=== PATIENT | male | born 1950 | race Caucasian/White ===

== ENCOUNTER 2020-04-14 14:26 | Emergency (ER) | payer MEDICARE, SELFPAY ==
[2020-04-14 14:54] VITALS: PULSE 81; RESP 16; TEMP 36.8; O2SAT 95; BMI 31.0
--- NOTE | 2020-04-14 15:15 | CT_ITS ---
EXAMINATION: CT ABDOMEN AND PELVIS WITHOUT CONTRAST CLINICAL INFORMATION: Gross hematuria. COMPARISON: None TECHNIQUE: Multidetector volumetric imaging was performed from the superior aspect of the liver through the pubic symphysis. Sagittal and coronal reformatted images were obtained on the technologist's workstation. This CT examination was performed using dose optimization techniques as appropriate, variously including the following: *Automated exposure control *Adjustment of mA and/or kV according to patient size (this includes techniques or standardized protocols for targeted exams where dose is matched to indication/reason for exam; i.e. extremities or head) *Use of iterative reconstruction technique DLP: 596 mGy-cm FINDINGS: LUNG BASES: Linear scarring versus atelectasis in the left lung base. LIVER, GALLBLADDER, AND BILIARY TREE: The liver is normal in size, shape, and attenuation. No focal hepatic lesion or biliary ductal dilatation is present. Cholelithiasis measuring up to 2.4 cm. No gallbladder wall thickening or associated inflammatory change. PANCREAS: Unremarkable. SPLEEN: Unremarkable. ADRENAL GLANDS: Unremarkable. KIDNEYS AND URETERS: The right kidney is normal in size, shape, and contour. There is no right-sided hydronephrosis or nephrolithiasis. No right-sided hydroureter. Evaluation of the left renal parenchyma is limited without contrast; however, there appears to be a hyperdense lobulated mass within the anterior aspect of the upper pole measuring 4.4 x 3.4 x 4.7 cm. There is asymmetric left perinephric renal stranding. No left-sided nephrolithiasis, hydronephrosis, or hydroureter. BLADDER: Unremarkable. GASTROINTESTINAL TRACT: Scattered diverticulosis without evidence of acute diverticulitis. No bowel wall thickening or associated inflammatory change. No small- or large-bowel obstruction. Unremarkable appendix. PERITONEAL CAVITY: No intra-abdominal free air or free fluid. ABDOMINAL WALL: No significant hernia is appreciated. LYMPH NODES: No significant lymphadenopathy. Evaluation somewhat limited without IV contrast. VASCULAR: No abdominal aortic dilatation. Scattered atherosclerotic calcifications throughout the abdominal aorta and its branch vessels. Unremarkable IVC. PELVIC VISCERA: Coarse calcifications within the prostate. OSSEOUS STRUCTURES: Unremarkable. CT/CT abdomen pelvis wo con IMPRESSION: 1. Left upper pole renal mass measuring approximately 4.7 cm in greatest dimension. Evaluation is limited without IV contrast. Asymmetric left perinephric stranding. Findings are concerning for a neoplastic lesion and MRI of the abdomen without and with contrast could help further evaluate. 2. No hydronephrosis, hydroureter, or nephrolithiasis. Unremarkable urinary bladder. 3. No significant lymphadenopathy, however, evaluation is limited without IV contrast. 4. Cholelithiasis without evidence of acute cholecystitis. 5. Diverticulosis. No small- or large-bowel obstruction. Unremarkable appendix. This critical result was discussed with Dr. Jackson at 4:09 PM on 04/14/2020 and it was ascertained that the content and urgency of the report was understood at the time of direct communication.
[2020-04-14] MEDS: 0.9 % Sodium Chloride 500 ML 1000 ML IV (15:36)
[2020-04-14 15:44] LABS: Basophils Absolute Auto 0.1 X10*3/uL (0.0-0.2); Basophils Percent Auto 0.6 % (0-2); Eosinophils Absolute Auto 0.2 X10*3/uL (0.0-0.4); Eosinophils Percent Auto 1.6 % (0-4); Hematocrit 50.3 % (42-52); Hemoglobin 17.2 g/dl (14.0-18.0); Imm Gran Abs Auto 0.05 X10*3/uL (0.00-0.03); Imm Gran Pct Auto 0.4 % (0.0-0.4); Lymphocytes Absolute Auto 1.5 X10*3/uL (1.2-4.9); Lymphocytes Percent Auto 13.1 % (20-40); MANUAL DIFF FLAG NO; Mean Corpuscular HGB Conc 34.2 g/dl (31.0-36.0); Mean Corpuscular Hemoglobin 31.8 pg (27.0-33.0); Mean Platelet Volume 11.4 fL (9.4-12.4); Monocytes Absolute Auto 1.1 X10*3/uL (0.1-1.2); Monocytes Percent Auto 9.2 % (2-11); Neutrophils Absolute Auto 8.6 X10*3/uL (2.0-8.3); Neutrophils Percent Auto 75.1 % (45-73); Platelet Count 152 X10*3/uL (160-400); Red Blood Count 5.41 X10*6/uL (4.60-5.80); Red Cell Distribution Width 14.4 % (11.0-16.0); White Blood Count 11.5 X10*3/uL (4.8-10.8)
[2020-04-14 15:50] LABS: INTERNATIONAL NORM RATIO 1.2 (0.9-1.1)
[2020-04-14 15:52] LABS: Partial Thromboplastin Time 37.2 SEC (24.1-38.0)
[2020-04-14 16:08] LABS: Alanine Aminotransferase 20 U/L (0-40); Albumin Level 4.7 g/dL (3.5-5.0); Alkaline Phosphatase 135 U/L (39-117); Anion Gap 14 (12-20); Aspartate Amino Transferase 18 U/L (5-37); Bilirubin Direct 0.9 mg/dL (0.0-0.5); Bilirubin Total 1.9 mg/dL (0.0-1.0); Blood Urea Nitrogen 10 mg/dL (9-16); Calcium 9.3 mg/dL (8.4-10.2); Carbon Dioxide 27 mmol/L (22-29); Chloride 100 mmol/L (96-108); Estimated Glomerular Filt Rate > 60; Glucose Random 117 mg/dL (60-115); Lipase 50 U/L (8-78); Sodium 137 mmol/L (135-145); Total Protein 8.1 g/dL (6.5-8.0)
[2020-04-14 16:51] LABS: Appearance Urine TURBID; Color Urine RED; Glucose Urine UA NEG (NEG); Leukocyte Esterase Urine NEG (NEG); Nitrite Urine NEG (NEG); Specific Gravity - Urine 1.015 (1.005-1.025); Urine Blood 3+ (NEG); Urine Ketones NEG (NEG); Urine Protein 2+ MG/DL (NEG-TRACE)
[2020-04-14 16:54] LABS: RBC Urine TNTC /HPF (0); UACC CULT YES
--- NOTE | 2020-04-14 16:58 | ED.MALEGU ---
HPI - Male Genitourinary General Chief complaint: Urogenital-Male Stated complaint: BLOOD IN URINE Time Seen by Provider: 04/14/20 15:15 Source: patient Mode of arrival: ambulatory Limitations: no limitations History of Present Illness HPI Narrative: hematuria, painless, since yesterday, patient had another episode last week but resolved on its own, no history of trauma injury. Onset (ago): day(s) (1) Duration: constant Severity: moderate Quality: other ( nonpainful) Exacerbating factors: urination Related Data Allergies Allergy/AdvReac Type Severity Reaction Status Date / Time No Known Allergies Allergy Unverified 03/01/20 16:02 Review of Systems Review of Systems: all other systems are reviewed and are negative Constitutional: Reports as per HPI and Reports no additional constitutional complaints Eyes: Reports as per HPI and Reports no additional eye complaints Reports system reviewed and no additional complaints, except as documented Cardiovascular: Reports as per HPI and Reports no additional cardiovascular complaints Respiratory: Reports as per HPI and Reports no additional respiratory complaints Gastrointestinal: Reports as per HPI and Reports no additional gastrointestinal complaints Genitourinary: Reports no additional female genitourinary complaints Musculoskeletal: Reports no additional musculoskeletal complaints Skin/Breast: Reports system reviewed and no additional complaints, except as docu Psychiatric: Reports no additional psychiatric complaints Endocrine: Reports no additional endocrine complaints Hematologic/Lymphatic: Reports no additional hematologic/lymphatic complaints Allergic/Immunologic: Reports no additional allergic/immunologic complaints Reports system reviewed and no additional complaints, except as documented and Reports Abnormal speech present [facility] Past Medical History Medical History BPH (benign prostatic hyperplasia) Hypertension Surgical History History of quadruple bypass Social History Social History Alcohol intake: never Smoking Status: Never smoker Use of substances other than those prescribed or required for medical reasons: No Advance Directives: No Advance Directives Information Provided: No Physical Exam Vital Signs: Vital Signs: Vital Signs Temp Pulse Resp Pulse Ox 04/14/20 14:54 98.2 F 81 16 95 Body Mass Index 31.0 vital signs have been reviewed as normal and appeared to be correct. Heart rate normal. Respiration rate normal. Temperature normal. Oxygen saturation normal. Appearance: Alert. Oriented X3. No acute distress. Head: Normal external exam. Normocephalic. Atraumatic. No Ledezma signs noted. No raccoon eyes noted Eyes: PERRLA. EOMI. Conjunctiva and sclera normal. Eyelids normal. ENT: EAC normal. TM's Normal. Pharynx normal. Uvula midline. Moist mucous membranes. No trismus noted. No drooling noted. No muffled voice noted. Neck: Normal inspection. Neck supple. FROM. No adenopathy. Thyroid Normal. No meningeal signs. No neck mass noted. CVS: Normal heart rate and rhythm. Heart sound normal. No murmurs noted. Pulses normal throughout. Respiratory: No respiratory distress. Painless inspiration. Breath sounds normal. No wheezes/rales/rhonchi noted. Chest nontender. No accessory muscle usage noted or decreased air movement noted. Abdomen: Soft and nontender. Bowel sounds normal in all 4 quadrants. No distention noted. No organomegaly noted. No visible injury noted. Back: No CVA tenderness. Full range of motion noted. Skin: Skin warm and dry. Normal skin color. Normal skin turgor. No rashes/lesions/lacerations noted. Extremities: No lower extremity edema. Extremities exhibit normal range of motion. Extremities nontender. Neuro: Oriented X 3. No motor deficit. No sensory deficit. Reflexes normal. MDM - Male Genitourinary MDM Narrative Medical decision making narrative: assessment and plan. 69-year-old male came in with painless hematuria, CT of the abdomen pelvis showed left renal mass highly suspicious for malignancy, patient needs further workup. Patient otherwise hemodynamically stable, not anemic. Case discussed with Dr. Shaw who recommended to discharge the patient and see him next week in his office. Lab Data Attestation: I reviewed the patient's lab results. Result diagrams: 04/14/20 15:32 04/14/20 15:32 Labs: Lab Results 04/14/20 04/14/20 04/14/20 Range/Units 15:32 15:32 15:32 WBC 11.5 H (4.8-10.8) X10*3/uL RBC 5.41 (4.60-5.80) X10*6/uL Hgb 17.2 (14.0-18.0) g/dl Hct 50.3 (42-52) % MCV 93.0 (80-98) fL MCH 31.8 (27.0-33.0) pg MCHC 34.2 (31.0-36.0) g/dl RDW 14.4 (11.0-16.0) % Plt Count 152 L (160-400) X10*3/uL MPV 11.4 (9.4-12.4) fL Immature Gran % (Auto) 0.4 (0.0-0.4) % Neut % (Auto) 75.1 H (45-73) % Lymph % (Auto) 13.1 L (20-40) % [place] % (Auto) 9.2 (2-11) % Eos % (Auto) 1.6 (0-4) % Baso % (Auto) 0.6 (0-2) % Lymph # (Auto) 1.5 (1.2-4.9) X10*3/uL [place] # (Auto) 1.1 (0.1-1.2) X10*3/uL Eos # (Auto) 0.2 (0.0-0.4) X10*3/uL Baso # (Auto) 0.1 (0.0-0.2) X10*3/uL Abs Immat Gran (auto) 0.05 H (0.00-0.03) X10*3/uL Absolute Neuts (auto) 8.6 H (2.0-8.3) X10*3/uL Absolute Nucleated RBC 0.000 (0.0-0.012) X10*3/uL Nucleated RBC % (auto) 0.0 (0.0-0.2) /100WBC PT 14.0 H (10.8-13.0) SEC INR 1.2 H (0.9-1.1) APTT 37.2 (24.1-38.0) SEC Sodium 137 (135-145) mmol/L Potassium 4.0 (3.3-5.1) mmol/l Chloride 100 (96-108) mmol/L Carbon Dioxide 27 (22-29) mmol/L Anion Gap 14 (12-20) BUN 10 (9-16) mg/dL Creatinine 0.94 (0.5-1.4) mg/dL Estim Creat Clear Calc 77.0 Estimated GFR > 60 Random Glucose 117 H (60-115) mg/dL Calcium 9.3 (8.4-10.2) mg/dL Total Bilirubin 1.9 H (0.0-1.0) mg/dL Direct Bilirubin 0.9 H (0.0-0.5) mg/dL AST 18 (5-37) U/L ALT 20 (0-40) U/L Alkaline Phosphatase 135 H (39-117) U/L Total Protein 8.1 H (6.5-8.0) g/dL Albumin 4.7 (3.5-5.0) g/dL Lipase 50 (8-78) U/L Urine Color Urine Appearance Urine pH (5.0-8.0) Ur Specific [place] (1.005-1.025) Urine Protein (NEG-TRACE) MG/DL Urine Glucose (UA) (NEG) MG/DL Urine Ketones (NEG) MG/DL Urine Blood (NEG) Urine Nitrite (NEG) Ur Leukocyte Esterase (NEG) Urine RBC (0) /HPF Urine WBC (0-4) /HPF Ur Squamous Epith Cells /LPF Urine Bacteria /LPF 04/14/20 Range/Units 15:38 WBC (4.8-10.8) X10*3/uL RBC (4.60-5.80) X10*6/uL Hgb (14.0-18.0) g/dl Hct (42-52) % MCV (80-98) fL MCH (27.0-33.0) pg MCHC (31.0-36.0) g/dl RDW (11.0-16.0) % Plt Count (160-400) X10*3/uL MPV (9.4-12.4) fL Immature Gran % (Auto) (0.0-0.4) % Neut % (Auto) (45-73) % Lymph % (Auto) (20-40) % [place] % (Auto) (2-11) % Eos % (Auto) (0-4) % Baso % (Auto) (0-2) % Lymph # (Auto) (1.2-4.9) X10*3/uL [place] # (Auto) (0.1-1.2) X10*3/uL Eos # (Auto) (0.0-0.4) X10*3/uL Baso # (Auto) (0.0-0.2) X10*3/uL Abs Immat Gran (auto) (0.00-0.03) X10*3/uL Absolute Neuts (auto) (2.0-8.3) X10*3/uL Absolute Nucleated RBC (0.0-0.012) X10*3/uL Nucleated RBC % (auto) (0.0-0.2) /100WBC PT (10.8-13.0) SEC INR (0.9-1.1) APTT (24.1-38.0) SEC Sodium (135-145) mmol/L Potassium (3.3-5.1) mmol/l Chloride (96-108) mmol/L Carbon Dioxide (22-29) mmol/L Anion Gap (12-20) BUN (9-16) mg/dL Creatinine (0.5-1.4) mg/dL Estim Creat Clear Calc Estimated GFR Random Glucose (60-115) mg/dL Calcium (8.4-10.2) mg/dL Total Bilirubin (0.0-1.0) mg/dL Direct Bilirubin (0.0-0.5) mg/dL AST (5-37) U/L ALT (0-40) U/L Alkaline Phosphatase (39-117) U/L Total Protein (6.5-8.0) g/dL Albumin (3.5-5.0) g/dL Lipase (8-78) U/L Urine Color RED Urine Appearance TURBID Urine pH 7.0 (5.0-8.0) Ur Specific [place] 1.015 (1.005-1.025) Urine Protein 2+ H (NEG-TRACE) MG/DL Urine Glucose (UA) NEG (NEG) MG/DL Urine Ketones NEG (NEG) MG/DL Urine Blood 3+ H (NEG) Urine Nitrite NEG (NEG) Ur Leukocyte Esterase NEG (NEG) Urine RBC TNTC H (0) /HPF Urine WBC 10-14 H (0-4) /HPF Ur Squamous Epith Cells NONE /LPF Urine Bacteria NONE /LPF Imaging Data CT scan - abdomen: Radiologist's impression: 1. Left upper pole renal mass measuring approximately 4.7 cm in greatest dimension. Evaluation is limited without IV contrast. Asymmetric left perinephric stranding. Findings are concerning for a neoplastic lesion and MRI of the abdomen without and with contrast could help further evaluate. 2. No hydronephrosis, hydroureter, or nephrolithiasis. Unremarkable urinary bladder. 3. No significant lymphadenopathy, however, evaluation is limited without IV contrast. 4. Cholelithiasis without evidence of acute cholecystitis. 5. Diverticulosis. No small- or large-bowel obstruction. Unremarkable appendix. Discharge Plan Discharge Clinical Impression: Left kidney mass Hematuria Qualifiers: Hematuria type: gross Qualified Code(s): R31.0 - Gross hematuria Patient Disposition: Home, Self-Care Instructions: Hematuria (ED) Referrals: Yoandy Shaw MD [Physician] - 2 days
== END 2020-04-14 17:45 | disposition home or self-care (01) ==
PROVIDERS: Emergency Provider Emergency Medicine; PCP Internal Medicine
DX: R31.0 Gross hematuria (principal); N28.89 Other specified disorders of kidney and ureter; Z79.899 Other long term (current) drug therapy
CPT/HCPCS: 36415; 74176; 80048; 80076; 81001; 83690; 85025; 85610; 85730; 87086; 99284

== ENCOUNTER 2020-04-17 19:49 | Emergency (ER) | payer MEDICARE, SELFPAY ==
[2020-04-17 19:55] VITALS: BP 164/73; PULSE 87; RESP 18; TEMP 37.1; O2SAT 93; BMI 29.4
[2020-04-17 20:07] LABS: Basophils Absolute Auto 0.1 X10*3/uL (0.0-0.2); Basophils Percent Auto 0.4 % (0-2); Eosinophils Absolute Auto 0.4 X10*3/uL (0.0-0.4); Eosinophils Percent Auto 2.7 % (0-4); Hematocrit 48.4 % (42-52); Hemoglobin 16.7 g/dl (14.0-18.0); Imm Gran Abs Auto 0.05 X10*3/uL (0.00-0.03); Imm Gran Pct Auto 0.4 % (0.0-0.4); Lymphocytes Absolute Auto 1.5 X10*3/uL (1.2-4.9); Lymphocytes Percent Auto 11.4 % (20-40); MANUAL DIFF FLAG SCAN; Mean Corpuscular HGB Conc 34.5 g/dl (31.0-36.0); Mean Corpuscular Hemoglobin 31.9 pg (27.0-33.0); Mean Corpuscular Volume 92.5 fL (80-98); Mean Platelet Volume 11.1 fL (9.4-12.4); Monocytes Absolute Auto 1.6 X10*3/uL (0.1-1.2); Monocytes Percent Auto 11.9 % (2-11); Neutrophils Absolute Auto 9.6 X10*3/uL (2.0-8.3); Neutrophils Percent Auto 73.2 % (45-73); Platelet Count 154 X10*3/uL (160-400); Red Blood Count 5.23 X10*6/uL (4.60-5.80); Red Cell Distribution Width 14.1 % (11.0-16.0); SCAN SMEAR FLAG 1; White Blood Count 13.2 X10*3/uL (4.8-10.8)
[2020-04-17 20:24] LABS: SLIDE REVIEW VERIFIED
[2020-04-17 20:29] LABS: Alanine Aminotransferase 20 U/L (0-40); Albumin Level 4.5 g/dL (3.5-5.0); Alkaline Phosphatase 130 U/L (39-117); Anion Gap 14 (12-20); Aspartate Amino Transferase 18 U/L (5-37); Bilirubin Total 1.5 mg/dL (0.0-1.0); Blood Urea Nitrogen 11 mg/dL (9-16); Calcium 8.7 mg/dL (8.4-10.2); Carbon Dioxide 23 mmol/L (22-29); Chloride 102 mmol/L (96-108); Creatinine Clr Calc Pharmacy 69.5; Estimated Glomerular Filt Rate > 60; Glucose Random 97 mg/dL (60-115); Potassium 4.1 mmol/l (3.3-5.1); Sodium 135 mmol/L (135-145); Total Protein 7.5 g/dL (6.5-8.0)
[2020-04-17 20:46] LABS: Glucose Urine UA NEG (NEG); Leukocyte Esterase Urine 2+ (NEG); Nitrite Urine POS (NEG); Specific Gravity - Urine <= 1.005 (1.005-1.025); Urine Blood 3+ (NEG); Urine Ketones 5 MG/DL (NEG); Urine Protein 3+ MG/DL (NEG-TRACE)
[2020-04-17 20:53] LABS: Appearance Urine TURBID; Color Urine RED
[2020-04-17 20:54] LABS: Bacteria Urine 1+ /LPF; RBC Urine 50-75 /HPF (0)
--- NOTE | 2020-04-17 21:38 | ED_ITS ---
HPI - Male Genitourinary General Chief complaint: Urogenital-Male Stated complaint: blood in urine Time Seen by Provider: 04/17/20 20:18 Source: patient Mode of arrival: ambulatory Limitations: no limitations History of Present Illness HPI Narrative: patient complaining of gross hematuria for last 3- 4 days was seen here on 04/14 which showed left renal mass as a cause of hematuria patient is supposed to see urologist next week. Patient comes here now because he has some blood clots earlier today otherwise patient feels fine bladder scan shows 255 cc of urine post vital Related Data Allergies Allergy/AdvReac Type Severity Reaction Status Date / Time No Known Allergies Allergy Verified 04/17/20 19:54 Review of Systems Review of Systems: REVIEW OF SYSTEMS: Pertinent positives and negatives are stated above in the history. GEN: no fevers, chills, fatigue HEENT: no nasal congestion, sore throat, ear pain NEURO: no headache, dizziness, focal weakness PULM: no cough, shortness of breath CV: no chest pain, palpitations, LE edema ABD: no abdominal pain, nausea, vomiting, diarrhea : no dysuria, urgency, frequency SKIN: no rash ROS otherwise negative x 10 [facility] Past Medical History Medical History BPH (benign prostatic hyperplasia) Hypertension Surgical History History of quadruple bypass Social History Social History Alcohol intake: never Smoking Status: Current every day smoker Use of substances other than those prescribed or required for medical reasons: Yes Substance Use Type: Marijuana Advance Directives: No Advance Directives Information Provided: Yes Physical Exam Vital Signs: Vital Signs: Vital Signs Temp Pulse Resp BP Pulse Ox 04/17/20 19:55 98.8 F 87 18 164/73 H 93 Body Mass Index 29.4 Appearance: Alert. Oriented X3. No acute distress. Eyes: Pupils equal, round and reactive to light. ENT: Pharynx normal. Neck: Normal inspection. Neck supple. CVS: Normal heart rate and rhythm. Pulses normal. Respiratory: No respiratory distress. Breath sounds normal. Abdomen: Soft and nontender. no CVA tenderness Skin: Skin warm and dry. Normal skin color. Normal skin turgor. Extremities: No lower extremity edema. Good range of movement Neuro: Oriented X 3. No motor deficit. No sensory deficit. Course Course Course Narrative: patient's H&H stable Gomez catheter was placed few blood clots came patient feeling much better now will leave the Gomez catheter for now advised to follow-up with urologist and drink plenty of fluids MDM - Male Genitourinary Lab Data Result diagrams: 04/17/20 19:58 04/17/20 19:58 Labs: Lab Results 04/17/20 04/17/20 04/17/20 Range/Units 19:58 19:58 19:58 WBC 13.2 H (4.8-10.8) X10*3/uL RBC 5.23 (4.60-5.80) X10*6/uL Hgb 16.7 (14.0-18.0) g/dl Hct 48.4 (42-52) % MCV 92.5 (80-98) fL MCH 31.9 (27.0-33.0) pg MCHC 34.5 (31.0-36.0) g/dl RDW 14.1 (11.0-16.0) % Plt Count 154 L (160-400) X10*3/uL MPV 11.1 (9.4-12.4) fL Immature Gran % (Auto) 0.4 (0.0-0.4) % Neut % (Auto) 73.2 H (45-73) % Lymph % (Auto) 11.4 L (20-40) % [place] % (Auto) 11.9 H (2-11) % Eos % (Auto) 2.7 (0-4) % Baso % (Auto) 0.4 (0-2) % Lymph # (Auto) 1.5 (1.2-4.9) X10*3/uL [place] # (Auto) 1.6 H (0.1-1.2) X10*3/uL Eos # (Auto) 0.4 (0.0-0.4) X10*3/uL Baso # (Auto) 0.1 (0.0-0.2) X10*3/uL Abs Immat Gran (auto) 0.05 H (0.00-0.03) X10*3/uL Absolute Neuts (auto) 9.6 H (2.0-8.3) X10*3/uL Absolute Nucleated RBC 0.000 (0.0-0.012) X10*3/uL Nucleated RBC % (auto) 0.0 (0.0-0.2) /100WBC Smear Tech's Comments VERIFIED Hold Blue Top SEE NOTE Sodium 135 (135-145) mmol/L Potassium 4.1 (3.3-5.1) mmol/l Chloride 102 (96-108) mmol/L Carbon Dioxide 23 (22-29) mmol/L Anion Gap 14 (12-20) BUN 11 (9-16) mg/dL Creatinine 0.95 (0.5-1.4) mg/dL Estim Creat Clear Calc 69.5 Estimated GFR > 60 Random Glucose 97 (60-115) mg/dL Calcium 8.7 (8.4-10.2) mg/dL Total Bilirubin 1.5 H (0.0-1.0) mg/dL AST 18 (5-37) U/L ALT 20 (0-40) U/L Alkaline Phosphatase 130 H (39-117) U/L Total Protein 7.5 (6.5-8.0) g/dL Albumin 4.5 (3.5-5.0) g/dL Urine Color Urine Appearance Urine pH (5.0-8.0) Ur Specific [place] (1.005-1.025) Urine Protein (NEG-TRACE) MG/DL Urine Glucose (UA) (NEG) MG/DL Urine Ketones (NEG) MG/DL Urine Blood (NEG) Urine Nitrite (NEG) Ur Leukocyte Esterase (NEG) Urine RBC (0) /HPF Urine WBC (0-4) /HPF Ur Squamous Epith Cells /LPF Urine Bacteria /LPF 04/17/20 Range/Units 20:05 WBC (4.8-10.8) X10*3/uL RBC (4.60-5.80) X10*6/uL Hgb (14.0-18.0) g/dl Hct (42-52) % MCV (80-98) fL MCH (27.0-33.0) pg MCHC (31.0-36.0) g/dl RDW (11.0-16.0) % Plt Count (160-400) X10*3/uL MPV (9.4-12.4) fL Immature Gran % (Auto) (0.0-0.4) % Neut % (Auto) (45-73) % Lymph % (Auto) (20-40) % [place] % (Auto) (2-11) % Eos % (Auto) (0-4) % Baso % (Auto) (0-2) % Lymph # (Auto) (1.2-4.9) X10*3/uL [place] # (Auto) (0.1-1.2) X10*3/uL Eos # (Auto) (0.0-0.4) X10*3/uL Baso # (Auto) (0.0-0.2) X10*3/uL Abs Immat Gran (auto) (0.00-0.03) X10*3/uL Absolute Neuts (auto) (2.0-8.3) X10*3/uL Absolute Nucleated RBC (0.0-0.012) X10*3/uL Nucleated RBC % (auto) (0.0-0.2) /100WBC Smear Tech's Comments Hold [place] Sodium (135-145) mmol/L Potassium (3.3-5.1) mmol/l Chloride (96-108) mmol/L Carbon Dioxide (22-29) mmol/L Anion Gap (12-20) BUN (9-16) mg/dL Creatinine (0.5-1.4) mg/dL Estim Creat Clear Calc Estimated GFR Random Glucose (60-115) mg/dL Calcium (8.4-10.2) mg/dL Total Bilirubin (0.0-1.0) mg/dL AST (5-37) U/L ALT (0-40) U/L Alkaline Phosphatase (39-117) U/L Total Protein (6.5-8.0) g/dL Albumin (3.5-5.0) g/dL Urine Color RED Urine Appearance TURBID Urine pH 7.0 (5.0-8.0) Ur Specific [place] <= 1.005 (1.005-1.025) Urine Protein 3+ H (NEG-TRACE) MG/DL Urine Glucose (UA) NEG (NEG) MG/DL Urine Ketones 5 (NEG) MG/DL Urine Blood 3+ H (NEG) Urine Nitrite POS H (NEG) Ur Leukocyte Esterase 2+ H (NEG) Urine RBC 50-75 H (0) /HPF Urine WBC 1-4 (0-4) /HPF Ur Squamous Epith Cells NONE /LPF Urine Bacteria 1+ /LPF
[2020-04-17 21:48] VITALS: BP 131/62; PULSE 75; RESP 15; TEMP 36.7; O2SAT 95
--- NOTE | 2020-04-17 21:50 | PC.NURSE ---
PATIENT WAS GIVEN LEG BAG TO TAKE HOME .
== END 2020-04-17 23:08 | disposition home or self-care (01) ==
PROVIDERS: Emergency Provider Internal Medicine; PCP Internal Medicine
DX: R31.0 Gross hematuria (principal); F17.200 Nicotine dependence, unspecified, uncomplicated; Z71.6 Tobacco abuse counseling
CPT/HCPCS: 36415; 51798; 80053; 81001; 85025; 87086; 99284

== ENCOUNTER 2020-04-24 | Outpatient (REF) | payer MEDICARE, SELFPAY | END 2020-04-24 00:01 | disposition home or self-care (01) | LOC: HO.LNP | PROVIDERS: Visit Provider Urology | DX: R31.9 Hematuria, unspecified (principal); N28.89 Other specified disorders of kidney and ureter | CPT/HCPCS: 88112 ==

== ENCOUNTER → 2020-04-24 10:29 | Outpatient (BNVA) | payer MEDICARE, SELFPAY | PROVIDERS: PCP Internal Medicine; Referring Provider Internal Medicine; Visit Provider Urology | DX: C64.9 Malignant neoplasm of unspecified kidney, except renal pelvis (principal) | CPT/HCPCS: Q3014 ==

== ENCOUNTER 2020-04-30 12:41 | Outpatient (REF) | payer MEDICARE, SELFPAY | END 2020-04-30 12:42 | disposition home or self-care (01) | LOC: HO.LNP 12:41 | PROVIDERS: Visit Provider Urology | DX: Z13.89 Encounter for screening for other disorder (principal) ==

== ENCOUNTER 2020-05-15 08:45 | Outpatient (REF) | payer MEDICARE, SELFPAY ==
--- NOTE | 2020-05-15 08:47 | CT_ITS ---
EXAMINATION: CT UROGRAM CLINICAL INFORMATION: Malignant neoplasm of kidney. Gross hematuria. COMPARISON: CT abdomen and pelvis without contrast 04/14/2020 TECHNIQUE: 5 mm thin axial and 3 mm thin sagittal and coronal images of abdomen and pelvis were obtained with and without IV 100 mL Omnipaque 350. DLP 946. FINDINGS: There is plate-like atelectasis or scarring in the lingula and left lower lobe. The heart size is normal. There is a solitary 1.6 cm radiopaque gallstone. No radiopaque calculi seen in the kidneys or bladder. There is scattered calcification seen in the prostate gland. Postcontrast, there are bilateral symmetrical nephrograms. Both kidneys are normal size, shape and position. There is architectural distortion in the upper pole left kidney with a subtle mass suspected along the anterior margin which appears isodense to the cortex on postcontrast and precontrast exam. It is partially exophytic. It measures approximately 3.7 cm wide, 3.8 cm in AP and 5.4 cm in craniocaudad length. There is good opacification of both kidneys, pelvis and the entire ureters without an intraluminal filling defect or hydronephrosis. There is bilateral perinephric stranding slightly greater on the left than right. Excreted contrast opacified urinary bladder appears unremarkable. Contrast-enhanced liver, spleen, pancreas, and bilateral adrenal glands are unremarkable. A normal caliber abdominal aorta with widely patent branches is noted. There are solitary renal arteries bilaterally. The renal veins are patent, as well. There is scattered stool and gas seen throughout the colon without any significant distention. The small bowel loops are normal caliber. The appendix is normal caliber. No free air, free fluid or inflammatory process seen. The abdominal wall appears unremarkable. The prostate gland is enlarged with central gland calcification. No lytic or sclerotic process seen. There is mild ventral spondylosis lower thoracic and mid lumbar spine. No lytic process. CT/CT urogram IMPRESSION: Subtle isodense enhancing mass similar to renal cortex in upper pole left kidney without caliectasis. This is highly suspicious for RENAL CELL CARCINOMA. The rest of the kidneys are unremarkable. There is no hydronephrosis or ureteral dilatation. Recommend correlation with MRI for better definition of the tumor. The bladder is unremarkable. Solitary gallstone without wall thickening. Mild constipation.
[2020-05-15] MEDS: iohexoL 350 MG/ML 100 ML INFUS..BTL IV (09:48)
== END 2020-05-15 08:46 | disposition home or self-care (01) ==
LOC: HO.CT 08:45
PROVIDERS: PCP Internal Medicine; Visit Provider Urology
DX: C64.9 Malignant neoplasm of unspecified kidney, except renal pelvis (principal)
CPT/HCPCS: 74178; Q9967

== ENCOUNTER → 2020-05-31 13:43 | Outpatient (BNVA) | payer MEDICARE, SELFPAY | PROVIDERS: PCP Internal Medicine; Visit Provider Urology | DX: R39.14 Feeling of incomplete bladder emptying (principal); R35.1 Nocturia | CPT/HCPCS: Q3014 ==

== ENCOUNTER 2020-08-13 11:00 | Emergency (ER) | payer MEDICARE, SELFPAY ==
[2020-08-13 12:02] VITALS: BP 123/58; PULSE 67; RESP 18; TEMP 36.5; O2SAT 91; BMI 31.9
--- NOTE | 2020-08-13 12:21 | ED.MALEGU ---
HPI - Male Genitourinary General Chief complaint: Urogenital-Male Stated complaint: urinating blood with clots Time Seen by Provider: 08/13/20 12:21 Source: patient Mode of arrival: ambulatory Limitations: no limitations History of Present Illness HPI Narrative: 69-year-old male with past medical history significant for hypertension, BPH, cardiac bypass surgery, hypertension as well as other history as noted below who has been followed by Urology for left renal mass plan for diagnostic intervention at some point this month he reports he has appointment on August 30 however on Thursday he started experience mild hematuria this morning he was unable to void causing pressure in his lower abdomen. Aside from this he denies any fever or chills. No dysuria, nausea vomiting. Denies any testicular or penile pain. Onset (ago): day(s) Duration: constant Relieving factors: none Exacerbating factors: none Associated symptoms: Reports denies other symptoms Related Data Home Medications Medication Instructions Recorded Confirmed atorvastatin 80 mg tablet 80 mg PO DAILY 04/24/20 08/13/20 hydroxyzine pamoate 25 mg capsule 25 mg PO TID PRN 04/24/20 08/13/20 ibuprofen 800 mg tablet 800 mg PO Q8H PRN 04/24/20 08/13/20 isosorbide mononitrate 30 mg 30 mg PO DAILY 04/24/20 08/13/20 tablet,extended release 24 hr metoprolol succinate 100 mg 100 mg PO DAILY 04/24/20 08/13/20 tablet,extended release 24 hr tamsulosin 0.4 mg capsule 0.4 mg PO DAILY 04/24/20 08/13/20 hydralazine 25 mg tablet 25 mg PO TID 05/31/20 08/13/20 Previous Rx's Medication Instructions Recorded finasteride 5 mg tablet 5 mg PO DAILY 90 Days #90 tab 06/05/20 Allergies Allergy/AdvReac Type Severity Reaction Status Date / Time No Known Allergies Allergy Verified 08/13/20 12:02 Review of Systems Review of Systems: Constitutional: No Weight loss, No Fever, No Chills, No Night Sweats, No Fatigue, No Malaise ENT/Mouth: No Hearing loss, No Ear Pain, No Nasal Congestion, No Sinus Pain, No Hoarseness, No sore throat, No Rhinorrhea, No Swallowing Difficulty Eyes: No Eye Pain, No Swelling, No Redness, No Foreign Body, No Discharge, No Vision Changes Cardiovascular: No Chest Pain, No SOB, No Dyspnea on Exertion, No Orthopnea, No Edema, No Palpitations Respiratory: No Cough, No Sputum, No Wheezing, No Dyspnea Gastrointestinal: No Nausea, No Vomiting, No Diarrhea, No Constipation, No abdominal Pain, No Hematochezia, No Melena Genitourinary: No Dysuria, No Urinary Frequency, No Urinary Incontinence, No Urgency, No Flank Pain Musculoskeletal: No joint pain, No Myalgias, No Joint Swelling Skin: No Skin Lesions, No rash Neuro: No Weakness, No Numbness, No Paresthesias, No Loss of Consciousness, No Dizziness, No Headache Psych: No Social Issues Heme/Lymph: No Bruising, No Bleeding,No Lymphadenopathy Endocrine: No Polyuria, No Polydipsia, No Temperature Intolerance Yes all other systems are reviewed and are negative [facility] Past Medical History Medical History BPH (benign prostatic hyperplasia) Hypertension Surgical History History of quadruple bypass Social History Social History Alcohol intake: never Smoking Status: Current every day smoker Substance Use Type: Marijuana Advance Directives: No Advance Directives Information Provided: No Physical Exam Vital Signs: Vital Signs: Last Vital Signs Temp 97.7 F 08/13/20 12:02 Pulse 67 08/13/20 12:02 Resp 18 08/13/20 12:02 BP 123/58 L 08/13/20 12:02 Pulse Ox 91 L 08/13/20 12:02 Body Mass Index 31.9 Reviewed Const: General: cooperative and healthy appearing; No acute distress or intoxicated appearing Nutritional Appearance: average body habitus Orientation/consciousness: patient oriented x3 HENMT: Head: Yes normal to inspection Ears: hearing grossly normal bilaterally Eyes: General: appearance normal, both eyes and all related structures Visual Gamez: normal visual gamez by confrontation Neck: Neck: Yes normal visual inspection, No positive Brudzinski's sign, No positive Kernig's sign and No tender Thyroid: Thyroid normal Chest: Chest palpation & inspection: normal inspection of the chest Resp: Effort & Inspection: normal respiratory effort Cardio: Jugular venous distension: no JVD Rhythm: regular rhythm Heart sounds: S1 normal heart sound present and S2 normal heart sound present GI: Inspection: Yes normal to inspection Palpation (GI): Firmness to palpation present (GI) other (Suprapubic otherwise negative abdominal exam.) Percussion: Yes normal to percussion Auscultation: normal bowel sounds : General: Yes no CVA tenderness Back/Spine/Pelvis: Back: no CVA tenderness Skin: General skin exam: no rashes or lesions noted Neuro: General: patient oriented x3 Extrem: General: Yes normal to inspection Course Reevaluation(s) Reevaluation #1: Bedside bladder scan with over 900 in bladder, CBI started with 3000 CC saline after draining about 1000 cc of maverick blood with small clots the output now is completely clear. States he feels much better in terms of his pressure in the abdomen from arrival. Labs pending will consult Urology. Reevaluation #2: Remains clear after 2 bags of CBI irrigation. Three-way converted to leg bag will follow-up with Dr. Shaw Consultations Consultation #1: 1322 Seen at bedside by Dr. Shaw plan for uro/cystoscopy this week will need mcclellan with leg bag and f/u in office to formulate treatment plan for left kidney mass. MDM - Male Genitourinary Differential Diagnosis Differential diagnosis: Likely urinary tract infection and acute retention of urine Medical Records Attestation: I reviewed the patient's medical records. Medical records narrative: Abdominal pelvis CT from 04/14/[address] from 05/15/2020 and reviewed Urology notes reviewed of Dr. Shaw from 05/31/2020 Lab Data Attestation: I reviewed the patient's lab results. Result diagrams: 08/13/20 13:16 08/13/20 13:16 Labs: Lab Results 08/13/20 08/13/20 08/13/20 Range/Units 13:16 13:16 13:16 WBC 11.9 H (4.8-10.8) X10*3/uL RBC 5.34 (4.60-5.80) X10*6/uL Hgb 16.8 (14.0-18.0) g/dl Hct 49.5 (42-52) % MCV 92.7 (80-98) fL MCH 31.5 (27.0-33.0) pg MCHC 33.9 (31.0-36.0) g/dl RDW 14.0 (11.0-16.0) % Plt Count 150 L (160-400) X10*3/uL MPV 11.4 (9.4-12.4) fL Immature Gran % (Auto) 0.4 (0.0-0.4) % Neut % (Auto) 77.0 H (45-73) % Lymph % (Auto) 7.0 L (20-40) % [place] % (Auto) 13.8 H (2-11) % Eos % (Auto) 1.5 (0-4) % Baso % (Auto) 0.3 (0-2) % Lymph # (Auto) 0.8 L (1.2-4.9) X10*3/uL [place] # (Auto) 1.6 H (0.1-1.2) X10*3/uL Eos # (Auto) 0.2 (0.0-0.4) X10*3/uL Baso # (Auto) 0.0 (0.0-0.2) X10*3/uL Abs Immat Gran (auto) 0.05 H (0.00-0.03) X10*3/uL Absolute Neuts (auto) 9.2 H (2.0-8.3) X10*3/uL Absolute Nucleated RBC 0.000 (0.0-0.012) X10*3/uL Nucleated RBC % (auto) 0.0 (0.0-0.2) /100WBC Smear Tech's Comments VERIFIED PT 15.1 H (10.8-13.0) SEC INR 1.3 H (0.9-1.1) APTT 34.1 (24.1-38.0) SEC Sodium 139 (135-145) mmol/L Potassium 4.2 (3.3-5.1) mmol/L Chloride 102 (96-108) mmol/L Carbon Dioxide 27 (22-29) mmol/L Anion Gap 14 (12-20) BUN 13 (9-16) mg/dL Creatinine 1.15 (0.5-1.4) mg/dL Estim Creat Clear Calc 63.8 Estimated GFR > 60 Random Glucose 106 (60-115) mg/dL Calcium 9.4 D (8.4-10.2) mg/dL Total Bilirubin 2.3 H (0.0-1.0) mg/dL AST 17 (5-37) U/L ALT 26 (0-40) U/L Alkaline Phosphatase 133 H (39-117) U/L Total Protein 7.4 (6.5-8.0) g/dL Albumin 4.4 (3.5-5.0) g/dL Urine Color Urine Appearance Urine pH (5.0-8.0) Ur Specific [place] (1.005-1.025) Urine Protein (NEG-TRACE) MG/DL Urine Glucose (UA) (NEG) MG/DL Urine Ketones (NEG) MG/DL Urine Blood (NEG) Urine Nitrite (NEG) Ur Leukocyte Esterase (NEG) Urine RBC (0) /HPF Urine WBC (0-4) /HPF Ur Squamous Epith Cells /LPF Urine Bacteria /LPF 08/13/20 Range/Units 13:16 WBC (4.8-10.8) X10*3/uL RBC (4.60-5.80) X10*6/uL Hgb (14.0-18.0) g/dl Hct (42-52) % MCV (80-98) fL MCH (27.0-33.0) pg MCHC (31.0-36.0) g/dl RDW (11.0-16.0) % Plt Count (160-400) X10*3/uL MPV (9.4-12.4) fL Immature Gran % (Auto) (0.0-0.4) % Neut % (Auto) (45-73) % Lymph % (Auto) (20-40) % [place] % (Auto) (2-11) % Eos % (Auto) (0-4) % Baso % (Auto) (0-2) % Lymph # (Auto) (1.2-4.9) X10*3/uL [place] # (Auto) (0.1-1.2) X10*3/uL Eos # (Auto) (0.0-0.4) X10*3/uL Baso # (Auto) (0.0-0.2) X10*3/uL Abs Immat Gran (auto) (0.00-0.03) X10*3/uL Absolute Neuts (auto) (2.0-8.3) X10*3/uL Absolute Nucleated RBC (0.0-0.012) X10*3/uL Nucleated RBC % (auto) (0.0-0.2) /100WBC Smear Tech's Comments PT (10.8-13.0) SEC INR (0.9-1.1) APTT (24.1-38.0) SEC Sodium (135-145) mmol/L Potassium (3.3-5.1) mmol/L Chloride (96-108) mmol/L Carbon Dioxide (22-29) mmol/L Anion Gap (12-20) BUN (9-16) mg/dL Creatinine (0.5-1.4) mg/dL Estim Creat Clear Calc Estimated GFR Random Glucose (60-115) mg/dL Calcium (8.4-10.2) mg/dL Total Bilirubin (0.0-1.0) mg/dL AST (5-37) U/L ALT (0-40) U/L Alkaline Phosphatase (39-117) U/L Total Protein (6.5-8.0) g/dL Albumin (3.5-5.0) g/dL Urine Color RED Urine Appearance TURBID Urine pH 6.5 (5.0-8.0) Ur Specific [place] 1.015 (1.005-1.025) Urine Protein 3+ H (NEG-TRACE) MG/DL Urine Glucose (UA) NEG (NEG) MG/DL Urine Ketones SEE NOTE (NEG) MG/DL Urine Blood 3+ H (NEG) Urine Nitrite SEE NOTE (NEG) Ur Leukocyte Esterase SEE NOTE (NEG) Urine RBC TNTC H (0) /HPF Urine WBC 0-2 (0-4) /HPF Ur Squamous Epith Cells NONE /LPF Urine Bacteria NONE /LPF Discharge Plan Discharge Clinical Impression: Gross hematuria, Acute urinary retention, Mcclellan catheter in place, Left kidney mass Patient Disposition: Home, Self-Care Instructions: Urinary Retention in Men (ED), Mcclellan Catheter Placement and Care (ED), Hematuria (ED) Additional Instructions: Please leave the Mcclellan catheter in place until you follow-up with Dr. Artis Drain bag frequently at minimum when it is at 2/3 full Keeping below your waistline Drink plenty fluids As discussed with you by Dr. Shaw would like see you in the office for further evaluation and treatment including scheduling for procedure Return if any concerns or worsening symptoms Thank you Prescriptions: No Action hydroxyzine pamoate 25 mg capsule 25 mg PO TID PRN (Reason: anxiety) RF: 0 atorvastatin 80 mg tablet 80 mg PO DAILY RF: 0 metoprolol succinate 100 mg tablet extended release 24 hr 100 mg PO DAILY RF: 0 isosorbide mononitrate 30 mg tablet extended release 24 hr 30 mg PO DAILY RF: 0 tamsulosin 0.4 mg capsule 0.4 mg PO DAILY RF: 0 ibuprofen 800 mg tablet 800 mg PO Q8H PRN (Reason: pain) RF: 0 hydralazine 25 mg tablet 25 mg PO TID RF: 0 finasteride 5 mg tablet 5 mg PO DAILY 90 Days Qty: 90 RF: 1 Referrals: Yoandy Shaw MD [Physician] - 5 days
[2020-08-13] MEDS: Lidocaine HCl 2 % Urojet 10 ML JEL.PF.APP TOPICAL (13:05)
[2020-08-13 13:27] LABS: Glucose Urine UA NEG (NEG); PH 6.5 (5.0-8.0); Specific Gravity - Urine 1.015 (1.005-1.025); Urine Blood 3+ (NEG); Urine Protein 3+ MG/DL (NEG-TRACE)
--- NOTE | 2020-08-13 13:27 | PM.UROCN ---
History of Present Illness Consult details Consult date: 08/13/20 Narrative: Seen in emergency room for hematuria 100 cc found in bladder Gomez catheter placed Prior CT imaging shows question of TCC versus RCC in his right kidney Discussed with patient Would plan on diagnostic ureteroscopy PMFSH Past Medical History Medical History BPH (benign prostatic hyperplasia) Hypertension Surgical History Surgical History History of quadruple bypass Social History Social History Alcohol intake: never Smoking Status: Current every day smoker Substance Use Type: Marijuana Advance Directives: No Advance Directives Information Provided: No Meds Allergies Allergy/AdvReac Type Severity Reaction Status Date / Time No Known Allergies Allergy Verified 08/13/20 12:02 Home Medications Medication Instructions Recorded Confirmed Last Taken Type atorvastatin 80 mg tablet 80 mg PO DAILY 04/24/20 Unknown History hydroxyzine pamoate 25 mg capsule 25 mg PO TID PRN 04/24/20 Unknown History ibuprofen 800 mg tablet 800 mg PO Q8H PRN 04/24/20 Unknown History isosorbide mononitrate 30 mg 30 mg PO DAILY 04/24/20 Unknown History tablet,extended release 24 hr loteprednol etabonate 0.38 % eye drp OPHTHALMIC (EYE) 04/24/20 Unknown History gel drops metoprolol succinate 100 mg 100 mg PO DAILY 04/24/20 Unknown History tablet,extended release 24 hr tamsulosin 0.4 mg capsule 0.4 mg PO DAILY 04/24/20 Unknown History hydralazine 25 mg tablet 25 mg PO TID 05/31/20 Unknown History Physical Exam Vital Signs: Vital Signs: Last Vital Signs Temp 97.7 F 08/13/20 12:02 Pulse 67 08/13/20 12:02 Resp 18 08/13/20 12:02 BP 123/58 L 08/13/20 12:02 Pulse Ox 91 L 08/13/20 12:02 Body Mass Index 31.9 Const: General: cooperative, healthy appearing, comfortable and no acute distress Nutritional Appearance: average body habitus Orientation/consciousness: oriented to person, oriented to place and oriented to time Eyes: General: appearance normal, both eyes and all related structures Chest: Chest palpation & inspection: normal inspection of the chest Resp: Effort & Inspection: normal respiratory effort Cardio: Rate: regular rate GI: Inspection: Yes normal to inspection Skin: Hair: normal Neuro: General: oriented to person, oriented to place and oriented to time Extrem: General: Yes normal to inspection Results Labs Result diagrams: 08/13/20 13:16 08/13/20 13:16 Labs: All other labs normal. Assessment and Plan (1) Gross hematuria: Status: Acute Plan for diagnostic ureteroscopy right side Procedures Date of Service Date of Service: 08/13/20
[2020-08-13 13:28] LABS: Basophils Percent Auto 0.3 % (0-2); Eosinophils Absolute Auto 0.2 X10*3/uL (0.0-0.4); Eosinophils Percent Auto 1.5 % (0-4); Hematocrit 49.5 % (42-52); Hemoglobin 16.8 g/dl (14.0-18.0); Imm Gran Abs Auto 0.05 X10*3/uL (0.00-0.03); Imm Gran Pct Auto 0.4 % (0.0-0.4); Lymphocytes Absolute Auto 0.8 X10*3/uL (1.2-4.9); MANUAL DIFF FLAG SCAN; Mean Corpuscular HGB Conc 33.9 g/dl (31.0-36.0); Mean Corpuscular Hemoglobin 31.5 pg (27.0-33.0); Mean Corpuscular Volume 92.7 fL (80-98); Mean Platelet Volume 11.4 fL (9.4-12.4); Monocytes Absolute Auto 1.6 X10*3/uL (0.1-1.2); Monocytes Percent Auto 13.8 % (2-11); Neutrophils Absolute Auto 9.2 X10*3/uL (2.0-8.3); Platelet Count 150 X10*3/uL (160-400); Red Blood Count 5.34 X10*6/uL (4.60-5.80); SCAN SMEAR FLAG 1; White Blood Count 11.9 X10*3/uL (4.8-10.8)
[2020-08-13 13:38] LABS: Appearance Urine TURBID; Color Urine RED; RBC Urine TNTC /HPF (0); WBC Urine 0-2 /HPF (0-4)
[2020-08-13 13:40] LABS: INTERNATIONAL NORM RATIO 1.3 (0.9-1.1); Prothrombin Time 15.1 SEC (10.8-13.0)
[2020-08-13 13:43] LABS: Partial Thromboplastin Time 34.1 SEC (24.1-38.0)
[2020-08-13 13:59] LABS: Alanine Aminotransferase 26 U/L (0-40); Albumin Level 4.4 g/dL (3.5-5.0); Alkaline Phosphatase 133 U/L (39-117); Anion Gap 14 (12-20); Aspartate Amino Transferase 17 U/L (5-37); Bilirubin Total 2.3 mg/dL (0.0-1.0); Blood Urea Nitrogen 13 mg/dL (9-16); Calcium 9.4 mg/dL (8.4-10.2); Carbon Dioxide 27 mmol/L (22-29); Chloride 102 mmol/L (96-108); Creatinine Clr Calc Pharmacy 63.8; Estimated Glomerular Filt Rate > 60; Glucose Random 106 mg/dL (60-115); Potassium 4.2 mmol/L (3.3-5.1); Sodium 139 mmol/L (135-145); Total Protein 7.4 g/dL (6.5-8.0)
[2020-08-13 14:13] LABS: SLIDE REVIEW VERIFIED
[2020-08-13 16:39] VITALS: BP 136/84; PULSE 88; RESP 20
== END 2020-08-13 16:56 | disposition home or self-care (01) ==
PROVIDERS: Nurse Practitioner Primary Care; Emergency Provider Emergency Medicine; PCP Internal Medicine
DX: R31.0 Gross hematuria (principal); N39.0 Urinary tract infection, site not specified; N28.89 Other specified disorders of kidney and ureter; I10 Essential (primary) hypertension; N40.0 Benign prostatic hyperplasia without lower urinary tract symptoms; F17.200 Nicotine dependence, unspecified, uncomplicated; F12.90 Cannabis use, unspecified, uncomplicated; Z96.0 Presence of urogenital implants
CPT/HCPCS: 36415; 51702; 51798; 80053; 81001; 85025; 85610; 85730; 99282; 99284

== ENCOUNTER 2020-08-22 06:04 | Day surgery (SDC) | payer MEDICARE, SELFPAY ==
--- NOTE | 2020-08-20 | ECG_ITS ---
Test Reason : ANESTHESIA Blood Pressure : / mmHG Vent. Rate : 075 BPM Atrial Rate : 075 BPM P-R Int : 162 ms QRS Dur : 088 ms QT Int : 392 ms P-R-T Axes : 069 043 -85 degrees QTc Int : 437 ms Normal sinus rhythm Inferior infarct (cited on or before 21-NOV-2010) Abnormal ECG When compared with ECG of 06-JUN-2014 04:21, Inverted T waves have replaced nonspecific T wave abnormality in Inferior leads T wave amplitude has increased in Anterior leads Referred By: Keyana Anna Electronically Signed By:Ancelmo Sawant
[2020-08-20 12:41] VITALS: BMI 31.9
[2020-08-20 12:49] VITALS: BP 151/70; PULSE 77; RESP 20; O2SAT 96
--- NOTE | 2020-08-20 13:24 | HO.ANESPROP2 ---
Documented by User: Keyana Anna 08/21/20 09:28 HPI - Anesthesia Eval Consult details Narrative: 69yo M for Right Cystoscopy, Ureteroscopy PMFSH Active Problems Active Problems: All Active Problems (Updated 08/20/20 @ 09:17 by Nayla Faustin) Renal cancer (Acute) BPH w urinary obs/LUTS (Acute) Feeling of incomplete bladder emptying (Acute) Nocturia more than twice per night (Acute) Gross hematuria (Acute) Past Medical History Medical History Arthritis BPH (benign prostatic hyperplasia) CAD (coronary artery disease) COPD (chronic obstructive pulmonary disease) Hyperlipidemia Hypertension Myocardial infarction On beta steven at home Smoker Family History Family history of problems with anesthesia: No Surgical History Surgical History History of heart artery stent History of quadruple bypass History of Problems with Anesthesia: No Social History Social History Are you a primary medication care manager to a significant other at home: No Do you presently have visiting nurse or other home services: No Alcohol intake: never Smoking Status: Current every day smoker Packs Per Day: 0.5 Cigarettes Per Day: 10.0 Years Smoked: 40 Smoked in Last 30 Days: Yes Patient Interested in Nicotine Replacement: No Use of substances other than those prescribed or required for medical reasons: Yes Substance Use Type: Marijuana Substance Use Frequency: Occasionally Have you been hit, kicked, punched, or otherwise hurt by someone within the past year? If so, by whom?: No Advance Directives: No Advance Directives Information Provided: No Advance Directives on File: No Recently lost weight without trying: No Narrative Narrative: No recent illness. No CP. SOB at baseline d/t long time smoker. Clear productive cough in AM. Meds Allergies Allergy/AdvReac Type Severity Reaction Status Date / Time No Known Allergies Allergy Verified 08/22/20 06:26 Home Medications Medication Instructions Recorded Confirmed Last Taken Type atorvastatin 80 mg tablet 80 mg PO DAILY 04/24/20 08/17/20 Unknown History hydroxyzine pamoate 25 mg capsule 25 mg PO TID PRN 04/24/20 08/17/20 Unknown History ibuprofen 800 mg tablet 800 mg PO Q8H PRN 04/24/20 08/17/20 Unknown History isosorbide mononitrate 30 mg 30 mg PO DAILY 04/24/20 08/17/20 08/22/20 05:30 History tablet,extended release 24 hr metoprolol succinate 100 mg 100 mg PO DAILY 04/24/20 08/17/20 08/22/20 05:30 History tablet,extended release 24 hr tamsulosin 0.4 mg capsule 0.4 mg PO DAILY 04/24/20 08/17/20 Unknown History hydralazine 25 mg tablet 25 mg PO TID 05/31/20 08/17/20 08/22/20 05:30 History albuterol sulfate [ProAir HFA] 2 puff INHALATION Q4-6H PRN 08/17/20 08/17/20 Unknown History budesonide-formoterol [Symbicort] 2 puff PO BID 08/17/20 08/17/20 08/22/20 05:30 History aspirin [Aspir-81] 81 mg PO DAILY 08/20/20 08/20/20 Unknown History tiotropium bromide [Spiriva with 1 cap INHALATION DAILY 08/20/20 08/20/20 08/22/20 05:30 History HandiHaler] Exam Exam Date and Time: August 20, 2020 1324 Height,Weight and Vital Signs: Height 5 ft 7 in Weight 92.533 kg Last Vital Signs Pulse 77 08/20/20 12:49 Resp 20 08/20/20 12:49 BP 151/70 H 08/20/20 12:49 Pulse Ox 96 08/20/20 12:49 Airway Mallampati Class: II TM Dist: >3cm Neck ROM: Full Denture: Upper and Lower Heart: RRR Lungs: Dim bases, otherwise clear throughout Assessment and Plan Assessment Anesthesia Assessment: Anesthesia Plan Discussed (GA vs MAC), Smoking Cess. Discussed and PAT Visit Documented by User: Velma Matias 08/22/20 07:46 PMFSH Past Medical History Medical History Arthritis BPH (benign prostatic hyperplasia) CAD (coronary artery disease) COPD (chronic obstructive pulmonary disease) Hyperlipidemia Hypertension Myocardial infarction On beta steven at home Smoker Surgical History Surgical History History of heart artery stent History of quadruple bypass Social History Social History Are you a primary medication care manager to a significant other at home: No Do you presently have visiting nurse or other home services: No Alcohol intake: never Smoking Status: Current every day smoker Packs Per Day: 0.5 Cigarettes Per Day: 10.0 Years Smoked: 40 Smoked in Last 30 Days: Yes Patient Interested in Nicotine Replacement: No Use of substances other than those prescribed or required for medical reasons: Yes Substance Use Type: Marijuana Substance Use Frequency: Occasionally Have you been hit, kicked, punched, or otherwise hurt by someone within the past year? If so, by whom?: No Advance Directives: No Advance Directives Information Provided: No Advance Directives on File: No Recently lost weight without trying: No Meds Allergies Allergy/AdvReac Type Severity Reaction Status Date / Time No Known Allergies Allergy Verified 08/22/20 06:26 Home Medications Medication Instructions Recorded Confirmed Last Taken Type atorvastatin 80 mg tablet 80 mg PO DAILY 04/24/20 08/17/20 Unknown History hydroxyzine pamoate 25 mg capsule 25 mg PO TID PRN 04/24/20 08/17/20 Unknown History ibuprofen 800 mg tablet 800 mg PO Q8H PRN 04/24/20 08/17/20 Unknown History isosorbide mononitrate 30 mg 30 mg PO DAILY 04/24/20 08/17/20 08/22/20 05:30 History tablet,extended release 24 hr metoprolol succinate 100 mg 100 mg PO DAILY 04/24/20 08/17/20 08/22/20 05:30 History tablet,extended release 24 hr tamsulosin 0.4 mg capsule 0.4 mg PO DAILY 04/24/20 08/17/20 Unknown History hydralazine 25 mg tablet 25 mg PO TID 05/31/20 08/17/20 08/22/20 05:30 History albuterol sulfate [ProAir HFA] 2 puff INHALATION Q4-6H PRN 08/17/20 08/17/20 Unknown History budesonide-formoterol [Symbicort] 2 puff PO BID 08/17/20 08/17/20 08/22/20 05:30 History aspirin [Aspir-81] 81 mg PO DAILY 08/20/20 08/20/20 Unknown History tiotropium bromide [Spiriva with 1 cap INHALATION DAILY 08/20/20 08/20/20 08/22/20 05:30 History HandiHaler] Exam Airway Mallampati Class: III TM Dist: >3cm Neck ROM: Full Denture: Upper Heart: RRR Lungs: CTA
[2020-08-22] VITALS (15 sets, daily range): BP systolic 92–138; BP diastolic 38–65; PULSE 67–75; RESP 16–20; TEMP 36.4–36.6; O2SAT 89–97
--- NOTE | ~2020-08-22 | FL_ITS ---
EXAMINATION: XR FLUOROSCOPY WITH IMAGES CLINICAL INFORMATION: Left COMPARISON: CT urogram 05/15/2020 TECHNIQUE: Fluoroscopy performed by Dr. Yoandy Shaw. Fluoroscopy time: 1.1 minutes Total Dose: 25.95 mGy Images: 1 FINDINGS: There is a catheter in region left trigone/distal ureter. There are some densities on the left likely related to the atherosclerotic calcifications noted on CT. FL/FL guidance in OR IMPRESSION: Fluoroscopy for urologic procedure.
[2020-08-22] MEDS: Lactated Ringers 1,000 ML 100 ML IVCONT (06:42)
--- NOTE | 2020-08-22 07:36 | MHC.SHP ---
Pre-Procedural Eval Section A The patient is an INPATIENT: No Changes since office visit: No Cold of Flu in the past 2 weeks, No New Medical Problems, No Changes in Medication and No Patient answered all questions The History & Physical has been completed within 30 days and I have reviewed it.: Yes Section B Chief Complaint: gross hematuria Allergies: Allergies Allergy/AdvReac Type Severity Reaction Status Date / Time No Known Allergies Allergy Verified 08/22/20 06:26 Plan Diagnosis/Plan: Change I have reviewed the history and physical and performed a pertinent physical examination on my patient. No changes have occurred unless specified. Initial update note says right ureteroscopy This was written in error Actual procedure is left ureteroscopy. CT films have been reviewed to confirm this.
[2020-08-22] MEDS: levoFLOXacin 500 MG TABLET PO (07:40)
--- NOTE | 2020-08-22 08:17 | PM.OP ---
Brief Operative Note Date of Service: 08/22/20 Procedure: Cystoscopy, left retrograde left ureteroscopy Surgeon: Yoandy Shaw MD Anesthesia: GLMA Estimated blood loss (mL): 0 Pathology: none sent Condition: stable Disposition: same day
--- NOTE | 2020-08-22 08:21 | P.OP_ITS ---
Operative Note Operative Note Date of Service: 08/22/20 Narrative: PreOperative Diagnosis: Hematuria with left-sided renal mass Post Operative Diagnosis: Hematuria, left renal source, no TCC Procedure: - cystoscopy, retrograde - dilatation of ureteric orifice under fluoroscopy - ureteroscopy Surgeon: Dr Yoandy Shaw Anesthesia: General Indications for procedure: This is 69-year-old male. Recent diagnosis of left renal mass upper pole. Has had persistent hematuria. Question of TCC versus RCC in the left kidney. Plan for diagnostic ureteroscopy Procedure: After informed consent was verified patient was brought to the operating placed in supine position. Anesthesia was administered per protocol. Patient was placed in modified dorsal lithotomy position and prepped and draped in a sterile fashion. Safety pause time-out and side of surgery confirmed. Antibiotics confirmed. Twenty-two Gibralt[place] cystoscope inserted per urethra. He has had an indwelling Gomez catheter and there is edema from Gomez catheter irritation. Both ureteric orifices normal position. Minimal efflux. Retrograde examination performed on the left side. No filling defects seen within the collecting system or ureter. Ureteric orifice dilated with ureteric access sheath. Because we do not want to leave a stent after the procedure a decision made not to place the access sheath full distance. Flexible ureteroscopy was performed. The renal pelvis examined in its entirety. There were clearly submucosal changes with hyperemic vascularity. Non consistent with TCC however suggestive of changes induced by our cc. Flexible scope was removed Bladder was emptied with rigid cystoscope. He tolerated procedure well was extubated in the operating room transferred in stable condition to the recovery area Pathology: None Drains: None
--- NOTE | 2020-08-22 08:37 | HO.POSTANES ---
Post Anesthesia Evaluation Post Anesthesia Evaluation Vital Signs: Vital Signs Temp Pulse Resp BP Pulse Ox 08/22/20 08:31 74 16 106/46 L 94 08/22/20 08:27 97.6 F 75 20 100/47 L 97 08/22/20 06:17 97.9 F 70 18 131/65 93 Anesthesia: General Mental Status: Awake Pain Control: Satisfactory Nausea/Vomiting: None Hydration: Adequate Anesthesia-Related Issues: No Anes. Related Issues
[2020-08-22] MEDS: Phenazopyridine HCL 100 MG TABLET PO (08:45)
[2020-08-22] MEDS: Acetaminophen 325 MG TABLET 650 MG PO (08:46)
[2020-08-22] MEDS: NaPROXEN 500 MG TABLET PO (08:46)
== END 2020-08-22 11:30 | disposition home or self-care (01) ==
PROVIDERS: PCP Internal Medicine; Visit Provider Urology
PROC: 0TJ98ZZ Inspection of Ureter, Via Natural or Artificial Opening Endoscopic (ICD-10-PCS; CPT 52351; principal; 2020-08-22 07:30)
DX: R31.0 Gross hematuria (principal); N28.89 Other specified disorders of kidney and ureter; N40.0 Benign prostatic hyperplasia without lower urinary tract symptoms; I10 Essential (primary) hypertension; J44.9 Chronic obstructive pulmonary disease, unspecified; I25.10 Atherosclerotic heart disease of native coronary artery without angina pectoris; Z98.61 Coronary angioplasty status; Z95.1 Presence of aortocoronary bypass graft; F17.210 Nicotine dependence, cigarettes, uncomplicated; Z79.899 Other long term (current) drug therapy
CPT/HCPCS: 52351; 93005; C1758; C1894; J1100; J2370; J2405; J3010; Q9967

== ENCOUNTER → 2020-08-24 13:55 | Outpatient (BNVA) | payer MEDICARE, SELFPAY | PROVIDERS: PCP Internal Medicine; Visit Provider Urology | DX: Z13.89 Encounter for screening for other disorder (principal) | CPT/HCPCS: 99212 ==

== ENCOUNTER 2020-08-26 01:02 | Emergency (ER) | payer MEDICARE, SELFPAY ==
[2020-08-26 01:36] VITALS: BP 134/66; PULSE 62; RESP 20; TEMP 36.6; O2SAT 93; BMI 31.3
--- NOTE | 2020-08-26 03:33 | ED_ITS ---
HPI - Male Genitourinary General Chief complaint: Urogenital-Male Stated complaint: BLOCKED CATHETER Time Seen by Provider: 08/26/20 03:33 Source: patient Mode of arrival: ambulatory History of Present Illness HPI Narrative: This is a 69-year-old male with chronic hematuria secondary to underlying kidney pathology and underwent a cystoscopy on Thursday without replacement of chronic catheter. Patient states that he was unable to void and had to return to the office on Thursday and at that time they placed a 16 [place] Gomez catheter the patient states has since that time become clogged and has not drained since approximately 8:30 p.m. last night. Denies any fevers or chills but states he is feeling increased pressure. Related Data Home Medications Medication Instructions Recorded Confirmed atorvastatin 80 mg tablet 80 mg PO DAILY 04/24/20 08/17/20 hydroxyzine pamoate 25 mg capsule 25 mg PO TID PRN 04/24/20 08/17/20 isosorbide mononitrate 30 mg 30 mg PO DAILY 04/24/20 08/17/20 tablet,extended release 24 hr metoprolol succinate 100 mg 100 mg PO DAILY 04/24/20 08/17/20 tablet,extended release 24 hr tamsulosin 0.4 mg capsule 0.4 mg PO DAILY 04/24/20 08/17/20 hydralazine 25 mg tablet 25 mg PO TID 05/31/20 08/17/20 albuterol sulfate [ProAir HFA] 2 puff INHALATION Q4-6H PRN 08/17/20 08/17/20 budesonide-formoterol [Symbicort] 2 puff PO BID 08/17/20 08/17/20 Spiriva with HandiHaler 1 cap INHALATION DAILY 08/20/20 08/20/20 aspirin 81 mg PO DAILY 08/20/20 08/20/20 Previous Rx's Medication Instructions Recorded finasteride 5 mg tablet 5 mg PO DAILY 90 Days #90 tab 08/24/20 Allergies Allergy/AdvReac Type Severity Reaction Status Date / Time No Known Allergies Allergy Verified 08/26/20 01:36 Review of Systems Review of Systems: Pertinent positives and negatives as stated in HPI 10 point review of systems is otherwise negative. [facility] Past Medical History Source: nursing notes reviewed Medical History Arthritis BPH (benign prostatic hyperplasia) CAD (coronary artery disease) COPD (chronic obstructive pulmonary disease) Hyperlipidemia Hypertension Myocardial infarction On beta steven at home Smoker Surgical History History of heart artery stent History of quadruple bypass Social History Social History Alcohol intake: never Smoking Status: Current every day smoker Packs Per Day: 0.5 Cigarettes Per Day: 10.0 Years Smoked: 40 Substance Use Type: Marijuana Advance Directives: No Advance Directives Information Provided: No Physical Exam Vital Signs: Vital Signs: Last Vital Signs Temp 97.9 F 08/26/20 01:36 Pulse 62 08/26/20 01:36 Resp 20 08/26/20 01:36 BP 134/66 08/26/20 01:36 Pulse Ox 93 08/26/20 01:36 Body Mass Index 31.3 VITAL SIGNS: Reviewed. GENERAL: Well developed, well nourished, in no acute distress. HEAD: Normocephalic/atraumatic, EYES: PERRLA, EOMI EARS: Ext canals without abnormality, TMs non-bulging and non-erythematous NOSE: Nares patent bilateral OROPHARYNX: no oral lesions noted, posterior pharynx clear NECK: Supple, no adenopathy LUNGS: Normal breath sounds. No adventitious sounds or accessory muscle use. SpO2<93> CARDIOVASCULAR: Regular rate and rhythm without noted murmurs ABDOMEN: Soft, non-tender, non-distended with bowel sounds. : Gomez catheter in place with noted thrombus within the catheter and bedside ultrasound demonstrating over 500 cc of urine NEUROLOGIC: Alert and oriented x 4. Course Course Course Narrative: This is a 69-year-old male history and clinical presentation consistent with clogged catheter. Will replace with larger. 20Fr Gomez catheter successfully placed with complete emptying of the bladder and clot removal. Patient discharged home in stable condition. Discharge Plan Discharge Clinical Impression: Complication, blocked Gomez catheter Qualifiers: Encounter type: subsequent encounter Qualified Code(s): T83.091D - Other mechanical complication of indwelling urethral catheter, subsequent encounter Patient Disposition: Home, Self-Care Instructions: Gomez Catheter Placement and Care (ED) Additional Instructions: Resume all home medications as prescribed. Do not hesitate to return to the emergency department should you experience any acute worsening of your symptoms. Prescriptions: No Action finasteride 5 mg tablet 5 mg PO DAILY 90 Days Qty: 90 RF: 1 budesonide-formoterol [Symbicort] 160-4.5 mcg/actuation HFA aerosol inhaler 2 puff PO BID RF: 0 albuterol sulfate [ProAir HFA] 90 mcg/actuation Hfa Aerosol Inhaler 2 puff INHALATION Q4-6H PRN (Reason: Wheezing) RF: 0 aspirin 81 mg Tablet,Delayed Release (Dr/Ec) 81 mg PO DAILY RF: 0 Spiriva with HandiHaler 18 mcg Capsule, W/Inhalation Device 1 cap INHALATION DAILY RF: 0 hydroxyzine pamoate 25 mg capsule 25 mg PO TID PRN (Reason: anxiety) RF: 0 atorvastatin 80 mg tablet 80 mg PO DAILY RF: 0 metoprolol succinate 100 mg tablet extended release 24 hr 100 mg PO DAILY RF: 0 isosorbide mononitrate 30 mg tablet extended release 24 hr 30 mg PO DAILY RF: 0 tamsulosin 0.4 mg capsule 0.4 mg PO DAILY RF: 0 hydralazine 25 mg tablet 25 mg PO TID RF: 0 Referrals: Yvonne Díaz MD [Primary Care Provider] - 2 days (Re-evaluation)
== END 2020-08-26 04:20 | disposition home or self-care (01) ==
PROVIDERS: Emergency Provider Student in an Organized Health Care Education/Training Program; PCP Internal Medicine
DX: T83.091A Other mechanical complication of indwelling urethral catheter, initial encounter (principal); X58.XXXA Exposure to other specified factors, initial encounter
CPT/HCPCS: 51702; 99283; 99284

== ENCOUNTER → 2020-08-30 14:33 | Outpatient (BNVA) | payer MEDICARE, SELFPAY | PROVIDERS: PCP Internal Medicine; Visit Provider Urology | DX: Z13.89 Encounter for screening for other disorder (principal) | CPT/HCPCS: 99212 ==

== ENCOUNTER 2020-09-09 02:07 | Emergency (ER) | payer MEDICARE, SELFPAY ==
[2020-09-09 02:10] VITALS: BP 151/66; PULSE 68; RESP 20; TEMP 36.3; O2SAT 92; BMI 31.8
--- NOTE | 2020-09-09 02:52 | ED.MALEGU ---
HPI - Male Genitourinary General Chief complaint: Urogenital-Male Stated complaint: Catheter issue Time Seen by Provider: 09/09/20 02:52 Source: patient Mode of arrival: ambulatory History of Present Illness HPI Narrative: This is a 70-year-old male with known hematuria currently under the care of Urology for further evaluation who presents once again with a clogged catheter but denies any associated fevers, chills. Related Data Home Medications Medication Instructions Recorded Confirmed atorvastatin 80 mg tablet 80 mg PO DAILY 04/24/20 08/17/20 hydroxyzine pamoate 25 mg capsule 25 mg PO TID PRN 04/24/20 08/17/20 isosorbide mononitrate 30 mg 30 mg PO DAILY 04/24/20 08/17/20 tablet,extended release 24 hr metoprolol succinate 100 mg 100 mg PO DAILY 04/24/20 08/17/20 tablet,extended release 24 hr tamsulosin 0.4 mg capsule 0.4 mg PO DAILY 04/24/20 08/17/20 hydralazine 25 mg tablet 25 mg PO TID 05/31/20 08/17/20 albuterol sulfate [ProAir HFA] 2 puff INHALATION Q4-6H PRN 08/17/20 08/17/20 budesonide-formoterol [Symbicort] 2 puff PO BID 08/17/20 08/17/20 Spiriva with HandiHaler 1 cap INHALATION DAILY 08/20/20 08/20/20 aspirin 81 mg PO DAILY 08/20/20 08/20/20 Previous Rx's Medication Instructions Recorded finasteride 5 mg tablet 5 mg PO DAILY 90 Days #90 tab 08/24/20 Allergies Allergy/AdvReac Type Severity Reaction Status Date / Time No Known Allergies Allergy Verified 08/26/20 01:36 Review of Systems Review of Systems: Pertinent positives and negatives as stated in HPI 10 point review of systems is otherwise negative. [facility] Past Medical History Source: nursing notes reviewed Medical History Arthritis BPH (benign prostatic hyperplasia) CAD (coronary artery disease) COPD (chronic obstructive pulmonary disease) Hyperlipidemia Hypertension Myocardial infarction On beta steven at home Smoker Surgical History History of heart artery stent History of quadruple bypass Social History Social History Alcohol intake: never Smoking Status: Current every day smoker Packs Per Day: 0.5 Cigarettes Per Day: 10.0 Years Smoked: 40 Substance Use Type: Marijuana Advance Directives: No Physical Exam Vital Signs: Vital Signs: Last Vital Signs Temp 97.4 F 09/09/20 02:10 Pulse 68 09/09/20 02:10 Resp 20 09/09/20 02:10 BP 151/66 H 09/09/20 02:10 Pulse Ox 92 09/09/20 02:10 Body Mass Index 31.8 VITAL SIGNS: Reviewed. GENERAL: Well developed, well nourished, in no acute distress. OROPHARYNX: no oral lesions noted, posterior pharynx clear NECK: Supple, no adenopathy LUNGS: Normal breath sounds. No adventitious sounds or accessory muscle use. SpO2<92> CARDIOVASCULAR: Regular rate and rhythm without noted murmurs ABDOMEN: Soft, non-tender, non-distended with bowel sounds. NEUROLOGIC: Alert and oriented x 4. Course Course Course Narrative: This is a 70-year-old male with history and clinical presentation consistent with clogged Gomez catheter which was exchanged in the emergency department with the placement of a 22 Prydein[place] catheter. Good patency was established and patient was recommended to follow-up with urology. Discharge Plan Discharge Clinical Impression: Gomez catheter problem Qualifiers: Encounter type: subsequent encounter Qualified Code(s): T83.9XXD - Unspecified complication of genitourinary prosthetic device, implant and graft, subsequent encounter Patient Disposition: Home, Self-Care Instructions: Gomez Catheter Placement and Care (ED) Additional Instructions: Resume all home medications as prescribed. Please follow-up with urology on Thursday morning. Return to the emergency department should you develop any acute worsening of symptoms. Prescriptions: No Action finasteride 5 mg tablet 5 mg PO DAILY 90 Days Qty: 90 RF: 1 budesonide-formoterol [Symbicort] 160-4.5 mcg/actuation HFA aerosol inhaler 2 puff PO BID RF: 0 albuterol sulfate [ProAir HFA] 90 mcg/actuation Hfa Aerosol Inhaler 2 puff INHALATION Q4-6H PRN (Reason: Wheezing) RF: 0 aspirin 81 mg Tablet,Delayed Release (Dr/Ec) 81 mg PO DAILY RF: 0 Spiriva with HandiHaler 18 mcg Capsule, W/Inhalation Device 1 cap INHALATION DAILY RF: 0 hydroxyzine pamoate 25 mg capsule 25 mg PO TID PRN (Reason: anxiety) RF: 0 atorvastatin 80 mg tablet 80 mg PO DAILY RF: 0 metoprolol succinate 100 mg tablet extended release 24 hr 100 mg PO DAILY RF: 0 isosorbide mononitrate 30 mg tablet extended release 24 hr 30 mg PO DAILY RF: 0 tamsulosin 0.4 mg capsule 0.4 mg PO DAILY RF: 0 hydralazine 25 mg tablet 25 mg PO TID RF: 0 Referrals: Yvonne Díaz MD [Primary Care Provider] - 2 days
== END 2020-09-09 03:57 | disposition home or self-care (01) ==
PROVIDERS: Emergency Provider Student in an Organized Health Care Education/Training Program; PCP Internal Medicine
DX: R31.9 Hematuria, unspecified (principal); T83.9XXA Unspecified complication of genitourinary prosthetic device, implant and graft, initial encounter; I25.10 Atherosclerotic heart disease of native coronary artery without angina pectoris; Y73.8 Miscellaneous gastroenterology and urology devices associated with adverse incidents, not elsewhere classified; Y92.9 Unspecified place or not applicable; F17.210 Nicotine dependence, cigarettes, uncomplicated; Z71.6 Tobacco abuse counseling; Z79.899 Other long term (current) drug therapy
CPT/HCPCS: 51702; 99284

== ENCOUNTER 2020-09-09 07:01 | Inpatient (IN) | payer MEDICARE, SELFPAY ==
--- NOTE | ~2020-09-09 | CT_ITS ---
EXAMINATION: CT ABDOMEN AND PELVIS WITHOUT CONTRAST CLINICAL INFORMATION: Abdominal pain. Rule out free air. COMPARISON: Previous CT scans most recent CT urogram May 2020 and intraoperative fluoroscopy exam 08/22/2020 TECHNIQUE: Multidetector volumetric imaging was performed from the superior aspect of the liver through the pubic symphysis. Sagittal and coronal reformatted images were obtained on the technologist's workstation. This CT examination was performed using dose optimization techniques as appropriate, variously including the following: *Automated exposure control *Adjustment of mA and/or kV according to patient size (this includes techniques or standardized protocols for targeted exams where dose is matched to indication/reason for exam; i.e. extremities or head) *Use of iterative reconstruction technique DLP: 749 mGy-cm FINDINGS: LUNG BASES: There is left pleural thickening and pleural calcification. There is adjacent atelectasis of the lingula and left lower lobe. The right lung base is clear. Similar to previous exam. LIVER, GALLBLADDER, AND BILIARY TREE: The liver is normal in size, shape, and attenuation. No focal hepatic lesion or biliary ductal dilatation is present. There is a gallstone in the gallbladder. PANCREAS: Unremarkable. SPLEEN: Unremarkable. ADRENAL GLANDS: Unremarkable. KIDNEYS AND URETERS: The left kidney is slightly enlarged measuring 13.4 cm in length. This is increased from 12.4 cm on prior exam. There is stranding of the left perinephric fat. This appears increased from previous exam. There is high attenuation abnormal tissue seen in the central upper pole of the left kidney. This area measures 3.7 x 4.7 cm and is similar appearing to May 2020 exam. There is a tiny calcification questionable for a stone in the upper pole of the left kidney. There may be mild left lower pole calyceal dilatation. The left renal pelvis does not appear dilated. There is high attenuation material in the left renal pelvis. Appearance is questionable for blood versus retained contrast from urologic procedure 08/22/2020. This is new from previous exam. As a small amount of high attenuation material in the left proximal ureter again questionable for blood versus retained contrast from neurologic exam. The left ureter does not appear dilated. BLADDER: There is air in the bladder. The bladder is not optimally distended. There is mild diffuse bladder wall thickening and stranding of the perivesicular fat. May be related to previous surgical procedure/retrograde exam. No abnormal air or fluid is seen adjacent to the bladder. GASTROINTESTINAL TRACT: The small and large bowel are unremarkable. The appendix is unremarkable. The stomach is unremarkable. No free air or free fluid is seen. ABDOMINAL WALL: No significant hernia is appreciated. LYMPH NODES: Normal. VASCULAR: Unremarkable. PELVIC VISCERA: Unremarkable. OSSEOUS STRUCTURES: There are degenerative changes of the spine. CT/CT abdomen pelvis wo con IMPRESSION: Enlarged left kidney. Stable appearance to the slightly high attenuation lesion in the central upper pole of the left kidney. Internal increase in left perinephric fat stranding. High attenuation in the left renal pelvis and proximal ureter questionable for blood versus contrast from previous recent urologic exam 08/22/2020. Bladder not optimally distended. Small amount of air in the bladder again question related to previous urologic procedure 08/22/2020. Mild diffuse bladder wall thickening and stranding of the perivesicular fat. No intra or retroperitoneal air or fluid is seen. Gallstone. Stable pleural and parenchymal changes at the left lung base.
[2020-09-09 07:04] VITALS: BP 145/67; PULSE 80; RESP 20; TEMP 36.7; O2SAT 95; BMI 31.8
--- NOTE | 2020-09-09 07:09 | PC.NURSE ---
OBSERVED PATIENTS MUNOZ IN TRIAGE. PATIENT HAS BLOODY URINE IN BAG, APPEARED TO BE FLOWING DOWN FROM TUBE WITH OUT SEEING ANY CLOTS IN TUBE.
--- NOTE | 2020-09-09 07:21 | ED.MALEGU ---
HPI - Male Genitourinary General Chief complaint: Urogenital-Male Stated complaint: CATH ISSUES Time Seen by Provider: 09/09/20 07:21 History of Present Illness HPI Narrative: Very pleasant 70 years old male presented with a chief complaint of Mcclellan catheter malfunction. He was here earlier they change of the catheter with a 22 Hebrew a and now with the catheter is not draining. There is a hematuria in the mcclellan catheter, a denies any fever chills vomiting. He is supposed to of nephrectomy for renal mass Related Data Home Medications Medication Instructions Recorded Confirmed atorvastatin 80 mg tablet 80 mg PO DAILY 04/24/20 09/09/20 hydroxyzine pamoate 25 mg capsule 25 mg PO TID PRN 04/24/20 09/09/20 isosorbide mononitrate 30 mg 30 mg PO DAILY 04/24/20 09/09/20 tablet,extended release 24 hr metoprolol succinate 100 mg 100 mg PO DAILY 04/24/20 09/09/20 tablet,extended release 24 hr tamsulosin 0.4 mg capsule 0.8 mg PO DAILY 04/24/20 09/09/20 albuterol sulfate [ProAir HFA] 2 puff INHALATION Q4-6H PRN 08/17/20 09/09/20 budesonide-formoterol [Symbicort] 2 puff PO BID 08/17/20 09/09/20 Spiriva with HandiHaler 1 cap INHALATION DAILY 08/20/20 09/09/20 aspirin 81 mg PO DAILY 08/20/20 09/09/20 Previous Rx's Medication Instructions Recorded finasteride 5 mg tablet 5 mg PO DAILY 90 Days #90 tab 08/24/20 Allergies Allergy/AdvReac Type Severity Reaction Status Date / Time No Known Allergies Allergy Verified 08/26/20 01:36 Review of Systems Review of Systems: Yes all other systems are reviewed and are negative Cardiovascular: Cardiovascular: Reports no additional cardiovascular complaints Respiratory: Respiratory: Reports no additional respiratory complaints Psychiatric: Psychiatric: Reports no additional psychiatric complaints [facility] Past Medical History Medical History Arthritis BPH (benign prostatic hyperplasia) CAD (coronary artery disease) COPD (chronic obstructive pulmonary disease) Hyperlipidemia Hypertension Myocardial infarction On beta steven at home Smoker Surgical History History of heart artery stent History of quadruple bypass Social History Social History Alcohol intake: never Smoking Status: Current every day smoker Packs Per Day: 0.5 Cigarettes Per Day: 10.0 Years Smoked: 40 Use of substances other than those prescribed or required for medical reasons: Yes Substance Use Type: Marijuana Substance Use Frequency: Occasionally Advance Directives: No Advance Directives Information Provided: No Physical Exam Vital Signs: Vital Signs: Last Vital Signs Temp 98.0 F 09/09/20 07:04 Pulse 83 09/09/20 13:04 Resp 18 09/09/20 13:04 BP 128/65 09/09/20 13:04 Pulse Ox 90 L 09/09/20 13:04 Body Mass Index 31.8 Const: General: cooperative and comfortable Orientation/consciousness: oriented to person, oriented to place, oriented to time and patient oriented x3 HENMT: Head: Yes normal to inspection Eyes: General: appearance normal, both eyes and all related structures Neck: Neck: Yes normal visual inspection Chest: Chest palpation & inspection: normal inspection of the chest and normal palpation of entire chest wall Resp: Effort & Inspection: normal respiratory effort Auscultation: clear to auscultation bilaterally Cardio: Rate: regular rate Rhythm: regular rhythm GI: Inspection: Yes normal to inspection : Male General Exam: Yes normal external exam Skin: General skin exam: no rashes or lesions noted and elasticity normal Neuro: General: oriented to person, oriented to place, oriented to time and patient oriented x3 Course Reevaluation(s) Reevaluation #1: seen by urologist in ED Time: 01:53 MDM - Male Genitourinary Lab Data Result diagrams: 09/09/20 07:56 09/09/20 07:56 Labs: Lab Results 09/09/20 09/09/20 09/09/20 Range/Units 07:56 07:56 07:56 WBC 14.8 H (4.8-10.8) X10*3/uL RBC 4.49 L (4.60-5.80) X10*6/uL Hgb 13.9 L (14.0-18.0) g/dl Hct 42.3 (42-52) % MCV 94.2 (80-98) fL MCH 31.0 (27.0-33.0) pg MCHC 32.9 (31.0-36.0) g/dl RDW 13.9 (11.0-16.0) % Plt Count 187 (160-400) X10*3/uL MPV 10.4 (9.4-12.4) fL Immature Gran % (Auto) 0.5 H (0.0-0.4) % Neut % (Auto) 75.4 H (45-73) % Lymph % (Auto) 8.0 L (20-40) % [place] % (Auto) 13.1 H (2-11) % Eos % (Auto) 2.6 (0-4) % Baso % (Auto) 0.4 (0-2) % Lymph # (Auto) 1.2 (1.2-4.9) X10*3/uL [place] # (Auto) 2.0 H (0.1-1.2) X10*3/uL Eos # (Auto) 0.4 (0.0-0.4) X10*3/uL Baso # (Auto) 0.1 (0.0-0.2) X10*3/uL Abs Immat Gran (auto) 0.07 H (0.00-0.03) X10*3/uL Absolute Neuts (auto) 11.2 H (2.0-8.3) X10*3/uL Absolute Nucleated RBC 0.000 (0.0-0.012) X10*3/uL Nucleated RBC % (auto) 0.0 (0.0-0.2) /100WBC Smear Tech's Comments VERIFIED PT 14.4 H (10.8-13.0) SEC INR 1.2 H (0.9-1.1) APTT 34.9 (24.1-38.0) SEC Sodium 137 (135-145) mmol/L Potassium 4.3 (3.3-5.1) mmol/L Chloride 101 (96-108) mmol/L Carbon Dioxide 24 (22-29) mmol/L Anion Gap 16 (12-20) BUN 15 (9-16) mg/dL Creatinine 1.21 (0.5-1.4) mg/dL Estim Creat Clear Calc 59.7 Estimated GFR 59 Random Glucose 110 (60-115) mg/dL Calcium 8.7 D (8.4-10.2) mg/dL Total Bilirubin 0.9 (0.0-1.0) mg/dL AST 48 H D (5-37) U/L ALT 83 H (0-40) U/L Alkaline Phosphatase 210 H D (39-117) U/L Total Protein 6.9 (6.5-8.0) g/dL Albumin 4.0 (3.5-5.0) g/dL Discharge Plan Discharge Clinical Impression: Hematuria, gross Prescriptions: No Action finasteride 5 mg tablet 5 mg PO DAILY 90 Days Qty: 90 RF: 1 budesonide-formoterol [Symbicort] 160-4.5 mcg/actuation HFA aerosol inhaler 2 puff PO BID RF: 0 albuterol sulfate [ProAir HFA] 90 mcg/actuation Hfa Aerosol Inhaler 2 puff INHALATION Q4-6H PRN (Reason: Wheezing) RF: 0 aspirin 81 mg Tablet,Delayed Release (Dr/Ec) 81 mg PO DAILY RF: 0 Spiriva with HandiHaler 18 mcg Capsule, W/Inhalation Device 1 cap INHALATION DAILY RF: 0 hydroxyzine pamoate 25 mg capsule 25 mg PO TID PRN (Reason: anxiety) RF: 0 atorvastatin 80 mg tablet 80 mg PO DAILY RF: 0 metoprolol succinate 100 mg tablet extended release 24 hr 100 mg PO DAILY RF: 0 isosorbide mononitrate 30 mg tablet extended release 24 hr 30 mg PO DAILY RF: 0 tamsulosin 0.4 mg capsule 0.8 mg PO DAILY RF: 0
--- NOTE | 2020-09-09 08:00 | PC.NURSE ---
PT ARRIVES WITH CHRONIC MUNOZ, HAD HIS MUNOZ CHANGED OUT EARLIER TODAY IN THE ED BECAUSE IT WAS GETTING CLOGGED. OLD MUNOZ REMOVED WITCH HAD VISIBLE HEMATURIA. A THREE WAY MUNOZ IN PLACE, PT TOLERATED THE PROCEDURE WELL, MUNOZ DARNING WELL, FEW SMALL CLOTS VISIBLE, LIGHT RED TAINTED URINE AT THIS TIME
[2020-09-09 08:03] LABS: Basophils Absolute Auto 0.1 X10*3/uL (0.0-0.2); Basophils Percent Auto 0.4 % (0-2); Eosinophils Absolute Auto 0.4 X10*3/uL (0.0-0.4); Eosinophils Percent Auto 2.6 % (0-4); Hematocrit 42.3 % (42-52); Hemoglobin 13.9 g/dl (14.0-18.0); Imm Gran Abs Auto 0.07 X10*3/uL (0.00-0.03); Imm Gran Pct Auto 0.5 % (0.0-0.4); Lymphocytes Absolute Auto 1.2 X10*3/uL (1.2-4.9); MANUAL DIFF FLAG SCAN; Mean Corpuscular HGB Conc 32.9 g/dl (31.0-36.0); Mean Corpuscular Volume 94.2 fL (80-98); Mean Platelet Volume 10.4 fL (9.4-12.4); Monocytes Percent Auto 13.1 % (2-11); Neutrophils Absolute Auto 11.2 X10*3/uL (2.0-8.3); Neutrophils Percent Auto 75.4 % (45-73); Platelet Count 187 X10*3/uL (160-400); Red Blood Count 4.49 X10*6/uL (4.60-5.80); Red Cell Distribution Width 13.9 % (11.0-16.0); SCAN SMEAR FLAG 1; White Blood Count 14.8 X10*3/uL (4.8-10.8)
--- NOTE | 2020-09-09 08:18 | PC.NURSE ---
EMPTIED OUT 2000ML OF URINE/LIGHT RED IN COLOR WITH FEW CLOTS VISIBLE
[2020-09-09 08:19] LABS: INTERNATIONAL NORM RATIO 1.2 (0.9-1.1); Prothrombin Time 14.4 SEC (10.8-13.0)
[2020-09-09 08:21] LABS: Partial Thromboplastin Time 34.9 SEC (24.1-38.0)
[2020-09-09 08:32] LABS: Alanine Aminotransferase 83 U/L (0-40); Alkaline Phosphatase 210 U/L (39-117); Anion Gap 16 (12-20); Aspartate Amino Transferase 48 U/L (5-37); Bilirubin Total 0.9 mg/dL (0.0-1.0); Blood Urea Nitrogen 15 mg/dL (9-16); Calcium 8.7 mg/dL (8.4-10.2); Carbon Dioxide 24 mmol/L (22-29); Chloride 101 mmol/L (96-108); Creatinine Clr Calc Pharmacy 59.7; Estimated Glomerular Filt Rate 59; Glucose Random 110 mg/dL (60-115); Potassium 4.3 mmol/L (3.3-5.1); Sodium 137 mmol/L (135-145); Total Protein 6.9 g/dL (6.5-8.0)
--- NOTE | 2020-09-09 08:34 | PC.NURSE ---
Pt felt pressure in the area of his bladder. CBI outflow sluggish at that time. He was hand irrigated with some small clots removed. After hand irrigation pt felt better and outflow increased.
[2020-09-09 08:43] LABS: SLIDE REVIEW VERIFIED
[2020-09-09 08:58] VITALS: BP 136/65; PULSE 78; RESP 18; O2SAT 91
--- NOTE | 2020-09-09 09:48 | PC.NURSE ---
three way Gomez draining well, third bag up and infusing, out put is very light pink in color at this time, no visible clots.
--- NOTE | 2020-09-09 10:11 | PC.NURSE ---
MUNOZ STOPPED DRIPPING, MANUALLY IRRIGATED GOT SOME MEDIUM SIZE CLOTS OUT BUT STILL NOT DRAINING PROBABLY, UNABLE TO GET THE CLOT OUT EVEN WITH THE MANUAL IRRIGATION. DR PARADA AWARE
--- NOTE | 2020-09-09 10:45 | PC.NURSE ---
DR PARADA AT BEDSIDE UNABLE TO UNBLOCK THE MUNOZ, PER DR PARADA D/C THE [address], ATTEMPTED TO INSERT A 24FR THREE WAY BUT HAVING RESISTANCE TO INSERT MUNOZ ALL THE WAY INN, NO URINE OUT PUT EITHER. DR PARADA AT BEDSIDE, ATTEMPTING TO INSERT A COUDEI MUNOZ, SAME THING RESISTANCE AND OUTPUT. PT YELLING THAT IT HURTS AND HE NEEDS TO URINATE, BLADDER SCAN AT BEDSIDE READING 000ML, DR PARADA AT BEDSIDE WITH LARGE US ALSO STATES NOTHING IN THE BLADDER. PT STILL STATES THAT HIS PENIS HURTS/FEELS BURNING BUT DENIES ABD PAIN. ABD APPEARS DISTENDED AND HARD, BUT UNABLE TO REPORT IF HIS ABD APPEARS DIFFERENT TO HIM.
--- NOTE | 2020-09-09 11:17 | PC.NURSE ---
PT IN CT
--- NOTE | 2020-09-09 11:57 | PM.UROCN ---
History of Present Illness Consult details Consult date: 09/09/20 Reason for consult: other (hematuria) Narrative: pt had 3 way mcclellan placed irrigated clear, cbi running Review of Systems Review of Systems: Yes all other systems are reviewed and are negative [facility] Past Medical History Medical History Arthritis BPH (benign prostatic hyperplasia) CAD (coronary artery disease) COPD (chronic obstructive pulmonary disease) Hyperlipidemia Hypertension Myocardial infarction On beta steven at home Smoker Cognitive capacity: alert and oriented x3 Family History Family history: reviewed and not pertinent Surgical History Surgical History History of heart artery stent History of quadruple bypass Social History Social History Alcohol intake: never Smoking Status: Current every day smoker Packs Per Day: 0.5 Cigarettes Per Day: 10.0 Years Smoked: 40 Use of substances other than those prescribed or required for medical reasons: Yes Substance Use Type: Marijuana Substance Use Frequency: Occasionally Advance Directives: No Advance Directives Information Provided: No Meds Allergies Allergy/AdvReac Type Severity Reaction Status Date / Time No Known Allergies Allergy Verified 08/26/20 01:36 Home Medications Medication Instructions Recorded Confirmed Last Taken Type atorvastatin 80 mg tablet 80 mg PO DAILY 04/24/20 08/17/20 Unknown History hydroxyzine pamoate 25 mg capsule 25 mg PO TID PRN 04/24/20 08/17/20 Unknown History isosorbide mononitrate 30 mg 30 mg PO DAILY 04/24/20 08/17/20 08/22/20 05:30 History tablet,extended release 24 hr metoprolol succinate 100 mg 100 mg PO DAILY 04/24/20 08/17/20 08/22/20 05:30 History tablet,extended release 24 hr tamsulosin 0.4 mg capsule 0.4 mg PO DAILY 04/24/20 08/17/20 Unknown History hydralazine 25 mg tablet 25 mg PO TID 05/31/20 08/17/20 08/22/20 05:30 History albuterol sulfate [ProAir HFA] 2 puff INHALATION Q4-6H PRN 08/17/20 08/17/20 Unknown History budesonide-formoterol [Symbicort] 2 puff PO BID 08/17/20 08/17/20 08/22/20 05:30 History Spiriva with HandiHaler 1 cap INHALATION DAILY 08/20/20 08/20/20 08/22/20 05:30 History aspirin 81 mg PO DAILY 08/20/20 08/20/20 Unknown History Physical Exam Vital Signs: Vital Signs: Last Vital Signs Temp 98.0 F 09/09/20 07:04 Pulse 78 09/09/20 08:58 Resp 18 09/09/20 08:58 BP 136/65 09/09/20 08:58 Pulse Ox 91 L 09/09/20 08:58 Body Mass Index 31.8 Results Labs Result diagrams: 09/09/20 07:56 09/09/20 07:56 Labs: Abnormal lab results 09/09/20 09/09/20 09/09/20 Range/Units 07:56 07:56 07:56 WBC 14.8 H (4.8-10.8) X10*3/uL RBC 4.49 L (4.60-5.80) X10*6/uL Hgb 13.9 L (14.0-18.0) g/dl Immature Gran % (Auto) 0.5 H (0.0-0.4) % Neut % (Auto) 75.4 H (45-73) % Lymph % (Auto) 8.0 L (20-40) % [place] % (Auto) 13.1 H (2-11) % [place] # (Auto) 2.0 H (0.1-1.2) X10*3/uL Abs Immat Gran (auto) 0.07 H (0.00-0.03) X10*3/uL Absolute Neuts (auto) 11.2 H (2.0-8.3) X10*3/uL PT 14.4 H (10.8-13.0) SEC INR 1.2 H (0.9-1.1) AST 48 H D (5-37) U/L ALT 83 H (0-40) U/L Alkaline Phosphatase 210 H D (39-117) U/L Short CBC 09/09/20 Range/Units 07:56 WBC 14.8 H (4.8-10.8) X10*3/uL Hgb 13.9 L (14.0-18.0) g/dl Hct 42.3 (42-52) % Plt Count 187 (160-400) X10*3/uL BMP 09/09/20 07:56 Sodium 137 Potassium 4.3 Chloride 101 Carbon Dioxide 24 BUN 15 Creatinine 1.21 Calcium 8.7 D Liver Function 09/09/20 Range/Units 07:56 Total Bilirubin 0.9 (0.0-1.0) mg/dL AST 48 H D (5-37) U/L ALT 83 H (0-40) U/L Alkaline Phosphatase 210 H D (39-117) U/L Albumin 4.0 (3.5-5.0) g/dL All other labs normal. Assessment and Plan (1) Gross hematuria: Status: Acute (2) Mcclellan catheter problem: Qualifiers: Encounter type: subsequent encounter Qualified Code(s): T83.9XXD - Unspecified complication of genitourinary prosthetic device, implant and graft, subsequent encounter Status: Acute (3) BPH w urinary obs/LUTS: Status: Acute (4) Renal cancer: Status: Acute (5) Feeling of incomplete bladder emptying: Status: Acute (6) Nocturia more than twice per night: Status: Acute
[2020-09-09 11:58] VITALS: BP 169/70; PULSE 93; RESP 18; O2SAT 92
--- NOTE | 2020-09-09 12:00 | PC.NURSE ---
DR CRAWFORD AT BEDSIDE, INSERTED A 30FR THREE WAY, DRAINING WELL AT THIS TIME, CLEAR IN COLOR AT THIS TIME. EMPTIED 900ML OF SLIGHTLY PINK FROM THE MUNOZ FROM THE PREVIOUS MUNOZ.
[2020-09-09] MEDS: cefTRIAXone sodium 1 GM in 0.9 % Sodium Chloride 50 ML IV (13:02)
[2020-09-09 13:04] VITALS: BP 128/65; PULSE 83; RESP 18; O2SAT 90
--- NOTE | 2020-09-09 14:35 | PC.NURSE ---
pt running on 5th bag of cbi infusion, out put continuos on being clear/yellow in color. spoke to dr dorsey and verbal order to stop the cbi infusions. after the 5th bag
[2020-09-09 16:37] VITALS: BP 140/70; PULSE 70; RESP 12; TEMP 37; O2SAT 90
[2020-09-09] MEDS: 0.9 % Sodium Chloride 1,000 ML 500 ML IVCONT (16:41)
--- NOTE | 2020-09-09 16:43 | PC.NURSE ---
emptied mcclellan bag of 3300mL
[2020-09-09 18:42] VITALS: BP 139/64; PULSE 84; RESP 14; TEMP 37.3; O2SAT 89
--- NOTE | 2020-09-09 20:14 | PC.NURSE ---
CBI FLUIDS COMPLETE, URINE OUTPUT IS BLOOD TINGED, NO GROSS HEMATURIA.
--- NOTE | 2020-09-09 20:26 | PC.NURSE ---
instructions passed on from gerson mcgowan, to d/c cbi bags following 5th bag. empty bags taken down and tubing plugged with blue suction cap.
[2020-09-09 20:34] LABS: COVID-19 Test Negative (Negative); IDNOW Serial# 9DD0AD1C
--- NOTE | 2020-09-09 23:11 | P.HPHOSP_ITS ---
History of Present Illness Date of Service: 09/09/20 Chief Complaint: hematuria 70-year-old male with past medical history of BPH, CAD status post CABG, COPD, HLD, HTN, renal cancer, frequent gross hematuria who presents to the hospital complaining that his Gomez catheter has been blocked. Patient reports that he frequently has blockage of his Gomez catheter due to bloody clots from his kidney cancer. He presented initially at 3:00 a.m. on 09/09 the catheter was changed in the ED and patient was sent home. He returned to the ED same morning stating that his urine catheter still block that he is unable to void. The urologist was called in and he had a 3 way Gomez catheter placed, and was started on CBI as he developed significant hematuria. Patient is vein admitted to the hospital for observation. He denies any abdominal pain, no suprapubic pain, no flank pain, no chest pain, no shortness of breath, no fever or chills, no urinary symptoms, no lower extremity edema. No headache or change in vision. Denies any cough or sputum production. On arrival to the ED hemodynamically stable with no significant abnormal vitals Labs are significant WBC count of 14.8, hemoglobin of 13.9, PT of 14.4, INR of 1.2, sodium of 137, potassium 4.3, AST of 48, ALT of the 83, alk-phos of 210, BUN of 15, creatinine of 1.21 which is around his current baseline CT abdomen shows enlarged left kidney, stable appearance to the slightly high attenuation lesion in the central upper pole of the left kidney, internal increase in the left per nephric stranding, high attenuation in the left renal pelvis and proximal ureter questionable for blood versus contrast. there is also fat stranding of the bladder. Past medical history as below in confirm with patient Review of Systems Review of Systems: Yes all other systems are reviewed and are negative [facility] Medical History Arthritis BPH (benign prostatic hyperplasia) CAD (coronary artery disease) COPD (chronic obstructive pulmonary disease) Hyperlipidemia Hypertension Myocardial infarction On beta steven at home Smoker Family history: reviewed and not pertinent Surgical History History of heart artery stent History of quadruple bypass Social History Household Members: Children Housing: House Do you presently have visiting nurse or other home services: No Alcohol intake: never Smoking Status: Current every day smoker Tobacco Type: Cigarette Packs Per Day: 1.5 Cigarettes Per Day: 30.0 Years Smoked: 62 Smoked in Last 30 Days: Yes Patient Interested in Nicotine Replacement: Yes Use of substances other than those prescribed or required for medical reasons: Yes Substance Use Type: Marijuana Substance Use Frequency: Occasionally Last Used Substance: Days (ago) Currently Displaying Signs/Symptoms of Drug Intoxication Withdrawal: No Have you been hit, kicked, punched, or otherwise hurt by someone within the past year? If so, by whom?: No Do you feel safe in your current relationship?: No Current Relationship Is there a partner from a previous relationship who is making you feel unsafe now?: No Are you made to feel afraid or neglected: No Advance Directives: No Advance Directives Information Provided: No Do you have thoughts of harming others: None Do you have a plan to hurt others: No Plan Recently lost weight without trying: No Meds Allergies Allergy/AdvReac Type Severity Reaction Status Date / Time No Known Allergies Allergy Verified 08/26/20 01:36 Home Medications Medication Instructions Recorded Confirmed Last Taken Type atorvastatin 80 mg tablet 80 mg PO DAILY 04/24/20 09/09/20 Unknown History hydroxyzine pamoate 25 mg capsule 25 mg PO TID PRN 04/24/20 09/09/20 Unknown History isosorbide mononitrate 30 mg 30 mg PO DAILY 04/24/20 09/09/20 08/22/20 05:30 History tablet,extended release 24 hr metoprolol succinate 100 mg 100 mg PO DAILY 04/24/20 09/09/20 08/22/20 05:30 History tablet,extended release 24 hr tamsulosin 0.4 mg capsule 0.8 mg PO DAILY 04/24/20 09/09/20 Unknown History albuterol sulfate [ProAir HFA] 2 puff INHALATION Q4-6H PRN 08/17/20 09/09/20 Unknown History budesonide-formoterol [Symbicort] 2 puff PO BID 08/17/20 09/09/20 08/22/20 05:30 History Spiriva with HandiHaler 1 cap INHALATION DAILY 08/20/20 09/09/20 08/22/20 05:30 History aspirin 81 mg PO DAILY 08/20/20 09/09/20 Unknown History Physical Exam Vital Signs and Narrative: Vital Signs: Last Vital Signs Temp 99.2 F 09/09/20 18:42 Pulse 84 09/09/20 18:42 Resp 14 09/09/20 18:42 BP 139/64 09/09/20 18:42 Pulse Ox 89 L 09/09/20 18:42 Body Mass Index 31.8 Const: General: cooperative and no acute distress Orientation/consciousness: patient oriented x3 Eyes: General: appearance normal, both eyes and all related structures Resp: Effort & Inspection: normal respiratory effort and able to speak in complete sentences Cardio: Rate: regular rate Rhythm: regular rhythm GI: Palpation (GI): Soft to palpation Auscultation: normal bowel sounds : Other: No suprapubic pain, no CVA tenderness Skin: General skin exam: no rashes or lesions noted Neuro: General: patient oriented x3 Cognition (Neuro): normal cognition Extrem: General: Yes normal to inspection and Yes no pedal edema Results Labs CBC and Chem 7: 09/09/20 07:56 09/09/20 07:56 Labs: Laboratory Results - last 24 hr 09/09/20 09/09/20 09/09/20 07:56 07:56 07:56 MCV 94.2 MCH 31.0 MCHC 32.9 RDW 13.9 Plt Count 187 MPV 10.4 Immature Gran % (Auto) 0.5 H Neut % (Auto) 75.4 H Lymph % (Auto) 8.0 L [place] % (Auto) 13.1 H Eos % (Auto) 2.6 Baso % (Auto) 0.4 Lymph # (Auto) 1.2 [place] # (Auto) 2.0 H Eos # (Auto) 0.4 Baso # (Auto) 0.1 Abs Immat Gran (auto) 0.07 H Absolute Neuts (auto) 11.2 H Absolute Nucleated RBC 0.000 Nucleated RBC % (auto) 0.0 Smear Tech's Comments VERIFIED PT 14.4 H INR 1.2 H APTT 34.9 Anion Gap 16 Estim Creat Clear Calc 59.7 Estimated GFR 59 Random Glucose 110 Calcium 8.7 D Total Bilirubin 0.9 AST 48 H D ALT 83 H Alkaline Phosphatase 210 H D Total Protein 6.9 Albumin 4.0 COVID-19 (MAURICIO) COVID-19 Clin Com 09/09/20 20:08 MCV MCH MCHC RDW Plt Count MPV Immature Gran % (Auto) Neut % (Auto) Lymph % (Auto) [place] % (Auto) Eos % (Auto) Baso % (Auto) Lymph # (Auto) [place] # (Auto) Eos # (Auto) Baso # (Auto) Abs Immat Gran (auto) Absolute Neuts (auto) Absolute Nucleated RBC Nucleated RBC % (auto) Smear Tech's Comments PT INR APTT Anion Gap Estim Creat Clear Calc Estimated GFR Random Glucose Calcium Total Bilirubin AST ALT Alkaline Phosphatase Total Protein Albumin COVID-19 (MAURICIO) Negative COVID-19 Clin Com See Note Imaging Radiologist's Impressions: Impressions Abdomen/Pelvis CT 09/09/20 10:56 IMPRESSION: Enlarged left kidney. Stable appearance to the slightly high attenuation lesion in the central upper pole of the left kidney. Internal increase in left perinephric fat stranding. High attenuation in the left renal pelvis and proximal ureter questionable for blood versus contrast from previous recent urologic exam 08/22/2020. Bladder not optimally distended. Small amount of air in the bladder again question related to previous urologic procedure 08/22/2020. Mild diffuse bladder wall thickening and stranding of the perivesicular fat. No intra or retroperitoneal air or fluid is seen. Gallstone. Stable pleural and parenchymal changes at the left lung base. Assessment and Plan (1) Hematuria, gross: Status: Acute (2) UTI (urinary tract infection): Status: Acute (3) Gomez catheter problem: Status: Acute (4) BPH w urinary obs/LUTS: Status: Acute This is a 70-year-old male with past medical history of BPH, as well as renal cancer presents to the hospital frequently for blockage of his urinary catheter which is in place secondary to BPH as well as clotting of his urinary tract secondary to bleeding apparent his renal cancer ( per pt) # gross hematuria - patient status post 5 L of CBI - urine is clearing up - management per urology - CT of the abdomen shows fat stranding of the left kidney as well as the bladder concerning for possible UTI - will obtain UA - empirically start ceftriaxone pending UA results if negative can stop the antibiotic - follow cultures # BPH with urinary obstruction - urinary catheter in place - management per Urology - continue finasteride # history of coronary artery disease status post CABG - continue metoprolol, will hold aspirin in the setting of hematuria # hypertension - stable - continue M door # COPD - no exacerbation - continue Spiriva, and Symbicort # HLD - continue statin DVT prophylaxis: SCDs
[2020-09-10] VITALS (8 sets, daily range): BP systolic 125–155; BP diastolic 55–76; PULSE 73–89; RESP 16–21; TEMP 35.7–37.1; O2SAT 90–95
--- NOTE | 2020-09-10 00:34 | PC.NURSE ---
PT'S URINE CONTAINING HIGHER CONCENTRATION OF BLOOD, 100ML EMPTIED FROM BAG. TBI WITH ADDITIONAL BAG NOW INFUSING. BAG #6.
--- NOTE | 2020-09-10 01:10 | PC.NURSE ---
report given to RN on floor, pt ready for transport to floor.
[2020-09-10] MEDS: 0.9 % Sodium Chloride 1,000 ML 100 ML IVCONT ×3 (02:14→22:34)
[2020-09-10] MEDS: Finasteride 5 MG TABLET PO (08:53)
[2020-09-10] MEDS: Isosorbide Mononitrate 30 MG TAB.ER.24H PO (08:54)
[2020-09-10] MEDS: Metoprolol Succinate ER 100 MG TAB.ER.24H PO (08:54)
[2020-09-10] MEDS: Tamsulosin HCL 0.4 MG CAPSULE 0.8 MG PO (08:54)
[2020-09-10 09:44] LABS: Hematocrit 42.4 % (42-52); Hemoglobin 14.4 g/dl (14.0-18.0); Mean Corpuscular Hemoglobin 31.2 pg (27.0-33.0); Mean Platelet Volume 10.2 fL (9.4-12.4); Platelet Count 183 X10*3/uL (160-400); Red Blood Count 4.61 X10*6/uL (4.60-5.80); Red Cell Distribution Width 13.7 % (11.0-16.0); White Blood Count 13.4 X10*3/uL (4.8-10.8)
--- NOTE | 2020-09-10 11:54 | PC.NURSE ---
CBI clamped per MD order.
[2020-09-10] MEDS: cefTRIAXone sodium 1 GM in 0.9 % Sodium Chloride 50 ML IV (12:32)
[2020-09-10] MEDS: oxyCODONE HCl Immed Release 5 MG TABLET PO ×2 (12:39→21:01)
[2020-09-10 13:41] LABS: Glucose Urine UA NEG (NEG); Leukocyte Esterase Urine 2+ (NEG); Nitrite Urine NEG (NEG); PH 6.5 (5.0-8.0); Urine Blood 3+ (NEG); Urine Ketones NEG (NEG); Urine Protein 1+ MG/DL (NEG-TRACE)
[2020-09-10 13:45] LABS: Appearance Urine CLOUDY; Color Urine PINK
--- NOTE | 2020-09-10 13:46 | HO.PM.IMPN ---
Subjective Subjective Date of Service: 09/10/20 Interval History: Follow up hematuria, no pain Physical Exam Vital Signs: Vital Signs: Last Vital Signs Temp 98.8 F 09/10/20 08:00 Pulse 77 09/10/20 08:54 Resp 21 H 09/10/20 08:00 BP 154/74 H 09/10/20 08:54 Pulse Ox 91 L 09/10/20 08:00 Body Mass Index 31.8 Appearing in no acute distress lung sounds are clear to auscultation heart regular rate rhythm, clear S1, S2 positive bowel sounds, abdomen is soft, nontender neuro patient is alert x3, no focal deficits uro mcclellan cath with CBI, punch colored urine Objective Data Current Medications Generic Name Dose Route Start Last Admin Trade Name Freq PRN Reason Stop Dose Admin Albuterol Sulfate 2 puff 09/10/20 01:34 Albuterol Sulfate 90 Mcg 8 Gm Inhaler INHALE Q4H PRN Wheezing Atorvastatin Calcium 80 mg 09/10/20 21:00 Atorvastatin Calcium 80 Mg Tablet PO BEDTIME STIVEN Finasteride 5 mg 09/10/20 09:00 09/10/20 08:53 Finasteride 5 Mg Tablet PO 5 mg DAILY STIVEN Administration Hydroxyzine HCl 25 mg 09/10/20 01:34 Hydroxyzine Hcl 25 Mg Tablet PO TID PRN anxiety Sodium Chloride 1,000 mls @ 100 mls/hr 09/10/20 01:34 09/10/20 11:50 Ns IVCONT 100 mls/hr .Q10H STIVEN Administration Ceftriaxone Sodium 1 gm/ 50 mls @ 100 mls/hr 09/10/20 13:00 09/10/20 13:26 Sodium Chloride IV Infused Q24H STIVEN Infusion Isosorbide Mononitrate 30 mg 09/10/20 09:00 09/10/20 08:54 Isosorbide Mononitrate 30 Mg Tab.Er.24h PO 30 mg DAILY STIVEN Administration Protocol Metoprolol Succinate 100 mg 09/10/20 09:00 09/10/20 08:54 Metoprolol Succinate Er 100 Mg Tab.Er.24h PO 100 mg DAILY STIVEN Administration Protocol Oxycodone HCl 5 mg 09/10/20 02:23 09/10/20 12:39 Oxycodone Hcl Immed Release 5 Mg Tablet PO 5 mg Q4H PRN Administration Pain, Severe (Pain Scale 7-10) Sodium Chloride 3 ml 09/10/20 08:00 09/10/20 08:54 0.9 % Sodium Chloride Flush 3 Ml Syringe IVFLUSH Not Given QSHIFT STIVEN Tamsulosin HCl 0.8 mg 09/10/20 09:00 09/10/20 08:54 Tamsulosin Hcl 0.4 Mg Capsule PO 0.8 mg DAILY STIVEN Administration Tiotropium [place] 1 puff 09/10/20 09:00 09/10/20 09:18 Tiotropium [place] 18 Mcg Cap.W.Dev INHALE Not Given DAILY [facility] Labs CBC & Chem 7: 09/10/20 09:35 09/09/20 07:56 Assessment and Plan (1) Hematuria, gross: Status: Acute (2) UTI (urinary tract infection): Status: Acute (3) Mcclellan catheter problem: Status: Acute (4) BPH w urinary obs/LUTS: Status: Acute Assessment and Plan: 70-year-old male with past medical history of BPH, as well as renal cancer presents to the hospital frequently for blockage of his urinary catheter which is in place secondary to BPH as well as clotting of his urinary tract secondary to bleeding apparently related to renal cancer. # Gross hematuria. Renal carcinoma - patient status post 5 L of CBI - CBI clamped for 2 hours, now with punch colored urine, CBI continued. - management per urology - mild UTI, on Rocephin # BPH with urinary obstruction - urinary catheter in place - management per Urology - continue finasteride # history of coronary artery disease status post CABG - continue metoprolol, will hold aspirin in the setting of hematuria # hypertension - stable - continue home medications # COPD - no exacerbation - continue Spiriva, and Symbicort # HLD - continue statin Attending: Dr. Saeed
[2020-09-10 13:55] LABS: Mucus Urine TRACE /LPF; Squamous Epithelial Cell Urine TRACE /LPF
--- NOTE | 2020-09-10 15:23 | MHC.CM.PN ---
NURSE MANAGER STRATEGY & ACCOUNT NOTE ELECTRONIC MEDICAL RECORD REVIEWED ALONG WITH CASE DISCUSSED WITH STAFF NURSE AND WITH THE HOSPITALISTS ON MULTIPLE-DISCIPLINARY ROUNDS.MET WITH PATIENT AND EXPLAINED THE ROLE OF THE NURSE MANAGER STRATEGY & ACCOUNT IN THE TRANSITION FROM HOSPITAL T HOME PATIENT LIVES WITH HIS CHILDREN HE HAS BEEN INDEPENDENT IN ALL ADLS AND MOBILITY , HE STARTED ON HAVING HEMATURIA THIS WORSENED IN MAY AND HE WAS EVALUATE BY THE UROLOGIST AND ON CT SCAN FOUND A MASS ON HIS KIDNEY, HE PRESENTED TO THE HOSPITAL AGAIN SECONDARY TO WORSENING HEMATURIA CONTINUE TO FOLLOW FOR DISCHARGE NEEDS DISCHARGE PLAN HOME WITH NEW REFERRAL T THE [facility] FOR NR[facility] FOR MONTHLY CHANGES IN HIS MUNOZ CATHETER PCP ARTURO MARTINEZ [facility]SP[facility] FAMILY FOLLOW UP WITH UROLOGIST PER DISCHARGE INSTRUCTIONS
[2020-09-10] MEDS: Atorvastatin Calcium 80 MG TABLET PO (20:59)
[2020-09-10] MEDS: 0.9 % Sodium Chloride Flush 3 ML SYRINGE IVFLUSH (20:59)
[2020-09-11] VITALS (7 sets, daily range): BP systolic 96–129; BP diastolic 48–57; PULSE 68–72; RESP 15–18; TEMP 36.2–36.5; O2SAT 91–93; BMI 32.8
[2020-09-11 06:45] LABS: Basophils Absolute Auto 0.1 X10*3/uL (0.0-0.2); Basophils Percent Auto 0.4 % (0-2); Eosinophils Absolute Auto 0.4 X10*3/uL (0.0-0.4); Eosinophils Percent Auto 3.5 % (0-4); Hematocrit 40.8 % (42-52); Hemoglobin 13.5 g/dl (14.0-18.0); Imm Gran Pct Auto 0.8 % (0.0-0.4); Lymphocytes Absolute Auto 1.7 X10*3/uL (1.2-4.9); Lymphocytes Percent Auto 13.8 % (20-40); MANUAL DIFF FLAG SCAN; Mean Corpuscular HGB Conc 33.1 g/dl (31.0-36.0); Mean Corpuscular Hemoglobin 30.5 pg (27.0-33.0); Mean Corpuscular Volume 92.1 fL (80-98); Mean Platelet Volume 10.3 fL (9.4-12.4); Monocytes Absolute Auto 1.7 X10*3/uL (0.1-1.2); Monocytes Percent Auto 14.3 % (2-11); Neutrophils Absolute Auto 8.2 X10*3/uL (2.0-8.3); Neutrophils Percent Auto 67.2 % (45-73); Platelet Count 201 X10*3/uL (160-400); Red Blood Count 4.43 X10*6/uL (4.60-5.80); Red Cell Distribution Width 13.8 % (11.0-16.0); SCAN SMEAR FLAG 1; White Blood Count 12.1 X10*3/uL (4.8-10.8)
[2020-09-11 07:03] LABS: Anion Gap 14 (12-20); Blood Urea Nitrogen 13 mg/dL (9-16); Calcium 8.4 mg/dL (8.4-10.2); Carbon Dioxide 24 mmol/L (22-29); Chloride 103 mmol/L (96-108); Creatinine Clr Calc Pharmacy 71.2; Estimated Glomerular Filt Rate > 60; Glucose Random 103 mg/dL (60-115); Potassium 4.2 mmol/L (3.3-5.1); Sodium 137 mmol/L (135-145)
[2020-09-11 07:45] LABS: SLIDE REVIEW VERIFIED
[2020-09-11] MEDS: oxyCODONE HCl Immed Release 5 MG TABLET PO ×2 (08:13→17:46)
[2020-09-11] MEDS: 0.9 % Sodium Chloride 1,000 ML 100 ML IVCONT ×2 (09:50→21:14)
[2020-09-11] MEDS: Metoprolol Succinate ER 100 MG TAB.ER.24H PO (10:09)
[2020-09-11] MEDS: Finasteride 5 MG TABLET PO (10:15)
[2020-09-11] MEDS: Tamsulosin HCL 0.4 MG CAPSULE 0.8 MG PO (10:15)
[2020-09-11] MEDS: Isosorbide Mononitrate 30 MG TAB.ER.24H PO (10:15)
[2020-09-11] MEDS: Docusate Sodium 100 MG CAPSULE PO (12:54)
--- NOTE | 2020-09-11 13:52 | P.PNIM_ITS ---
Subjective Subjective Date of Service: 09/11/20 Interval History: Follow up hematuria. Pain to penis from mcclellan catheter placement. Physical Exam Vital Signs: Vital Signs: Last Vital Signs Temp 97.7 F 09/11/20 11:47 Pulse 70 09/11/20 11:47 Resp 18 09/11/20 11:47 BP 96/57 L 09/11/20 11:47 Pulse Ox 93 09/11/20 11:47 Body Mass Index 32.8 Appearing in no acute distress lung sounds are clear to auscultation heart regular rate rhythm, clear S1, S2 positive bowel sounds, abdomen is soft, nontender neuro patient is alert x3, no focal deficits Uro Mcclellan catheter in place with CBI Objective Data Current Medications Generic Name Dose Route Start Last Admin Trade Name Freq PRN Reason Stop Dose Admin Albuterol Sulfate 2 puff 09/10/20 01:34 Albuterol Sulfate 90 Mcg 8 Gm Inhaler INHALE Q4H PRN Wheezing Atorvastatin Calcium 80 mg 09/10/20 21:00 09/10/20 20:59 Atorvastatin Calcium 80 Mg Tablet PO 80 mg BEDTIME STIVEN Administration Docusate Sodium 100 mg 09/10/20 18:27 09/11/20 12:54 Docusate Sodium 100 Mg Capsule PO 100 mg BEDTIME PRN Administration Constipation Finasteride 5 mg 09/10/20 09:00 09/11/20 10:15 Finasteride 5 Mg Tablet PO 5 mg DAILY STIVEN Administration Hydroxyzine HCl 25 mg 09/10/20 01:34 Hydroxyzine Hcl 25 Mg Tablet PO TID PRN anxiety Sodium Chloride 1,000 mls @ 100 mls/hr 09/10/20 01:34 09/11/20 09:50 Ns IVCONT 100 mls/hr .Q10H STIVEN Administration Ceftriaxone Sodium 1 gm/ 50 mls @ 100 mls/hr 09/10/20 13:00 09/10/20 13:26 Sodium Chloride IV Infused Q24H STIVEN Infusion Isosorbide Mononitrate 30 mg 09/10/20 09:00 09/11/20 10:15 Isosorbide Mononitrate 30 Mg Tab.Er.24h PO 30 mg DAILY STIVEN Administration Protocol Metoprolol Succinate 100 mg 09/10/20 09:00 09/11/20 10:09 Metoprolol Succinate Er 100 Mg Tab.Er.24h PO 100 mg DAILY STIVEN Administration Protocol Oxycodone HCl 5 mg 09/10/20 02:23 09/11/20 08:13 Oxycodone Hcl Immed Release 5 Mg Tablet PO 5 mg Q4H PRN Administration Pain, Severe (Pain Scale 7-10) Polyethylene Glycol 17 gm 09/10/20 18:27 Polyethylene Glycol 3350 17 Gm Powd.Pack PO DAILY PRN constipation Senna 15 ml 09/10/20 18:27 Senna [place] Extract Oral Syrup 15 Ml Syrup PO BEDTIME PRN Constipation Sodium Chloride 3 ml 09/10/20 08:00 09/11/20 07:34 0.9 % Sodium Chloride Flush 3 Ml Syringe IVFLUSH Not Given QSHIFT STIVEN Tamsulosin HCl 0.8 mg 09/10/20 09:00 09/11/20 10:15 Tamsulosin Hcl 0.4 Mg Capsule PO 0.8 mg DAILY STIVEN Administration Tiotropium [place] 1 puff 09/11/20 09:00 09/11/20 11:41 Tiotropium [place] 18 Mcg Cap.W.Dev INHALE Not Given DAILY [facility] Labs CBC & Chem 7: 09/11/20 06:11 09/11/20 06:11 Assessment and Plan (1) Hematuria, gross: Status: Acute (2) UTI (urinary tract infection): Status: Acute (3) Mcclellan catheter problem: Status: Acute (4) BPH w urinary obs/LUTS: Status: Acute Assessment and Plan: 70-year-old male with past medical history of BPH, as well as renal cancer presents to the hospital frequently for blockage of his urinary catheter which is in place secondary to BPH as well as clotting of his urinary tract secondary to bleeding apparently related to renal cancer. # Gross hematuria. Renal carcinoma - patient status post continuous CBI - CBI clamped multiple times, still with punch colored urine. - management per urology - mild UTI, on Rocephin # Hypotension. Asymtpomatic. - Hold isosorbide and metoprolol for now - follow blood pressure closely. # BPH with urinary obstruction - urinary catheter in place - management per Urology - continue finasteride # history of coronary artery disease status post CABG - continue metoprolol, will hold aspirin in the setting of hematuria # hypertension - stable - continue home medications # COPD - no exacerbation - continue Spiriva, and Symbicort # HLD - continue statin Dispo: Possible discharge tomorrow if stable with recommendation for urological follow-up. Attending: Dr. Saeed
[2020-09-11] MEDS: cefTRIAXone sodium 1 GM in 0.9 % Sodium Chloride 50 ML IV (14:03)
--- NOTE | 2020-09-11 14:33 | MHC.CM.PN ---
NURSE IT APPLICATION DEVELOPMENT MANAGER NOTE ELECTRONIC MEDICAL RECORD REVIEWED ALONG WITH CASE DISCUSSED ON MULTIPLE DISCIPLINARY ROUNDS . PER DOCUMENTATION :(70-year-old male with past medical history of BPH, as well as renal cancer presents to the hospital frequently for blockage of his urinary catheter which is in place secondary to BPH as well as clotting of his urinary tract secondary to bleeding apparently related to renal cancer. HEMATURIA S/P POS CONTINUOS CBI/AND THEN CLAMPED MULTIPLE TIMES, NOW STILL WITH PUNCH COLORED URINE, POSITIVE UTI ON ROCEPHIN DISCHARGE MAKAYLA BARRETO WITH FAMILY WITH NEW REFERRAL TO THE [facility] FOR NRUSIGN FOR DIAGNOSIS SIGHN SYMPTOM MANAGEMENT AND MUNOZ CATH JONATHAN MONTHLY PCP BRYSON AGUAYO PATIENT TO CALL FOR POST HOSPITAL DISCHARGE FOLLOW UP DR BENNETT UROLOGICAL FOLLOW UP PER DISCHARGE INSTRUCTIONS TRANSPORTATION FAMILY
[2020-09-11] MEDS: 0.9 % Sodium Chloride Flush 3 ML SYRINGE IVFLUSH (17:44)
[2020-09-11] MEDS: Atorvastatin Calcium 80 MG TABLET PO (21:13)
[2020-09-12] VITALS (8 sets, daily range): BP systolic 119–163; BP diastolic 55–70; PULSE 72–83; RESP 16–20; TEMP 36–36.9; O2SAT 92–97; BMI 32.5
[2020-09-12] MEDS: oxyCODONE HCl Immed Release 5 MG TABLET PO ×4 (06:18→23:45)
[2020-09-12] MEDS: 0.9 % Sodium Chloride 1,000 ML 100 ML IVCONT ×3 (06:53→23:47)
[2020-09-12 07:18] LABS: Alanine Aminotransferase 31 U/L (0-40); Albumin Level 3.3 g/dL (3.5-5.0); Alkaline Phosphatase 157 U/L (39-117); Anion Gap 14 (12-20); Aspartate Amino Transferase 13 U/L (5-37); Bilirubin Direct 0.5 mg/dL (0.0-0.5); Bilirubin Total 0.8 mg/dL (0.0-1.0); Blood Urea Nitrogen 12 mg/dL (9-16); Calcium 8.6 mg/dL (8.4-10.2); Carbon Dioxide 23 mmol/L (22-29); Chloride 104 mmol/L (96-108); Creatinine Clr Calc Pharmacy 80.3; Estimated Glomerular Filt Rate > 60; Glucose Random 111 mg/dL (60-115); Sodium 137 mmol/L (135-145); Total Protein 6.4 g/dL (6.5-8.0)
--- NOTE | 2020-09-12 07:21 | P.CNUR_ITS ---
History of Present Illness Consult details Consult date: 09/10/20 Narrative: Well known to Urology Has left-sided renal lesion with perioperative evaluation underway Intermittent hematuria has been ongoing Admitted with catheter placement Continue CBI to clear PMFSH Past Medical History Medical History Arthritis BPH (benign prostatic hyperplasia) CAD (coronary artery disease) COPD (chronic obstructive pulmonary disease) Hyperlipidemia Hypertension Myocardial infarction On beta steven at home Smoker Family History Family history: reviewed and not pertinent Surgical History Surgical History History of heart artery stent History of quadruple bypass Social History Social History Household Members: Children Housing: House Alcohol intake: never Smoking Status: Current every day smoker Tobacco Type: Cigarette Packs Per Day: 1.5 Cigarettes Per Day: 30.0 Years Smoked: 62 Substance Use Type: Marijuana service: Yes Current occupational status: retired [employer] Allergies Allergy/AdvReac Type Severity Reaction Status Date / Time No Known Allergies Allergy Verified 08/26/20 01:36 Active Medications: Current Medications Generic Name Dose Route Start Last Admin Trade Name Freq PRN Reason Stop Dose Admin Albuterol Sulfate 2 puff 09/10/20 01:34 Albuterol Sulfate 90 Mcg 8 Gm Inhaler INHALE Q4H PRN Wheezing Atorvastatin Calcium 80 mg 09/10/20 21:00 09/11/20 21:13 Atorvastatin Calcium 80 Mg Tablet PO 80 mg BEDTIME STIVEN Administration Docusate Sodium 100 mg 09/10/20 18:27 09/11/20 12:54 Docusate Sodium 100 Mg Capsule PO 100 mg BEDTIME PRN Administration Constipation Finasteride 5 mg 09/10/20 09:00 09/11/20 10:15 Finasteride 5 Mg Tablet PO 5 mg DAILY STIVEN Administration Hydroxyzine HCl 25 mg 09/10/20 01:34 Hydroxyzine Hcl 25 Mg Tablet PO TID PRN anxiety Sodium Chloride 1,000 mls @ 100 mls/hr 09/10/20 01:34 09/12/20 06:53 Ns IVCONT 100 mls/hr .Q10H STIVEN Administration Ceftriaxone Sodium 1 gm/ 50 mls @ 100 mls/hr 09/10/20 13:00 09/11/20 15:12 Sodium Chloride IV Infused Q24H STIVEN Infusion Oxycodone HCl 5 mg 09/10/20 02:23 09/12/20 06:18 Oxycodone Hcl Immed Release 5 Mg Tablet PO 5 mg Q4H PRN Administration Pain, Severe (Pain Scale 7-10) Polyethylene Glycol 17 gm 09/10/20 18:27 Polyethylene Glycol 3350 17 Gm Powd.Pack PO DAILY PRN constipation Senna 15 ml 09/10/20 18:27 Senna [place] Extract Oral Syrup 15 Ml Syrup PO BEDTIME PRN Constipation Sodium Chloride 3 ml 09/10/20 08:00 09/11/20 23:54 0.9 % Sodium Chloride Flush 3 Ml Syringe IVFLUSH Not Given QSHIFT [facility] Tamsulosin HCl 0.8 mg 09/10/20 09:00 09/11/20 10:15 Tamsulosin Hcl 0.4 Mg Capsule PO 0.8 mg DAILY STIVEN Administration Tiotropium [place] 1 puff 09/11/20 09:00 09/11/20 11:41 Tiotropium [place] 18 Mcg Cap.W.Dev INHALE Not Given DAILY [facility] Home Medications Medication Instructions Recorded Confirmed Last Taken Type atorvastatin 80 mg tablet 80 mg PO DAILY 04/24/20 09/09/20 Unknown History hydroxyzine pamoate 25 mg capsule 25 mg PO TID PRN 04/24/20 09/09/20 Unknown History isosorbide mononitrate 30 mg 30 mg PO DAILY 04/24/20 09/09/20 08/22/20 05:30 History tablet,extended release 24 hr metoprolol succinate 100 mg 100 mg PO DAILY 04/24/20 09/09/20 08/22/20 05:30 History tablet,extended release 24 hr tamsulosin 0.4 mg capsule 0.8 mg PO DAILY 04/24/20 09/09/20 Unknown History albuterol sulfate [ProAir HFA] 2 puff INHALATION Q4-6H PRN 08/17/20 09/09/20 Unknown History budesonide-formoterol [Symbicort] 2 puff PO BID 08/17/20 09/09/20 08/22/20 05:30 History Spiriva with HandiHaler 1 cap INHALATION DAILY 08/20/20 09/09/20 08/22/20 05:30 History aspirin 81 mg PO DAILY 08/20/20 09/09/20 Unknown History Physical Exam Vital Signs: Vital Signs: Last Vital Signs Temp 97 F 09/12/20 04:00 Pulse 72 09/12/20 04:00 Resp 18 09/12/20 04:00 BP 163/70 H 09/12/20 04:00 Pulse Ox 92 09/12/20 04:00 Body Mass Index 32.5 Const: General: cooperative, healthy appearing, comfortable and no acute distress Nutritional Appearance: average body habitus Orientation/consciousness: oriented to person, oriented to place and oriented to time Eyes: General: appearance normal, both eyes and all related structures Chest: Chest palpation & inspection: normal inspection of the chest Resp: Effort & Inspection: normal respiratory effort Cardio: Rate: regular rate GI: Inspection: Yes normal to inspection Skin: Hair: normal Neuro: General: oriented to person, oriented to place and oriented to time Extrem: General: Yes normal to inspection Results Labs Result diagrams: 09/11/20 06:11 09/12/20 06:10 Labs: Abnormal lab results 09/11/20 09/12/20 Range/Units 06:11 06:10 WBC 12.1 H (4.8-10.8) X10*3/uL RBC 4.43 L (4.60-5.80) X10*6/uL Hgb 13.5 L (14.0-18.0) g/dl Hct 40.8 L (42-52) % Immature Gran % (Auto) 0.8 H (0.0-0.4) % Lymph % (Auto) 13.8 L (20-40) % [place] % (Auto) 14.3 H (2-11) % [place] # (Auto) 1.7 H (0.1-1.2) X10*3/uL Abs Immat Gran (auto) 0.10 H (0.00-0.03) X10*3/uL Alkaline Phosphatase 157 H D (39-117) U/L Total Protein 6.4 L (6.5-8.0) g/dL Albumin 3.3 L (3.5-5.0) g/dL Short CBC 09/11/20 Range/Units 06:11 WBC 12.1 H (4.8-10.8) X10*3/uL Hgb 13.5 L (14.0-18.0) g/dl Hct 40.8 L (42-52) % Plt Count 201 (160-400) X10*3/uL BMP 09/12/20 06:10 Sodium 137 Potassium 4.0 Chloride 104 Carbon Dioxide 23 BUN 12 Creatinine 0.91 Calcium 8.6 Liver Function 09/12/20 Range/Units 06:10 Total Bilirubin 0.8 (0.0-1.0) mg/dL Direct Bilirubin 0.5 (0.0-0.5) mg/dL AST 13 D (5-37) U/L ALT 31 (0-40) U/L Alkaline Phosphatase 157 H D (39-117) U/L Albumin 3.3 L (3.5-5.0) g/dL Urine 09/10/20 Range/Units 13:00 Urine Color PINK Urine Appearance CLOUDY Urine pH 6.5 (5.0-8.0) Ur Specific [place] 1.010 (1.005-1.025) Urine Protein 1+ H (NEG-TRACE) MG/DL Urine Glucose (UA) NEG (NEG) MG/DL All other labs normal. Assessment and Plan (1) Hematuria, gross: Status: Acute (2) UTI (urinary tract infection): Status: Acute Continue CBI Continue antibiotics
[2020-09-12] MEDS: Tamsulosin HCL 0.4 MG CAPSULE 0.8 MG PO (09:25)
[2020-09-12] MEDS: Finasteride 5 MG TABLET PO (09:30)
--- NOTE | 2020-09-12 11:55 | P.PNIM_ITS ---
Subjective Subjective Date of Service: 09/12/20 Interval History: Follow up hematuria. Still with pain to the tip of his penis. Physical Exam Vital Signs: Vital Signs: Last Vital Signs Temp 97.4 F 09/12/20 11:34 Pulse 81 09/12/20 11:34 Resp 18 09/12/20 11:34 BP 138/59 L 09/12/20 11:34 Pulse Ox 94 09/12/20 11:34 Body Mass Index 32.5 Appearing in no acute distress lung sounds are clear to auscultation heart regular rate rhythm, clear S1, S2 positive bowel sounds, abdomen is soft, nontender neuro patient is alert x3, no focal deficits Uro CBI in place, Mcclellan cath draining yellow urine. Objective Data Current Medications Generic Name Dose Route Start Last Admin Trade Name Freq PRN Reason Stop Dose Admin Albuterol Sulfate 2 puff 09/10/20 01:34 Albuterol Sulfate 90 Mcg 8 Gm Inhaler INHALE Q4H PRN Wheezing Atorvastatin Calcium 80 mg 09/10/20 21:00 09/11/20 21:13 Atorvastatin Calcium 80 Mg Tablet PO 80 mg BEDTIME STIVEN Administration Docusate Sodium 100 mg 09/10/20 18:27 09/11/20 12:54 Docusate Sodium 100 Mg Capsule PO 100 mg BEDTIME PRN Administration Constipation Finasteride 5 mg 09/10/20 09:00 09/12/20 09:30 Finasteride 5 Mg Tablet PO 5 mg DAILY STIVEN Administration Hydroxyzine HCl 25 mg 09/10/20 01:34 Hydroxyzine Hcl 25 Mg Tablet PO TID PRN anxiety Sodium Chloride 1,000 mls @ 100 mls/hr 09/10/20 01:34 09/12/20 06:53 Ns IVCONT 100 mls/hr .Q10H STIVEN Administration Ceftriaxone Sodium 1 gm/ 50 mls @ 100 mls/hr 09/10/20 13:00 09/11/20 15:12 Sodium Chloride IV Infused Q24H STIVEN Infusion Oxycodone HCl 5 mg 09/10/20 02:23 09/12/20 06:18 Oxycodone Hcl Immed Release 5 Mg Tablet PO 5 mg Q4H PRN Administration Pain, Severe (Pain Scale 7-10) Polyethylene Glycol 17 gm 09/10/20 18:27 Polyethylene Glycol 3350 17 Gm Powd.Pack PO DAILY PRN constipation Senna 15 ml 09/10/20 18:27 Senna [place] Extract Oral Syrup 15 Ml Syrup PO BEDTIME PRN Constipation Sodium Chloride 3 ml 09/10/20 08:00 09/12/20 07:33 0.9 % Sodium Chloride Flush 3 Ml Syringe IVFLUSH Not Given QSHIFT STIVEN Tamsulosin HCl 0.8 mg 09/10/20 09:00 09/12/20 09:25 Tamsulosin Hcl 0.4 Mg Capsule PO 0.8 mg DAILY STIVEN Administration Tiotropium [place] 1 puff 09/11/20 09:00 09/12/20 07:48 Tiotropium [place] 18 Mcg Cap.W.Dev INHALE 1 puff DAILY STIVEN Administration Labs CBC & Chem 7: 09/11/20 06:11 09/12/20 06:10 Assessment and Plan (1) UTI (urinary tract infection): Status: Acute Assessment and Plan: 70-year-old male with past medical history of BPH, as well as renal cancer presents to the hospital frequently for blockage of his urinary catheter which is in place secondary to BPH as well as clotting of his urinary tract secondary to bleeding apparently related to renal cancer. # Gross hematuria. Renal carcinoma,, improved with CBI wide open but then clots start forming once CBI clamped. - Clamp CBI and monitor for clotting. - management per urology - mild UTI, on Rocephin #Penile pain. Pain from mcclellan catheter manipulation. - Zinc oxide QID - may use ice for swelling # Hypotension. Resolved. Asymtpomatic. - Restart isosorbide and metoprolol - follow blood pressure closely. # BPH with urinary obstruction - urinary catheter in place - management per Urology - continue finasteride # history of coronary artery disease status post CABG - continue metoprolol, will hold aspirin in the setting of hematuria # COPD - no exacerbation - continue Spiriva, and Symbicort # HLD - continue statin Dispo: Possible discharge tomorrow if stable with recommendation for urological follow-up. Attending: Dr. Saeed
--- NOTE | 2020-09-12 14:10 | MHC.CM.PN ---
nurse intensive care anaesthetist note electronic medical record reviewed along with case discussed with staff nurse and on multiple disciplinary rounds. met with patient Has left-sided renal lesion with perioperative evaluation underway, he verbalized frustrations about when they will remove his kidney. hematuria resulting from kidney cance his hematuria has been intermittent aemitted with catheter placement continue continous bladder irrigation , continue iv abx . discharge plan home [facility] caTH MONTHLY CHANGES , DIAGNOSIS SIGN/SYMPTOM MANAGEMENT
[2020-09-12] MEDS: cefTRIAXone sodium 1 GM in 0.9 % Sodium Chloride 50 ML IV (14:51)
[2020-09-12] MEDS: Zinc Oxide (Triple Paste) 56.7 GM OINT 1 APPL TOPICAL (14:58)
[2020-09-12] MEDS: Atorvastatin Calcium 80 MG TABLET PO (19:55)
[2020-09-13 03:33] VITALS: BP 143/62; PULSE 77; RESP 16; TEMP 36.4; O2SAT 91
[2020-09-13 06:00] VITALS: BMI 32.0
[2020-09-13 07:52] VITALS: PULSE 75; O2SAT 95
[2020-09-13 08:00] VITALS: BP 172/75; PULSE 74; RESP 17; TEMP 36.6; O2SAT 92
[2020-09-13 08:12] VITALS: BP 172/75; PULSE 74
[2020-09-13] MEDS: Metoprolol Succinate ER 100 MG TAB.ER.24H PO (08:12)
[2020-09-13] MEDS: oxyCODONE HCl Immed Release 5 MG TABLET PO ×2 (08:12→12:42)
[2020-09-13 08:13] VITALS: BP 172/74; PULSE 74
[2020-09-13] MEDS: Finasteride 5 MG TABLET PO (08:13)
[2020-09-13] MEDS: Isosorbide Mononitrate 30 MG TAB.ER.24H PO (08:13)
[2020-09-13] MEDS: Tamsulosin HCL 0.4 MG CAPSULE 0.8 MG PO (08:13)
[2020-09-13 09:42] LABS: Hematocrit 40.9 % (42-52); Hemoglobin 13.8 g/dl (14.0-18.0); Mean Corpuscular HGB Conc 33.7 g/dl (31.0-36.0); Mean Corpuscular Volume 91.9 fL (80-98); Mean Platelet Volume 9.9 fL (9.4-12.4); Platelet Count 203 X10*3/uL (160-400); Red Blood Count 4.45 X10*6/uL (4.60-5.80); Red Cell Distribution Width 13.5 % (11.0-16.0); White Blood Count 10.9 X10*3/uL (4.8-10.8)
--- NOTE | 2020-09-13 11:20 | P.DS_ITS ---
DS: Providers Provider Date of Service: 09/13/20 <EDMAR Head - Last Filed: 09/13/20 11:45> 09/13/20 <Bo Saeed MD - Last Filed: 09/13/20 16:47> Date of admission: 09/10/20 00:15 <EDMAR Head - Last Filed: 09/13/20 11:45> Primary care physician: Yvonne Díaz MD <EDMAR Head - Last Filed: 09/13/20 11:45> Consults: 09/10/20 01:34 Consult to Urology Routine Consulting Provider: Yoandy Shaw Reason for consultation: hematuria Has provider been notified: Yes <EDMAR Head - Last Filed: 09/13/20 11:45> DS: Diagnosis Discharge Diagnosis (1) Hematuria, gross: Status: Acute <EDMAR Head - Last Filed: 09/13/20 11:45> (2) UTI (urinary tract infection): Status: Acute <EDMAR Head - Last Filed: 09/13/20 11:45> (3) Renal cancer: Status: Acute <EDMAR Head - Last Filed: 09/13/20 11:45> DS: Medications Discharge Medications Home Medications: Home Medications Medication Instructions Recorded Confirmed atorvastatin 80 mg tablet 80 mg PO DAILY 04/24/20 09/09/20 hydroxyzine pamoate 25 mg capsule 25 mg PO TID PRN 04/24/20 09/09/20 isosorbide mononitrate 30 mg 30 mg PO DAILY 04/24/20 09/09/20 tablet,extended release 24 hr metoprolol succinate 100 mg 100 mg PO DAILY 04/24/20 09/09/20 tablet,extended release 24 hr tamsulosin 0.4 mg capsule 0.8 mg PO DAILY 04/24/20 09/09/20 albuterol sulfate [ProAir HFA] 2 puff INHALATION Q4-6H PRN 08/17/20 09/09/20 budesonide-formoterol [Symbicort] 2 puff PO BID 08/17/20 09/09/20 Spiriva with HandiHaler 1 cap INHALATION DAILY 08/20/20 09/09/20 aspirin 81 mg PO DAILY 08/20/20 09/09/20 Previous Rx's Medication Instructions Recorded finasteride 5 mg tablet 5 mg PO DAILY 90 Days #90 tab 08/24/20 <EDMAR Head - Last Filed: 09/13/20 11:45> DS: Summary Hospital Course Hospital Course: 70-year-old male with past medical history of BPH, CAD status post CABG, COPD, HLD, HTN, renal cancer, frequent gross hematuria who presents to the hospital complaining that his Mcclellan catheter has been blocked. Patient reports that he frequently has blockage of his Mcclellan catheter due to bloody clots from his kidney cancer. He presented initially at 3:00 a.m. on 09/09 the catheter was changed in the ED and patient was sent home. He returned to the ED same mo rning stating that his urine catheter still block that he is unable to void. The urologist was called in and he had a 3 way Mcclellan catheter placed, and was started on CBI as he developed significant hematuria. Patient is vein admitted to the hospital for observation. He denies any abdominal pain, no suprapubic pain, no flank pain, no chest pain, no shortness of breath, no fever or chills, no urinary symptoms, no lower extremity edema. No headache or change in vision. Denies any cough or sputum production. Hematuria. In the setting of renal cancer. He was started on CBI, which is now clear. H/H has remained stable. There was concern for UTI and he was started on Ceftriaxone however, urine culture was negative. Will be discharged home with mcclellan with plans for outpatient follow up with Dr. Shaw in two weeks. ASA was held and can be resumed when safe from urologic perspective. Attending Attestation: Patient seen and examined independently and I was present during bravo portion of E/M service. Agree with EDMAR Noriega's history, physical, assessment, and plan. Treated with CBI for hematuria. Treated with IV Rocephin in the hospital for dysuria + UA suggestive of UTI. Urine C&S with no growth at the time of d/c and given the fact that patient completed 4 days IV rocephin in the hospital d/c without antibiotics. <EDMAR Head - Last Filed: 09/13/20 11:45> Time Spent with Patient Time attestation: Total time spent providing and/or coordinating discharge services: <EDMAR Head - Last Filed: 09/13/20 11:45> Discharge coordination time: Greater than 30 minutes <EDMAR Head - Last Filed: 09/13/20 11:45> Physical Exam Vital Signs: Vital Signs: Last Vital Signs Temp 97.9 F 09/13/20 08:00 Pulse 74 09/13/20 08:13 Resp 17 09/13/20 08:00 BP 172/74 H 09/13/20 08:13 Pulse Ox 92 09/13/20 08:00 Body Mass Index 32.0 <EDMAR Head - Last Filed: 09/13/20 11:45> Const: Nutritional Appearance: well nourished <EDMAR Head - Last Filed: 09/13/20 11:45> Orientation/consciousness: patient oriented x3 <EDMAR Head - Last Filed: 09/13/20 11:45> HENMT: Head: Yes normocephalic and Yes atraumatic <EDMAR Head - Last Filed: 09/13/20 11:45> Eyes: Sclerae: sclerae normal <EDMAR Head - Last Filed: 09/13/20 11:45> Chest: Chest palpation & inspection: normal inspection of the chest <EDMAR Head Last Filed: 09/13/20 11:45> Resp: Effort & Inspection: normal respiratory effort and no respiratory distress <EDMAR Head - Last Filed: 09/13/20 11:45> Cardio: Rate: regular rate <EDMAR Head Last Filed: 09/13/20 11:45> Rhythm: regular rhythm <EDMAR Head - Last Filed: 09/13/20 11:45> GI: Palpation (GI): Soft to palpation and nontender <EDMAR Head - Last Filed: 09/13/20 11:45> : Other: mcclellan <EDMAR Head - Last Filed: 09/13/20 11:45> Neuro: General: patient oriented x3 <EDMAR Head - Last Filed: 09/13/20 11:45> Cranial nerves: Yes CN's II-XII intact bilaterally and Yes Bilaterally intact EOM present <EDMAR Head - Last Filed: 09/13/20 11:45> DS: Data Data Completed and Pending Labs on day of discharge: Laboratory Results - last 24 hr 09/13/20 09:26 WBC 10.9 H RBC 4.45 L Hgb 13.8 L Hct 40.9 L MCV 91.9 MCH 31.0 MCHC 33.7 RDW 13.5 Plt Count 203 MPV 9.9 Absolute Nucleated RBC 0.000 Nucleated RBC % (auto) 0.0 <EDMAR Head - Last Filed: 09/13/20 11:45> Discharge Plan Discharge Patient Disposition: Home, Self-Care <EDMAR Head - Last Filed: 09/13/20 11:45> Referrals: Yoandy Shaw MD [Physician] - 2 Weeks (hematuria) Yvonne Díaz MD [Primary Care Provider] - <EDMAR Head - Last Filed: 09/13/20 11:45> Discharge Medications: New oxycodone 5 mg Tablet 5 mg PO Q4H PRN (Reason: Pain, Severe (Pain Scale 7-10)) Qty: 20 RF: 0 Continued finasteride 5 mg tablet 5 mg PO DAILY 90 Days Qty: 90 RF: 1 budesonide-formoterol [Symbicort] 160-4.5 mcg/actuation HFA aerosol inhaler 2 puff PO BID RF: 0 albuterol sulfate [ProAir HFA] 90 mcg/actuation Hfa Aerosol Inhaler 2 puff INHALATION Q4-6H PRN (Reason: Wheezing) RF: 0 Spiriva with HandiHaler 18 mcg Capsule, W/Inhalation Device 1 cap INHALATION DAILY RF: 0 hydroxyzine pamoate 25 mg capsule 25 mg PO TID PRN (Reason: anxiety) RF: 0 atorvastatin 80 mg tablet 80 mg PO DAILY RF: 0 metoprolol succinate 100 mg tablet extended release 24 hr 100 mg PO DAILY RF: 0 isosorbide mononitrate 30 mg tablet extended release 24 hr 30 mg PO DAILY RF: 0 tamsulosin 0.4 mg capsule 0.8 mg PO DAILY RF: 0 Held aspirin 81 mg Tablet,Delayed Release (Dr/Ec) 81 mg PO DAILY RF: 0 Hold Instructions: Resume on 09/27/20. can resume when okayed by urology <EDMAR Head - Last Filed: 09/13/20 11:45> Discharge Orders: Discharge Order (Routine); Ordered 09/13/20 Ordered By: Martha Nicole <EDMAR Head - Last Filed: 09/13/20 11:45> Diet: advance to usual diet <EDMAR Head - Last Filed: 09/13/20 11:45> advance to usual diet <Bo Saeed MD - Last Filed: 09/13/20 16:47> Activity on Discharge: As tolerated <EDMAR Head - Last Filed: 09/13/20 11:45> As tolerated <Bo Saeed MD - Last Filed: 09/13/20 16:47> Stand Alone Forms: Patient Portal Discharge page <EDMAR Head - Last Filed: 09/13/20 11:45> Care Plan Goals: see below <EDMAR Head - Last Filed: 09/13/20 11:45> Health Concerns: Hematuria <EDMAR Head - Last Filed: 09/13/20 11:45> Plan of Treatment: Hematuria - Don't take aspirin until you follow up with Dr. Shaw in the office. Call Dr. Shaw to schedule a follow up appointment <EDMAR Head - Last Filed: 09/13/20 11:45> Discharge Date/Time: 09/13/20 13:00 <EDMAR Head - Last Filed: 09/13/20 11:45>
[2020-09-13 11:39] VITALS: BP 130/61; PULSE 69; RESP 16; TEMP 36.8; O2SAT 94
== END 2020-09-13 13:00 | disposition home or self-care (01) | DRG 699 ==
LOC: HO.ED 22:28 → HO.EDOVER 09-10 00:35 → HO.S3 09-10 00:42
PROVIDERS: Emergency Medicine; Nurse Practitioner Acute Care; Physician Assistant Medical; Admitting Provider Internal Medicine; Emergency Provider Emergency Medicine Emergency Medical Services; PCP Internal Medicine; Visit Provider Family Medicine
DX: T83.098A Other mechanical complication of other urinary catheter, initial encounter (principal); C64.2 Malignant neoplasm of left kidney, except renal pelvis; N13.8 Other obstructive and reflux uropathy; I25.2 Old myocardial infarction; F17.210 Nicotine dependence, cigarettes, uncomplicated; Z71.6 Tobacco abuse counseling; Z20.822 Contact with and (suspected) exposure to COVID-19; R31.0 Gross hematuria; I10 Essential (primary) hypertension; J44.9 Chronic obstructive pulmonary disease, unspecified; I95.9 Hypotension, unspecified; E78.5 Hyperlipidemia, unspecified; I25.10 Atherosclerotic heart disease of native coronary artery without angina pectoris; N40.1 Benign prostatic hyperplasia with lower urinary tract symptoms; R35.1 Nocturia; Z95.1 Presence of aortocoronary bypass graft; Z79.82 Long term (current) use of aspirin; Z79.899 Other long term (current) drug therapy
CPT/HCPCS: 36415; 74176; 80048; 80053; 80076; 81001; 85025; 85027; 85610; 85730; 87635; 96365; 96375; 99284; 99285; J0696; J2270

== ENCOUNTER → 2020-10-05 11:22 | Outpatient (BNVA) | payer MEDICARE, SELFPAY | PROVIDERS: PCP Internal Medicine; Visit Provider Urology | DX: Z13.89 Encounter for screening for other disorder (principal) | CPT/HCPCS: 99212 ==

== ENCOUNTER 2020-11-28 07:32 | Inpatient (IN) | payer MEDICARE, SELFPAY ==
[2020-11-21 12:16] VITALS: BMI 29.4
--- NOTE | 2020-11-22 09:43 | P.CONAN_ITS ---
Documented by User: Keyana Gellerney 11/26/20 12:06 HPI - Anesthesia Eval Consult details Narrative: 70yo M for Left Laparoscopic Nephrectomy s/p cysto, etc with GA-LMA 4 08/2020 Cardiac cleared - >4 mets, continue imdur periop, no further testing Pulmo cleared - severe COPD on PFT, but mild/moderate symptoms and stable clinical hx. Smoking cessation stressed. [facility] Active Problems Active Problems: All Active Problems (Updated 11/21/20 @ 12:24 by Kerrie Encarnacion) BPH (benign prostatic hyperplasia) (Acute) Renal cancer (Acute) Past Medical History Medical History Arthritis BPH (benign prostatic hyperplasia) BPH w urinary obs/LUTS CAD (coronary artery disease) COPD (chronic obstructive pulmonary disease) COVID-19 vaccine series completed Feeling of incomplete bladder emptying Hyperlipidemia Hypertension Myocardial infarction Nocturia more than twice per night On beta steven at home Renal cancer Smoker Family History Family history of problems with anesthesia: No Surgical History Surgical History History of heart artery stent History of lung surgery History of quadruple bypass Hx of cystoscopy History of Problems with Anesthesia: No Social History Social History Household Members: Children Household Members Other:: son Housing: House Are you a primary care trainer to a significant other at home: No Do you presently have visiting nurse or other home services: No Alcohol intake: never Patient Tobacco Use Status: Current everyday Tobacco user Tobacco use type: Cigarette Cigarette Packs Per Day: 1.5 Cigarettes Per Day: 30.0 Years Smoked: 62 Smoked in Last 30 Days: Yes Patient Interested in Nicotine Replacement: Yes Patient Given Instructions on How to Stop Smoking: Yes Date Education Initiated: 11/21/20 Second Hand Smoke Exposure: Yes Use of substances other than those prescribed or required for medical reasons: Yes Substance Use Type: Marijuana Substance Use Type Other:: CBD Gummies Substance Use Frequency: Occasionally Have you been hit, kicked, punched, or otherwise hurt by someone within the past year? If so, by whom?: No Spiritual Healthcare Practices: none Taoism Healthcare Practices: none Cultural Healthcare Practices: none Are you DNR?: No Advance Directives: No Advance Directives Information Provided: No Advance Directives on File: No Recently lost weight without trying: No service: Yes Current occupational status: retired [employer] Allergies Allergy/AdvReac Type Severity Reaction Status Date / Time No Known Allergies Allergy Verified 11/21/20 12:16 Home Medications Medication Instructions Recorded Confirmed Last Taken Type atorvastatin 80 mg tablet 80 mg PO DAILY 04/24/20 11/21/20 Unknown History hydroxyzine pamoate 25 mg capsule 25 mg PO TID PRN 04/24/20 11/21/20 11/28/20 History isosorbide mononitrate 30 mg 30 mg PO DAILY 04/24/20 11/21/20 11/28/20 History tablet,extended release 24 hr metoprolol succinate 100 mg 100 mg PO DAILY 04/24/20 11/21/20 11/28/20 History tablet,extended release 24 hr tamsulosin 0.4 mg capsule 0.8 mg PO DAILY 04/24/20 11/21/20 Unknown History albuterol sulfate [ProAir HFA] 2 puff INHALATION Q4-6H PRN 08/17/20 11/21/20 Unknown History budesonide-formoterol [Symbicort] 2 puff PO BID 08/17/20 11/21/20 11/28/20 History Spiriva with HandiHaler 1 cap INHALATION DAILY 08/20/20 11/21/20 11/28/20 History aspirin 81 mg PO DAILY 08/20/20 09/09/20 Unknown History Exam Exam Date and Time: November 22, 2020 0943 Height,Weight and Vital Signs: Height 5 ft 7 in Weight 85.275 kg Pertinent Lab Results Pertinent Lab Results: Lab Results 11/22/20 11/22/20 11/22/20 Range/Units 12:00 12:00 12:04 WBC 9.4 (4.8-10.8) X10*3/uL RBC 5.32 (4.60-5.80) X10*6/uL Hgb 15.8 (14.0-18.0) g/dl Hct 49.2 D (42-52) % MCV 92.5 (80-98) fL MCH 29.7 (27.0-33.0) pg MCHC 32.1 (31.0-36.0) g/dl RDW 14.1 (11.0-16.0) % Plt Count 183 (160-400) X10*3/uL MPV 11.1 (9.4-12.4) fL Absolute Nucleated RBC 0.000 (0.0-0.012) X10*3/uL Nucleated RBC % (auto) 0.0 (0.0-0.2) /100WBC Sodium 138 (135-145) mmol/L Potassium 4.0 (3.3-5.1) mmol/L Chloride 101 (96-108) mmol/L Carbon Dioxide 30 H (22-29) mmol/L Anion Gap 11 L (12-20) BUN 14 (9-16) mg/dL Creatinine 1.23 (0.5-1.4) mg/dL Estim Creat Clear Calc 56.6 Estimated GFR 58 Random Glucose 84 (60-115) mg/dL Calcium 9.4 D (8.4-10.2) mg/dL Blood Type B Positive Antibody Screen NEGATIVE Narrative Narrative: EKG 09/28/20 (per cardiac note) NSR Inferolateral infarct - age undetermined Unchanged from 2019 PFT 09/18/20 moderate-severe COPD with corresponding decrease in diffusion capacity c/w emphysema. Decline in diffusion capacity when compared with 2013. XR chest 2V 11/2020 IMPRESSION: Post-CABG changes. Increased interstitial markings and blunting of the left costophrenic angle suggestive of chronic pleural thickening similar to previous exams. Question more prominent pleural-based nodule adjacent to the left upper lobe. Follow-up chest CT scan should be considered. Assessment and Plan Assessment Anesthesia Assessment: Chart Reviewed Documented by User: Romel Deras 11/28/20 08:08 [facility] Past Medical History Medical History Arthritis BPH (benign prostatic hyperplasia) BPH w urinary obs/LUTS CAD (coronary artery disease) COPD (chronic obstructive pulmonary disease) COVID-19 vaccine series completed Feeling of incomplete bladder emptying Hyperlipidemia Hypertension Myocardial infarction Nocturia more than twice per night On beta steven at home Renal cancer Smoker Surgical History Surgical History History of heart artery stent History of lung surgery History of quadruple bypass Hx of cystoscopy Social History Social History Household Members: Children Household Members Other:: son Housing: House Are you a primary care trainer to a significant other at home: No Do you presently have visiting nurse or other home services: No Alcohol intake: never Patient Tobacco Use Status: Current everyday Tobacco user Tobacco use type: Cigarette Cigarette Packs Per Day: 1.5 Cigarettes Per Day: 30.0 Years Smoked: 62 Smoked in Last 30 Days: Yes Patient Interested in Nicotine Replacement: Yes Patient Given Instructions on How to Stop Smoking: Yes Date Education Initiated: 11/21/20 Second Hand Smoke Exposure: Yes Use of substances other than those prescribed or required for medical reasons: Yes Substance Use Type: Marijuana Substance Use Type Other:: CBD Gummies Substance Use Frequency: Occasionally Have you been hit, kicked, punched, or otherwise hurt by someone within the past year? If so, by whom?: No Spiritual Healthcare Practices: none Taoism Healthcare Practices: none Cultural Healthcare Practices: none Are you DNR?: No Advance Directives: No Advance Directives Information Provided: No Advance Directives on File: No Recently lost weight without trying: No service: Yes Current occupational status: retired [employer] Allergies Allergy/AdvReac Type Severity Reaction Status Date / Time No Known Allergies Allergy Verified 11/21/20 12:16 Home Medications Medication Instructions Recorded Confirmed Last Taken Type atorvastatin 80 mg tablet 80 mg PO DAILY 04/24/20 11/21/20 Unknown History hydroxyzine pamoate 25 mg capsule 25 mg PO TID PRN 04/24/20 11/21/20 11/28/20 History isosorbide mononitrate 30 mg 30 mg PO DAILY 04/24/20 11/21/20 11/28/20 History tablet,extended release 24 hr metoprolol succinate 100 mg 100 mg PO DAILY 04/24/20 11/21/20 11/28/20 History tablet,extended release 24 hr tamsulosin 0.4 mg capsule 0.8 mg PO DAILY 04/24/20 11/21/20 Unknown History albuterol sulfate [ProAir HFA] 2 puff INHALATION Q4-6H PRN 08/17/20 11/21/20 Unknown History budesonide-formoterol [Symbicort] 2 puff PO BID 08/17/20 11/21/20 11/28/20 History Spiriva with HandiHaler 1 cap INHALATION DAILY 08/20/20 11/21/20 11/28/20 History aspirin 81 mg PO DAILY 08/20/20 09/09/20 Unknown History Exam Airway Mallampati Class: III TM Dist: >3cm Neck ROM: Full Denture: Upper and Lower Heart: [id number] Lungs: + b/s bilaterally Other: Patient seen and optimized by cardiology and pulmonary to the best of their ability. Patient still high risk after optimization Assessment and Plan Assessment Anesthesia Assessment: Anesthesia Plan Discussed, PAT Visit and Chart Reviewed Final Anesthetic Review NPO: Yes ASA Class: III Final Preanesthetic Review: No Changes in Pt Med Stat, Meds/Allgs Chart Reviewed, Consent Obtained/Reviewed and Anes Risks/Benef Reviewed Patient Risk: High Procedure Risk: Intermediate Assessment/Block/Sedation in SS: Assess/Block/Sedation-SS Anesthetic Plan Anesthetic Plan: GA and Agree w/ Assess. and Plan Disposition: Standard PACU
[2020-11-22 13:07] LABS: Hematocrit 49.2 % (42-52); Hemoglobin 15.8 g/dl (14.0-18.0); Mean Corpuscular HGB Conc 32.1 g/dl (31.0-36.0); Mean Corpuscular Hemoglobin 29.7 pg (27.0-33.0); Mean Corpuscular Volume 92.5 fL (80-98); Mean Platelet Volume 11.1 fL (9.4-12.4); Platelet Count 183 X10*3/uL (160-400); Red Blood Count 5.32 X10*6/uL (4.60-5.80); Red Cell Distribution Width 14.1 % (11.0-16.0); White Blood Count 9.4 X10*3/uL (4.8-10.8)
[2020-11-22 13:44] LABS: Anion Gap 11 (12-20); Blood Urea Nitrogen 14 mg/dL (9-16); Calcium 9.4 mg/dL (8.4-10.2); Carbon Dioxide 30 mmol/L (22-29); Chloride 101 mmol/L (96-108); Creatinine Clr Calc Pharmacy 56.6; Estimated Glomerular Filt Rate 58; Glucose Random 84 mg/dL (60-115); Sodium 138 mmol/L (135-145)
[2020-11-28] VITALS (22 sets, daily range): BP systolic 133–180; BP diastolic 51–76; PULSE 64–87; RESP 12–20; TEMP 36.1–36.8; O2SAT 93–99
--- NOTE | ~2020-11-28 | XR_ITS ---
EXAMINATION: XR CHEST CLINICAL INFORMATION: COPD. Smoking history. Preop. COMPARISON: Previous chest x-ray May 2014 and November 2010 and lung windows from CT urogram May 2020 TECHNIQUE: 2 views of the chest were obtained. FINDINGS: The cardiac silhouette does not appear enlarged. There is post CABG changes. Hilar and mediastinal contours are unremarkable. There are increased interstitial markings seen throughout the lungs. There is focal pleural thickening or pleural-based nodule adjacent to the left upper lobe overlying the left anterior second rib. This appears more prominent than seen on previous chest x-rays. There is blunting of the left costophrenic angle that is unchanged probably representing chronic pleural thickening. There is no definite pleural effusion. There is no pneumothorax. There are degenerative changes of the spine. XR/XR chest 2V IMPRESSION: Post-CABG changes. Increased interstitial markings and blunting of the left costophrenic angle suggestive of chronic pleural thickening similar to previous exams. Question more prominent pleural-based nodule adjacent to the left upper lobe. Follow-up chest CT scan should be considered.
[2020-11-28] MEDS: Lactated Ringers 1,000 ML 100 ML IVCONT ×2 (06:45→16:09)
[2020-11-28 07:01] LABS: COVID-19 Test Negative (Negative)
[2020-11-28] MEDS: Albuterol Sulfate (0.083%) 2.5 MG/3 ML VIAL.NEB INHALE (07:03)
--- NOTE | 2020-11-28 07:18 | PC.NURSE ---
Lung sounds very dim, congested cough, daily smoker. O2 sat between 90-95%. PRN Albuterol treatment given by respiratory
--- NOTE | 2020-11-28 12:31 | MHC.SHP ---
Pre-Procedural Eval Section B Chief Complaint: left nephrectomy Details of Present Illness: left renal cancer Relevant Family History (Specify if Yes): No Relevant Social History: Tobacco Use Present Medications: see Short Stay Collaborative assessment Medical History: Significant History History of Previous Operations: No relevant previous surgery Allergies: Allergies Allergy/AdvReac Type Severity Reaction Status Date / Time No Known Allergies Allergy Verified 11/21/20 12:16 Review of Systems Sugical H&P ROS: Negative: Constitution, Respiratory, Neurological, Psychiatric, Hem-Onc, Allergic/Immunologic, Gastrointestinal, Genitourinary, Musculoskeletal, Integumentary, Endocrine and Eyes/Ears/Nose/Throat and Yes, Specify: Cardiovascular (inverted T waves) Exam Surgical H&P Exam: Normal: HEENT, Normal: Heart, Normal: Lungs, Normal: Extremities, Normal: Abdomen, Normal: Skin and Normal: Neurological Plan Diagnosis/Plan: Unchanged (laparoscopic radical left nephrectomy) I have reviewed the history and physical and performed a pertinent physical examination on my patient. No changes have occurred unless specified.
--- NOTE | 2020-11-28 12:32 | P.OP_ITS ---
Operative Note Operative Note Date of Service: 11/28/20 Narrative: PreOperative Diagnosis: Left Renal cancer Post Operative Diagnosis: Left renal cancer Procedure: Left laparoscopic hand assisted radical nephrectomy Surgeon: Dr Yoandy Shaw Biometrics Analyst: Dr. Love followed by Dr. Powell Anesthesia: General Indications for procedure: This is a 70-year-old male. Presented with hematuria in April 2020. Initial evaluation showed 5 cm mass towards the hilar aspect of his left kidney. He underwent workup including ureteroscopy which was negative for transitional cell carcinoma. Due to COVID the procedure was initially delay through October. Subsequently clearance was required for pulmonary in cardiac history including CABG and significant COPD. He is aware of the risks and benefits including but not limited to damage to any had Jaime organ specifically spleen, bowel, aorta. Procedure: After informed consent was verified the patient was brought to the operating room and placed in a supine position. Anesthesia was administered per protocol. A line was placed. The patient has indwelling Gomez catheter was exchanged for a clean 16 Lithuanian Gomez catheter. The patient was then placed in a [id number] lateral position. Great care was taken to pad the ankles, knees, elbows. Pillows were placed between the legs and the arms for spacing. The bed was then broken to a 30 degree angle. Tape was used of hip in order to help secure the patient. Gel rolls had been placed along the back. Bear hugger was placed on the upper body. Safety pause time-out was observed. Antibiotics had been given. Type and screen for 2 units had been confirmed. Imaging had been reviewed was available within the room. A marking pen was used to layla the xiphoid stone min, the midline of the abdomen, the left pararectal line, the left anterior subclavicular line and the posterior subclavicular line. Hand port was measured for 8 cm superior to the umbilicus in the midline, a 12 port was marked para rectum at the umbilicus. An 8 grasping port was placed lateral. The midline incision was infiltrated with lidocaine anesthetic. Using a 15 blade incision was made through the skin and subcuticular tissue. The subcuticular tissue was divided using Bovie cautery. The abdominal fascia was divided with cautery. The abdominal cavity was entered and expanded. A GelPort for hand assist was placed without difficulty. The camera was placed and there were no noted adhesions in the field of view that was of interest. Under direct visualization our secondary ports were placed. Three secondary ports were placed allowing camera, grasper and working port. The line of Toldt was clearly visible. Using a Harmonic scalpel the line of Toldt was divided. The bowel was elevated and medialized. This allowed us to come down on top of the kidney. We were able to follow this in a craniad and caudad direction. The line of Toldt was freed up releasing the spleen and the lenio- renal ligament. Likewise in the line of Toldt was followed down the abdominal sidewall to the pelvic brim. Dissection was then performed in the avascular plane to reveal the lower pole of the kidney and the Gerota's fat. As we came around the kidney the tissue was quite adhesed to the kidney and we ended up entering Gerota's fascia. It appears there was marked reaction around the collecting system. This is consistent with his prior hematuria which would have generated inflammation around the collecting system and jeanne area. Dissecting at the lower pole of the kidney we were able to identify the gonadal vessels which were elevated and inferiorly. We then came back to the kidney and elevating the kidney we were able to see the ureter which was adhesed laterally to the lower pole. We the ureter and was able to this to dissect the ureter distally from its attachments. Coming back to the lower pole we were able to drop the gonadal vessels inferiorly and elevate the ureter to create our landmarks to follow the gonadal vein up to its insertion into the left renal vein. This was a tedious dissection as the tissue was inflamed and we had to proceed carefully in order not to avulse the gonadal vessels from the left renal vein. After careful dissection we encountered the inferior edge of the left renal vein. There was fatty adhesion in this location. Dissecting behind the kidney we released the kidney from the psoas. This allowed us to elevate the area and dissect carefully posterior to the renal vein. At this point there was a renal artery. The renal artery was carefully dissected. It became clear that there had been early branching of the renal artery and we had identified an inferior branch. There was a superior branch of running careful add. There appeared to be multiple branches coming off both the superior and inferior renal artery branches. The inferior renal branch was carefully dissected. The superior branch was identified. The inferior branch was divided using a operative vascular load stapler. Dissection was then performed along the superior edge of the renal vein. This released the superior branch of the renal artery. The superior branch of the renal artery was also divided using the vascular stapler. At this point the renal vein could be seen to be flat with minimal fluid. The renal vein was divided in the kidney was elevated. No other vessels had been identified. Dissection was performed around the superior pole of the kidney releasing the left adrenal. Dissection was then completed around the lateral aspect of the kidney releasing it from its surrounding fascia. The ureter was divided with the Harmonic scalpel. The specimen was then delivered through the hand port and sent for pathology. Sponges were used to dry kidney bed. There were visible small pieces of the left adrenal. These were covered with Surgicel for postprocedure control. At this point using the Endoclose the 212 ports that we had in place had fascial closure using a 2-0 Vicryl. The GelPort was removed. The 212 ports were closed subcuticular with interrupted 4-0 Vicryl inverted suture. Hand port incision was closed with a 1st layer using a running 1-0 Maxon. The skin was then reapproximated using a 4-0 Monocryl. Incisions were cleaned and dried and glue with dressing applied. Patient tolerated procedure well was extubated in operating room transferred in a stable condition to the recovery area. Pathology: Left kidney Drains: Gomez catheter
[2020-11-28] MEDS: fentaNYL citrate/PF 100 MCG/2 ML VIAL 50 MCG IVPUSH ×2 (12:34→13:20)
[2020-11-28] MEDS: HYDROmorphone HCl 0.5 MG/0.5 ML SYRINGE IVPUSH (13:39)
[2020-11-28 14:26] LABS: Hematocrit 46.3 % (42-52); Hemoglobin 15.1 g/dl (14.0-18.0); Mean Corpuscular HGB Conc 32.6 g/dl (31.0-36.0); Mean Platelet Volume 10.4 fL (9.4-12.4); Platelet Count 156 X10*3/uL (160-400); Red Blood Count 5.03 X10*6/uL (4.60-5.80); Red Cell Distribution Width 13.9 % (11.0-16.0); WBC ABN SCTR FOR CBC 1
[2020-11-28 14:49] LABS: Anion Gap 12 (12-20); Blood Urea Nitrogen 12 mg/dL (9-16); Calcium 8.6 mg/dL (8.4-10.2); Carbon Dioxide 27 mmol/L (22-29); Chloride 104 mmol/L (96-108); Creatinine Clr Calc Pharmacy 59.5; Estimated Glomerular Filt Rate > 60; Glucose Random 121 mg/dL (60-115); Potassium 4.6 mmol/L (3.3-5.1); Sodium 138 mmol/L (135-145)
[2020-11-28 14:56] LABS: Band Neutrophils Percent 9 % (3-5); Lymphocytes Percent Manual 2 % (20-40); Monocytes Percent Manual 3 % (2-11); Neutrophils Percent Manual 86 % (45-73)
[2020-11-28 14:57] LABS: RBC Morphology NOTED
[2020-11-28 14:58] LABS: Acanthocytes 1+ (0-2) /OIF; Platelet Estimate SLIGHTLY DECREASED (NORMAL); Platelet Morphology Comment NORMAL
[2020-11-28 14:59] LABS: Lymphocytes Absolute Manual 0.4 X10*3/uL (0.6-4.8); Monocytes Absolute Manual 0.6 X10*3/uL (0.0-1.2); Neutrophils Absolute Manual 17.6 X10*3/uL (2.2-7.9); White Blood Count 18.5 X10*3/uL (4.8-10.8)
[2020-11-28] MEDS: Enoxaparin Sodium 40 MG/0.4 ML SYRINGE SUBCUT (16:10)
[2020-11-28] MEDS: oxyCODONE HCl Immed Release 5 MG TABLET PO (16:14)
[2020-11-28] MEDS: Ketorolac Tromethamine 15 MG/ML VIAL IVPUSH ×2 (16:21→19:26)
--- NOTE | 2020-11-28 17:18 | PM.UROPN ---
Subjective Subjective Date of Service: 11/28/20 Interval history: post op check cr good Hct good will add iv pain med per nurse request keep on clear fluids catheter out tomorrow Physical Exam Vital Signs: Vital Signs: Last Vital Signs Temp 97.4 F 11/28/20 16:02 Pulse 69 11/28/20 16:02 Resp 15 11/28/20 16:02 BP 173/68 H 11/28/20 16:02 Pulse Ox 95 11/28/20 16:02 Body Mass Index 29.4 Const: General: cooperative, healthy appearing, comfortable and no acute distress Orientation/consciousness: patient oriented x3 HENMT: Face and sinus: Yes normal facial exam Mouth: moist mucous membranes Neck: Neck: Yes normal visual inspection, Yes full ROM and Yes trachea midline Chest: Chest palpation & inspection: normal inspection of the chest Resp: Effort & Inspection: normal respiratory effort, able to speak in complete sentences and no respiratory distress GI: Inspection: Yes normal to inspection Back/Spine/Pelvis: Cervical Spine: normal cervical lordosis Thoracic/Lumbar Spine: thoracic and lumbar spine normal to inspection Skin: General skin exam: no rashes or lesions noted Neuro: General: patient oriented x3, gait normal, tone normal and moves all extremities Extrem: General: Yes normal to inspection and Yes capillary refill normal Urology Results Labs CBC & Chem 7: 11/28/20 14:15 11/28/20 14:15 Labs: Laboratory Results - last 24 hr 11/22/20 11/28/20 11/28/20 12:04 06:12 14:15 WBC RBC Hgb Hct MCV MCH MCHC RDW Plt Count MPV Immature Gran % (Auto) Neut % (Auto) Lymph % (Auto) [place] % (Auto) Eos % (Auto) Baso % (Auto) Lymph # (Auto) [place] # (Auto) Eos # (Auto) Baso # (Auto) Abs Immat Gran (auto) Absolute Neuts (auto) Absolute Nucleated RBC Nucleated RBC % (auto) Neutrophils % (Manual) Band Neutrophils % Lymphocytes % (Manual) Monocytes % (Manual) Abs Neuts (Manual) Lymphocytes # (Manual) Monocytes # (Manual) Platelet Estimate Plt Morphology Comment RBC Morphology Acanthocytes (Spur) Sodium 138 Potassium 4.6 Chloride 104 Carbon Dioxide 27 Anion Gap 12 BUN 12 Creatinine 1.17 Estim Creat Clear Calc 59.5 Estimated GFR > 60 Random Glucose 121 H D Calcium 8.6 D COVID-19 (MAURICIO) Negative COVID-19 Meetup See Note Blood Type B Positive Antibody Screen NEGATIVE Crossmatch See Detail 11/28/20 14:15 WBC 18.5 H RBC 5.03 Hgb 15.1 Hct 46.3 MCV 92.0 MCH 30.0 MCHC 32.6 RDW 13.9 Plt Count 156 L MPV 10.4 Immature Gran % (Auto) Cancelled Neut % (Auto) Cancelled Lymph % (Auto) Cancelled [place] % (Auto) Cancelled Eos % (Auto) Cancelled Baso % (Auto) Cancelled Lymph # (Auto) Cancelled [place] # (Auto) Cancelled Eos # (Auto) Cancelled Baso # (Auto) Cancelled Abs Immat Gran (auto) Cancelled Absolute Neuts (auto) Cancelled Absolute Nucleated RBC 0.000 Nucleated RBC % (auto) 0.0 Neutrophils % (Manual) 86 H Band Neutrophils % 9 H Lymphocytes % (Manual) 2 L Monocytes % (Manual) 3 Abs Neuts (Manual) 17.6 H Lymphocytes # (Manual) 0.4 L Monocytes # (Manual) 0.6 Platelet Estimate SLIGHTLY DECREASED Plt Morphology Comment NORMAL RBC Morphology NOTED Acanthocytes (Spur) 1+ (0-2) Sodium Potassium Chloride Carbon Dioxide Anion Gap BUN Creatinine Estim Creat Clear Calc Estimated GFR Random Glucose Calcium COVID-19 (MAURICIO) COVID-19 Meetup Blood Type Antibody Screen Crossmatch Progress Note: A&P Assessment and plan (1) Renal cancer: Status: Acute Fall Risk Details Current Medications: Current Medications Generic Name Dose Route Start Last Admin Trade Name Freq PRN Reason Stop Dose Admin Acetaminophen 650 mg 11/28/20 13:00 11/28/20 15:45 Acetaminophen 325 Mg Tablet PO Not Given Q6H STIVEN Albuterol Sulfate 2 puff 11/28/20 13:23 Albuterol Sulfate 90 Mcg 8 Gm Inhaler INHALE Q4H PRN Wheezing Docusate Sodium 100 mg 11/28/20 21:00 Docusate Sodium 100 Mg Capsule PO BID STIVEN Enoxaparin Sodium 40 mg 11/28/20 14:00 11/28/20 16:10 Enoxaparin Sodium 40 Mg/0.4 Ml Syringe SUBCUT 40 mg Q24H STIVEN Administration Fentanyl 50 mcg 11/28/20 08:08 11/28/20 13:20 Fentanyl Citrate/Pf 100 Mcg/2 Ml Vial IVPUSH 50 mcg Q5M PRN Administration Pain, Moderate (Pain Scale 4-6 Hydromorphone HCl 0.5 mg 11/28/20 08:08 11/28/20 13:39 Hydromorphone Hcl 0.5 Mg/0.5 Ml Syringe IVPUSH 0.5 mg Q5M PRN Administration Pain, Severe (Pain Scale 7-10) Lactated Ringer's 1,000 mls @ 100 mls/hr 11/28/20 06:15 11/28/20 16:09 Lr IVCONT 100 mls/hr .Q10H STIVEN Administration Promethazine HCl 12.5 mg/ 50.5 mls @ 202 mls/hr 11/28/20 08:08 Sodium Chloride IV ONCE PRN Nausea and Vomiting Sodium Chloride 1,000 mls @ 120 mls/hr 11/28/20 13:00 11/28/20 15:46 Ns IVCONT Not Given .Q8H20M STIVEN Isosorbide Mononitrate 30 mg 11/29/20 09:00 Isosorbide Mononitrate 30 Mg Tab.Er.24h PO DAILY STIVEN Protocol Ketorolac Tromethamine 15 mg 11/28/20 13:00 11/28/20 16:21 Ketorolac Tromethamine 15 Mg/Ml Vial IVPUSH 11/29/20 07:01 15 mg Q6H STIVEN Administration Metoprolol Succinate 100 mg 11/29/20 09:00 Metoprolol Succinate Er 100 Mg Tab.Er.24h PO DAILY STIVEN Protocol Ondansetron HCl 4 mg 11/28/20 08:08 Ondansetron Hcl 4 Mg/2 Ml Vial IVPUSH ONCE PRN Nausea and Vomiting Ondansetron HCl 4 mg 11/28/20 12:59 Ondansetron Hcl 4 Mg/2 Ml Vial IVPUSH Q8H PRN Nausea and Vomiting Oxycodone HCl 10 mg 11/28/20 08:08 Oxycodone Hcl Immed Release 5 Mg Tablet PO ONCE PRN Pain, Mild (Pain Scale 1-3) Oxycodone HCl 5 mg 11/28/20 12:59 11/28/20 16:14 Oxycodone Hcl Immed Release 5 Mg Tablet PO 5 mg Q3H PRN Administration Pain, Moderate (Pain Scale 4-6 Sodium Chloride 3 ml 11/28/20 16:00 11/28/20 15:47 0.9 % Sodium Chloride Flush 3 Ml Syringe IVFLUSH Not Given QSHIFT STIVEN Time Spent With Patient Time: Total time spent is greater than 50% in coordination of care (as documented) at patient's floor/unit and/or counseling patient: Time with patient: 15 - 24 minutes Progress Note: Quality Stroke Does the patient have a stroke diagnosis?: No
[2020-11-28] MEDS: Acetaminophen 325 MG TABLET 650 MG PO (17:52)
[2020-11-28] MEDS: Docusate Sodium 100 MG CAPSULE PO (21:51)
[2020-11-28] MEDS: 0.9 % Sodium Chloride 1,000 ML 120 ML IVCONT (21:54)
[2020-11-29] VITALS (8 sets, daily range): BP systolic 119–134; BP diastolic 56–64; PULSE 61–66; RESP 15–20; TEMP 36–37.1; O2SAT 91–97
[2020-11-29] MEDS: Acetaminophen 325 MG TABLET 650 MG PO ×4 (00:52→18:35)
[2020-11-29] MEDS: Ketorolac Tromethamine 15 MG/ML VIAL IVPUSH ×2 (00:53→05:36)
[2020-11-29] MEDS: 0.9 % Sodium Chloride 1,000 ML 120 ML IVCONT (05:36)
[2020-11-29] MEDS: Morphine Sulfate 4 MG/ML CARTRIDGE 3 MG IVPUSH ×4 (06:13→18:43)
[2020-11-29 07:37] LABS: Anion Gap 8 (12-20); Blood Urea Nitrogen 14 mg/dL (9-16); Calcium 8.1 mg/dL (8.4-10.2); Carbon Dioxide 29 mmol/L (22-29); Chloride 104 mmol/L (96-108); Creatinine Clr Calc Pharmacy 51.6; Estimated Glomerular Filt Rate 52; Glucose Random 96 mg/dL (60-115); Potassium 4.1 mmol/L (3.3-5.1); Sodium 137 mmol/L (135-145)
[2020-11-29] MEDS: Metoprolol Succinate ER 100 MG TAB.ER.24H PO (08:51)
[2020-11-29] MEDS: Docusate Sodium 100 MG CAPSULE PO ×2 (08:51→20:49)
[2020-11-29] MEDS: Isosorbide Mononitrate 30 MG TAB.ER.24H PO (08:51)
--- NOTE | 2020-11-29 09:14 | HO.POSTANES ---
Post Anesthesia Evaluation Post Anesthesia Evaluation Vital Signs: Vital Signs Temp Pulse Resp BP Pulse Ox 11/29/20 08:51 61 126/60 11/29/20 08:08 97 11/29/20 07:46 96.8 F 61 18 126/60 93 11/28/20 23:44 97.6 F 87 17 133/61 96 Anesthesia: General Endotracheal-GETA Mental Status: Awake Pain Control: Satisfactory Nausea/Vomiting: None Hydration: Adequate Anesthesia-Related Issues: No Anes. Related Issues
--- NOTE | 2020-11-29 09:52 | MHC.CM.PN ---
Addendum entered by Tiffany Espinosa 11/29/20 09:55: HCP UPLOADED INTO [employer] Original Note: PATIENT LIVES WITH HIS SON. HE IS FULLY INDEPENDENT. CURRENTLY HAS [facility] IN PLACE AND SON WILL TRANSPORT AT TIMES BECAUSE OF THIS. NO DME OR VNA SERVICES. PATIENT ASSIGNS SON, PEYTON, HIS HCP AGENT. COPY NOW IN CHART. CASE MANAGEMENT FOLLOWING FOR DC PLANS. IMM 11/29 IN CHART.
[2020-11-29] MEDS: Enoxaparin Sodium 40 MG/0.4 ML SYRINGE SUBCUT (13:25)
[2020-11-29] MEDS: 0.9 % Sodium Chloride Flush 3 ML SYRINGE IVFLUSH (14:55)
[2020-11-29] MEDS: Lactated Ringers 1,000 ML 100 ML IVCONT (20:49)
[2020-11-29] MEDS: ondansetron HCL 4 MG/2 ML VIAL IVPUSH (21:50)
[2020-11-29] MEDS: oxyCODONE HCl Immed Release 5 MG TABLET 10 MG PO (21:50)
[2020-11-30] MEDS: Morphine Sulfate 4 MG/ML CARTRIDGE 3 MG IVPUSH (01:05)
[2020-11-30] MEDS: Acetaminophen 325 MG TABLET 650 MG PO ×2 (01:06→05:45)
[2020-11-30] MEDS: 0.9 % Sodium Chloride Flush 3 ML SYRINGE IVFLUSH ×2 (01:06→07:55)
[2020-11-30] MEDS: Lactated Ringers 1,000 ML 100 ML IVCONT (05:46)
[2020-11-30 07:17] VITALS: BP 133/65; PULSE 67; RESP 18; TEMP 36; O2SAT 96
[2020-11-30 07:54] VITALS: BP 133/65; PULSE 67
[2020-11-30] MEDS: Docusate Sodium 100 MG CAPSULE PO (07:54)
[2020-11-30] MEDS: Isosorbide Mononitrate 30 MG TAB.ER.24H PO (07:54)
[2020-11-30] MEDS: Metoprolol Succinate ER 100 MG TAB.ER.24H PO (07:54)
--- NOTE | 2020-11-30 08:45 | PM.UROPN ---
Subjective Subjective Date of Service: 11/30/20 Interval history: Doing well list morning Tells me he is passing gas Tolerating fluid intake Pain controlled with medication Will need stool softener for discharge Plan on discharge later this morning with follow-up in 2 weeks Physical Exam Vital Signs: Vital Signs: Last Vital Signs Temp 96.8 F 11/30/20 07:17 Pulse 67 11/30/20 07:54 Resp 18 11/30/20 07:17 BP 133/65 11/30/20 07:54 Pulse Ox 96 11/30/20 07:17 Oxygen Flow Rate 2 11/29/20 11:14 Body Mass Index 29.4 Const: General: cooperative, healthy appearing, comfortable and no acute distress Nutritional Appearance: average body habitus Orientation/consciousness: oriented to person, oriented to place and oriented to time Eyes: General: appearance normal, both eyes and all related structures Chest: Chest palpation & inspection: normal inspection of the chest Resp: Effort & Inspection: normal respiratory effort Cardio: Rate: regular rate GI: Inspection: Yes normal to inspection Skin: Hair: normal Neuro: General: oriented to person, oriented to place and oriented to time Extrem: General: Yes normal to inspection Urology Results Labs CBC & Chem 7: 11/28/20 14:15 11/29/20 06:24 Labs: Laboratory Results - last 24 hr 11/22/20 12:04 Crossmatch See Detail Progress Note: A&P Assessment and plan (1) Renal cancer: Status: Acute (2) BPH (benign prostatic hyperplasia): Status: Acute Assessment and Plan: Plan for discharge Fall Risk Details Current Medications: Current Medications Generic Name Dose Route Start Last Admin Trade Name Freq PRN Reason Stop Dose Admin Acetaminophen 650 mg 11/28/20 13:00 11/30/20 05:45 Acetaminophen 325 Mg Tablet PO 650 mg Q6H STIVEN Administration Albuterol Sulfate 2 puff 11/28/20 13:23 Albuterol Sulfate 90 Mcg 8 Gm Inhaler INHALE Q4H PRN Wheezing Docusate Sodium 100 mg 11/28/20 21:00 11/30/20 07:54 Docusate Sodium 100 Mg Capsule PO 100 mg BID STIVEN Administration Enoxaparin Sodium 40 mg 11/28/20 14:00 11/29/20 13:25 Enoxaparin Sodium 40 Mg/0.4 Ml Syringe SUBCUT 40 mg Q24H STIVEN Administration Fentanyl 50 mcg 11/28/20 08:08 11/28/20 13:20 Fentanyl Citrate/Pf 100 Mcg/2 Ml Vial IVPUSH 50 mcg Q5M PRN Administration Pain, Moderate (Pain Scale 4-6 Hydromorphone HCl 0.5 mg 11/28/20 08:08 11/28/20 13:39 Hydromorphone Hcl 0.5 Mg/0.5 Ml Syringe IVPUSH 0.5 mg Q5M PRN Administration Pain, Severe (Pain Scale 7-10) Lactated Ringer's 1,000 mls @ 100 mls/hr 11/28/20 06:15 11/30/20 05:46 Lr IVCONT 100 mls/hr .Q10H STIVEN Administration Promethazine HCl 12.5 mg/ 50.5 mls @ 202 mls/hr 11/28/20 08:08 Sodium Chloride IV ONCE PRN Nausea and Vomiting Isosorbide Mononitrate 30 mg 11/29/20 09:00 11/30/20 07:54 Isosorbide Mononitrate 30 Mg Tab.Er.24h PO 30 mg DAILY STIVEN Administration Protocol Metoprolol Succinate 100 mg 11/29/20 09:00 11/30/20 07:54 Metoprolol Succinate Er 100 Mg Tab.Er.24h PO 100 mg DAILY STIVEN Administration Protocol Morphine Sulfate 3 mg 11/28/20 17:20 11/30/20 01:05 Morphine Sulfate 4 Mg/Ml Cartridge IVPUSH 3 mg Q3H PRN Administration Pain, Moderate (Pain Scale 4-6 Ondansetron HCl 4 mg 11/28/20 08:08 11/29/20 21:50 Ondansetron Hcl 4 Mg/2 Ml Vial IVPUSH 4 mg ONCE PRN Administration Nausea and Vomiting Ondansetron HCl 4 mg 11/28/20 12:59 Ondansetron Hcl 4 Mg/2 Ml Vial IVPUSH Q8H PRN Nausea and Vomiting Oxycodone HCl 5 mg 11/28/20 12:59 11/28/20 16:14 Oxycodone Hcl Immed Release 5 Mg Tablet PO 5 mg Q3H PRN Administration Pain, Moderate (Pain Scale 4-6 Sodium Chloride 3 ml 11/28/20 16:00 11/30/20 07:55 0.9 % Sodium Chloride Flush 3 Ml Syringe IVFLUSH 3 ml QSHIFT STIVEN Administration Time Spent With Patient Time: Total time spent is greater than 50% in coordination of care (as documented) at patient's floor/unit and/or counseling patient: Time with patient: 15 - 24 minutes No Severe Sepsis: No Severe Sepsis Progress Note: Quality Stroke Does the patient have a stroke diagnosis?: No
[2020-11-30] MEDS: ondansetron HCL 4 MG/2 ML VIAL IVPUSH (08:48)
--- NOTE | 2020-11-30 08:53 | PM.DS ---
DS: Providers Provider Date of Service: 11/30/20 Date of admission: 11/28/20 07:32 Primary care physician: Yvonne Díaz MD DS: Diagnosis Discharge Diagnosis (1) Renal cancer: Status: Acute Problem details: Nephrectomy Dr. Shaw November 28 (2) BPH (benign prostatic hyperplasia): Status: Acute Problem details: Continue medications DS: Medications Discharge Medications Home Medications: Home Medications Medication Instructions Recorded Confirmed atorvastatin 80 mg tablet 80 mg PO DAILY 04/24/20 11/21/20 hydroxyzine pamoate 25 mg capsule 25 mg PO TID PRN 04/24/20 11/21/20 isosorbide mononitrate 30 mg 30 mg PO DAILY 04/24/20 11/21/20 tablet,extended release 24 hr metoprolol succinate 100 mg 100 mg PO DAILY 04/24/20 11/21/20 tablet,extended release 24 hr tamsulosin 0.4 mg capsule 0.8 mg PO DAILY 04/24/20 11/21/20 albuterol sulfate [ProAir HFA] 2 puff INHALATION Q4-6H PRN 08/17/20 11/21/20 budesonide-formoterol [Symbicort] 2 puff PO BID 08/17/20 11/21/20 Spiriva with HandiHaler 1 cap INHALATION DAILY 08/20/20 11/21/20 aspirin 81 mg PO DAILY 08/20/20 09/09/20 Previous Rx's Medication Instructions Recorded finasteride 5 mg tablet 5 mg PO DAILY 90 Days #90 tab 08/24/20 oxycodone 5 mg tablet 5 mg PO Q4H PRN #20 tab 11/20/20 docusate sodium [Colace] 100 mg PO BID 14 Days #28 cap 11/30/20 oxycodone-acetaminophen 1 tab PO Q8H PRN 7 Days #20 tab 11/30/20 DS: Summary Hospital Course Hospital Course: Admit November 28 for left laparoscopic nephrectomy Stable creatinine Stable hematocrit Time spent discussing smoking cessation with patient: 3 to 10 minutes Status at Discharge Functional status at discharge: independent ambulation Overall status at discharge: patient is progressing back to baseline Time Spent with Patient Time attestation: Total time spent providing and/or coordinating discharge services: Discharge coordination time: Less than 30 minutes Quality: Stroke Does the patient have a stroke diagnosis?: No Physical Exam Vital Signs: Vital Signs: Last Vital Signs Temp 96.8 F 11/30/20 07:17 Pulse 67 11/30/20 07:54 Resp 18 11/30/20 07:17 BP 133/65 11/30/20 07:54 Pulse Ox 96 11/30/20 07:17 Oxygen Flow Rate 2 11/29/20 11:14 Body Mass Index 29.4 Const: General: cooperative, healthy appearing, comfortable and no acute distress Nutritional Appearance: average body habitus Orientation/consciousness: oriented to person, oriented to place and oriented to time Eyes: General: appearance normal, both eyes and all related structures Chest: Chest palpation & inspection: normal inspection of the chest Resp: Effort & Inspection: normal respiratory effort Cardio: Rate: regular rate GI: Inspection: Yes normal to inspection Skin: Hair: normal Neuro: General: oriented to person, oriented to place and oriented to time Extrem: General: Yes normal to inspection DS: Data Data Completed and Pending Pending studies at discharge: Pending at discharge 11/28/20 11:25 Surgical [PTH] Routine Labs on day of discharge: Laboratory Results - last 24 hr 11/22/20 12:04 Crossmatch See Detail Hematocrit 46 Creatinine 1.3 Discharge Plan Discharge Patient Disposition: Home, Self-Care Discharge Diagnosis: renal cancer Referrals: Yoandy Shaw MD [Physician] - 2 Weeks Yvonne Díaz MD [Primary Care Provider] - None Discharge Medications: New oxycodone-acetaminophen 5-325 mg tablet 1 tab PO Q8H PRN (Reason: pain (scale score 4-6)) 7 Days Qty: 20 RF: 0 docusate sodium [Colace] 100 mg capsule 100 mg PO BID 14 Days Qty: 28 RF: 0 Continued finasteride 5 mg tablet 5 mg PO DAILY 90 Days Qty: 90 RF: 1 oxycodone 5 mg tablet 5 mg PO Q4H PRN (Reason: Pain, Severe (Pain Scale 7-10)) Qty: 20 RF: 0 budesonide-formoterol [Symbicort] 160-4.5 mcg/actuation HFA aerosol inhaler 2 puff PO BID RF: 0 albuterol sulfate [ProAir HFA] 90 mcg/actuation Hfa Aerosol Inhaler 2 puff INHALATION Q4-6H PRN (Reason: Wheezing) RF: 0 aspirin 81 mg Tablet,Delayed Release (Dr/Ec) 81 mg PO DAILY RF: 0 Hold Instructions: Resume on 09/27/20. can resume when okayed by urology Spiriva with HandiHaler 18 mcg Capsule, W/Inhalation Device 1 cap INHALATION DAILY RF: 0 hydroxyzine pamoate 25 mg capsule 25 mg PO TID PRN (Reason: anxiety) RF: 0 atorvastatin 80 mg tablet 80 mg PO DAILY RF: 0 metoprolol succinate 100 mg tablet extended release 24 hr 100 mg PO DAILY RF: 0 isosorbide mononitrate 30 mg tablet extended release 24 hr 30 mg PO DAILY RF: 0 tamsulosin 0.4 mg capsule 0.8 mg PO DAILY RF: 0 Discharge Orders: Discharge Order (Routine); Ordered 11/30/20 Ordered By: Yoandy Shaw Activity on Discharge: As tolerated Stand Alone Forms: Patient Portal Discharge page Care Plan Goals: Kidney cancer recovery Health Concerns: Kidney cancer recovery Plan of Treatment: Kidney cancer recovery Assessment: Kidney cancer recovery
[2020-11-30 09:05] VITALS: O2SAT 92
--- NOTE | 2020-11-30 09:17 | MHC.CM.PN ---
PATIENT IS DISCHARGED HOME WITH NO SERVICES. HE KNOWS THAT HE HAS A 2 WEEK FOLLOW UP VISIT WITH UROLOGY. [facility] REMOVED YESTERDAY (11/29/20) SON TO TRANSPORT. RN AWARE OF PLAN.
[2020-11-30] MEDS: oxyCODONE HCl Immed Release 5 MG TABLET PO (09:31)
== END 2020-11-30 10:21 | disposition home or self-care (01) | DRG 658 ==
LOC: HO.SSSA 07:34 → HO.S3 14:08
PROVIDERS: Admitting Provider Urology; PCP Internal Medicine; Visit Provider Urology
PROC: 0TT10ZZ Resection of Left Kidney, Open Approach (ICD-10-PCS; principal; 2020-11-28 07:30)
DX: C65.2 Malignant neoplasm of left renal pelvis (principal); F17.210 Nicotine dependence, cigarettes, uncomplicated; Z71.6 Tobacco abuse counseling; Z20.822 Contact with and (suspected) exposure to COVID-19; Z79.82 Long term (current) use of aspirin; Z79.899 Other long term (current) drug therapy
CPT/HCPCS: 36415; 71046; 80048; 85007; 85027; 86850; 86900; 86901; 86923; 87635; 88307; 94640; 99024; J0131; J0690; J1170; J1650; J1885; J2270; J2370; J2405; J3010

== ENCOUNTER 2020-12-12 09:56 | Outpatient (REF) | payer MEDICARE, SELFPAY ==
[2020-12-12 11:44] LABS: Hematocrit 49.5 % (42-52); Hemoglobin 15.9 g/dl (14.0-18.0); Mean Corpuscular HGB Conc 32.1 g/dl (31.0-36.0); Mean Corpuscular Hemoglobin 29.4 pg (27.0-33.0); Mean Corpuscular Volume 91.7 fL (80-98); Platelet Count 232 X10*3/uL (160-400); Red Cell Distribution Width 14.2 % (11.0-16.0); White Blood Count 10.8 X10*3/uL (4.8-10.8)
[2020-12-12 12:15] LABS: Anion Gap 11 (12-20); Blood Urea Nitrogen 20 mg/dL (9-16); Calcium 9.8 mg/dL (8.4-10.2); Carbon Dioxide 29 mmol/L (22-29); Chloride 102 mmol/L (96-108); Estimated Glomerular Filt Rate 44; Glucose Random 92 mg/dL (60-115); Potassium 5.2 mmol/L (3.3-5.1); Sodium 137 mmol/L (135-145)
== END 2020-12-12 09:57 | disposition home or self-care (01) ==
LOC: HO.LAB 09:56
PROVIDERS: PCP Internal Medicine; Visit Provider Urology
DX: C64.9 Malignant neoplasm of unspecified kidney, except renal pelvis (principal); N40.0 Benign prostatic hyperplasia without lower urinary tract symptoms
CPT/HCPCS: 36415; 80048; 85027; 99212

== ENCOUNTER 2021-07-08 12:20 | Outpatient (REF) | payer MEDICARE, SELFPAY ==
--- NOTE | ~2021-07-08 | CT_ITS ---
EXAMINATION: CT CHEST WITHOUT CONTRAST CT ABDOMEN AND PELVIS WITHOUT AND WITH CONTRAST CLINICAL INFORMATION: Malignant neoplasm of the kidney. COMPARISON: CT abdomen and pelvis without contrast 09/01/2020 TECHNIQUE: 5 mm thin axial and reformatted 3 mm thin sagittal coronal images of chest were obtained without contrast. Subsequently 5 mm thin axial and reformatted 3 mm thin sagittal and coronal images of abdomen and pelvis were obtained without and with IV 85 mL Omnipaque 350. DLP: 1124 mGy-cm FINDINGS: CHEST: Lungs: There are diffuse centrilobular emphysematous changes of both lungs without acute pneumonic process. There is minimal linear atelectatic changes in the right upper lobe anterior segment, scarring or atelectasis left lower lobe and left lung base. There is extrapleural is soft tissue density extending into the right upper lobe anterior segment likely focal pleural thickening or nodule measuring 8 x 8 mm. There is a 3 mm subpleural nodule right upper lobe, axial image 270/7. There is a 3 mm nodule left lung base, axial image 509/7. There is plate-like atelectasis or scarring in the left lung base. A 5 mm nodule is seen in the right lower lobe anterobasal segment image 459/7. There is bilateral apical thickening slightly greater on the left side. Mediastinum: The thyroid lobes are symmetric and normal. The central trachea and the bronchi widely patent. A 1.1 cm right pretracheal lymph node is noted. There are coronary artery calcifications present. Heart size is normal. No pericardial effusion seen. There are scattered calcifications along the left pleura and left hemidiaphragm. Minimal left basilar pleural thickening is seen. The axilla and the chest wall is unremarkable. There are median sternotomy sutures and fredy from previous CABG. ABDOMEN AND PELVIS: The liver is normal size, contour and density. No focal enhancing lesion or intrahepatic ductal dilatation seen. There is a large radiopaque 1.6 cm gallstone without wall thickening or pericholecystic fluid collection. Visualized spleen, pancreas and bilateral adrenal glands are unremarkable. The left kidney has been surgically removed. There is no radiopaque calculi right kidney. Postcontrast the right kidney is normal size, shape and position. Measures 11.8 cm in length. No enhancing right renal mass, cyst or hydronephrosis seen. There is good opacification of right kidney pelvis and the entire ureter without intraluminal filling defect or distention. The bladder is partially opacified with excreted urinary contrast and appears unremarkable. The abdominal aorta is of normal caliber with atherosclerotic calcification. There are small shotty retroperitoneal lymph nodes. There is scattered stool and gas seen throughout the colon without colonic distention. Air-fluid levels are seen within the small bowel loops. Appendix is normal caliber. No free air or free fluid seen. There is a small umbilical hernia containing fat. Imaging of the pelvis reveals mild prostate enlargement with eccentric calcification. No abnormal pelvic or inguinal lymph nodes seen. Prominent bilateral inguinal canal containing fat. Bone windows reveal no aggressive lytic or sclerotic process seen. There is mild ventral spondylosis lower thoracic and mid lumbar spine. CT/CT abdomen pelvis wo/w con IMPRESSION: Diffuse centrilobular emphysema without acute process. There are bilateral pulmonary nodules largest measuring 5 mm right anterobasal segment lower lobe. Bilateral apical pleural thickening and scarring or atelectasis in the lingula and left lower lobe. 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 There is mild basilar left posterior pleural thickening. Benign-appearing 1.1 cm right pretracheal lymph node. There are coronary artery calcifications. Status post left nephrectomy. The right kidney is unremarkable. No abnormal retroperitoneal lymph nodes seen. Adrenal glands are normal. Gallstone without wall thickening. Mild constipation. Normal appendix. Small umbilical hernia containing fat. Prominent bilateral inguinal canal containing fat.
[2021-07-08 13:39] LABS: Hematocrit 47.3 % (42.0-52.0); Hemoglobin 15.9 g/dl (14.0-18.0); Mean Corpuscular HGB Conc 33.6 g/dl (31.0-36.0); Mean Corpuscular Hemoglobin 31.2 pg (27.0-33.0); Mean Corpuscular Volume 92.7 fL (80.0-98.0); Mean Platelet Volume 10.8 fL (9.4-12.4); Platelet Count 161 X10*3/uL (160-400); Red Cell Distribution Width 12.9 % (11.0-16.0); White Blood Count 10.2 X10*3/uL (4.8-10.8)
[2021-07-08 13:49] LABS: Anion Gap 12 (12-20); Blood Urea Nitrogen 14 mg/dL (9-16); Calcium 9.7 mg/dL (8.4-10.2); Carbon Dioxide 25 mmol/L (22-29); Chloride 104 mmol/L (96-108); Estimated Glomerular Filt Rate 52; Glucose Random 98 mg/dL (60-115); Lactate Dehydrogenase 162 U/L (118-273); Potassium 4.4 mmol/L (3.3-5.1); Sodium 137 mmol/L (135-145)
[2021-07-08] MEDS: iohexoL 350 MG/ML 100 ML INFUS..BTL IV (14:52)
== END 2021-07-08 12:21 | disposition home or self-care (01) ==
LOC: HO.CT 12:20
PROVIDERS: PCP Internal Medicine; Visit Provider Urology
DX: C64.9 Malignant neoplasm of unspecified kidney, except renal pelvis (principal); N20.0 Calculus of kidney
CPT/HCPCS: 36415; 71250; 74178; 80048; 83615; 85027; Q9967

== ENCOUNTER → 2021-07-11 08:46 | Outpatient (BNVA) | payer MEDICARE, SELFPAY | PROVIDERS: PCP Internal Medicine; Visit Provider Urology | DX: N40.1 Benign prostatic hyperplasia with lower urinary tract symptoms (principal); N13.8 Other obstructive and reflux uropathy; R33.8 Other retention of urine; Z85.528 Personal history of other malignant neoplasm of kidney; Z90.5 Acquired absence of kidney | CPT/HCPCS: 99212 ==

== ENCOUNTER 2021-12-23 07:50 | Outpatient (REF) | payer MEDICARE, SELFPAY ==
--- NOTE | ~2021-12-23 | CT_ITS ---
EXAMINATION: CT ABDOMEN AND PELVIS WITHOUT AND WITH CONTRAST CLINICAL INFORMATION: Malignant neoplasm of kidney. COMPARISON: CT chest, abdomen and pelvis 07/08/2021. TECHNIQUE: Multidetector volumetric imaging was performed of the abdomen and pelvis before and after the IV administration of 85 mL of Omnipaque 350 intravenous contrast. Sagittal and coronal reformatted images were obtained on the technologist's workstation. This CT examination was performed using dose optimization techniques as appropriate, variously including the following: *Automated exposure control *Adjustment of mA and/or kV according to patient size (this includes techniques or standardized protocols for targeted exams where dose is matched to indication/reason for exam; i.e. extremities or head) *Use of iterative reconstruction technique DLP: 715 mGy-cm FINDINGS: LUNG BASES: There are left basilar atelectatic changes. There is a 1 cm nodule left lung base axial image 32/3. Previously it measured 3 mm. LIVER, GALLBLADDER, AND BILIARY TREE: The liver is normal in size, shape, and attenuation. No focal hepatic lesion or biliary ductal dilatation is present. There is a solitary 2 cm radiopaque gallstone. There is no wall thickening. PANCREAS: Unremarkable. SPLEEN: Unremarkable. ADRENAL GLANDS: Unremarkable. KIDNEYS AND URETERS: The left kidney is surgically absent. The right kidney is normal size, shape and density. It measures 12.5 cm in length. No focal lesion or radiopaque renal calculi seen. There are punctate hypodensities in the upper and midpole right kidney, too small to correctly characterize. There is no perinephric stranding. There is no hydronephrosis either. BLADDER: Unremarkable. GASTROINTESTINAL TRACT: There is scattered stool and gas seen throughout the colon without distention. The small bowel loops are normal caliber. The appendix is normal caliber. No free air or free fluid seen. ABDOMINAL WALL: A tiny umbilical hernia is visualized. Prominent inguinal canals containing fat. LYMPH NODES: Normal. VASCULAR: Unremarkable. PELVIC VISCERA: The prostate gland is borderline size with eccentric calcification. There is no free fluid. There are scattered arterial calcifications through the penile shaft. OSSEOUS STRUCTURES: Unremarkable. CT/CT abdomen pelvis wo/w con IMPRESSION: Left nephrectomy. The right kidney is unremarkable. No retroperitoneal lymph nodes or mass seen. 1 cm left lower lobe nodule has grown in size. Previously measured [address] chest for further evaluation. Tiny umbilical hernia containing fat. Fleischner guidelines were followed.
[2021-12-23 09:39] LABS: Blood Urea Nitrogen 18 mg/dL (9-16); Estimated Glomerular Filt Rate 43
[2021-12-23 10:05] LABS: Prostate Specific Antigen 0.26 ng/mL (<0.05-4.0)
[2021-12-23] MEDS: iohexoL 350 MG/ML 100 ML INFUS..BTL IV (10:30)
== END 2021-12-23 07:51 | disposition home or self-care (01) ==
LOC: HO.CT 07:50
PROVIDERS: Visit Provider Urology
DX: Z12.5 Encounter for screening for malignant neoplasm of prostate (principal); C64.9 Malignant neoplasm of unspecified kidney, except renal pelvis; N40.0 Benign prostatic hyperplasia without lower urinary tract symptoms
CPT/HCPCS: 36415; 74178; 82565; 84153; 84520; Q9967

== ENCOUNTER → 2022-01-09 10:33 | Outpatient (BNVA) | payer MEDICARE, SELFPAY | PROVIDERS: PCP Internal Medicine; Visit Provider Urology | DX: C64.9 Malignant neoplasm of unspecified kidney, except renal pelvis (principal); R91.1 Solitary pulmonary nodule | CPT/HCPCS: 99212 ==

== ENCOUNTER 2022-01-17 07:41 | Outpatient (REF) | payer MEDICARE, SELFPAY ==
--- NOTE | ~2022-01-17 | CT_ITS ---
EXAMINATION: CT CHEST WITHOUT CONTRAST CLINICAL INFORMATION: Malignant neoplasm of unspecified kidney. COMPARISON: CT chest 07/08/2021 TECHNIQUE: Multidetector volumetric CT imaging of the chest was done. Axial MIP volume rendering provided. Sagittal and coronal reformatted images were obtained. This CT examination was performed using dose optimization techniques as appropriate, variously including the following: *Automated exposure control *Adjustment of mA and/or kV according to patient size (this includes techniques or standardized protocols for targeted exams where dose is matched to indication/reason for exam; i.e. extremities or head) *Use of iterative reconstruction technique DLP: 207 mGy-cm FINDINGS: PRESALES ENGINEER: Well-inflated lungs. LUNGS: There are centrilobular emphysematous lungs with bilateral apical parenchymal scarring and pleural thickening slightly greater on the left. There is a tubular cavity-like nodule right upper lobe axial image 251/5 most likely focal bronchial wall thickening, subpleural 3 mm nodule right lower lobe axial image 250/5, 3 mm subpleural nodule right upper lobe axial image 294/5, new 6 mm nodule left upper lobe axial image 291/5, focal atelectatic changes left lung base similar to previous study, a larger 8 mm nodule left lung base image 510/5, previously same nodule measured 3 mm. A pleural-based 9 mm nodule right middle lobe axial image 452/5. It was barely visible on the previous exam. There is bibasilar bronchial wall thickening with opacifying debris left lower lobe posterior basal segments. These findings are slightly more prominent than the last exam. MEDIASTINUM: The thyroid lobes are symmetrical and normal. Central trachea and bronchi are widely patent. Heart size and the great vessels are normal caliber. There is a small right pretracheal lymph node with a short axis measurement 1.2 cm. There are coronary artery calcifications present. No pericardial effusion seen. PLEURA: There is mild left posterior pleural thickening with scattered calcifications throughout the left lung. There is no left pleural effusion seen. AXILLA: No abnormal lymph nodes seen in the axilla. The chest wall is unremarkable. UPPER ABDOMEN: Visualized liver, spleen, pancreas and bilateral adrenal glands are unremarkable. There is a large radiopaque gallstone. OSSEOUS STRUCTURES: There are median sternotomy sutures from previous CABG. Mild ventral spondylosis seen throughout dorsal spine. No aggressive lytic or sclerotic process seen. CT/CT chest wo con IMPRESSION: Emphysema with left basilar scarring. No acute pneumonic process seen. There are bilateral pulmonary nodules. New pulmonary nodule pleural-based left upper lobe. The right middle lobe nodule has increased. Reactive lymph nodes are stable. No change in the left posterior pleural thickening and minimal loss of left lung volume with left pleural calcifications. Reactive lymph nodes in the mediastinum. Evidence of previous CABG. Fleischner guidelines were followed.
== END 2022-01-17 07:42 | disposition home or self-care (01) ==
LOC: HO.CT 07:41
PROVIDERS: Visit Provider Urology
DX: C64.9 Malignant neoplasm of unspecified kidney, except renal pelvis (principal)
CPT/HCPCS: 71250

== ENCOUNTER 2022-06-25 09:35 | Outpatient (REF) | payer MEDICARE, SELFPAY ==
--- NOTE | ~2022-06-25 | CT_ITS ---
EXAMINATION: CT ABDOMEN WITHOUT CONTRAST CLINICAL INFORMATION: Malignant neoplasm of kidney. COMPARISON: CT abdomen and pelvis 12/23/2021. TECHNIQUE: Contiguous axial thin section helical images of the abdomen were performed without contrast. The data set was reformatted in the coronal and sagittal planes and reviewed on an independent workstation. This CT examination was performed using dose optimization techniques as appropriate, variously including the following: *Automated exposure control *Adjustment of mA and/or kV according to patient size (this includes techniques or standardized protocols for targeted exams where dose is matched to indication/reason for exam; i.e. extremities or head) *Use of iterative reconstruction technique DLP: 299 mGy-cm FINDINGS: LUNG BASES: Minimal atelectatic changes are seen in left lung base. There are small scattered pulmonary nodules in both lower lobes. The largest left lung base measures 1.3 cm axial image 04/21. The largest right middle lobe nodule measures 7 mm and 1.2 cm nodule right lower lobe anterobasal segment. These nodules have increased in size since 12/23/2021. Left posterior pleural calcification and thickening. LIVER, GALLBLADDER, BILIARY TREE: The liver is homogeneous in density, normal size and contour. No focal lesion or intrahepatic ductal dilatation seen. There is large radiopaque measuring 2.2 cm. PANCREAS: The pancreas is homogeneous in density, normal size and shape. Peripancreatic fat borders are maintained normal. SPLEEN: The spleen is normal size and density. ADRENAL GLANDS AND KIDNEYS: The left kidney has been surgically removed. No focal lesion or mass seen in the left renal fossa. The right kidney is normal size, shape and position. No radiopaque calculi or hydronephrosis. Bilateral adrenal glands are unremarkable. BOWEL LOOPS: There is scattered stool and gas seen along throughout the colon without any significant distention. The small bowel loops are normal caliber. Appendix is partially visualized, likely normal. No free air or free fluid. LYMPH NODES: Small shotty lymph nodes seen in the retroperitoneum, none of which are significant the measure 5 mg less. VASCULAR: Mild atherosclerosis of abdominal aorta without aneurysmal dilatation. BONES: No aggressive lytic or sclerotic process seen. There is mild ventral spondylosis mid lumbar spine. CT/CT abdomen wo IV con IMPRESSION: 1. Status post left nephrectomy. No recurrent mass seen in the left renal fossa. 2. No abnormal retroperitoneal or mesenteric lymph nodes seen. 3. Bilateral lower lobe pulmonary nodules have increased in size since 12/23/2021. Cholelithiasis without wall thickening. Fleischner guidelines were followed.
== END 2022-06-25 09:36 | disposition home or self-care (01) ==
LOC: HO.CT 09:35
PROVIDERS: Visit Provider Urology
DX: C64.9 Malignant neoplasm of unspecified kidney, except renal pelvis (principal)
CPT/HCPCS: 74150

== ENCOUNTER → 2022-07-10 08:55 | Outpatient (BNVA) | payer MEDICARE, SELFPAY | PROVIDERS: Visit Provider Urology | DX: N40.0 Benign prostatic hyperplasia without lower urinary tract symptoms (principal); C64.9 Malignant neoplasm of unspecified kidney, except renal pelvis | CPT/HCPCS: 99212 ==

== ENCOUNTER 2023-04-06 08:56 | Outpatient (REF) | payer MEDICARE, SELFPAY ==
[2023-04-06 09:43] LABS: Hemoglobin 17.5 g/dl (14.0-18.0); Mean Corpuscular Volume 96.9 fL (80.0-98.0); Mean Platelet Volume 12.1 fL (9.4-12.4); Platelet Count 161 X10*3/uL (160-400); Red Blood Count 5.83 X10*6/uL (4.60-5.80); White Blood Count 10.1 X10*3/uL (4.8-10.8)
[2023-04-06 09:45] LABS: Hematocrit 56.5 % (42.0-52.0)
[2023-04-06 10:23] LABS: Blood Urea Nitrogen 19 mg/dL (9-16); Estimated Glomerular Filt Rate 48
[2023-04-06 11:16] LABS: Prostate Specific Antigen 0.19 ng/mL (<0.05-4.0)
== END 2023-04-06 08:57 | disposition home or self-care (01) ==
LOC: HO.LAB 08:56
PROVIDERS: PCP Internal Medicine; Visit Provider Urology
DX: C64.9 Malignant neoplasm of unspecified kidney, except renal pelvis (principal); N40.0 Benign prostatic hyperplasia without lower urinary tract symptoms; Z12.5 Encounter for screening for malignant neoplasm of prostate
CPT/HCPCS: 36415; 82565; 84153; 84520; 85027

== ENCOUNTER 2023-04-07 13:58 | Outpatient (REF) | payer MEDICARE, SELFPAY ==
--- NOTE | ~2023-04-07 | CT_ITS ---
EXAMINATION: CT ABDOMEN AND PELVIS WITHOUT AND WITH CONTRAST CLINICAL INFORMATION: Renal neoplasm. COMPARISON: 06/25/2022. TECHNIQUE: Multidetector volumetric imaging was performed of the abdomen and pelvis before and after the IV administration of 85 mL of Omnipaque 300 intravenous contrast. Sagittal and coronal reformatted images were obtained on the technologist's workstation. This CT examination was performed using dose optimization techniques as appropriate, variously including the following: *Automated exposure control *Adjustment of mA and/or kV according to patient size (this includes techniques or standardized protocols for targeted exams where dose is matched to indication/reason for exam; i.e. extremities or head) *Use of iterative reconstruction technique DLP: 958 mGy-cm FINDINGS: LUNG BASES: Numerous bilateral lower lobe pulmonary nodules measuring up to 2.6 cm. There is pleural thickening and calcification at the left lung base. LIVER, GALLBLADDER, AND BILIARY TREE: The liver is irregular in contour. A single large gallstone is noted. PANCREAS: Unremarkable SPLEEN: Unremarkable ADRENAL GLANDS: Unremarkable KIDNEYS AND URETERS: There has been a prior left nephrectomy. There is a subcentimeter cyst upper pole left kidney. There is no hydronephrosis. BLADDER: Unremarkable GASTROINTESTINAL TRACT: There are diverticula of the descending colon without diverticulitis. The appendix is not seen. ABDOMINAL WALL: There are small umbilical and supraumbilical abdominal wall defects/hernia containing fat. LYMPH NODES: Normal VASCULAR: There is atherosclerotic plaque of the abdominal aorta and proximal branches. PELVIC VISCERA: Unremarkable OSSEOUS STRUCTURES: Unremarkable CT/CT abdomen pelvis wo/w IV con IMPRESSION: Multiple bilateral lower lobe pulmonary nodules measuring up to 2.6 cm previously measuring a maximum of 1.3 cm consistent with progressing pulmonary metastatic disease. Prior left nephrectomy. Irregular liver suggests hepatocellular disease/cirrhosis. Cholelithiasis. Diverticula of the descending colon without diverticulitis. Fleischner guidelines were followed.
[2023-04-07] MEDS: iohexoL 350 MG/ML 100 ML INFUS..BTL 85 ML IV (14:40)
== END 2023-04-07 13:59 | disposition home or self-care (01) ==
LOC: HO.CT 13:58
PROVIDERS: PCP Internal Medicine; Visit Provider Urology
DX: C64.9 Malignant neoplasm of unspecified kidney, except renal pelvis (principal)
CPT/HCPCS: 74178; Q9967

== ENCOUNTER 2023-05-26 08:38 | Outpatient (AMB) | payer MEDICARE, SELFPAY ==
--- NOTE | 2023-05-26 08:41 | A.OFFVIS_ITS ---
Intake Intake Visit Reasons: CT/PSA Follow Up(Set) Intake Note: Patient is Present for Telephone Follow Up CT/PSA Urology Med: Finasteride, Tamsulosin Antibiotic Allergy:None Blood Thinner: Aspirin Allergies No Known Allergies Allergy (Verified 05/26/23 08:42) Medication List - Last Reconciled 05/26/23 by Yoandy Shaw MD albuterol sulfate 90 mcg/actuation (ProAir HFA) 2 puffs inhalation Q4-6H PRN amlodipine 5 mg PO DAILY aspirin 81 mg PO DAILY atorvastatin 80 mg PO DAILY budesonide-formoterol 160-4.5 mcg/actuation (Symbicort) 2 puffs PO BID clotrimazole-betamethasone 1-0.05 % 1 appl topical BID docusate sodium (Colace) 100 mg PO BID 14 days ergocalciferol (vitamin D2) 1,250 mcg PO QWEEK finasteride 5 mg PO DAILY 90 days gabapentin 100 mg PO BEDTIME hydroxyzine pamoate 25 mg PO TID PRN isosorbide mononitrate ER 30 mg PO DAILY linagliptin (Tradjenta) 5 mg PO DAILY metoprolol succinate ER 100 mg PO DAILY tamsulosin 0.8 mg (2 x 0.4 mg) PO DAILY 90 days tiotropium bromide (Spiriva with HandiHaler) 1 cap inhalation DAILY HPI HPI Comments History of Present Illness Details Sukhjinder is a pleasant male. He is a patient of Dr. Judd. He is here for the following urologic conditions - left renal cancer Telemedicine Evaluation 15 min Consultation Doximity Brittany Video attempted Increase in lung nodule size Recommend assessment with oncology - is seeing physican at [facility] Abdominal CT no evidence of recurrence Stable creatinine 1.4 Previously had recommended respiratory evaluation - has been evaluated down at [facility] for o ncology - Dr Suggs Renal mass - pT3a left renal vein involvement 12/03 nephrectomy Surveillance Imaging - 07/06 CT chest and abdomen with 5 mm pleural nodule, abdomen NAD, creatinine 1.3 - 01/03 CT chest abdomen with 10 mm pleuritic nodule - 07/07 CT chest abdomen with pleural nodules slowly increasing in size, creatinine 1.6 - 04/06 CT Multiple bilateral lower lobe pulmonary nodules measuring up to 2.6 cm previously measuring a maximum of 1.3 cm consistent with progressing p ulmonary metastatic disease. March 2020 CT scan 4.5 cm left upper pole hyperdense mass. Limited evaluation secondary to lack of IV contrast April 2020 CT urogram with enhancement of left upper pole hyperdense mass. 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 - Adrenal gland within normal limits. - AJCC (8th ed.) Stage: pT3a NX Tumor size 5.5 x 4.0 x 2.8 cm Histologic type Clear cell Histologic grade 3 Tumor extension Renal vein Margins Negative Recommended surveillance will include clinical assessment, blood biochemistry, and chest x-ray every 6 months for 3 years then yearly. Abdominal CT recommended at 6, 12, 18, 24, 36, 60 months then every 2 years Lower Tract Symptoms Progressive symptoms Combination therapy tamsulosin 0.4 mg, finasteride 5 mg PSA 04/06 0,20 High PVR 293 PFSH Medical History COVID-19 vaccine series completed Arthritis Myocardial infarction CAD (coronary artery disease) COPD (chronic obstructive pulmonary disease) Hyperlipidemia On beta steven at home Smoker Nocturia more than twice per night Feeling of incomplete bladder emptying BPH w urinary obs/LUTS Renal cancer BPH (benign prostatic hyperplasia) Hypertension Surgical History Hx of cystoscopy History of lung surgery History of heart artery stent History of quadruple bypass Social History Household Members: Children Household Members Other:: son Housing: House Are you a primary residential child care counselor to a significant other at home: No Do you presently have visiting nurse or other home services: No Alcohol intake: never Comment: pt asleep Patient Tobacco Use Status: Current everyday Tobacco user Tobacco use type: Cigarette Cigarette Packs Per Day: 1.5 Cigarettes Per Day: 30.0 Years Smoked: 62 Second Hand Smoke Exposure: Yes Substance Use Type: Marijuana service: Yes Current occupational status: retired Review of Systems Const All systems reviewed & are unremarkable except as noted in HPI and below Reports no additional complaints Resp Reports no additional complaints GI Reports no additional complaints Reports as per HPI Musc Reports no additional complaints Physical Exam Telemedicine evaluation Appropriate responses Regular breathing rate and rhythm HEENT Head: Yes normal to inspection Ears: hearing grossly normal bilaterally Eyes General: appearance normal, both eyes and all related structures Neck Neck: Yes normal visual inspection Chest Chest palpation & inspection: normal inspection of the chest Resp Effort & Inspection: normal respiratory effort and able to speak in complete sentences Assessment & Plan Assessment & Plan (1) Renal cancer: Comment: Nephrectomy Dr. Shaw November 2020 pT3a Code(s): C64.9 - Malignant neoplasm of unspecified kidney, except renal pelvis Qualifiers: Laterality: left Qualified Code(s): C64.2 - Malignant neoplasm of left kidney, except renal pelvis (2) Metastatic renal cell carcinoma to lung: Code(s): C78.00 - Secondary malignant neoplasm of unspecified lung; C64.9 - Malignant neoplasm of unspecified kidney, except renal pelvis Qualifiers: Laterality: unspecified laterality Qualified Code(s): C78.00 - Secondary malignant neoplasm of unspecified lung; C64.9 - Malignant neoplasm of unspecified kidney, except renal pelvis Plan 6m f/u PVR Medications: Refilled finasteride 5 mg PO DAILY 90 tabs 1RF 90 days N13.8 - Other obstructive and reflux uropathy, N40.1 - Benign prostatic hyperplasia with lower urinary tract symptoms, R33.9 - Retention of urine, unspecified tamsulosin 0.8 mg (2 x 0.4 mg) PO DAILY 180 caps 1RF 90 days Patient Instructions: Imaging studies, laboratory and physical exam results were discussed and reviewed in detail. No major barriers to patient understanding were identified. An opportunity to ask questions regarding the treatment plan was provided. All questions were answered. The patient expressed understanding and agreement with the above treatment plan. The patient is aware they should contact our office by phone for worsening of their current condition or the appearance of new urologic symptoms. Compliance is encouraged with any medications and followup testing that is ordered. It is a privilege to participate in the urologic care of your patient. If you have any questions or concerns regarding treatment for the above conditions, or other urologic issues, please do not hesitate to contact me. The office telephone contact is [phone]. This note is constructed using voice recognition software. While every effort has been made to ensure accuracy crisis therapist errors may have been included. Yours sincerely, Dr Yoandy Shaw MD, [facility] - Urology Providers of Expert, Compassionate Care for the Genitourinary System Telehealth Telehealth Location of provider rendering services: practice address Location of patient: address on file Patient Identification confirmed using: Name, : Yes Telehealth method: video Patient verbally consented to treatment: Yes Patient verbally consented to billing insurance company: Yes Patient informed of any privacy concerns related to visit: Yes Coding Level of Care Code Tele Est Pt Level 4 (46638) Diagnoses Malignant neoplasm of left kidney C64.2 Laterality: left Secondary renal cell carcinoma of lung, unspecified laterality C78.00; C64.9 Laterality: unspecified laterality
== END 2023-05-26 09:34 | disposition home or self-care (01) ==
LOC: HO.HUSH 08:38
PROVIDERS: PCP Internal Medicine; Visit Provider Urology
DX: C64.2 Malignant neoplasm of left kidney, except renal pelvis (principal); C78.00 Secondary malignant neoplasm of unspecified lung; C64.9 Malignant neoplasm of unspecified kidney, except renal pelvis
CPT/HCPCS: 99213

== ENCOUNTER → 2023-05-26 08:38 | Outpatient (BNVA) | payer MEDICARE, SELFPAY | PROVIDERS: PCP Internal Medicine; Visit Provider Urology ==

== ENCOUNTER 2024-09-06 02:56 | Inpatient (IN) | payer MEDICARE, SELFPAY ==
[2024-09-06] VITALS (21 sets, daily range): BP systolic 117–149; BP diastolic 65–88; PULSE 84–94; RESP 19–32; TEMP 36.7–37.1; O2SAT 70–98; BMI 24.7
--- NOTE | ~2024-09-06 | XR_ITS ---
CLINICAL HISTORY: dyspnea 1 view chest x-ray Comparison: CT/SR - CT CHEST WO CON - 01/17/22 07:57 EDT Findings: There are diffuse bilateral reticular and nodular opacities associated with moderate left effusion. Heart size is normal. No acute fracture. The patient is status post median sternotomy. IMPRESSION: There are diffuse bilateral reticular and nodular opacities associated with moderate left effusion. consider correlating with chest CT. This document has been electronically signed by: Jack Hopkins MD on 09/06/2024 05:23:19
--- NOTE | ~2024-09-06 | CT_ITS ---
CLINICAL HISTORY: hypoxia left pleural effusion PNA not improving CT chest without contrast Comparison: CR - XR CHEST 1V - 09/06/24 04:[address]/SR - CT CHEST WO CON - 01/17/22 07:57 EDT Findings: No mediastinal mass. Mediastinal lymphadenopathy measures up to 1.5 cm in short axis. Cardiomegaly. Severe calcified coronary artery disease. Mild to moderate calcification of the aortic valve and mitral annulus. Normal size thoracic aorta with severe calcified atherosclerotic disease Paraseptal emphysema extends beyond the lung apices and measures up to 1.3 cm. Confluent centrilobular emphysema. Moderate bronchial wall thickening with a mild amount of secretions in the airways. New and increasing in size bilateral pulmonary nodules and masses measuring up to 3.6 cm; the largest is in the right upper lobe, previously measuring up to 1.7 cm. Left pleural thickening and scarring, also present on the prior study. Compressive and dependent atelectasis. Suspect left lower lobe round atelectasis with pulling of the bronchovascular bundles. Interlobular septal thickening could be secondary to lymphangitic carcinomatosis or edema. No pneumothorax. Small right and trace left pleural effusions. Calcified pleural. No acute osseous abnormality. No sclerotic or lytic lesion to indicate metastatic disease.. Status post median sternotomy. There is infiltration of the subcutaneous fat. No acute pathology in the imaged portion of the upper abdomen. Cholelithiasis. No gallbladder wall thickening or pericholecystic fluid. No evidence of metastatic disease in the upper abdomen Impression: Bilateral pulmonary nodules and masses which measure up to 3.6 cm which have increased in size or are new since the prior study. A malignant etiology is favored. Nonemergent workup is recommended. Mediastinal lymphadenopathy, favored to be malignant. Small right and trace left pleural effusions. The effusions could be secondary to malignancy and/or edema. There is infiltration of the subcutaneous fat which may indicate anasarca, which is evidence for edema. This document has been electronically signed by: Elizabeth Dunbar MD on 09/07/2024 18:08:26
[2024-09-06] MEDS: Albuterol Sulfate 5 MG, Albuterol/Iprat 2.5/0.5MG 3 ML 3 ML INHALE (03:24)
--- NOTE | 2024-09-06 03:30 | ED_ITS ---
HPI - SOB/Dyspnea General Chief Complaint: Dyspnea Stated Complaint: SOB Time Seen by Provider: 09/06/24 03:14 Source: patient and old records reviewed Mode of arrival: ambulatory Limitations: no limitations History of Present Illness ED Provider: COLIN NIEVES Narrative: 74 yo male with PMH of renal cell carcinoma s/p nephrectomy, BPH, COPD on 3 L NC at home, HTN, HLD, CAD here with c/o cough and wheezing x 1 week that acutely worsening tonight - en route EMS gave nebs and solumedrol. On arrival to ED he became agitated to 81% and required BIPAP. He denies fevers, change in sputum, chest pain, edema, sick contacts. He notes the oxygen is helping. He still smokes MD elicited complaint: shortness of breath Pertinent past history: COPD Onset (ago): week(s) (1) Context: recent illness and smoke/fume exposure Timing: progressively worsening Severity: severe Exacerbating factors: movement and coughing Relieving factors: oxygen, rest and bronchodilators Known history of: COPD Associated symptoms: cough Treatment prior to arrival: oxygen, bronchodilator and other (IV solumedrol) Related Data Home Medications ?Medication ?Instructions ?Recorded ?Confirmed atorvastatin 80 mg tablet 80 mg PO DAILY 04/24/20 05/26/23 hydroxyzine pamoate 25 mg capsule 25 mg PO TID PRN anxiety 04/24/20 05/26/23 isosorbide mononitrate 30 mg 30 mg PO DAILY 04/24/20 05/26/23 tablet,extended release 24 hr metoprolol succinate 100 mg 100 mg PO DAILY 04/24/20 05/26/23 tablet,extended release 24 hr albuterol sulfate 90 mcg/actuation 2 puff inhalation Q4-6H PRN 08/17/20 05/26/23 aerosol inhaler (ProAir HFA) Wheezing budesonide-formoterol HFA 160 2 puff PO BID 08/17/20 05/26/23 mcg-4.5 mcg/actuation aerosol inhaler (Symbicort) aspirin 81 mg tablet,delayed 81 mg PO DAILY 08/20/20 05/26/23 release tiotropium bromide 18 mcg capsule 1 cap inhalation DAILY 08/20/20 05/26/23 with inhalation device (Spiriva with HandiHaler) amlodipine 5 mg tablet 5 mg PO DAILY 01/09/22 05/26/23 clotrimazole-betamethasone 1 1 appl topical BID 07/10/22 05/26/23 %-0.05 % topical cream ergocalciferol (vitamin D2) 1,250 1,250 mcg PO QWEEK 07/10/22 05/26/23 mcg (50,000 unit) capsule gabapentin 100 mg capsule 100 mg PO BEDTIME 07/10/22 05/26/23 linagliptin 5 mg tablet (Tradjenta) 5 mg PO DAILY 07/10/22 05/26/23 Previous Rx's ?Medication ?Instructions ?Recorded docusate sodium 100 mg capsule 100 mg PO BID 14 days #28 caps 11/30/20 (Colace) tamsulosin 0.4 mg capsule 0.8 mg (2 x 0.4 mg) PO DAILY 90 05/26/23 days #180 caps finasteride 5 mg tablet 5 mg PO DAILY 90 days #90 tabs 09/25/23 Allergies Allergy/AdvReac Type Severity Reaction Status Date / Time No Known Allergies Allergy Verified 09/06/24 03:19 Review of Systems 2 Review of Systems: Constitutional : No Fever, No Chills ENT/Mouth : No Hoarseness, No sore throat, No Rhinorrhea Eyes: No Redness, No Discharge, No Vision Changes Cardiovascular : No Chest Pain, positive SOB, positive Dyspnea on Exertion, No Edema Respiratory : positive Cough, No Sputum, positive Wheezing, Gastrointestinal : No Nausea, No Vomiting, No Diarrhea, No abdominal Pain Genitourinary : No Dysuria, No Hematuria Musculoskeletal : No joint pain, No Myalgias Skin : No rash Neuro : No Weakness, No Numbness, No Headache Psych : No anxiety, depression Heme/Lymph: No Bruising, No Bleeding Endocrine : No Polyuria, No Polydipsia All other systems reviewed and are negative PMFSH Past Medical History Attestation statement: The following information was validated with the patient. Source: old records reviewed Medical History COVID-19 vaccine series completed Arthritis Myocardial infarction CAD (coronary artery disease) COPD (chronic obstructive pulmonary disease) Hyperlipidemia On beta steven at home Smoker Nocturia more than twice per night Feeling of incomplete bladder emptying BPH w urinary obs/LUTS Renal cancer BPH (benign prostatic hyperplasia) Hypertension Surgical History Hx of cystoscopy History of lung surgery History of heart artery stent History of quadruple bypass Social History Social History Household Members: Children Household Members Other:: son Housing: House Are you a primary director of primary care to a significant other at home: No Do you presently have visiting nurse or other home services: No Alcohol intake: never Comment: pt asleep Patient Tobacco Use Status: Current everyday Tobacco user Tobacco use type: Cigarette Cigarette Packs Per Day: 1.5 Cigarettes Per Day: 30.0 Years Smoked: 62 Smoked in Last 30 Days: Yes Second Hand Smoke Exposure: Yes Use of substances other than those prescribed or required for medical reasons: Yes Substance Use Type: Marijuana Advance Directives: No Advance Directives Information Provided: Yes service: Yes Current occupational status: retired Physical Exam 2 Vital Signs: Vital Signs: Last Vital Signs Temp 98.1 F 09/06/24 04:32 Pulse 86 09/06/24 04:32 Resp 22 H 09/06/24 04:32 BP 127/71 09/06/24 05:03 Pulse Ox 92 09/06/24 05:10 O2 Del Method Oxymask 09/06/24 05:10 O2 Flow Rate 7 09/06/24 05:10 FiO2 40 09/06/24 04:32 BMI result Body Mass Index 24.7 Appearance: Alert. Oriented X3. Mild acute distress. agitated yelling, hyperventilating Eyes: Pupils equal, round and reactive to light. ENT: Pharynx normal. Neck: Normal inspection. Neck supple. CVS: Normal heart rate and rhythm. Pulses normal. Respiratory: No respiratory distress. Breath sounds very diminished throughout Abdomen: Soft and nontender. Skin: Skin warm and dry. Normal skin color. Normal skin turgor. Extremities: No lower extremity edema. No calf ttp Neuro: Oriented X 3. No motor deficit. No sensory deficit. CN2-12 intact Course Course Course Narrative: 410am calm and cooperative doing well not labored will take off bipap soon Reevaluation(s) Reevaluation #1: IV lasix ordered removed from Bipap 440am Medications Administered Discontinued Medications Generic Name Dose Route Start Last Admin Trade Name Freq PRN Reason Stop Dose Admin Ceftriaxone Sodium 1 gm 09/06/24 03:16 09/06/24 03:50 Ceftriaxone Sodium 1 Gm Vial IVPUSH 09/06/24 03:17 1 gm ONCE ONE Administration Albuterol Sulfate 5 mg/ 0 mg 09/06/24 03:19 09/06/24 03:24 Albuterol/Ipratropium 3 ml INHALE 09/06/24 03:20 1 each ONCE ONE Administration Fentanyl 50 mcg 09/06/24 03:16 09/06/24 03:45 Fentanyl Citrate/Pf 100 Mcg/2 Ml Vial IVPUSH 09/06/24 03:17 50 mcg ONCE ONE Administration Protocol Furosemide 40 mg 09/06/24 04:34 09/06/24 05:03 Furosemide 40 Mg/4 Ml Vial IVPUSH 09/06/24 04:35 40 mg STAT STA Administration Protocol Medical Decision Making Medical Decision Making [facility] Narrative: 74 yo male with PMH of renal cell carcinoma s/p nephrectomy, BPH, COPD on 3 L NC at home, HTN, HLD, CAD here with c/o worsening dry cough and wheezing that became much worse tonight - on arrival agitated and pulling at his neb treatment with sat of 81% - he was placed on BIPAP and given IV fentanyl with quick turnaround suspect COPD but also panic attack - he has no CP or signs of DVT to suggest VTE - he denies infecious symptoms suspect COPD/anxiety/CHF Differential Diagnosis Differential Diagnoses: The differential diagnosis associated with the presentation includes COPD/anxiety/CHF Admission/Observation Consideration of admission/observation: Escalation of care including admission/observation considered will admit for COPD/CHF Consult Healthcare Provider Management of the patient was discussed with: Hospitalist (will admit) Lab Data [facility] Lab Attestation statement: I reviewed the patient's lab results. 09/06/24 03:39 09/06/24 03:39 Labs: Lab Results 09/06/24 09/06/24 09/06/24 Range/Units 03:36 03:38 03:39 WBC 11.1 H (4.8-10.8) X10*3/uL RBC 4.91 (4.60-5.80) X10*6/uL Hgb 14.8 (14.0-18.0) g/dl Hct 45.6 (42.0-52.0) % MCV 92.9 (80.0-98.0) fL MCH 30.1 (27.0-33.0) pg MCHC 32.5 (31.0-36.0) g/dl RDW 15.0 (11.0-16.0) % Plt Count 136 L (160-400) X10*3/uL MPV 10.4 (9.4-12.4) fL Immature Gran % (Auto) 0.4 (0.0-0.4) % Neut % (Auto) 75.3 H (45-73) % Lymph % (Auto) 10.9 L (20-40) % [place] % (Auto) 10.5 (2-11) % Eos % (Auto) 2.4 (0-4) % Baso % (Auto) 0.5 (0-2) % Lymph # (Auto) 1.2 (1.2-4.9) X10*3/uL [place] # (Auto) 1.2 (0.1-1.2) X10*3/uL Eos # (Auto) 0.3 (0.0-0.4) X10*3/uL Baso # (Auto) 0.1 (0.0-0.2) X10*3/uL Abs Immat Gran (auto) 0.04 H (0.00-0.03) X10*3/uL Absolute Neuts (auto) 8.4 H (2.0-8.3) x10*3/uL Absolute Nucleated RBC 0.000 (0.0-0.012) X10*3/uL Nucleated RBC % (auto) 0.0 (0.0-0.2) /100WBC PT 13.4 H (10.9-12.4) SEC INR 1.2 H (0.9-1.1) VBG pH (7.32-7.43) VBG pCO2 mmHg VBG pO2 mmHg VBG HCO3 (22-26) mmol/L VBG O2 Saturation % VBG Base Excess mmol/L Sodium 141 (135-145) mmol/L Potassium 5.2 H (3.3-5.1) mmol/L Chloride 108 (96-108) mmol/L Carbon Dioxide 24 (22-29) mmol/L Anion Gap 14 (12-20) BUN 16 (9-16) mg/dL Creatinine 1.18 (0.5-1.4) mg/dL Estim Creat Clear Calc 49.7 Estimated GFR > 60 Random Glucose 147 H (60-115) mg/dL Lactic Acid 1.1 (0.5-2.0) mmol/L Calcium 9.1 D (8.4-10.2) mg/dL Magnesium 2.2 (1.6-2.6) mg/dL Total Bilirubin 1.0 (0.0-1.0) mg/dL AST 40 H (5-37) U/L ALT 24 (0-40) U/L Alkaline Phosphatase 236 H (39-117) U/L Troponin I High Sens < 2.7 (<3.5-35.0) ng/L B-Natriuretic Peptide 1031 H (<100) pg/mL Total Protein 7.9 (6.5-8.0) g/dL Albumin 3.6 (3.5-5.0) g/dL Lipase 28 (8-78) U/L Influenza Type A (PCR) (Negative) Influenza Type B (PCR) (Negative) RSV RNA Qual (PCR) (Negative) SARS-CoV-2 RNA (RT-PCR) (Negative) 09/06/24 09/06/24 Range/Units 03:43 04:02 WBC (4.8-10.8) X10*3/uL RBC (4.60-5.80) X10*6/uL Hgb (14.0-18.0) g/dl Hct (42.0-52.0) % MCV (80.0-98.0) fL MCH (27.0-33.0) pg MCHC (31.0-36.0) g/dl RDW (11.0-16.0) % Plt Count (160-400) X10*3/uL MPV (9.4-12.4) fL Immature Gran % (Auto) (0.0-0.4) % Neut % (Auto) (45-73) % Lymph % (Auto) (20-40) % [place] % (Auto) (2-11) % Eos % (Auto) (0-4) % Baso % (Auto) (0-2) % Lymph # (Auto) (1.2-4.9) X10*3/uL [place] # (Auto) (0.1-1.2) X10*3/uL Eos # (Auto) (0.0-0.4) X10*3/uL Baso # (Auto) (0.0-0.2) X10*3/uL Abs Immat Gran (auto) (0.00-0.03) X10*3/uL Absolute Neuts (auto) (2.0-8.3) x10*3/uL Absolute Nucleated RBC (0.0-0.012) X10*3/uL Nucleated RBC % (auto) (0.0-0.2) /100WBC PT (10.9-12.4) SEC INR (0.9-1.1) VBG pH 7.33 (7.32-7.43) VBG pCO2 30 mmHg VBG pO2 49 mmHg VBG HCO3 16 L (22-26) mmol/L VBG O2 Saturation 73.0 % VBG Base Excess -8.2 mmol/L Sodium (135-145) mmol/L Potassium (3.3-5.1) mmol/L Chloride (96-108) mmol/L Carbon Dioxide (22-29) mmol/L Anion Gap (12-20) BUN (9-16) mg/dL Creatinine (0.5-1.4) mg/dL Estim Creat Clear Calc Estimated GFR Random Glucose (60-115) mg/dL Lactic Acid (0.5-2.0) mmol/L Calcium (8.4-10.2) mg/dL Magnesium (1.6-2.6) mg/dL Total Bilirubin (0.0-1.0) mg/dL AST (5-37) U/L ALT (0-40) U/L Alkaline Phosphatase (39-117) U/L Troponin I High Sens (<3.5-35.0) ng/L B-Natriuretic Peptide (<100) pg/mL Total Protein (6.5-8.0) g/dL Albumin (3.5-5.0) g/dL Lipase (8-78) U/L Influenza Type A (PCR) NEGATIVE (Negative) Influenza Type B (PCR) NEGATIVE (Negative) RSV RNA Qual (PCR) NEGATIVE (Negative) SARS-CoV-2 RNA (RT-PCR) NEGATIVE (Negative) Independent Interpretation I performed an independent interpretation of an: EKG and Plain X-Ray (no pneumonia) Interpretation: Rate: 87 Rhythm: NSR Jenners: normal Normal P waves. Normal RANJEET. Normal QRS complex. ST T wave : no KIARA, nonspecific ST T wave changes inferior and lateral leads qTC: 442 prior studies: no acute ischemia The study has been interpreted contemporaneously by me. . Radiology Impression Discussion of test interpretation with radiology: I have reviewed the radiologist's reading. Independent Historian Clinical information obtained from an independent historian. History obtained from or confirmed by: EMS and Other (son) External Record Review External record reviewed: Outpatient record Critical Care Time Critical Care Time Critical Care Time: Yes Total Critical Care Time: 45 Attestation: review of records, admission, BIPAP I attest to this time spent taking care of the patient Discharge Plan Discharge Clinical Impression: Acute exacerbation of chronic obstructive airways disease, Congestive heart failure Patient Disposition: Admitted As Inpatient Prescriptions: No Action finasteride 5 mg tablet 5 mg PO DAILY 90 Days Qty: 90 1RF budesonide-formoterol [Symbicort] 160-4.5 mcg/actuation HFA aerosol inhaler 2 puff PO BID albuterol sulfate [ProAir HFA] 90 mcg/actuation Hfa Aerosol Inhaler 2 puff INHALATION Q4-6H PRN (Reason: Wheezing) aspirin 81 mg Tablet,Delayed Release (Dr/Ec) 81 mg PO DAILY Spiriva with HandiHaler 18 mcg Capsule, W/Inhalation Device 1 cap INHALATION DAILY docusate sodium [Colace] 100 mg capsule 100 mg PO BID 14 Days Qty: 28 0RF hydroxyzine pamoate 25 mg capsule 25 mg PO TID PRN (Reason: anxiety) atorvastatin 80 mg tablet 80 mg PO DAILY metoprolol succinate 100 mg tablet extended release 24 hr 100 mg PO DAILY isosorbide mononitrate 30 mg tablet extended release 24 hr 30 mg PO DAILY amlodipine 5 mg tablet 5 mg PO DAILY clotrimazole-betamethasone 1-0.05 % cream 1 appl topical BID gabapentin 100 mg capsule 100 mg PO BEDTIME ergocalciferol (vitamin D2) 1,250 mcg (50,000 unit) capsule 1,250 mcg PO QWEEK Tradjenta 5 mg tablet 5 mg PO DAILY tamsulosin 0.4 mg capsule 0.8 mg PO DAILY 90 Days Qty: 180 1RF Print Language: Faroese
[2024-09-06] MEDS: fentaNYL citrate/PF 100 MCG/2 ML VIAL 50 MCG IVPUSH (03:45)
[2024-09-06] MEDS: cefTRIAXone sodium 1 GM VIAL IVPUSH (03:50)
[2024-09-06 04:03] LABS: Venous Blood Gas Refer to POC result
[2024-09-06 04:07] LABS: MANUAL DIFF FLAG NO
[2024-09-06 04:10] LABS: VBG Base Excess -8.2 mmol/L; VBG HCO3 16 mmol/L (22-26); VBG pCO2 30 mmHg; VBG pH 7.33 (7.32-7.43); VBG pO2 49 mmHg
[2024-09-06 04:10] LABS: Basophils Absolute Auto 0.1 X10*3/uL (0.0-0.2); Basophils Percent Auto 0.5 % (0-2); Eosinophils Absolute Auto 0.3 X10*3/uL (0.0-0.4); Eosinophils Percent Auto 2.4 % (0-4); Hematocrit 45.6 % (42.0-52.0); Hemoglobin 14.8 g/dl (14.0-18.0); Imm Gran Abs Auto 0.04 X10*3/uL (0.00-0.03); Imm Gran Pct Auto 0.4 % (0.0-0.4); Lymphocytes Absolute Auto 1.2 X10*3/uL (1.2-4.9); Lymphocytes Percent Auto 10.9 % (20-40); Mean Corpuscular HGB Conc 32.5 g/dl (31.0-36.0); Mean Corpuscular Hemoglobin 30.1 pg (27.0-33.0); Mean Corpuscular Volume 92.9 fL (80.0-98.0); Mean Platelet Volume 10.4 fL (9.4-12.4); Monocytes Absolute Auto 1.2 X10*3/uL (0.1-1.2); Monocytes Percent Auto 10.5 % (2-11); Neutrophils Absolute Auto 8.4 x10*3/uL (2.0-8.3); Neutrophils Percent Auto 75.3 % (45-73); Platelet Count 136 X10*3/uL (160-400); Red Blood Count 4.91 X10*6/uL (4.60-5.80); White Blood Count 11.1 X10*3/uL (4.8-10.8)
[2024-09-06 04:15] LABS: INTERNATIONAL NORM RATIO 1.2 (0.9-1.1); Prothrombin Time 13.4 SEC (10.9-12.4)
--- NOTE | 2024-09-06 04:21 | ECG_ITS ---
Test Reason : DYSPENA Blood Pressure : */* mmHG Vent. Rate : 87 BPM Atrial Rate : 87 BPM P-R Int : 160 ms QRS Dur : 96 ms QT Int : 368 ms P-R-T Axes : 56 34 214 degrees QTcB Int : 442 ms Normal sinus rhythm Possible Left atrial enlargement Possible Inferior infarct (cited on or before 06-Jun-2014) Nonspecific ST and T wave abnormality Abnormal ECG When compared with ECG of 20-Aug-2020 13:43, T wave inversion less evident in Inferior leads Nonspecific T wave abnormality now evident in Anterior leads Referred By: Flores Prince Electronically Signed By: BRIAN MOSLEY MD
[2024-09-06 04:23] LABS: Lactic Acid 1.1 mmol/L (0.5-2.0)
[2024-09-06 04:30] LABS: Alanine Aminotransferase 24 U/L (0-40); Albumin Level 3.6 g/dL (3.5-5.0); Alkaline Phosphatase 236 U/L (39-117); Anion Gap 14 (12-20); Aspartate Amino Transferase 40 U/L (5-37); Blood Urea Nitrogen 16 mg/dL (9-16); Calcium 9.1 mg/dL (8.4-10.2); Carbon Dioxide 24 mmol/L (22-29); Chloride 108 mmol/L (96-108); Creatinine Clr Calc Pharmacy 49.7; Estimated Glomerular Filt Rate > 60; Glucose Random 147 mg/dL (60-115); Lipase 28 U/L (8-78); Magnesium 2.2 mg/dL (1.6-2.6); Potassium 5.2 mmol/L (3.3-5.1); Sodium 141 mmol/L (135-145); Total Protein 7.9 g/dL (6.5-8.0); Troponin-I High Sensitivity < 2.7 ng/L (<3.5-35.0)
[2024-09-06 04:30] LABS: B Type Natriuretic Peptide 1031 pg/mL (<100)
[2024-09-06 04:44] LABS: Influenza A PCR NEGATIVE (Negative); Influenza B PCR NEGATIVE (Negative); Resp Syncy Virus RNA Qual PCR NEGATIVE (Negative); SARS COV2 PCR INHOUSE NEGATIVE (Negative)
[2024-09-06] MEDS: Furosemide 40 MG/4 ML VIAL IVPUSH (05:03)
--- NOTE | 2024-09-06 05:09 | PC.NURSE ---
Resp at bedside patient cpap removed, trailed NC at 3L O2 85%, placed on oxy mask on 7L 92%
--- NOTE | 2024-09-06 07:00 | CA_ITS ---
Transthoracic Echocardiogram Patient (Last, First, Middle): Sukhjinder Doe A Gender: Male Date of : 1950 Age: 74 Procedure Date: 09/06/2024 Procedure Type: Transthoracic Echocardiogram Location: ER Height: 170.18 cm Weight: 71.67 kg BSA: 1.83 m2 Heart Rate: 88 bpm BP: 132 / 70 mmHg Food Trades Assistants: TO Referring MD: Medina Rivero [facility] Diesel Maintenance Electrician: Armando Bradshaw MD Symptoms: CHF exacerbation Study Quality: Adequate ECG Rhythm: Sinus Conclusions: - 1. Mildly reduced LV ejection fraction 45-50% with grade 2 diastolic dysfunction with underlying regional wall motion abnormality consistent coronary artery disease 2. At least mild biatrial enlargement 3. Moderately elevated right ventricular systolic pressure with significantly elevated right atrial pressures 4. No gross pericardial effusion Findings Procedure Information Contrast agent, definity, is being given per protocol without apparent complications. Left Ventricle Normal left ventricular cavity size. There is normal left ventricular wall thickness. The left ventricular systolic function is mildly decreased. The visually estimated ejection fraction is between 45-50%. Spectral Doppler is indicative of a pseudonormal filling pattern. E/E prime ratio is >15, consistent with elevated filling pressures. Evidence suggests grade II (moderate) diastolic dysfunction. Wall Motion Rest Echo Findings The inferoseptal wall, inferolateral wall, the basal inferior, and mid inferior segments are hypokinetic. All other scored wall segments showed normal motion. Right Ventricle Normal right ventricular cavity size. There is normal right ventricular systolic function. Atria The left atrium is mildly dilated. Interatrial shunt cannot be excluded. The right atrium is mildly dilated. Aortic Valve There is mild calcification of the aortic valve. There is mild thickening of the aortic valve. There is no aortic valve stenosis. There is no aortic valve regurgitation. Mitral Valve There is mild anterior and moderate posterior mitral leaflet thickening. There is moderate mitral annular calcification. There is trace mitral valve regurgitation. There is no mitral valve stenosis. Pulmonic Valve The pulmonic valve is likely normal. There is trace pulmonic valve regurgitation. Tricuspid Valve Normal tricuspid valve structure. There is mild to moderate tricuspid valve regurgitation. Significantly elevated right atrial pressure. Moderate pulmonary hypertension is present. Great Vessels The pulmonary artery was not well visualized. There is no dilatation of the ascending aorta measuring 3.00 cm. Small plaque is seen in the sino tubular ridge. Venous The inferior vena cava is severely dilated and collapses less than 50% with inspiration. Pericardium/Pleural There is no evidence of pericardial effusion. Prior Study Comparison No prior study available for comparison. Measurements 2D Linear Measurements IVSd: 0.92 0.6-0.9/0.6-1.0 cm LVIDd: 5.46 3.9-5.3/4.2-5.9 cm LVIDd Index: 2.98 2.4-3.2/2.2-3.1 cm/m2 LVIDs: 4.00 2.0-3.6 cm LVPWd: 0.81 0.7-1.1 cm LV Mass: 216.64 67-162/88-224 g LV Mass Index: 118.38 43-95/49-115 g/m2 LVOT Diam: 2.30 3.0+(-)1.3 cm 2D Systolic Function EF 4C: 49.00 >55% EF 2C: 44.30 >55% EF BiP: 48.50 >55% Mitral Valve MV VTI: 0.28 MV Pk Butch: 1.33 MV Mn Butch: 0.85 MV Pk Grad: 7.00 MV Mn Grad: 3.00 MV Pk E: 1.19 MV PK A: 0.92 MV Decel Time: 118.00 E/A: 1.30 E'Lateral: 8.38 E'Medial: 5.22 E/E' Med: 22.80 E/E' Lat: 14.20 PHT: 35.00 MVA PHT: 6.29 MVA Continuity: 3.87 Decel [place]: 10.09 Aortic Valve AoV Pk Butch: 1.38 AoV Mn Butch: 0.92 AoV VTI: 0.29 AoV Pk Grad: 8.00 Aov Mn Grad: 4.00 KIA Cont.VTI: 3.83 LVOT LVOT Pk Butch: 1.22 LVOT Mn Butch: 0.73 LVOT VTI: 0.26 LVOT Pk Grad: 6.00 LVOT Mn Grad: 3.00 LVOT Diam: 2.30 LVOT Area: 4.15 Diastolic Function MV Pk E: 1.19 MV Pk A: 0.92 E/A: 1.30 E'Medial: 5.22 E/E' Med: 22.80 E' Laterial: 8.38 E/E' Lat: 14.20 Right Ventricle TAPSE (mm): 16.90 TVS' Butch: 8.38 Tricuspid Valve TR Pk Bucth: 3.20 TR Pk Grad: 41.00 RA Press: 15.00 RVSP: 56.00 Great Vessels Aorta Sinus of Valsalva: 3.07 2.0-3.5 cm Ao Asc: 3.00 2.1-3.4 cm Updated in Other Vendor System with Status of Final Armando Bradshaw MD electronically signed on 09/06/2024 1:06:25 PM with status of Final
--- NOTE | 2024-09-06 07:57 | PM.IMHP ---
History of Present Illness Date of Service: 09/06/24 Attending physician on admission: [facility] Chief Complaint: SOB, unable to catch breath Pt is a 74 yo male with PMH NIIDM, HTN, HLD, CAD, COPD/Emphysema, current tobacco use 58 yo PPD hx, CABG X4, L renal nephrectomy 2022? with current met to lung under chemotherapy at [facility] with Dr. Nelson, CHF (follows with [facility]), BPH, OA presented to ED via EMS with complaint of profound SOB at rest where pt was no longer able to catch his breath. Pt has noted increasing issues with SOB overall over the past 2 weeks. Denies recent travel. Pt has not gone up on O2 needs, was still using 2.5 L via NC at home. Pt denies productive cough, fever, night sweats, dysphagia, dizziness, nausea but did have one bout of vomiting yesterday due to amount of coughing. Viral studies are currently negative. CXR diffuse bilateral reticular and nodular opacities associated with moderate left effusionnotes Left pleural effusion (possible side with the cancer). Pt came in on BiPAP but after 40 lasix IV, moved to 4L Oxymask and reports feeling better overall. BNP 1031. Unknown last echo, TTE orderd. NRT ordered per pt request. Pt has not smoked in the last week due to illness. Pt was started on ceftriaxone 1GM in ED for possible CAP. Pt is being treated currently for Lung cancer (met from renal CA) and is following with [facility]. Pt was seen this past Thursday and had a CT scan of the lungs to check the size of the tumor. Pt did not undergo treatment this week. Pt has moderate sized left pleural effusion on CXR. Pt also follows with [facility] (pt cannot remember provider's name) and was last seen over a year ago. Pt denies any lower extremity swelling, chest pain, confusion, difficulty urinating. Pt is not on daily diuretics. Unknown when last echo was. CABG X4 was done over 10 years prior at [facility] per pt. Pt currently lives with son, drives and is cognitively intact. Pt offers that he is a full code and would want intervention if his heart stopped or pt was not able to breathe on his own. Pt being admitted for acute hypoxic respiratory failure secondary to COPD/Emphysema, HF, PNA, Lung Ca with moderate left pleural effusion. MED/SURG tele ordered. Review of Systems Review of Systems: Pt was SOB at rest, currently breathing regularly, denies CP, nausea, abd pain, lower leg pain. Pt does not have a productive cough. Yes all other systems are reviewed and are negative [facility] Medical History (Updated 09/06/24 @ 13:08 by GIUSEPPE Zapata) COVID-19 vaccine series completed Arthritis Myocardial infarction CAD (coronary artery disease) COPD (chronic obstructive pulmonary disease) Hyperlipidemia On beta steven at home Smoker Nocturia more than twice per night Feeling of incomplete bladder emptying BPH w urinary obs/LUTS Renal cancer BPH (benign prostatic hyperplasia) Hypertension Functional capacity: independent ambulation Pertinent family history: M age 59 renal failure F age 80 old age Surgical History Hx of cystoscopy History of lung surgery History of heart artery stent History of quadruple bypass Social History Household Members: Family Household Members Other:: son Housing: House Are you a primary vocational childcare teacher to a significant other at home: No Do you presently have visiting nurse or other home services: No Alcohol intake: never Comment: pt asleep Patient Tobacco Use Status: Former Tobacco user Tobacco use type: Cigarette Cigarette Packs Per Day: 0.5 Cigarettes Per Day: 10.0 Years Smoked: 62 Smoked in Last 30 Days: Yes Patient Interested in Nicotine Replacement: Yes Second Hand Smoke Exposure: Yes Use of substances other than those prescribed or required for medical reasons: Yes Substance Use Type: Marijuana Advance Directives: No Advance Directives Information Provided: Yes Do you have a plan to hurt others: No Plan Recently lost weight without trying: Yes How much weight loss: Unsure Eating poorly because of decreased appetite: Yes Nutrition screen score: 5 service: Yes Current occupational status: retired Ebola Risk: Travel/Contact With Anyone From Affected Area/s: No Has Patient Experienced Ebola Symptoms: No Meds Allergies Allergy/AdvReac Type Severity Reaction Status Date / Time No Known Allergies Allergy Verified 09/06/24 03:19 Active Medications: Current Medications Acetaminophen (Acetaminophen 325 Mg Tablet) 650 mg PO Q6H PRN PRN Reason: Pain, Mild 1-3,fever,headache Albuterol/Ipratropium (Albuterol/Iprat 2.5/0.5mg 3 Ml Ampul.Neb) 3 ml INHALE Q4H PRN PRN Reason: Shortness of Breath/Wheezing Calcium Carbonate (Calcium Carbonate 750 Mg Tab.Chew) 750 mg PO Q4H PRN PRN Reason: Heartburn Enoxaparin Sodium (Enoxaparin Sodium 40 Mg/0.4 Ml Syringe) 40 mg SUBCUT Q24H STIVEN Furosemide (Furosemide 20 Mg Tablet) 20 mg PO BID@0900,1800 [facility]; Protocol Magnesium Hydroxide (Milk Of Magnesia 30 Ml Oral.Susp) 30 ml PO DAILY PRN PRN Reason: Constipation Melatonin (Melatonin 3 Mg Tablet) 6 mg PO BEDTIME PRN PRN Reason: Insomnia Nicotine (Nicotine 21 Mg Patch.Td24) 21 mg TRANSDERMA DAILY [facility] Ondansetron HCl (Ondansetron Hcl 4 Mg/2 Ml Vial) 4 mg IVPUSH Q8H PRN PRN Reason: Nausea and Vomiting Senna (Sennosides 8.6 Mg Tablet) 8.6 mg PO BEDTIME [facility] Sodium Chloride (0.9 % Sodium Chloride Flush 3 Ml Syringe) 3 ml IVFLUSH QSHIFT [facility] Home Medications ?Medication ?Instructions ?Recorded ?Confirmed ?Last Taken ?Type isosorbide mononitrate 30 mg 30 mg PO DAILY 04/24/20 09/06/24 11/28/20 History tablet,extended release 24 hr metoprolol succinate 100 mg 100 mg PO DAILY 04/24/20 09/06/24 11/28/20 History tablet,extended release 24 hr albuterol sulfate 90 mcg/actuation 2 puff inhalation Q4-6H PRN 08/17/20 09/06/24 Unknown History aerosol inhaler (ProAir HFA) Wheezing budesonide-formoterol HFA 160 2 puff PO BID 08/17/20 09/06/24 11/28/20 History mcg-4.5 mcg/actuation aerosol inhaler (Symbicort) aspirin 81 mg tablet,delayed 81 mg PO DAILY 08/20/20 09/06/24 Unknown History release tiotropium bromide 18 mcg capsule 1 cap inhalation DAILY 08/20/20 09/06/24 11/28/20 History with inhalation device (Spiriva with HandiHaler) amlodipine 5 mg tablet 5 mg PO DAILY 01/09/22 09/06/24 Unknown History clotrimazole-betamethasone 1 1 appl topical BID PRN dry skin' 07/10/22 09/06/24 Unknown History %-0.05 % topical cream gabapentin 100 mg capsule 200 mg PO DAILY 07/10/22 09/06/24 Unknown History atorvastatin 40 mg tablet 40 mg PO DAILY 09/06/24 09/06/24 Unknown History bupropion HCl 150 mg 24 hr tablet, 150 mg PO DAILY 09/06/24 09/06/24 Unknown History extended release glipizide 2.5 mg tablet, extended 2.5 mg PO DAILY 09/06/24 09/06/24 Unknown History release 24 hr mirtazapine 7.5 mg tablet 7.5 mg PO BEDTIME 09/06/24 09/06/24 Unknown History Physical Exam Vital Signs and Narrative: Vital Signs: Last Vital Signs Temp 98.0 F 09/06/24 06:16 Pulse 88 09/06/24 06:16 Resp 22 H 09/06/24 06:16 BP 117/65 09/06/24 06:16 Pulse Ox 93 09/06/24 06:16 O2 Del Method Oxymask 09/06/24 06:16 O2 Flow Rate 4 09/06/24 06:16 FiO2 40 09/06/24 04:32 BMI result Body Mass Index 24.7 Alert and orientated X3, able to give good history. Neuro: CN II-X11 intact, no deficits, visual acuity intact EYES: PERRLA, EOM intact ENT: hearing intact, no issues with swallowing, uvula midline, lips moist, nares patent no epistaxis Cardiac: S1 S2 RRR, no murmur, no JVD, no edema in Lower ext, euvolemic on exam. Fully healed sternotomy incision noted Pulmonary: lungs diminished B, L>R no phonchi or wheezing noted Abdominal: BS active in all 4 quadrants, no guarding, tenderness, rebounding MSK: strength 5/5 upper and lower extremities : no CVA tenderness no bladder distension Extremities: no edema in lower extremities, PT and DP pulses palpable +2 Psych: mood stable, judgement and insight good Results Labs 09/06/24 03:39 09/06/24 03:39 Labs: Laboratory Results - last 24 hr 09/06/24 09/06/24 09/06/24 03:36 03:38 03:39 MCV 92.9 MCH 30.1 MCHC 32.5 RDW 15.0 Plt Count 136 L MPV 10.4 Immature Gran % (Auto) 0.4 Neut % (Auto) 75.3 H Lymph % (Auto) 10.9 L [place] % (Auto) 10.5 Eos % (Auto) 2.4 Baso % (Auto) 0.5 Lymph # (Auto) 1.2 [place] # (Auto) 1.2 Eos # (Auto) 0.3 Baso # (Auto) 0.1 Abs Immat Gran (auto) 0.04 H Absolute Neuts (auto) 8.4 H Absolute Nucleated RBC 0.000 Nucleated RBC % (auto) 0.0 PT 13.4 H INR 1.2 H VBG pH VBG pCO2 VBG pO2 VBG HCO3 VBG O2 Saturation VBG Base Excess Anion Gap 14 Estim Creat Clear Calc 49.7 Estimated GFR > 60 Random Glucose 147 H Lactic Acid 1.1 Calcium 9.1 D Magnesium 2.2 Total Bilirubin 1.0 AST 40 H ALT 24 Alkaline Phosphatase 236 H B-Natriuretic Peptide 1031 H Total Protein 7.9 Albumin 3.6 Lipase 28 Influenza Type A (PCR) Influenza Type B (PCR) RSV RNA Qual (PCR) SARS-CoV-2 RNA (RT-PCR) 09/06/24 09/06/24 03:43 04:02 MCV MCH MCHC RDW Plt Count MPV Immature Gran % (Auto) Neut % (Auto) Lymph % (Auto) [place] % (Auto) Eos % (Auto) Baso % (Auto) Lymph # (Auto) [place] # (Auto) Eos # (Auto) Baso # (Auto) Abs Immat Gran (auto) Absolute Neuts (auto) Absolute Nucleated RBC Nucleated RBC % (auto) PT INR VBG pH 7.33 VBG pCO2 30 VBG pO2 49 VBG HCO3 16 L VBG O2 Saturation 73.0 VBG Base Excess -8.2 Anion Gap Estim Creat Clear Calc Estimated GFR Random Glucose Lactic Acid Calcium Magnesium Total Bilirubin AST ALT Alkaline Phosphatase B-Natriuretic Peptide Total Protein Albumin Lipase Influenza Type A (PCR) NEGATIVE Influenza Type B (PCR) NEGATIVE RSV RNA Qual (PCR) NEGATIVE SARS-CoV-2 RNA (RT-PCR) NEGATIVE Imaging Radiologist's Impressions: CXR IMPRESSION: There are diffuse bilateral reticular and nodular opacities associated with moderate left effusion. consider correlating with chest CT. Assessment and Plan (1) Acute hypoxic respiratory failure: Status: Acute (2) Acute exacerbation of chronic heart failure: Status: Acute (3) Acute exacerbation of chronic obstructive airways disease: Status: Acute (4) Hyperkalemia: Status: Acute (5) CAP (community acquired pneumonia): Status: Acute (6) Diabetes 1.5, managed as type 2: Status: Acute (7) Metastatic renal cell carcinoma to lung: Qualifiers: Laterality: unspecified laterality Qualified Code(s): C78.00 - Secondary malignant neoplasm of unspecified lung; C64.9 - Malignant neoplasm of unspecified kidney, except renal pelvis Status: Acute (8) BPH (benign prostatic hyperplasia): Status: Acute (9) Tobacco dependence: Status: Acute (10) Thrombocytopenia: Status: Chronic Plan Pt being admitted for acute hypoxic respiratory failure, secondary to COPD/epmhysema, CHF, PNA and Lung CA with presence of large Left pleural effusion. Pt has been on chemotherapy with [facility] for lung cancer, suspected mets from renal cancer dx about 2 years prior per pt. 1. Acute Hypoxic respiraotry failure Patient has moved from BiPAP to Oxymizer 4 L. Continue to wean oxygen as tolerated. Nebs and supportive care. Incentive spirometry. Patient received 40 of Lasix IV x1 with good response prompting the titration to Oxymizer from BiPAP. Echo pending Ceftriaxone and doxycycline started for suspected pneumonia 2. Acute exacerbation CHF Lasix 40 IV once effective on arrival, noted large left pleural effusion (pt also has dx of lung cancer, mets from renal CA/ nephrectomy 2 years prior) Lasix 20 IV BID K was elevated, recheck BMP 1600, supplement as needed Echo pending, if abnormal will consult cardiology for further review. Pt follows with [facility] Pt is on metoprolol, can consider change to COREG. Pt does have HX of CAD, CABG X4 Will consider ACEI if needed, renal fx WNL Daily wts, low Na diet Large left pleural effusion noted on CXR< pt dealing with lUng cancer as well had CT scan at [facility] 09/05, will not repeat CT today (unable to obtain results from [facility]) 3. Acute exacerbation COPD Oximyzer 4L, wean as tolerated Pt is normally on Home O2 2.5 L Pt has not smoked for at least 4 days NRT ordered, pt counseled on the importance of smoking cessaton Nebs scheduled, supportive care, nonproductive cough, IS ordered 4. Hyperkalemia K 5.2, specimen not hemolyzed Pt has since received IV lasix Recheck BMP 1600 5. CAP Suspected, pt started on ceftriaxone in ED, doxycyline added, nonproductive cough No evidence of sepsis, pt is not tachycardic, no longer hypoxic, leukocytosis 11.1, no fever or chills Supportive care, wean O2 as tolerated 6. Diabetes oha-nailaiw-fwsegbvre type 2 Pt is not insulin dependent SSI ordered, RBG 147 A1C in AM Diabetic diet 7. Metastatic renal cell carcinoma to the lung Pt is following with Dr Nelson at [facility] undergoing active treatment CT scan done this past Thursday, no access to these results 8. BPH Chronic, pt is voiding, continue flomax and finasteride 9. Tobacco dependence Pt has 60 1PPD year smoking hx NRT requested, starting 21 mg nicotine patch per pt's request 10. Thrombocytopenia Pt is on tx for lung Ca > 100K, will continue lovenox for now no active bleeding issues Monitor Lovenox ordered, knee high TEDS ordered Pt being admitted for possibly 2 overnight due to oxygen needs and echo. Will consult cardiology as needed. Pt follows with oncology and cardiology at [facility]. Total time managing care of this patient today: 50 minutes. Quality Stroke Does the patient have a stroke diagnosis?: No Reason for No Anti-thrombotic by Day Two: N/A - Med Ordered VTE Prior VTE?: No VTE Risk Level:: Medical - moderate - high VTE Device Contraindication: N/A - Device Ordered VTE Drug Contraindication: N/A - Med Ordered
[2024-09-06] MEDS: Furosemide 20 MG/2 ML VIAL IVPUSH ×2 (09:04→19:32)
[2024-09-06] MEDS: 0.9 % Sodium Chloride Flush 3 ML SYRINGE IVFLUSH ×2 (09:04→16:37)
[2024-09-06] MEDS: Enoxaparin Sodium 40 MG/0.4 ML SYRINGE SUBCUT (09:06)
[2024-09-06] MEDS: Nicotine 21 MG PATCH.TD24 TRANSDERMA (09:06)
--- NOTE | 2024-09-06 09:16 | PHA.MEDREC ---
Pharmacy Consult ? Medication Reconciliation Pharmacy has completed the medication reconciliation. Spoke with patient. Patient confirmed he is no longer taking ergocalciferol, Inlyta (kidney cancer medication, patient comes in every 3 weeks for an infusion now, patient could not recall name of infusion) Trajenta or hydroxyzine. Patient also stated he takes all medications in the morning regardless of what the doctor says other than his Mirtazepine which he takes prior to bed.
[2024-09-06] MEDS: Doxycycline Hyclate 100 MG in 0.9 % Sodium Chloride 250 ML 166.67 MG IV ×2 (12:27→21:52)
[2024-09-06 14:29] LABS: Anion Gap 13 (12-20); Blood Urea Nitrogen 19 mg/dL (9-16); Calcium 9.5 mg/dL (8.4-10.2); Carbon Dioxide 30 mmol/L (22-29); Chloride 103 mmol/L (96-108); Creatinine Clr Calc Pharmacy 48.1; Estimated Glomerular Filt Rate 58; Glucose Random 148 mg/dL (60-115); Potassium 4.7 mmol/L (3.3-5.1); Sodium 141 mmol/L (135-145)
--- NOTE | 2024-09-06 17:48 | PC.NURSE ---
pt incentive spirometer 1100
[2024-09-06] MEDS: Albuterol/Iprat 2.5/0.5MG 3 ML AMPUL.NEB INHALE (18:05)
[2024-09-06] MEDS: ondansetron HCL 4 MG/2 ML VIAL IVPUSH (19:32)
--- NOTE | 2024-09-06 19:32 | PC.NURSE ---
Patient awake and alert. skin pwd, resp even and non labored, speaking in full, clear sentences. c/o nausea after eating a few bites of dinner. medicated w/ PRN zofran per AUG.
--- NOTE | 2024-09-06 20:01 | PC.NURSE ---
O2 sat decreased to 85% on 5lpm via oxymask. O2 increased to 7lpm and deep breaths encouraged. O2 sat increased to 92%. non productive cough present. patient denies SOB. hospitalist and RT aware.
[2024-09-06] MEDS: Mirtazapine 7.5 MG TABLET PO (21:23)
[2024-09-07] VITALS (12 sets, daily range): BP systolic 106–139; BP diastolic 55–84; PULSE 73–84; RESP 16–24; TEMP 36.3–37.3; O2SAT 90–95
[2024-09-07] MEDS: 0.9 % Sodium Chloride Flush 3 ML SYRINGE IVFLUSH ×3 (00:38→22:22)
[2024-09-07] MEDS: cefTRIAXone sodium 1 GM VIAL IVPUSH (03:33)
--- NOTE | 2024-09-07 04:35 | MHC.EDTECH ---
Addendum entered by Tamara Benjamin 09/07/24 04:36: and sent to lab, call drew within reach Original Note: This tech took over care of pt at 0330AM,rounds completed,emptied 400MLS from urinal,(yellow in color), morning labs drawn sohail petersen
[2024-09-07 04:40] LABS: MANUAL DIFF FLAG NO
[2024-09-07 04:41] LABS: Basophils Absolute Auto 0.1 X10*3/uL (0.0-0.2); Basophils Percent Auto 0.4 % (0-2); Eosinophils Percent Auto 0.3 % (0-4); Hemoglobin 14.8 g/dl (14.0-18.0); Imm Gran Abs Auto 0.07 X10*3/uL (0.00-0.03); Imm Gran Pct Auto 0.5 % (0.0-0.4); Lymphocytes Absolute Auto 1.6 X10*3/uL (1.2-4.9); Lymphocytes Percent Auto 12.1 % (20-40); Mean Corpuscular HGB Conc 32.9 g/dl (31.0-36.0); Mean Corpuscular Hemoglobin 30.3 pg (27.0-33.0); Mean Corpuscular Volume 92.2 fL (80.0-98.0); Mean Platelet Volume 10.2 fL (9.4-12.4); Monocytes Absolute Auto 1.5 X10*3/uL (0.1-1.2); Monocytes Percent Auto 10.9 % (2-11); Neutrophils Absolute Auto 10.2 x10*3/uL (2.0-8.3); Neutrophils Percent Auto 75.8 % (45-73); Platelet Count 143 X10*3/uL (160-400); Red Blood Count 4.88 X10*6/uL (4.60-5.80); Red Cell Distribution Width 14.8 % (11.0-16.0); White Blood Count 13.4 X10*3/uL (4.8-10.8)
[2024-09-07 04:55] LABS: Anion Gap 13 (12-20); Blood Urea Nitrogen 23 mg/dL (9-16); Calcium 9.1 mg/dL (8.4-10.2); Carbon Dioxide 27 mmol/L (22-29); Chloride 105 mmol/L (96-108); Creatinine Clr Calc Pharmacy 52.4; Estimated Glomerular Filt Rate > 60; Glucose Random 84 mg/dL (60-115); Potassium 3.9 mmol/L (3.3-5.1); Sodium 141 mmol/L (135-145)
[2024-09-07 06:12] LABS: Estimated Average Glucose 114 mg/dL; Hemoglobin A1c % 5.6 % (<6.0)
[2024-09-07] MEDS: Albuterol/Iprat 2.5/0.5MG 3 ML AMPUL.NEB INHALE (07:04)
--- NOTE | 2024-09-07 07:39 | P.PNIM_ITS ---
Subjective Subjective Date of Service: 09/07/24 Interval History: Patient is hospital day 2 admitted for acute hypoxic respiratory failure secondary to CHF exacerbation, COPD emphysema, community-acquired pneumonia with evidence of moderate left pleural effusion. Patient is currently on treatment for lung cancer secondary to original renal carcinoma with nephrectomy approximately 2 years prior. Patient follows with Oncology and Cardiology at [facility]. Patient did have a CT scan this past Thursday at [facility]. Currently do not have access to those results. If unable to get those results, seriously considering repeating CT scan of the chest as patient is not improving overall with medical management. Patient had an episode of hypoxia this morning approximately 04:30 and required 40 of Lasix IV. Patient remains on an OxyMask. Patient also had a low-grade temp of 99 degrees.. Echo notes an ejection fraction of 40-45% with moderate pulmonary hypertension and no obvious valvular disorders. Cardiology has been consulted. May need to consider thoracic for thoracentesis of left pleural effusion if patient does not improve further on IV Lasix. Pt does have hx of Left lung decortication prior to CABG over 20 years ago. Pt required thoracentesis in the past as well. Pt stated this was not related to cancer. Review of Systems Review of Systems: Yes all other systems are reviewed and are negative Physical Exam 2 Vital Signs: Vital Signs: Last Vital Signs Temp 99.0 F 09/07/24 04:09 Pulse 80 09/07/24 07:05 Resp 22 H 09/07/24 07:05 BP 123/68 09/07/24 04:09 Pulse Ox 93 09/07/24 04:09 O2 Del Method Oxymask 09/07/24 04:09 O2 Flow Rate 7 09/07/24 01:05 FiO2 40 09/06/24 04:32 BMI result Body Mass Index 24.7 Alert and orientated X3, able to give good history. Neuro: CN II-X11 intact, no deficits, visual acuity intact EYES: PERRLA, EOM intact ENT: hearing intact, no issues with swallowing, uvula midline, lips moist, nares patent no epistaxis Cardiac: S1 S2 RRR, no murmur, no JVD, no edema in Lower ext Pulmonary: lungs diminshed B, left greater than right. Cough remains nonproductive. Abdominal: BS active in all 4 quadrants, no guarding, tenderness, rebounding MSK: strength 5/5 upper and lower extremities : no CVA tenderness no bladder distension Extremities: no edema in lower extremities, PT and DP pulses palpable +2 Psych: mood stable, judgement and insight good Skin: Objective Data Active Medications Acetaminophen (Acetaminophen 325 Mg Tablet) 650 mg PO Q6H PRN PRN Reason: Pain, Mild 1-3,fever,headache Albuterol Sulfate (Albuterol Sulfate 90 Mcg 8 Gm Inhaler) 2 puff INHALE Q4H PRN PRN Reason: Wheezing Albuterol/Ipratropium (Albuterol/Iprat 2.5/0.5mg 3 Ml Ampul.Neb) 3 ml INHALE Q4H PRN PRN Reason: Shortness of Breath/Wheezing Last Admin: 09/07/24 07:04 Dose: 3 ml Documented By: DAMON Amlodipine Besylate (Amlodipine Besylate 5 Mg Tablet) 5 mg PO DAILY [facility]; Protocol Aspirin (Aspirin Enteric Coated 81 Mg Tablet.Dr) 81 mg PO DAILY [facility] Atorvastatin Calcium (Atorvastatin Calcium 40 Mg Tablet) 40 mg PO DAILY [facility] Bupropion HCl (Bupropion Hcl Xl 150 Mg Tab.Er.24h) 150 mg PO DAILY [facility] Calcium Carbonate (Calcium Carbonate 750 Mg Tab.Chew) 750 mg PO Q4H PRN PRN Reason: Heartburn Ceftriaxone Sodium (Ceftriaxone Sodium 1 Gm Vial) 1 gm IVPUSH Q24H [facility] Last Admin: 09/07/24 03:33 Dose: 1 gm Documented By: TICOOPEBebe Enoxaparin Sodium (Enoxaparin Sodium 40 Mg/0.4 Ml Syringe) 40 mg SUBCUT Q24H [facility] Last Admin: 09/06/24 09:06 Dose: 40 mg Documented By: KARLA Finasteride (Finasteride 5 Mg Tablet) 5 mg PO DAILY [facility] Fluticasone/Vilanterol (Fluticasone/Vilanterol 200/25 Blst.W.Dev) 1 puff INHALE RDAILY [facility] Furosemide (Furosemide 20 Mg/2 Ml Vial) 20 mg IVPUSH Q12H [facility]; Protocol Last Admin: 09/06/24 19:32 Dose: 20 mg Documented By: MATTHEW Gabapentin (Gabapentin 100 Mg Capsule) 200 mg PO DAILY [facility] Doxycycline Hyclate 100 mg/ (Sodium Chloride) 250 mls @ 166.67 mls/hr IV Q12H [facility] Last Infusion: 09/07/24 00:38 Dose: Infused Documented By: SCARLETT Isosorbide Mononitrate (Isosorbide Mononitrate 30 Mg Tab.Er.24h) 30 mg PO DAILY [facility]; Protocol Lisinopril (Lisinopril 10 Mg Tablet) 10 mg PO DAILY [facility]; Protocol Magnesium Hydroxide (Milk Of Magnesia 30 Ml Oral.Susp) 30 ml PO DAILY PRN PRN Reason: Constipation Melatonin (Melatonin 3 Mg Tablet) 6 mg PO BEDTIME PRN PRN Reason: Insomnia Metoprolol Succinate (Metoprolol Succinate Er 100 Mg Tab.Er.24h) 100 mg PO DAILY [facility]; Protocol Mirtazapine (Mirtazapine 7.5 Mg Tablet) 7.5 mg PO BEDTIME [facility] Last Admin: 09/06/24 21:23 Dose: 7.5 mg Documented By: MATTHEW Nicotine (Nicotine 21 Mg Patch.Td24) 21 mg TRANSDERMA DAILY [facility] Last Admin: 09/06/24 09:06 Dose: 21 mg Documented By: KARLA Nystatin/Triamcinolone Acetonide (Nystatin/Triamcinolone Cream 15 Gm Tube) 1 appl TOPICAL BID PRN PRN Reason: dry skin' Ondansetron HCl (Ondansetron Hcl 4 Mg/2 Ml Vial) 4 mg IVPUSH Q8H PRN PRN Reason: Nausea and Vomiting Last Admin: 09/06/24 19:32 Dose: 4 mg Documented By: MATTHEW Senna (Sennosides 8.6 Mg Tablet) 8.6 mg PO BEDTIME [facility] Last Admin: 09/06/24 21:23 Dose: Not Given Documented By: MATTHEW Non-Admin Reason: Patient Refused Sodium Chloride (0.9 % Sodium Chloride Flush 3 Ml Syringe) 3 ml IVFLUSH QSHIFT [facility] Last Admin: 09/07/24 00:38 Dose: 3 ml Documented By: SCARLETT Tamsulosin HCl (Tamsulosin Hcl 0.4 Mg Capsule) 0.8 mg PO DAILY [facility] Tiotropium Gur[place] (Tiotropium [place]ley 2.5 Mcg 1 Puff/2.5 Mcg Mist.Inhal) 2 puff INHALE RDAILY [facility] Labs 09/07/24 04:32 09/07/24 04:32 Labs: Laboratory Results - last 24 hr 09/06/24 09/07/24 09/07/24 13:55 04:32 04:33 MCV 92.2 MCH 30.3 MCHC 32.9 RDW 14.8 Plt Count 143 L MPV 10.2 Immature Gran % (Auto) 0.5 H Neut % (Auto) 75.8 H Lymph % (Auto) 12.1 L [place] % (Auto) 10.9 Eos % (Auto) 0.3 Baso % (Auto) 0.4 Lymph # (Auto) 1.6 [place] # (Auto) 1.5 H Eos # (Auto) 0.0 Baso # (Auto) 0.1 Abs Immat Gran (auto) 0.07 H Absolute Neuts (auto) 10.2 H Absolute Nucleated RBC 0.000 Nucleated RBC % (auto) 0.0 Anion Gap 13 13 Estim Creat Clear Calc 48.1 52.4 Estimated GFR 58 > 60 Random Glucose 148 H 84 Estimat Average Glucose 114 Hemoglobin A1c % 5.6 Calcium 9.5 9.1 Microbiology Microbiology Results: Microbiology 09/06/24 03:36 Blood Culture - Preliminary Blood - Venous No growth after 24 hours. 09/06/24 03:38 Blood Culture - Preliminary Blood - Venous No growth after 24 hours. Assessment and Plan (1) Metastatic renal cell carcinoma to lung: Status: Acute Plan Pt hospital day #2 for acute hypoxic respiratory failure, secondary to COPD/emphysema, CHF, PNA and Lung CA with presence of moderate Left pleural effusion. [facility], suspected mets from renal cancer dx about 2 years prior per pt. Pt has had Left renal nephrectomy. 1. Acute Hypoxic respiraotry failure Patient on admisson moved from BiPAP to Oxymizer 4 L. Early AM today, pt required 40 mgs IV lasix as hypoxia persisted. Pt responded well to interventioin. Nebs and supportive care continue. Incentive spirometry ordered. ECHO notes reduced EF, cardiology consulted. COntinue IV LASIX 20 mg IV BID. Monitoring K. Ceftriaxone and doxycycline started for suspected pneumonia. ABX day #2. Pt has low grade tempt today 99. Tylenol alternating with motrin. All viral studies negative 2. Acute exacerbation CHF/ noted moderate L pleural effusion with hx of decortication and thoracentesis over 20 years prior Echo notes reduced EF 40-45%, moderate pulmonary HTN, no valvular concerns, cardiology consulted Lasix 40 IV BID, pt required one dose of IV lasix 40 mgs 430 AM for hypoxia K originally elevated, monitoring BMP, K today 3.9, added 20 MEQ KCL daily Pt is on metoprolol, can consider change to COREG. Pt does have HX of CAD, CABG X4 Lisinopril 10 mgs daily added, BP stable to support this, renal fx WNL Daily wts, low Na diet FR 1500 mls daily Strict I/Os Large left pleural effusion noted on CXR< pt dealing with lung cancer as well had CT scan at [facility] 09/05, unable to obtain results, considering repeating CT scan, will review with attending. Considering thoracic consult and will order CT scan. 3. Acute exacerbation COPD/ emphysema 60 yr 1PPD tobacco hx Oximyzer 8L, wean as tolerated Pt is normally on Home O2 2.5 L Pt has not smoked for at least 4 days NRT ordered, pt counseled on the importance of smoking cessaton Nebs scheduled, supportive care, nonproductive cough, IS ordered 4. Hyperkalemia Resolved on Lasix Risk fro hypokalemia K 3.9 today now on 40 lasix IV BID 20 MEQ po added daily Daily BMP 5. CAP Suspected, pt started on ceftriaxone in ED, doxycyline added, nonproductive cough No evidence of sepsis, pt is not tachycardic, no longer hypoxic, leukocytosis 11.1, no fever or chills Supportive care, wean O2 as tolerated LOw grade temp 09/07 Motrin alt with tylenol, BC neg X 24 hours Will add testing for strep Pneumonia and Legionaries 6. Diabetes lty-[id number] type 2 Pt is not insulin dependent SSI ordered, RBG 147 A1C 5.6 Diabetic diet 7. Metastatic renal cell carcinoma to the lung Pt is following with Dr Nelson at [facility] Oncology undergoing active treatment CT scan done this past Thursday, no access to these results noting moderate left pleural effusion 8. BPH Chronic, pt is voiding, continue flomax and finasteride 9. Tobacco dependence Pt has 60 1PPD year smoking hx NRT requested, starting 21 mg nicotine patch per pt's request 10. Thrombocytopenia Pt is on tx for lung Ca > 100K, will continue lovenox for now no active bleeding issues Monitor Lovenox ordered, knee high TEDS ordered Pt continues admission for oxygen needs and echo. Ptr remains on Oxymask [address] scan of chest pending. Cardiology consulted. Thoracic consulted. Pt follows with oncology and cardiology at [facility]. Total time managing care of this patient today: 50 minutes. Total time managing care of this patient today: 45 minutes. Quality Stroke Does the patient have a stroke diagnosis?: No Reason for No Anti-thrombotic by Day Two: N/A - Med Ordered VTE Prior VTE?: No VTE Risk Level:: Medical - moderate - high VTE Device Contraindication: N/A - Device Ordered VTE Drug Contraindication: N/A - Med Ordered
[2024-09-07] MEDS: Isosorbide Mononitrate 30 MG TAB.ER.24H PO (08:18)
[2024-09-07] MEDS: buPROPion HCl XL 150 MG TAB.ER.24H PO (08:18)
[2024-09-07] MEDS: Atorvastatin Calcium 40 MG TABLET PO (08:18)
[2024-09-07] MEDS: amLODIPine Besylate 5 MG TABLET PO (08:18)
[2024-09-07] MEDS: Metoprolol Succinate ER 100 MG TAB.ER.24H PO (08:19)
[2024-09-07] MEDS: Potassium Chloride ER 20 MEQ TAB.ER.PRT PO (08:19)
[2024-09-07] MEDS: lisinopriL 10 MG TABLET PO (08:19)
[2024-09-07] MEDS: Gabapentin 100 MG CAPSULE 200 MG PO (08:19)
[2024-09-07] MEDS: Aspirin Enteric Coated 81 MG TABLET.DR PO (08:20)
[2024-09-07] MEDS: Tamsulosin HCL 0.4 MG CAPSULE 0.8 MG PO (08:20)
[2024-09-07] MEDS: Nicotine 21 MG PATCH.TD24 TRANSDERMA (08:21)
[2024-09-07] MEDS: Furosemide 20 MG/2 ML VIAL 40 MG IVPUSH ×2 (08:22→19:33)
[2024-09-07] MEDS: Enoxaparin Sodium 40 MG/0.4 ML SYRINGE SUBCUT (08:25)
--- NOTE | 2024-09-07 08:31 | PC.NURSE ---
Pt alert and oriented, breathing even and unlabored with increases in SOB with coughing fits. Oxy mask between 7-10L to maintain sats. Pt had breathing rx this morning that helped per pt. Pt ate his breakfast and took all his meds whole with water, no issues. NSR on bedside monitor. Pt uses urinal at bedside, no signs of urine or stool incontinence. IVs patent. VSS. PRIOR NICOTINE PATCH NOT ON, PT REPORTS IT FELL OFF INTO BED.
[2024-09-07] MEDS: Finasteride 5 MG TABLET PO (08:53)
--- NOTE | 2024-09-07 09:45 | MHC.CM.PN ---
CM met with Patient at bedside and addressed IMM with him, providing Patient with the original and a copy has been placed on the chart. Patient lives in a house with his Son/HCP/Lane, who will transport to home at time of dc.Patient uses a cane at times, has home O2 from [facility] and Chemo @ [facility]. Home/resume said services is Patient's goal and CM has initiated and will follow for dc planning. PCP is Dr. Yang Judd.
[2024-09-07 10:08] LABS: Appearance Urine Clear; Color Urine Straw; Glucose Urine UA Negative (Negative); Leukocyte Esterase Urine Trace (Negative); Nitrite Urine Negative (Negative); Specific Gravity - Urine <= 1.005 (1.005-1.025); UMIC TRIGGER UACC YES; Urine Blood Negative (Negative); Urine Ketones Negative (Negative); Urine Protein Negative (Neg-Trace)
[2024-09-07 10:10] LABS: Bacteria Urine None Seen (None Seen); Hyaline Casts Urine 0-2 /LPF (0-2); RBC Urine 0-2 /HPF (0-2); Squamous Epithelial Cell Urine 0-2 /HPF (0-2); WBC Urine 0-5 /HPF (0-5)
[2024-09-07] MEDS: Tiotropium Bromide 2.5 mcg 1 PUFF/2.5 MCG MIST.INHAL 2 PUFF INHALE (10:45)
[2024-09-07] MEDS: Fluticasone/Vilanterol 200/25 BLST.W.DEV 1 PUFF INHALE (10:45)
[2024-09-07] MEDS: Doxycycline Hyclate 100 MG in 0.9 % Sodium Chloride 250 ML 166.67 MG IV ×2 (11:54→22:14)
--- NOTE | 2024-09-07 12:20 | PM.CNCAR ---
History of Present Illness History of Present Illness Date of Service: 09/07/24 Requesting physician: Medina Rivero Consult reason: congestive heart failure Chief complaint: Acute hypoxic respiratory failure Narrative: I was consulted to see Sukhjinder in cardiology consultation today for acute hypoxemic respiratory failure with clinical findings suggestive of congestive heart failure. Patient was prior significant cardiac history including history of CAD status post coronary artery bypass grafting in 1998 followed by acute inferior wall IL in 2010 undergoing intervention of the graft to the RCA with poor results overall. Patient follows with a cardiology group in [place] at [facility]. Patient denies any prior history of congestive heart failure, has history of significant COPD as per him due to long-term smoking. Patient also history of prior renal carcinoma status post nephrectomy and recently noted to have a mass in his lung suggestive of possible metastatic renal cell carcinoma. Patient presented to the hospital with progressively increasing shortness of breath and wheezing although last couple weeks associated with also increased leg swelling. He has also had significant shortness of breath at rest and some orthopnea. Patient presented emergency room he was noted to be having acute hypoxemic respiratory failure related to post COPD exacerbation as well as evidence of elevated BNP in suggestive of decompensated heart failure. Echocardiogram done yesterday showed mildly reduced LV ejection fraction 45-50% with grade 2 diastolic dysfunction with moderately elevated right ventricular systolic pressure with significantly elevated right atrial pressures. He says since yesterday he is feeling a lot better with treatment. He has been given IV Lasix and has had good urine output with negative balance of at least 700 cc. Patient has remained hemodynamically stable. No significant arrhythmias noted Review of Systems Constitutional: Constitutional: Reports fatigue, Reports lethargy and Reports weakness Eyes: Eyes: Reports no additional eye complaints Cardiovascular: Cardiovascular: Reports leg edema, Reports dyspnea on exertion and Reports orthopnea Respiratory: Respiratory: Reports cough, Reports dyspnea on exertion and Reports wheezing Gastrointestinal: Gastrointestinal: Reports no additional gastrointestinal complaints Genitourinary: Genitourinary: Reports no additional male genitourinary complaints Musculoskeletal: Musculoskeletal: Reports no additional musculoskeletal complaints Neurologic: Reports system reviewed and no additional complaints, except as documented and Reports weakness Endocrine: Endocrine: Reports fatigue Allergic/Immunologic: Allergic/Immunologic: Reports wheezing PMFSH Past Medical History Medical History COVID-19 vaccine series completed Arthritis Myocardial infarction CAD (coronary artery disease) COPD (chronic obstructive pulmonary disease) Hyperlipidemia On beta steven at home Smoker Nocturia more than twice per night Feeling of incomplete bladder emptying BPH w urinary obs/LUTS Renal cancer BPH (benign prostatic hyperplasia) Hypertension Surgical History Surgical History Hx of cystoscopy History of lung surgery History of heart artery stent History of quadruple bypass Social History Social History Household Members: Family Household Members Other:: son Housing: House Are you a primary critical care rn to a significant other at home: No Do you presently have visiting nurse or other home services: No Alcohol intake: never Comment: pt asleep Patient Tobacco Use Status: Former Tobacco user Tobacco use type: Cigarette Cigarette Packs Per Day: 0.5 Cigarettes Per Day: 10.0 Years Smoked: 62 Second Hand Smoke Exposure: Yes Substance Use Type: Marijuana service: Yes Current occupational status: retired Travel History Ebola Risk: Travel/Contact With Anyone From Affected Area/s: No Has Patient Experienced Ebola Symptoms: No Meds Allergies Allergy/AdvReac Type Severity Reaction Status Date / Time No Known Allergies Allergy Verified 09/06/24 03:19 Active Medications: Current Medications Acetaminophen (Acetaminophen 325 Mg Tablet) 650 mg PO Q6H PRN PRN Reason: Pain, Mild 1-3,fever,headache Albuterol Sulfate (Albuterol Sulfate 90 Mcg 8 Gm Inhaler) 2 puff INHALE Q4H PRN PRN Reason: Wheezing Albuterol/Ipratropium (Albuterol/Iprat 2.5/0.5mg 3 Ml Ampul.Neb) 3 ml INHALE Q4H PRN PRN Reason: Shortness of Breath/Wheezing Last Admin: 09/07/24 07:04 Dose: 3 ml Amlodipine Besylate (Amlodipine Besylate 5 Mg Tablet) 5 mg PO DAILY [facility]; Protocol Last Admin: 09/07/24 08:18 Dose: 5 mg Aspirin (Aspirin Enteric Coated 81 Mg Tablet.Dr) 81 mg PO DAILY [facility] Last Admin: 09/07/24 08:20 Dose: 81 mg Atorvastatin Calcium (Atorvastatin Calcium 40 Mg Tablet) 40 mg PO DAILY [facility] Last Admin: 09/07/24 08:18 Dose: 40 mg Bupropion HCl (Bupropion Hcl Xl 150 Mg Tab.Er.24h) 150 mg PO DAILY [facility] Last Admin: 09/07/24 08:18 Dose: 150 mg Calcium Carbonate (Calcium Carbonate 750 Mg Tab.Chew) 750 mg PO Q4H PRN PRN Reason: Heartburn Ceftriaxone Sodium (Ceftriaxone Sodium 1 Gm Vial) 1 gm IVPUSH Q24H [facility] Last Admin: 09/07/24 03:33 Dose: 1 gm Enoxaparin Sodium (Enoxaparin Sodium 40 Mg/0.4 Ml Syringe) 40 mg SUBCUT Q24H [facility] Last Admin: 09/07/24 08:25 Dose: 40 mg Finasteride (Finasteride 5 Mg Tablet) 5 mg PO DAILY [facility] Last Admin: 09/07/24 08:53 Dose: 5 mg Fluticasone/Vilanterol (Fluticasone/Vilanterol 200/25 Blst.W.Dev) 1 puff INHALE RDAILY [facility] Last Admin: 09/07/24 10:45 Dose: 1 puff Furosemide (Furosemide 20 Mg/2 Ml Vial) 40 mg IVPUSH Q12H [facility]; Protocol Last Admin: 09/07/24 08:22 Dose: 40 mg Gabapentin (Gabapentin 100 Mg Capsule) 200 mg PO DAILY [facility] Last Admin: 09/07/24 08:19 Dose: 200 mg Doxycycline Hyclate 100 mg/ (Sodium Chloride) 250 mls @ 166.67 mls/hr IV Q12H [facility] Last Admin: 09/07/24 11:54 Dose: 166.67 mls/hr Isosorbide Mononitrate (Isosorbide Mononitrate 30 Mg Tab.Er.24h) 30 mg PO DAILY [facility]; Protocol Last Admin: 09/07/24 08:18 Dose: 30 mg Lisinopril (Lisinopril 10 Mg Tablet) 10 mg PO DAILY [facility]; Protocol Last Admin: 09/07/24 08:19 Dose: 10 mg Magnesium Hydroxide (Milk Of Magnesia 30 Ml Oral.Susp) 30 ml PO DAILY PRN PRN Reason: Constipation Melatonin (Melatonin 3 Mg Tablet) 6 mg PO BEDTIME PRN PRN Reason: Insomnia Metoprolol Succinate (Metoprolol Succinate Er 100 Mg Tab.Er.24h) 100 mg PO DAILY [facility]; Protocol Last Admin: 09/07/24 08:19 Dose: 100 mg Mirtazapine (Mirtazapine 7.5 Mg Tablet) 7.5 mg PO BEDTIME [facility] Last Admin: 09/06/24 21:23 Dose: 7.5 mg Nicotine (Nicotine 21 Mg Patch.Td24) 21 mg TRANSDERMA DAILY [facility] Last Admin: 09/07/24 08:21 Dose: 21 mg Nystatin/Triamcinolone Acetonide (Nystatin/Triamcinolone Cream 15 Gm Tube) 1 appl TOPICAL BID PRN PRN Reason: dry skin' Ondansetron HCl (Ondansetron Hcl 4 Mg/2 Ml Vial) 4 mg IVPUSH Q8H PRN PRN Reason: Nausea and Vomiting Last Admin: 09/06/24 19:32 Dose: 4 mg Potassium Chloride (Potassium Chloride Er 20 Meq Tab.Er.Prt) 20 meq PO DAILY [facility] Last Admin: 09/07/24 08:19 Dose: 20 meq Senna (Sennosides 8.6 Mg Tablet) 8.6 mg PO BEDTIME [facility] Last Admin: 09/06/24 21:23 Dose: Not Given Sodium Chloride (0.9 % Sodium Chloride Flush 3 Ml Syringe) 3 ml IVFLUSH QSHIFT [facility] Last Admin: 09/07/24 08:24 Dose: 3 ml Tamsulosin HCl (Tamsulosin Hcl 0.4 Mg Capsule) 0.8 mg PO DAILY [facility] Last Admin: 09/07/24 08:20 Dose: 0.8 mg Tiotropium Vining (Tiotropium Vining 2.5 Mcg 1 Puff/2.5 Mcg Mist.Inhal) 2 puff INHALE RDAILY [facility] Last Admin: 09/07/24 10:45 Dose: 2 puff Home Medications ?Medication ?Instructions ?Recorded ?Confirmed ?Last Taken ?Type isosorbide mononitrate 30 mg 30 mg PO DAILY 04/24/20 09/06/24 11/28/20 History tablet,extended release 24 hr metoprolol succinate 100 mg 100 mg PO DAILY 04/24/20 09/06/24 11/28/20 History tablet,extended release 24 hr albuterol sulfate 90 mcg/actuation 2 puff inhalation Q4-6H PRN 08/17/20 09/06/24 Unknown History aerosol inhaler (ProAir HFA) Wheezing budesonide-formoterol HFA 160 2 puff PO BID 08/17/20 09/06/24 11/28/20 History mcg-4.5 mcg/actuation aerosol inhaler (Symbicort) aspirin 81 mg tablet,delayed 81 mg PO DAILY 08/20/20 09/06/24 Unknown History release tiotropium bromide 18 mcg capsule 1 cap inhalation DAILY 08/20/20 09/06/24 11/28/20 History with inhalation device (Spiriva with HandiHaler) amlodipine 5 mg tablet 5 mg PO DAILY 01/09/22 09/06/24 Unknown History clotrimazole-betamethasone 1 1 appl topical BID PRN dry skin' 07/10/22 09/06/24 Unknown History %-0.05 % topical cream gabapentin 100 mg capsule 200 mg PO DAILY 07/10/22 09/06/24 Unknown History atorvastatin 40 mg tablet 40 mg PO DAILY 09/06/24 09/06/24 Unknown History bupropion HCl 150 mg 24 hr tablet, 150 mg PO DAILY 09/06/24 09/06/24 Unknown History extended release glipizide 2.5 mg tablet, extended 2.5 mg PO DAILY 09/06/24 09/06/24 Unknown History release 24 hr mirtazapine 7.5 mg tablet 7.5 mg PO BEDTIME 09/06/24 09/06/24 Unknown History Physical Exam Vital Signs: Vital Signs: Last Vital Signs Temp 97.8 F 09/07/24 11:15 Pulse 80 09/07/24 11:15 Resp 20 09/07/24 11:15 BP 106/56 L 09/07/24 11:15 Pulse Ox 95 09/07/24 11:15 O2 Del Method Oxymask 09/07/24 11:15 O2 Flow Rate 8 09/07/24 11:15 FiO2 40 09/06/24 04:32 BMI result Body Mass Index 24.7 Const: General: cooperative, alert, awake and in distress mild and respiratory Nutritional Appearance: average body habitus Orientation/consciousness: patient oriented x3 HEENT: Head: Yes normocephalic and Yes atraumatic Neck: Neck: Yes trachea midline, Yes supple and Yes JVD Resp: Effort & Inspection: normal respiratory effort Auscultation: wheezes and diminished lung sounds Cardio: Jugular venous distension: JVD Rate: regular rate Rhythm: regular rhythm Heart sounds: S1 normal heart sound present, S2 normal heart sound present, no click, no gallops and no murmurs GI: Auscultation: normal bowel sounds Skin: General skin exam: no rashes or lesions noted and ecchymosis Neuro: General: patient oriented x3 and no focal motor deficits Extrem: General: No clubbing, No cyanosis and Yes edema Objective Labs and Meds 09/07/24 04:32 09/07/24 04:32 Lab results: Laboratory Results - last 24 hr 09/06/24 09/07/24 09/07/24 13:55 04:32 04:33 WBC 13.4 H RBC 4.88 Hgb 14.8 Hct 45.0 MCV 92.2 MCH 30.3 MCHC 32.9 RDW 14.8 Plt Count 143 L MPV 10.2 Immature Gran % (Auto) 0.5 H Neut % (Auto) 75.8 H Lymph % (Auto) 12.1 L Rankin % (Auto) 10.9 Eos % (Auto) 0.3 Baso % (Auto) 0.4 Lymph # (Auto) 1.6 Rankin # (Auto) 1.5 H Eos # (Auto) 0.0 Baso # (Auto) 0.1 Abs Immat Gran (auto) 0.07 H Absolute Neuts (auto) 10.2 H Absolute Nucleated RBC 0.000 Nucleated RBC % (auto) 0.0 Sodium 141 141 Potassium 4.7 3.9 Chloride 103 105 Carbon Dioxide 30 H 27 Anion Gap 13 13 BUN 19 H 23 H Creatinine 1.22 1.12 Estim Creat Clear Calc 48.1 52.4 Estimated GFR 58 > 60 Random Glucose 148 H 84 Estimat Average Glucose 114 Hemoglobin A1c % 5.6 Calcium 9.5 9.1 Urine Color Urine Appearance Urine pH Ur Specific [place] Urine Protein Urine Glucose (UA) Urine Ketones Urine Blood Urine Nitrite Ur Leukocyte Esterase Urine RBC Urine WBC Ur Squamous Epith Cells Urine Bacteria Hyaline Casts 09/07/24 09:45 WBC RBC Hgb Hct MCV MCH MCHC RDW Plt Count MPV Immature Gran % (Auto) Neut % (Auto) Lymph % (Auto) Rankin % (Auto) Eos % (Auto) Baso % (Auto) Lymph # (Auto) Rankin # (Auto) Eos # (Auto) Baso # (Auto) Abs Immat Gran (auto) Absolute Neuts (auto) Absolute Nucleated RBC Nucleated RBC % (auto) Sodium Potassium Chloride Carbon Dioxide Anion Gap BUN Creatinine Estim Creat Clear Calc Estimated GFR Random Glucose Estimat Average Glucose Hemoglobin A1c % Calcium Urine Color Straw Urine Appearance Clear Urine pH 7.0 Ur Specific [place] <= 1.005 Urine Protein Negative Urine Glucose (UA) Negative Urine Ketones Negative Urine Blood Negative Urine Nitrite Negative Ur Leukocyte Esterase Trace H Urine RBC 0-2 Urine WBC 0-5 Ur Squamous Epith Cells 0-2 Urine Bacteria None Seen Hyaline Casts 0-2 Assessment and Plan (1) Acute exacerbation of chronic heart failure: Status: Acute Acute decompensated congestive heart failure with acute hypoxemic respiratory failure with a combination of significant COPD exacerbation causing hypoxemia. He was underlying structural heart disease with mid-range LV ejection fraction 45-50% with grade 2 diastolic dysfunction with significantly elevated right atrial pressures. Continue gentle diuresis with IV Lasix. Strict intake and output chart needs to be pursued. Can add Jardiance 10 mg to his regimen. Continue lisinopril therapy. Continue aggressive management of his COPD and exacerbation along with oxygen replacement therapy for now. He was underlying significant coronary disease and will continue aspirin as well as high-intensity statin therapy as well as aggressive blood pressure control which appears to be optimized. He was no clinical evidence of myocardial ischemia. Will follow with you Procedures Date of Service Date of Service: 09/07/24
--- NOTE | 2024-09-07 19:17 | PC.NURSE ---
Patient alert and oriented, vss, home O2 between 3.5L - 4L, currently on 8L via oxymask, c/o severe persistent cough. Able to ambulate with stand by assist. No complaints of pain,
[2024-09-07] MEDS: Benzonatate 100 MG CAPSULE PO (19:32)
[2024-09-07] MEDS: ondansetron HCL 4 MG/2 ML VIAL IVPUSH (19:37)
[2024-09-07] MEDS: Mirtazapine 7.5 MG TABLET PO (22:20)
[2024-09-08] VITALS (11 sets, daily range): BP systolic 93–121; BP diastolic 51–73; PULSE 65–90; RESP 18–20; TEMP 36.2–37.1; O2SAT 82–96
[2024-09-08] MEDS: cefTRIAXone sodium 1 GM VIAL IVPUSH (04:23)
[2024-09-08] MEDS: Fluticasone/Vilanterol 200/25 BLST.W.DEV 1 PUFF INHALE (07:36)
[2024-09-08] MEDS: Tiotropium Bromide 2.5 mcg 1 PUFF/2.5 MCG MIST.INHAL 2 PUFF INHALE (07:36)
--- NOTE | 2024-09-08 07:41 | HO.PM.IMPN ---
Subjective Subjective Date of Service: 09/08/24 Interval History: Patient is hospital day 2 dealing with acute hypoxic respiratory failure secondary to CHF exacerbation, COPD exacerbation, known lung cancer with enlarged tumors x2 via CT scan done of the chest. Patient noted to be 88% on room air with respiratory therapy present in the room. Patient had taken his OxyMask off but did not incur any shortness of breath or labored breathing. With the OxyMask at 8 L back on patient's sats improved to 93%. Patient is usually on 2-1/2-3-1/2 L at home. Patient reports feeling much improved overall. Physical therapy evaluation has been ordered. Patient seen by Cardiology and continues on JW inhibitor and Lasix 20 mg IV b.i.d.. Goal is to transition to oral bumesx in the AM. Incentive spirometer at bedside and patient is able to achieve 1500 mL to 2000 mL per use. Patient has been afebrile in normal sinus rhythm, vital signs stable. Appetite improving. Review of Systems Patient denies current chest pain shortness of breath at rest, abdominal pain, nausea, vomiting, dysuria. Patient has frequency secondary to being on Lasix. Patient denies any lower calf pain. Patient denies any confusion, headaches, visual changes. Patient reports appetite is fair but improving. Review of Systems: Yes all other systems are reviewed and are negative Physical Exam Vital Signs: Vital Signs: Last Vital Signs Temp 97.1 F 09/08/24 03:03 Pulse 73 09/08/24 03:03 Resp 18 09/08/24 03:03 BP 115/73 09/08/24 03:03 Pulse Ox 92 09/08/24 03:03 O2 Del Method Oxymask 09/08/24 03:03 O2 Flow Rate 8 09/08/24 03:03 FiO2 40 09/06/24 04:32 BMI result Body Mass Index 24.7 Alert and orientated X3, no issues with cognition Neuro: CN II-X11 intact, no deficits, visual acuity intact EYES: PERRLA, EOM intact ENT: hearing intact, no issues with swallowing, uvula midline, lips moist, nares patent no epistaxis Cardiac: S1 S2 RRR, no murmur, no JVD, no edema in Lower ext Pulmonary: lungs diminished at the bases, L>R. IS 1500 t0 2000 mls. No adventitious sounds noted. Abdominal: BS active in all 4 quadrants, no guarding, tenderness, rebounding MSK: strength 5/5 upper and lower extremities : no CVA tenderness no bladder distension Extremities: no edema in lower extremities, PT and DP pulses palpable +2 Psych: mood stable, judgement and insight good Skin: intact, no open wounds noted Objective Data Active Medications Acetaminophen (Acetaminophen 325 Mg Tablet) 650 mg PO Q6H PRN PRN Reason: Pain, Mild 1-3,fever,headache Albuterol Sulfate (Albuterol Sulfate 90 Mcg 8 Gm Inhaler) 2 puff INHALE Q4H PRN PRN Reason: Wheezing Albuterol/Ipratropium (Albuterol/Iprat 2.5/0.5mg 3 Ml Ampul.Neb) 3 ml INHALE Q4H PRN PRN Reason: Shortness of Breath/Wheezing Last Admin: 09/07/24 07:04 Dose: 3 ml Documented By: DAMON Amlodipine Besylate (Amlodipine Besylate 5 Mg Tablet) 5 mg PO DAILY [facility]; Protocol Last Admin: 09/07/24 08:18 Dose: 5 mg Documented By: DARY Aspirin (Aspirin Enteric Coated 81 Mg Tablet.Dr) 81 mg PO DAILY [facility] Last Admin: 09/07/24 08:20 Dose: 81 mg Documented By: DARY Atorvastatin Calcium (Atorvastatin Calcium 40 Mg Tablet) 40 mg PO DAILY [facility] Last Admin: 09/07/24 08:18 Dose: 40 mg Documented By: DARY Benzonatate (Benzonatate 100 Mg Capsule) 100 mg PO TID PRN PRN Reason: Cough Last Admin: 09/07/24 19:32 Dose: 100 mg Documented By: KERRY Bupropion HCl (Bupropion Hcl Xl 150 Mg Tab.Er.24h) 150 mg PO DAILY [facility] Last Admin: 09/07/24 08:18 Dose: 150 mg Documented By: DARY Calcium Carbonate (Calcium Carbonate 750 Mg Tab.Chew) 750 mg PO Q4H PRN PRN Reason: Heartburn Ceftriaxone Sodium (Ceftriaxone Sodium 1 Gm Vial) 1 gm IVPUSH Q24H [facility] Last Admin: 09/08/24 04:23 Dose: 1 gm Documented By: KERRY Empagliflozin (Empagliflozin 10 Mg Tablet) 10 mg PO DAILY [facility] Enoxaparin Sodium (Enoxaparin Sodium 40 Mg/0.4 Ml Syringe) 40 mg SUBCUT Q24H [facility] Last Admin: 09/07/24 08:25 Dose: 40 mg Documented By: DARY Finasteride (Finasteride 5 Mg Tablet) 5 mg PO DAILY [facility] Last Admin: 09/07/24 08:53 Dose: 5 mg Documented By: NASEEM Fluticasone/Vilanterol (Fluticasone/Vilanterol 200/25 Blst.W.Dev) 1 puff INHALE RDAILY [facility] Last Admin: 09/08/24 07:36 Dose: 1 puff Documented By: ZULEYMA Furosemide (Furosemide 20 Mg/2 Ml Vial) 40 mg IVPUSH Q12H [facility]; Protocol Last Admin: 09/07/24 19:33 Dose: 40 mg Documented By: KERRY Gabapentin (Gabapentin 100 Mg Capsule) 200 mg PO DAILY [facility] Last Admin: 09/07/24 08:19 Dose: 200 mg Documented By: DARY Doxycycline Hyclate 100 mg/ (Sodium Chloride) 250 mls @ 166.67 mls/hr IV Q12H [facility] Last Infusion: 09/08/24 00:06 Dose: Infused Documented By: KERRY Isosorbide Mononitrate (Isosorbide Mononitrate 30 Mg Tab.Er.24h) 30 mg PO DAILY [facility]; Protocol Last Admin: 09/07/24 08:18 Dose: 30 mg Documented By: DARY Lisinopril (Lisinopril 10 Mg Tablet) 10 mg PO DAILY [facility]; Protocol Last Admin: 09/07/24 08:19 Dose: 10 mg Documented By: DARY Magnesium Hydroxide (Milk Of Magnesia 30 Ml Oral.Susp) 30 ml PO DAILY PRN PRN Reason: Constipation Melatonin (Melatonin 3 Mg Tablet) 6 mg PO BEDTIME PRN PRN Reason: Insomnia Metoprolol Succinate (Metoprolol Succinate Er 100 Mg Tab.Er.24h) 100 mg PO DAILY [facility]; Protocol Last Admin: 09/07/24 08:19 Dose: 100 mg Documented By: DARY Mirtazapine (Mirtazapine 7.5 Mg Tablet) 7.5 mg PO BEDTIME [facility] Last Admin: 09/07/24 22:20 Dose: 7.5 mg Documented By: KERRY Nicotine (Nicotine 21 Mg Patch.Td24) 21 mg TRANSDERMA DAILY [facility] Last Admin: 09/07/24 08:21 Dose: 21 mg Documented By: DARY Nystatin/Triamcinolone Acetonide (Nystatin/Triamcinolone Cream 15 Gm Tube) 1 appl TOPICAL BID PRN PRN Reason: dry skin' Ondansetron HCl (Ondansetron Hcl 4 Mg/2 Ml Vial) 4 mg IVPUSH Q8H PRN PRN Reason: Nausea and Vomiting Last Admin: 09/07/24 19:37 Dose: 4 mg Documented By: KERRY Potassium Chloride (Potassium Chloride Er 20 Meq Tab.Er.Prt) 20 meq PO DAILY [facility] Last Admin: 09/07/24 08:19 Dose: 20 meq Documented By: DARY Senna (Sennosides 8.6 Mg Tablet) 8.6 mg PO BEDTIME [facility] Last Admin: 09/07/24 19:39 Dose: Not Given Documented By: KERRY Non-Admin Reason: Patient Refused Sodium Chloride (0.9 % Sodium Chloride Flush 3 Ml Syringe) 3 ml IVFLUSH QSHIFT [facility] Last Admin: 09/07/24 22:22 Dose: 3 ml Documented By: KERRY Tamsulosin HCl (Tamsulosin Hcl 0.4 Mg Capsule) 0.8 mg PO DAILY [facility] Last Admin: 09/07/24 08:20 Dose: 0.8 mg Documented By: DARY Tiotropium [place] (Tiotropium [place] 2.5 Mcg 1 Puff/2.5 Mcg Mist.Inhal) 2 puff INHALE RDAILY [facility] Last Admin: 09/08/24 07:36 Dose: 2 puff Documented By: ZULEYMA Labs 09/08/24 08:39 09/08/24 08:39 Labs: Laboratory Results - last 24 hr 09/07/24 09:45 Urine Color Straw Urine Appearance Clear Urine pH 7.0 Ur Specific [place] <= 1.005 Urine Protein Negative Urine Glucose (UA) Negative Urine Ketones Negative Urine Blood Negative Urine Nitrite Negative Ur Leukocyte Esterase Trace H Urine RBC 0-2 Urine WBC 0-5 Ur Squamous Epith Cells 0-2 Urine Bacteria None Seen Hyaline Casts 0-[address] scan - chest: Radiologist's impression: Impression: Bilateral pulmonary nodules and masses which measure up to 3.6 cm which have increased in size or are new since the prior study. A malignant etiology is favored. Nonemergent workup is recommended. Mediastinal lymphadenopathy, favored to be malignant. Small right and trace left pleural effusions. The effusions could be secondary to malignancy and/or edema. There is infiltration of the subcutaneous fat which may indicate anasarca, which is evidence for edema. Microbiology Microbiology Results: Microbiology 09/06/24 03:36 Blood Culture - Preliminary Blood - Venous No growth after 48 hours. 09/06/24 03:38 Blood Culture - Preliminary Blood - Venous No growth after 48 hours. Assessment and Plan (1) Acute hypoxic respiratory failure: Status: Acute Plan Pt hospital day #2 for acute hypoxic respiratory failure, secondary to COPD/emphysema, CHF, PNA and Lung CA with presence of moderate Left pleural effusion. Pt has been on chemotherapy with [facility] for lung cancer, suspected mets from renal cancer dx about 2 years prior per pt. Pt has had Left renal nephrectomy and Left lung decortication with thoracentesis (over 20 years ago). 1. Acute Hypoxic respiratory failure Patient on admission moved from BiPAP to Oxymizer. Nebs and supportive care continue. Incentive spirometry: pt can achieve 1500 to 2000 mls with each breath. ECHO notes reduced EF, cardiology recommends ACEI, Lasix IV BID, dose reduced to 20 mg IV BID noting BP. Pt will start Bumex 1 mg daily in AM. Ceftriaxone and doxycycline started for suspected pneumonia. ABX day #3. Low grade temp from yesterday resolved. Tylenol alternating with motrin. All viral studies negative Pt does use oxygen at home, 2.5 to 3.5 L via NC. Pt able to wean to NC today form oxymask, 9L. Continue IS. 2. Acute exacerbation CHF/ noted moderate L pleural effusion with hx of decortication and thoracentesis over 20 years prior Echo notes reduced EF 40-45%, moderate pulmonary HTN, no valvular concerns. Pt seen by cardiology, recommends continuing ACEI, diuresis gentle with IV lasix and per cardiology, will change to Bumex 1 mg daily in the AM, jardiance 10 mg daily added, Strict I/O, daily wts, ASA, Statin high intensity (CAD, CABG HX). K stable, BMP in AM. CT chest notes small R pleural effusion, trace left pleural effusion, will cancel thoracic consult Pt is on metoprolol, can consider change to COREG. Pt does have HX of CAD, CABG X4 FR [address] scan completed, Noted small R pleural effusion, trace left effusion. Cancelled thoracic consult. Lung cancer tumors have increased in size. Pt is seeing oncologist next Thursday as an outpatient. 3. Acute exacerbation COPD/ emphysema 60 yr 1PPD tobacco hx Oximyzer to NC today, 9L. Pt is normally on Home O2 2.5 L - 3.[address] Pt has not smoked for at least 4 days NRT ordered, pt counseled on the importance of smoking cessation Nebs scheduled, supportive care, nonproductive cough, IS ordered and pt can achieve up to 2L with each breath 4. Hyperkalemia Resolved on Lasix Risk fro hypokalemia K 3.9 today now on 20 lasix IV BID, lowered due to lower BP 20 MEQ po added daily Pt will start Bumex 1 mg hunter 09/09 Daily BMP 5. CAP Suspected, pt started on ceftriaxone in ED, doxycycline added, nonproductive cough No evidence of sepsis, pt is not tachycardic, no longer hypoxic, leukocytosis 11.1, no fever or chills Supportive care, wean O2 as tolerated Low grade temp 09/07- now resolved Motrin alt with tylenol, BC neg X 48 hours Will add testing for strep Pneumonia and Legionaries, as of 09/08 pending 6. Diabetes [id number] type 2 Pt is not insulin dependent SSI ordered, RBG 147 A1C 5.6 Diabetic diet 7. Metastatic renal cell carcinoma to the lung Pt is following with Dr Nelson at [facility] undergoing active treatment, has appt next Thursday CT scan done this past Thursday, no access to these results noting moderate left pleural effusion CT scan completed here: notes presence of malignancy, increasing in size, small R PL effusion, trace left, thoracic consult cancelled 8. BPH Chronic, pt is voiding, continue flomax and finasteride UA neg for UTI 9. Tobacco dependence Pt has 60 1PPD year smoking hx NRT requested, starting 21 mg nicotine patch per pt's request 10. Thrombocytopenia Pt is on tx for lung Ca > 100K, will continue lovenox for now no active bleeding issues Monitor Lovenox ordered, knee high TEDS ordered Pt continues admission for oxygen needs. Pt able to titrate down to 9L NC from oxymask, continue to wean, continue IV Lasix and pt will change to po Bumex tomorrow. CT scan notes enlargement of known lung masses. Small R pleural effusion and trace L pleural effusion. Thoracic consult cancelled. . Pt follows with oncology and cardiology as an outpatient at [facility]. Next appt with oncology is next Thursday. PT eval ordered for today. Total time managing care of this patient today: 40 minutes. Quality Stroke Does the patient have a stroke diagnosis?: No Reason for No Anti-thrombotic by Day Two: N/A - Med Ordered VTE Prior VTE?: No VTE Risk Level:: Medical - moderate - high VTE Device Contraindication: N/A - Device Ordered VTE Drug Contraindication: N/A - Med Ordered
[2024-09-08 08:42] LABS: MANUAL DIFF FLAG NO
[2024-09-08 08:46] LABS: Basophils Absolute Auto 0.1 X10*3/uL (0.0-0.2); Basophils Percent Auto 0.6 % (0-2); Eosinophils Absolute Auto 0.3 X10*3/uL (0.0-0.4); Eosinophils Percent Auto 3.6 % (0-4); Hematocrit 47.9 % (42.0-52.0); Hemoglobin 15.9 g/dl (14.0-18.0); Imm Gran Abs Auto 0.04 X10*3/uL (0.00-0.03); Imm Gran Pct Auto 0.4 % (0.0-0.4); Lymphocytes Absolute Auto 1.3 X10*3/uL (1.2-4.9); Lymphocytes Percent Auto 13.8 % (20-40); Mean Corpuscular HGB Conc 33.2 g/dl (31.0-36.0); Mean Corpuscular Hemoglobin 30.1 pg (27.0-33.0); Mean Corpuscular Volume 90.5 fL (80.0-98.0); Mean Platelet Volume 10.4 fL (9.4-12.4); Monocytes Absolute Auto 1.2 X10*3/uL (0.1-1.2); Monocytes Percent Auto 12.4 % (2-11); Neutrophils Absolute Auto 6.5 x10*3/uL (2.0-8.3); Neutrophils Percent Auto 69.2 % (45-73); Platelet Count 154 X10*3/uL (160-400); Red Blood Count 5.29 X10*6/uL (4.60-5.80); Red Cell Distribution Width 14.9 % (11.0-16.0); White Blood Count 9.4 X10*3/uL (4.8-10.8)
[2024-09-08 09:04] LABS: Anion Gap 13 (12-20); Blood Urea Nitrogen 25 mg/dL (9-16); Calcium 9.6 mg/dL (8.4-10.2); Carbon Dioxide 33 mmol/L (22-29); Chloride 100 mmol/L (96-108); Creatinine Clr Calc Pharmacy 46.6; Estimated Glomerular Filt Rate 56; Glucose Random 138 mg/dL (60-115); Potassium 4.3 mmol/L (3.3-5.1); Sodium 142 mmol/L (135-145)
[2024-09-08] MEDS: Gabapentin 100 MG CAPSULE 200 MG PO (09:06)
[2024-09-08] MEDS: buPROPion HCl XL 150 MG TAB.ER.24H PO (09:06)
[2024-09-08] MEDS: Tamsulosin HCL 0.4 MG CAPSULE 0.8 MG PO (09:06)
[2024-09-08] MEDS: Atorvastatin Calcium 40 MG TABLET PO (09:06)
[2024-09-08] MEDS: Potassium Chloride ER 20 MEQ TAB.ER.PRT PO (09:09)
[2024-09-08] MEDS: Empagliflozin 10 MG TABLET PO (09:09)
[2024-09-08] MEDS: Aspirin Enteric Coated 81 MG TABLET.DR PO (09:09)
[2024-09-08] MEDS: 0.9 % Sodium Chloride Flush 3 ML SYRINGE IVFLUSH ×2 (09:10→20:41)
[2024-09-08] MEDS: Finasteride 5 MG TABLET PO (09:10)
[2024-09-08] MEDS: Nicotine 21 MG PATCH.TD24 TRANSDERMA (09:10)
[2024-09-08] MEDS: Enoxaparin Sodium 40 MG/0.4 ML SYRINGE SUBCUT (09:10)
[2024-09-08] MEDS: lisinopriL 10 MG TABLET PO (09:13)
[2024-09-08] MEDS: Isosorbide Mononitrate 30 MG TAB.ER.24H PO (09:15)
[2024-09-08] MEDS: Metoprolol Succinate ER 100 MG TAB.ER.24H PO (09:15)
[2024-09-08] MEDS: Furosemide 20 MG/2 ML VIAL IVPUSH ×2 (09:18→20:39)
[2024-09-08] MEDS: Doxycycline Hyclate 100 MG in 0.9 % Sodium Chloride 250 ML 166.67 MG IV (11:57)
--- NOTE | 2024-09-08 12:22 | PM.PNCARD ---
Subjective Subjective Date of Service: 09/08/24 Principal diagnosis: Acute hypoxemic respiratory failure Interval history: Patient says he feels a lot better compared to when he came into the hospital. Has overall diuresed about 5 L. leg edema significantly improved. Shortness of breath is significantly improved. He has been using also has significantly improved. Review of Systems Constitutional: Reports no additional constitutional complaints Cardiovascular: Denies chest pain, Denies leg edema, Denies lightheadedness, Denies Loss of Consciousness, Denies palpitations and Reports dyspnea on exertion Respiratory: Reports dyspnea on exertion and Reports wheezing (Improved) Endocrine: Denies palpitations Allergic/Immunologic: Reports wheezing (Improved) Physical Exam Vital Signs: Last Vital Signs Temp 98.0 F 09/08/24 12:00 Pulse 86 09/08/24 12:00 Resp 19 09/08/24 12:00 BP 93/53 L 09/08/24 12:00 Pulse Ox 93 09/08/24 12:00 O2 Del Method Nasal Cannula 09/08/24 12:00 O2 Flow Rate 9 09/08/24 12:00 FiO2 40 09/06/24 04:32 BMI result Body Mass Index 24.7 Const General: cooperative, alert, awake and in distress mild and respiratory Nutritional Appearance: average body habitus Orientation/consciousness: patient oriented x3 HEENT Head: Yes normocephalic and Yes atraumatic Neck Neck: Yes trachea midline, Yes supple and Yes JVD Resp Effort & Inspection: normal respiratory effort Auscultation: clear to auscultation bilaterally and diminished lung sounds Cardio Jugular venous distension: JVD Rate: regular rate Rhythm: regular rhythm Heart sounds: S1 normal heart sound present, S2 normal heart sound present, no click, no gallops and no murmurs GI Auscultation: normal bowel sounds Skin General skin exam: no rashes or lesions noted and ecchymosis Neuro General: patient oriented x3 and no focal motor deficits Extrem General: No clubbing, No cyanosis and Yes edema Objective Labs and Meds 09/08/24 08:39 09/08/24 08:39 Lab results: Laboratory Results - last 24 hr 09/08/24 08:39 WBC 9.4 RBC 5.29 Hgb 15.9 Hct 47.9 MCV 90.5 MCH 30.1 MCHC 33.2 RDW 14.9 Plt Count 154 L MPV 10.4 Immature Gran % (Auto) 0.4 Neut % (Auto) 69.2 Lymph % (Auto) 13.8 L [place] % (Auto) 12.4 H Eos % (Auto) 3.6 Baso % (Auto) 0.6 Lymph # (Auto) 1.3 [place] # (Auto) 1.2 Eos # (Auto) 0.3 Baso # (Auto) 0.1 Abs Immat Gran (auto) 0.04 H Absolute Neuts (auto) 6.5 Absolute Nucleated RBC 0.000 Nucleated RBC % (auto) 0.0 Sodium 142 Potassium 4.3 Chloride 100 Carbon Dioxide 33 H Anion Gap 13 BUN 25 H Creatinine 1.26 Estim Creat Clear Calc 46.6 Estimated GFR 56 Random Glucose 138 H Calcium 9.6 Progress Note: A&P Assessment and plan (1) Acute exacerbation of chronic heart failure: Status: Acute Assessment and Plan: Acute exacerbation congestive heart failure in patient with heart failure with mid-range LV EF, clinically significantly improved. Respiratory status significant improved with treatment of COPD exacerbation as well as heart failure. Will switch to oral diuretics with bumetanide 1 mg daily. Continue with Jardiance. He was low blood pressure would reduce amlodipine to 2.5 mg daily. Continue COPD management. Patient advised to follow up with his own retail account specialist in 1-2 week. Will sign of the case. Thank you for allowing us to partake in his care Time Spent With Patient Time: Total time managing care of this patient today ____ minutes. Progress Note: Quality Stroke Does the patient have a stroke diagnosis?: No Reason for No Anti-thrombotic by Day Two: N/A - Med Ordered Procedures Date of Service Date of Service: 09/08/24
--- NOTE | 2024-09-08 14:55 | HO.THORCON_ITS ---
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 He presented here with progressively worsening dyspnea. Patient has a significant history of CHF and respiratory failure in the past. He has received aggressive diuresis and has had marked improvement of his respiratory symptoms he states since this has been initiated. Thoracic surgical consultation regarding left pleural effusion was undertaken. Chart was reviewed and patient evaluated PMFSH Past Medical History Medical History COVID-19 vaccine series completed Arthritis Myocardial infarction CAD (coronary artery disease) COPD (chronic obstructive pulmonary disease) Hyperlipidemia On beta steven at home Smoker Nocturia more than twice per night Feeling of incomplete bladder emptying BPH w urinary obs/LUTS Renal cancer BPH (benign prostatic hyperplasia) Hypertension Surgical History Surgical History Hx of cystoscopy History of lung surgery History of heart artery stent History of quadruple bypass Social History Social History Household Members: Family Household Members Other:: son Housing: House Are you a primary home care nurse to a significant other at home: No Do you presently have visiting nurse or other home services: No Alcohol intake: never Comment: pt asleep Patient Tobacco Use Status: Former Tobacco user Tobacco use type: Cigarette Cigarette Packs Per Day: 0.5 Cigarettes Per Day: 10.0 Years Smoked: 62 Second Hand Smoke Exposure: Yes Substance Use Type: Marijuana service: Yes Current occupational status: retired Travel History Ebola Risk: Travel/Contact With Anyone From Affected Area/s: No Has Patient Experienced Ebola Symptoms: No Meds Allergies Allergy/AdvReac Type Severity Reaction Status Date / Time No Known Allergies Allergy Verified 09/06/24 03:19 Active Medications: Current Medications Acetaminophen (Acetaminophen 325 Mg Tablet) 650 mg PO Q6H PRN PRN Reason: Pain, Mild 1-3,fever,headache Albuterol Sulfate (Albuterol Sulfate 90 Mcg 8 Gm Inhaler) 2 puff INHALE Q4H PRN PRN Reason: Wheezing Albuterol/Ipratropium (Albuterol/Iprat 2.5/0.5mg 3 Ml Ampul.Neb) 3 ml INHALE Q4H PRN PRN Reason: Shortness of Breath/Wheezing Last Admin: 09/07/24 07:04 Dose: 3 ml Amlodipine Besylate (Amlodipine Besylate 5 Mg Tablet) 5 mg PO DAILY [facility]; Protocol Last Admin: 09/08/24 09:19 Dose: Not Given Aspirin (Aspirin Enteric Coated 81 Mg Tablet.Dr) 81 mg PO DAILY [facility] Last Admin: 09/08/24 09:09 Dose: 81 mg Atorvastatin Calcium (Atorvastatin Calcium 40 Mg Tablet) 40 mg PO DAILY [facility] Last Admin: 09/08/24 09:06 Dose: 40 mg Benzonatate (Benzonatate 100 Mg Capsule) 100 mg PO TID PRN PRN Reason: Cough Last Admin: 09/07/24 19:32 Dose: 100 mg Bumetanide (Bumetanide 1 Mg Tablet) 1 mg PO DAILY [facility]; Protocol Bupropion HCl (Bupropion Hcl Xl 150 Mg Tab.Er.24h) 150 mg PO DAILY [facility] Last Admin: 09/08/24 09:06 Dose: 150 mg Calcium Carbonate (Calcium Carbonate 750 Mg Tab.Chew) 750 mg PO Q4H PRN PRN Reason: Heartburn Ceftriaxone Sodium (Ceftriaxone Sodium 1 Gm Vial) 1 gm IVPUSH Q24H [facility] Last Admin: 09/08/24 04:23 Dose: 1 gm Doxycycline Monohydrate (Doxycycline Monohydrate 100 Mg Capsule) 100 mg PO Q12H [facility] Empagliflozin (Empagliflozin 10 Mg Tablet) 10 mg PO DAILY [facility] Last Admin: 09/08/24 09:09 Dose: 10 mg Enoxaparin Sodium (Enoxaparin Sodium 40 Mg/0.4 Ml Syringe) 40 mg SUBCUT Q24H [facility] Last Admin: 09/08/24 09:10 Dose: 40 mg Finasteride (Finasteride 5 Mg Tablet) 5 mg PO DAILY [facility] Last Admin: 09/08/24 09:10 Dose: 5 mg Fluticasone/Vilanterol (Fluticasone/Vilanterol 200/25 Blst.W.Dev) 1 puff INHALE RDAILY [facility] Last Admin: 09/08/24 07:36 Dose: 1 puff Furosemide (Furosemide 20 Mg/2 Ml Vial) 20 mg IVPUSH Q12H [facility]; Protocol Stop: 09/09/24 07:00 Last Admin: 09/08/24 09:18 Dose: 20 mg Gabapentin (Gabapentin 100 Mg Capsule) 200 mg PO DAILY [facility] Last Admin: 09/08/24 09:06 Dose: 200 mg Isosorbide Mononitrate (Isosorbide Mononitrate 30 Mg Tab.Er.24h) 30 mg PO DAILY [facility]; Protocol Last Admin: 09/08/24 09:15 Dose: 30 mg Lisinopril (Lisinopril 10 Mg Tablet) 10 mg PO DAILY [facility]; Protocol Last Admin: 09/08/24 09:13 Dose: 10 mg Magnesium Hydroxide (Milk Of Magnesia 30 Ml Oral.Susp) 30 ml PO DAILY PRN PRN Reason: Constipation Melatonin (Melatonin 3 Mg Tablet) 6 mg PO BEDTIME PRN PRN Reason: Insomnia Metoprolol Succinate (Metoprolol Succinate Er 100 Mg Tab.Er.24h) 100 mg PO DAILY [facility]; Protocol Last Admin: 09/08/24 09:15 Dose: 100 mg Mirtazapine (Mirtazapine 7.5 Mg Tablet) 7.5 mg PO BEDTIME [facility] Last Admin: 09/07/24 22:20 Dose: 7.5 mg Nicotine (Nicotine 21 Mg Patch.Td24) 21 mg TRANSDERMA DAILY [facility] Last Admin: 09/08/24 09:10 Dose: 21 mg Nystatin/Triamcinolone Acetonide (Nystatin/Triamcinolone Cream 15 Gm Tube) 1 appl TOPICAL BID PRN PRN Reason: dry skin' Ondansetron HCl (Ondansetron Hcl 4 Mg/2 Ml Vial) 4 mg IVPUSH Q8H PRN PRN Reason: Nausea and Vomiting Last Admin: 09/07/24 19:37 Dose: 4 mg Potassium Chloride (Potassium Chloride Er 20 Meq Tab.Er.Prt) 20 meq PO DAILY [facility] Last Admin: 09/08/24 09:09 Dose: 20 meq Senna (Sennosides 8.6 Mg Tablet) 8.6 mg PO BEDTIME [facility] Last Admin: 09/07/24 19:39 Dose: Not Given Sodium Chloride (0.9 % Sodium Chloride Flush 3 Ml Syringe) 3 ml IVFLUSH QSHIFT [facility] Last Admin: 09/08/24 09:10 Dose: 3 ml Tamsulosin HCl (Tamsulosin Hcl 0.4 Mg Capsule) 0.8 mg PO DAILY [facility] Last Admin: 09/08/24 09:06 Dose: 0.8 mg Tiotropium [place] (Tiotropium [place] 2.5 Mcg 1 Puff/2.5 Mcg Mist.Inhal) 2 puff INHALE RDAILY [facility] Last Admin: 09/08/24 07:36 Dose: 2 puff Home Medications ?Medication ?Instructions ?Recorded ?Confirmed ?Last Taken ?Type isosorbide mononitrate 30 mg 30 mg PO DAILY 04/24/20 09/06/24 11/28/20 History tablet,extended release 24 hr metoprolol succinate 100 mg 100 mg PO DAILY 04/24/20 09/06/24 11/28/20 History tablet,extended release 24 hr albuterol sulfate 90 mcg/actuation 2 puff inhalation Q4-6H PRN 08/17/20 09/06/24 Unknown History aerosol inhaler (ProAir HFA) Wheezing budesonide-formoterol HFA 160 2 puff PO BID 08/17/20 09/06/24 11/28/20 History mcg-4.5 mcg/actuation aerosol inhaler (Symbicort) aspirin 81 mg tablet,delayed 81 mg PO DAILY 08/20/20 09/06/24 Unknown History release tiotropium bromide 18 mcg capsule 1 cap inhalation DAILY 08/20/20 09/06/24 11/28/20 History with inhalation device (Spiriva with HandiHaler) amlodipine 5 mg tablet 5 mg PO DAILY 01/09/22 09/06/24 Unknown History clotrimazole-betamethasone 1 1 appl topical BID PRN dry skin' 07/10/22 09/06/24 Unknown History %-0.05 % topical cream gabapentin 100 mg capsule 200 mg PO DAILY 07/10/22 09/06/24 Unknown History atorvastatin 40 mg tablet 40 mg PO DAILY 09/06/24 09/06/24 Unknown History bupropion HCl 150 mg 24 hr tablet, 150 mg PO DAILY 09/06/24 09/06/24 Unknown History extended release glipizide 2.5 mg tablet, extended 2.5 mg PO DAILY 09/06/24 09/06/24 Unknown History release 24 hr mirtazapine 7.5 mg tablet 7.5 mg PO BEDTIME 09/06/24 09/06/24 Unknown History Physical Exam 2 Vital Signs: Vital Signs: Last Vital Signs Temp 98.0 F 09/08/24 12:00 Pulse 86 09/08/24 12:00 Resp 19 09/08/24 12:00 BP 93/53 L 09/08/24 12:00 Pulse Ox 93 09/08/24 12:00 O2 Del Method Nasal Cannula 09/08/24 12:00 O2 Flow Rate 9 09/08/24 12:00 FiO2 40 09/06/24 04:32 BMI result Body Mass Index 24.7 Const: Other: Patient was is sitting up able to converse with no evidence of dyspnea. He is on supplemental nasal cannula. No evidence of use of accessory respiratory muscles. Chest: Other: Breath sounds bilaterally, crackles lower bases. Results Labs 09/08/24 08:39 09/08/24 08:39 Labs: Abnormal lab results 09/08/24 Range/Units 08:39 Plt Count 154 L (160-400) X10*3/uL Lymph % (Auto) 13.8 L (20-40) % [place] % (Auto) 12.4 H (2-11) % Abs Immat Gran (auto) 0.04 H (0.00-0.03) X10*3/uL Carbon Dioxide 33 H (22-29) mmol/L BUN 25 H (9-16) mg/dL Random Glucose 138 H (60-115) mg/dL Short CBC 09/08/24 Range/Units 08:39 WBC 9.4 (4.8-10.8) X10*3/uL Hgb 15.9 (14.0-18.0) g/dl Hct 47.9 (42.0-52.0) % Plt Count 154 L (160-400) X10*3/uL BMP 09/08/24 08:39 Sodium 142 Potassium 4.3 Chloride 100 Carbon Dioxide 33 H BUN 25 H Creatinine 1.26 Calcium 9.6 Urine 09/07/24 Range/Units 09:45 Urine Color Straw Urine Appearance Clear Urine pH 7.0 (5.0-9.0) Ur Specific [place] <= 1.005 (1.005-1.025) Urine Protein Negative (Neg-Trace) mg/dL Urine Glucose (UA) Negative (Negative) mg/dL All other labs normal. Assessment and Plan (1) Acute exacerbation of chronic heart failure: Status: Acute (2) Congestive heart failure: Qualifiers: Heart failure chronicity: acute on chronic Heart failure type: u nspecified Qualified Code(s): I50.9 - Heart failure, unspecified Status: Acute (3) Metastatic renal cell carcinoma to lung: Qualifiers: Laterality: unspecified laterality Qualified Code(s): C78.00 - Secondary malignant neoplasm of unspecified lung; C64.9 - Malignant neoplasm of unspecified kidney, except renal pelvis Status: Acute (4) Acute hypoxic respiratory failure: Status: Acute (5) Acute exacerbation of chronic obstructive airways disease: Status: Acute (6) Lung nodule seen on imaging study: Status: Acute Plan At present, no intervention required regarding patient has CHF/left small pleural effusion. Unfortunately patient has appreciable tumor burden in his lungs secondary to metastatic renal cell carcinoma. At present, symptoms seem to be more cardiac related then oncologic. Should he developed a malignant pleural effusion, he may require thoracentesis, pleurodesis, or PleurX catheter depending on his clinical situation but at present no acute thoracic intervention required. Procedures Date of Service Date of Service: 09/08/24
--- NOTE | 2024-09-08 18:58 | PC.NURSE ---
Patient alert and oriented, continues on 8L on [place] instead oxymask, able to ambulate to the bathroom, reports no BM this shift. BP low, provider notified, lasix dose lowered and amlodipine on hold.
[2024-09-08] MEDS: Doxycycline Monohydrate 100 MG CAPSULE PO (20:38)
[2024-09-08] MEDS: Mirtazapine 7.5 MG TABLET PO (20:38)
[2024-09-09] VITALS (7 sets, daily range): BP systolic 99–129; BP diastolic 52–62; PULSE 63–79; RESP 17–18; TEMP 36.4–37; O2SAT 90–93; BMI 23.6
[2024-09-09] MEDS: cefTRIAXone sodium 1 GM VIAL IVPUSH (04:55)
[2024-09-09] MEDS: Tiotropium Bromide 2.5 mcg 1 PUFF/2.5 MCG MIST.INHAL 2 PUFF INHALE (07:30)
[2024-09-09] MEDS: Fluticasone/Vilanterol 200/25 BLST.W.DEV 1 PUFF INHALE (07:30)
[2024-09-09] MEDS: Aspirin Enteric Coated 81 MG TABLET.DR PO (09:56)
[2024-09-09] MEDS: 0.9 % Sodium Chloride Flush 3 ML SYRINGE IVFLUSH ×2 (09:56→21:03)
[2024-09-09] MEDS: Bumetanide 1 MG TABLET PO (09:56)
[2024-09-09] MEDS: Enoxaparin Sodium 40 MG/0.4 ML SYRINGE SUBCUT (09:56)
[2024-09-09] MEDS: buPROPion HCl XL 150 MG TAB.ER.24H PO (09:56)
[2024-09-09] MEDS: Doxycycline Monohydrate 100 MG CAPSULE PO ×2 (09:57→21:00)
[2024-09-09] MEDS: Atorvastatin Calcium 40 MG TABLET PO (09:57)
[2024-09-09] MEDS: Empagliflozin 10 MG TABLET PO (10:02)
[2024-09-09] MEDS: Gabapentin 100 MG CAPSULE 200 MG PO (10:41)
[2024-09-09] MEDS: Nicotine 21 MG PATCH.TD24 TRANSDERMA (10:41)
[2024-09-09] MEDS: Finasteride 5 MG TABLET PO (10:42)
[2024-09-09] MEDS: Tamsulosin HCL 0.4 MG CAPSULE 0.8 MG PO (10:42)
[2024-09-09] MEDS: Metoprolol Succinate ER 100 MG TAB.ER.24H PO (10:42)
[2024-09-09] MEDS: Potassium Chloride ER 20 MEQ TAB.ER.PRT PO (10:43)
[2024-09-09] MEDS: lisinopriL 5 MG TABLET PO (10:43)
[2024-09-09] MEDS: Isosorbide Mononitrate 30 MG TAB.ER.24H PO (10:43)
--- NOTE | 2024-09-09 10:54 | HO.PM.IMPN ---
Subjective Subjective Date of Service: 09/09/24 Interval History: Patient is hospital day #3 dealing with acute hypoxic respiratory failure secondary to CHF exacerbation, COPD exacerbation, known lung cancer with enlarged tumors x2 via CT scan done of the chest. Patient continues on antibiotics and nebulizer treatments. Patient noted to be 89% on 8L NC with respiratory therapy present in the room. At rest, POX 91-92%. Pt is tolerating Bumex and -1250 Fluid balance. Daily wts ordered but not documented. Wt today obtained noted 3.2 KG wt loss since admission. Respiratory therapy indicated that they will notify [facility] an order updated equipment for patient's overall oxygen needs. Patient does have a nebulizer machine at home. Patient's level of oxygen need currently too high for appropriate discharge today. Patient is not sleeping well and would like to go home today but we will be adding earplugs, medication and son will bring an eye mask to help with this. Incentive spirometer at bedside and patient is able to still achieve 1500 mL to 2000 mL per use. Patient has been afebrile in normal sinus rhythm, vital signs stable. Appetite improving. Updated pt's son Lane by phone. Will bring eye mask in as well. Pt needs to have everything dark in order to sleep. Review of Systems Review of Systems: Yes all other systems are reviewed and are negative Physical Exam Vital Signs: Vital Signs: Last Vital Signs Temp 98.3 F 09/09/24 07:40 Pulse 78 09/09/24 10:42 Resp 18 09/09/24 07:40 BP 124/62 09/09/24 10:42 Pulse Ox 91 L 09/09/24 07:40 O2 Del Method Nasal Cannula 09/09/24 07:40 O2 Flow Rate 7 09/09/24 07:40 FiO2 40 09/06/24 04:32 BMI result Body Mass Index 24.7 Alert and orientated X3. Unhappy that pt cannot go home today due to oxygen needs. Neuro: CN II-X11 intact, no deficits, visual acuity intact EYES: PERRLA, EOM intact ENT: hearing intact, no issues with swallowing, uvula midline, lips moist, nares patent no epistaxis Cardiac: S1 S2 RRR, no murmur, no JVD, no edema in Lower ext. Noted healed stenotomy scar. Upper mediastinal bone raised, chronic since surgery. Pulmonary: lungs diminshed L>R Abdominal: BS active in all 4 quadrants, no guarding, tenderness, rebounding MSK: strength 4/5 upper and lower extremities : no CVA tenderness no bladder distension Extremities: no edema in lower extremities, PT and DP pulses palpable +2 Psych: mood stable, judgement and insight good Skin: intact, no rash or wounds noted Objective Data Active Medications Acetaminophen (Acetaminophen 325 Mg Tablet) 650 mg PO Q6H PRN PRN Reason: Pain, Mild 1-3,fever,headache Albuterol Sulfate (Albuterol Sulfate 90 Mcg 8 Gm Inhaler) 2 puff INHALE Q4H PRN PRN Reason: Wheezing Albuterol/Ipratropium (Albuterol/Iprat 2.5/0.5mg 3 Ml Ampul.Neb) 3 ml INHALE Q4H PRN PRN Reason: Shortness of Breath/Wheezing Last Admin: 09/07/24 07:04 Dose: 3 ml Documented By: DAMON Amlodipine Besylate (Amlodipine Besylate 5 Mg Tablet) 5 mg PO DAILY [facility]; Protocol Last Admin: 09/08/24 09:19 Dose: Not Given Documented By: LIYAH Non-Admin Reason: Decreased Blood Pressure Aspirin (Aspirin Enteric Coated 81 Mg Tablet.Dr) 81 mg PO DAILY [facility] Last Admin: 09/09/24 09:56 Dose: 81 mg Documented By: LIYAH Atorvastatin Calcium (Atorvastatin Calcium 40 Mg Tablet) 40 mg PO DAILY [facility] Last Admin: 09/09/24 09:57 Dose: 40 mg Documented By: LIYAH Benzonatate (Benzonatate 100 Mg Capsule) 100 mg PO TID PRN PRN Reason: Cough Last Admin: 09/07/24 19:32 Dose: 100 mg Documented By: KERRY Bumetanide (Bumetanide 1 Mg Tablet) 1 mg PO DAILY [facility]; Protocol Last Admin: 09/09/24 09:56 Dose: 1 mg Documented By: LIYAH Bupropion HCl (Bupropion Hcl Xl 150 Mg Tab.Er.24h) 150 mg PO DAILY [facility] Last Admin: 09/09/24 09:56 Dose: 150 mg Documented By: LIYAH Calcium Carbonate (Calcium Carbonate 750 Mg Tab.Chew) 750 mg PO Q4H PRN PRN Reason: Heartburn Ceftriaxone Sodium (Ceftriaxone Sodium 1 Gm Vial) 1 gm IVPUSH Q24H [facility] Last Admin: 09/09/24 04:55 Dose: 1 gm Documented By: KARL Doxycycline Monohydrate (Doxycycline Monohydrate 100 Mg Capsule) 100 mg PO Q12H [facility] Last Admin: 09/09/24 09:57 Dose: 100 mg Documented By: LIYAH Empagliflozin (Empagliflozin 10 Mg Tablet) 10 mg PO DAILY [facility] Last Admin: 09/09/24 10:02 Dose: 10 mg Documented By: LIYAH Enoxaparin Sodium (Enoxaparin Sodium 40 Mg/0.4 Ml Syringe) 40 mg SUBCUT Q24H [facility] Last Admin: 09/09/24 09:56 Dose: 40 mg Documented By: LIYAH Finasteride (Finasteride 5 Mg Tablet) 5 mg PO DAILY [facility] Last Admin: 09/09/24 10:42 Dose: 5 mg Documented By: LIYAH Fluticasone/Vilanterol (Fluticasone/Vilanterol 200/25 Blst.W.Dev) 1 puff INHALE RDAILY [facility] Last Admin: 09/09/24 07:30 Dose: 1 puff Documented By: ZULEYMA Gabapentin (Gabapentin 100 Mg Capsule) 200 mg PO DAILY [facility] Last Admin: 09/09/24 10:41 Dose: 200 mg Documented By: LIYAH Isosorbide Mononitrate (Isosorbide Mononitrate 30 Mg Tab.Er.24h) 30 mg PO DAILY [facility]; Protocol Last Admin: 09/09/24 10:43 Dose: 30 mg Documented By: LIYAH Lisinopril (Lisinopril 5 Mg Tablet) 5 mg PO DAILY [facility]; Protocol Last Admin: 09/09/24 10:43 Dose: 5 mg Documented By: LIYAH Magnesium Hydroxide (Milk Of Magnesia 30 Ml Oral.Susp) 30 ml PO DAILY PRN PRN Reason: Constipation Melatonin (Melatonin 3 Mg Tablet) 6 mg PO BEDTIME PRN PRN Reason: Insomnia Metoprolol Succinate (Metoprolol Succinate Er 100 Mg Tab.Er.24h) 100 mg PO DAILY [facility]; Protocol Last Admin: 09/09/24 10:42 Dose: 100 mg Documented By: LIYAH Mirtazapine (Mirtazapine 7.5 Mg Tablet) 7.5 mg PO BEDTIME [facility] Last Admin: 09/08/24 20:38 Dose: 7.5 mg Documented By: KARL Nicotine (Nicotine 21 Mg Patch.Td24) 21 mg TRANSDERMA DAILY [facility] Last Admin: 09/09/24 10:41 Dose: 21 mg Documented By: LIYAH Nystatin/Triamcinolone Acetonide (Nystatin/Triamcinolone Cream 15 Gm Tube) 1 appl TOPICAL BID PRN PRN Reason: dry skin' Ondansetron HCl (Ondansetron Hcl 4 Mg/2 Ml Vial) 4 mg IVPUSH Q8H PRN PRN Reason: Nausea and Vomiting Last Admin: 09/07/24 19:37 Dose: 4 mg Documented By: KERRY Potassium Chloride (Potassium Chloride Er 20 Meq Tab.Er.Prt) 20 meq PO DAILY [facility] Last Admin: 09/09/24 10:43 Dose: 20 meq Documented By: LIYAH Senna (Sennosides 8.6 Mg Tablet) 8.6 mg PO BEDTIME [facility] Last Admin: 09/08/24 20:39 Dose: Not Given Documented By: KARL Non-Admin Reason: Patient Refused Sodium Chloride (0.9 % Sodium Chloride Flush 3 Ml Syringe) 3 ml IVFLUSH QSHIFT [facility] Last Admin: 09/09/24 09:56 Dose: 3 ml Documented By: LIYAH Tamsulosin HCl (Tamsulosin Hcl 0.4 Mg Capsule) 0.8 mg PO DAILY [facility] Last Admin: 09/09/24 10:42 Dose: 0.8 mg Documented By: LIYAH Tiotropium [place] (Tiotropium [place] 2.5 Mcg 1 Puff/2.5 Mcg Mist.Inhal) 2 puff INHALE RDAILY [facility] Last Admin: 09/09/24 07:30 Dose: 2 puff Documented By: MONTEZAR Labs 09/08/24 08:39 09/08/24 08:[address] scan - chest: Radiologist's impression: Impression: Bilateral pulmonary nodules and masses which measure up to 3.6 cm which have increased in size or are new since the prior study. A malignant etiology is favored. Nonemergent workup is recommended. Mediastinal lymphadenopathy, favored to be malignant. Small right and trace left pleural effusions. The effusions could be secondary to malignancy and/or edema. There is infiltration of the subcutaneous fat which may indicate anasarca, which is evidence for edema Assessment and Plan (1) Acute hypoxic respiratory failure: Status: Acute (2) Acute exacerbation of chronic heart failure: Status: Acute (3) Acute exacerbation of chronic obstructive airways disease: Status: Acute (4) CAP (community acquired pneumonia): Status: Acute (5) Metastatic renal cell carcinoma to lung: Status: Acute (6) Tobacco dependence: Status: Acute (7) Diabetes 1.5, managed as type 2: Status: Acute (8) Thrombocytopenia: Status: Chronic Plan Pt hospital day #3 for acute hypoxic respiratory failure, secondary to COPD/emphysema, CHF, PNA and Lung CA with presence of trace Left pleural effusion and small R pleural effusion. Pt has been on chemotherapy with [employer] for lung cancer, suspected mets from renal cancer dx about 2 years prior per pt. Pt has had Left renal nephrectomy and also Left lung decortication with thoracentesis (over 20 years ago). 1. Acute Hypoxic respiratory failure Patient on admission moved from BiPAP to Oxymizer. Pt now on 8L NC. Per respiratory, pt would need hi flow set up at home in order to discharge. Pt is adamant about discharge as he has not been able to sleep during this admission noting melatonin and mirtazapine ordered. After review with our attending we are going to hold on discharge due to patient's overall oxygen needs. Patient's son also updated. Nebs and supportive care continue. Incentive spirometry: pt can achieve 1500 to 2000 mls with each breath. ECHO notes reduced EF, cardiology recommends ACEI, Bumex 1 mg daily in AM. Ceftriaxone and doxycycline started for suspected pneumonia. ABX day #4. Low grade resolved. Tylenol alternating with motrin prn. All viral studies negative Pt does use oxygen at home, 2.5 to 3.5 L via NC. RT will call [facility] to provide updated equipment if needed. Case management also updated. PT recommends home PT and patient is agreeable. This will also be part of the discharge plan. 2. Acute exacerbation CHF/ noted moderate L pleural effusion with hx of decortication and thoracentesis over 20 years prior Echo notes reduced EF 40-45%, moderate pulmonary HTN, no valvular concerns. Pt seen by cardiology, pt on ACEI and Bumex 1 mg daily, jardiance 10 mg daily added, Strict I/O, daily wts, ASA, Statin high intensity (CAD, CABG HX). K stable, BMP daily.. CT chest notes small R pleural effusion, trace left pleural effusion, thoracic consult cancelled. Pt is on metoprolol, can consider change to COREG. Pt does have HX of CAD, CABG X4 FR 1500 mls daily 3. Acute exacerbation COPD/ emphysema 60 yr 1PPD tobacco hx NC 8L, pt has O2 at home. RT is notifying [facility] to provide updated equipment if needed for discharge. Pt is normally on Home O2 2.5 L - 3.5 L NC Pt has not smoked for at least 4 days NRT ordered, pt counseled on the importance of smoking cessation. Patient will need nicotine patch 21 mcg per day ordered on discharge. Nebs scheduled, supportive care, nonproductive cough, IS ordered and pt can achieve up to 2L with each breath Patient has nebulizer machine and may need DuoNebs ordered for discharge. 4. Hyperkalemia Resolved on Lasix Risk fro hypokalemia K stable, 4.3 now on 1mg Bumex, BP 124/60 20 MEQ po added daily Daily BMP 5. CAP Suspected, pt started on ceftriaxone in ED, doxycycline added, nonproductive cough ABX day #3 No evidence of sepsis, pt is not tachycardic, no longer hypoxic, leukocytosis 11.1, no fever or chills Supportive care, wean O2 as tolerated Low grade temp 09/07- now resolved Motrin alt with tylenol, BC neg X 48 hours Will add testing for strep Pneumonia and Legionaries, as of 09/09 pending 6. Diabetes nhm-[id number] type 2 Pt is not insulin dependent SSI ordered, RBG 147 A1C 5.6 Diabetic diet 7. Metastatic renal cell carcinoma to the lung Pt is following with Dr Nelson at [facility] Oncology undergoing active treatment, has appt next Wednesday 09/13 CT scan done this past Thursday, no access to these results noting moderate left pleural effusion CT scan completed here: notes presence of malignancy, increasing in size, small R PL effusion, trace left 8. BPH Chronic, pt is voiding, continue flomax and finasteride UA neg for UTI 9. Tobacco dependence Pt has 60 1PPD year smoking hx NRT requested, starting 21 mg nicotine patch per pt's request Will need 21 mg patch for discharge as pt plans to continue smoking cessation 10. Thrombocytopenia Pt is on tx for lung Ca > 100K, will continue lovenox for now no active bleeding issues Monitor 11. Insomnia Pt taking melatonin and mirtazepam with little effect. Pt states it must be completely dark to sleep Adding ear plugs if available and son will bring in eye mask. Lovenox ordered, knee high TEDS ordered Pt continues admission for oxygen needs. Pt able to titrate down to 8L NC from oxymask, continue to wean, continue bumex. CT scan notes enlargement of known lung masses. Small R pleural effusion and trace L pleural effusion. Pt follows with oncology and cardiology as an outpatient at [facility]. Next appt with oncology is next Wednesday 09/13. PT eval recommends Home PT, pt is agreeable. Reviewed plan of care with pt and pt's son Lane by phone. Total time managing care of this patient today: 40 minutes Total time managing care of this patient today: 40 minutes. Quality Stroke Does the patient have a stroke diagnosis?: No Reason for No Anti-thrombotic by Day Two: N/A - Med Ordered VTE Prior VTE?: No VTE Risk Level:: Medical - moderate - high VTE Device Contraindication: N/A - Device Ordered VTE Drug Contraindication: N/A - Med Ordered
--- NOTE | 2024-09-09 15:39 | MHC.CM.PN ---
EMR reviewed and per MD rounds, pt is not medically cleared for discharge due to management of pts oxygen needs.
--- NOTE | 2024-09-09 19:04 | PC.NURSE ---
Patient alert and oriented VSS, soft BP. Patient on 7L [place]. Reports no pain, c/o trouble sleeping, provided patient with ear plugs and eye mask.
[2024-09-09] MEDS: diphenhydrAMINE HCl 12.5 MG/5 ML LIQUID PO (21:00)
[2024-09-09] MEDS: Melatonin 3 MG TABLET 6 MG PO (21:01)
[2024-09-10 03:15] VITALS: BP 113/66; PULSE 68; RESP 18; TEMP 36.4; O2SAT 92
[2024-09-10] MEDS: cefTRIAXone sodium 1 GM VIAL IVPUSH (03:17)
[2024-09-10 06:42] LABS: MANUAL DIFF FLAG NO
[2024-09-10 06:54] LABS: Basophils Absolute Auto 0.1 X10*3/uL (0.0-0.2); Eosinophils Absolute Auto 0.6 X10*3/uL (0.0-0.4); Eosinophils Percent Auto 6.2 % (0-4); Hematocrit 49.5 % (42.0-52.0); Hemoglobin 16.1 g/dl (14.0-18.0); Imm Gran Abs Auto 0.06 X10*3/uL (0.00-0.03); Imm Gran Pct Auto 0.6 % (0.0-0.4); Lymphocytes Absolute Auto 1.6 X10*3/uL (1.2-4.9); Lymphocytes Percent Auto 16.8 % (20-40); Mean Corpuscular HGB Conc 32.5 g/dl (31.0-36.0); Mean Corpuscular Hemoglobin 29.9 pg (27.0-33.0); Monocytes Absolute Auto 1.2 X10*3/uL (0.1-1.2); Monocytes Percent Auto 12.1 % (2-11); Neutrophils Absolute Auto 6.2 x10*3/uL (2.0-8.3); Neutrophils Percent Auto 63.3 % (45-73); Platelet Count 173 X10*3/uL (160-400); Red Blood Count 5.38 X10*6/uL (4.60-5.80); Red Cell Distribution Width 14.8 % (11.0-16.0); White Blood Count 9.7 X10*3/uL (4.8-10.8)
[2024-09-10 07:20] LABS: Anion Gap 12 (12-20); Blood Urea Nitrogen 32 mg/dL (9-16); Calcium 9.4 mg/dL (8.4-10.2); Carbon Dioxide 28 mmol/L (22-29); Chloride 103 mmol/L (96-108); Creatinine Clr Calc Pharmacy 44.8; Estimated Glomerular Filt Rate 53; Glucose Random 102 mg/dL (60-115); Potassium 3.8 mmol/L (3.3-5.1); Sodium 139 mmol/L (135-145)
[2024-09-10 07:30] LABS: B Type Natriuretic Peptide 263 pg/mL (<100)
[2024-09-10 07:33] VITALS: BP 124/61; PULSE 66; RESP 20; TEMP 36.6; O2SAT 90
[2024-09-10] MEDS: Fluticasone/Vilanterol 200/25 BLST.W.DEV 1 PUFF INHALE (07:51)
[2024-09-10] MEDS: Tiotropium Bromide 2.5 mcg 1 PUFF/2.5 MCG MIST.INHAL 2 PUFF INHALE (07:51)
[2024-09-10 07:53] VITALS: PULSE 66; RESP 20; O2SAT 90
[2024-09-10] MEDS: Aspirin Enteric Coated 81 MG TABLET.DR PO (08:04)
[2024-09-10] MEDS: Bumetanide 1 MG TABLET PO (08:04)
[2024-09-10] MEDS: Potassium Chloride ER 20 MEQ TAB.ER.PRT PO (08:04)
[2024-09-10] MEDS: Doxycycline Monohydrate 100 MG CAPSULE PO (08:04)
[2024-09-10] MEDS: Isosorbide Mononitrate 30 MG TAB.ER.24H PO (08:04)
[2024-09-10] MEDS: Tamsulosin HCL 0.4 MG CAPSULE 0.8 MG PO (08:04)
[2024-09-10] MEDS: lisinopriL 5 MG TABLET PO (08:04)
[2024-09-10] MEDS: Empagliflozin 10 MG TABLET PO (08:04)
[2024-09-10] MEDS: Metoprolol Succinate ER 100 MG TAB.ER.24H PO (08:04)
[2024-09-10] MEDS: Atorvastatin Calcium 40 MG TABLET PO (08:04)
[2024-09-10] MEDS: Finasteride 5 MG TABLET PO (08:04)
[2024-09-10] MEDS: Benzonatate 100 MG CAPSULE PO (08:05)
[2024-09-10] MEDS: 0.9 % Sodium Chloride Flush 3 ML SYRINGE IVFLUSH (08:05)
[2024-09-10] MEDS: Gabapentin 100 MG CAPSULE 200 MG PO (08:05)
[2024-09-10] MEDS: buPROPion HCl XL 150 MG TAB.ER.24H PO (08:05)
[2024-09-10] MEDS: Nicotine 21 MG PATCH.TD24 TRANSDERMA (08:05)
[2024-09-10] MEDS: Enoxaparin Sodium 40 MG/0.4 ML SYRINGE SUBCUT (08:05)
--- NOTE | 2024-09-10 10:10 | P.DS_ITS ---
DS: Providers Provider Date of Service: 09/10/24 Date of admission: 09/06/24 07:51 Date of discharge: 09/10/24 Primary care physician: Yang Judd MD Admitting clinician: Medina Rivero Attending physician on admission: Kelton Arzolanyu [facility] Consults: 09/07/24 07:23 Consult to Cardiology Routine Consulting Provider: [facility] Reason for consultation: reduced EF on echo, CHF exacerbation, Hypoxia, moderate pulmonary HTN Has provider been notified: No Attending physician on discharge: [facility] Discharging clinician: Shelby Claros DS: Diagnosis Discharge Diagnosis (1) Acute hypoxic respiratory failure: Status: Acute (2) Acute exacerbation of chronic heart failure: Status: Acute (3) Acute exacerbation of chronic obstructive airways disease: Status: Acute (4) CAP (community acquired pneumonia): Status: Acute (5) Metastatic renal cell carcinoma to lung: Status: Acute (6) Tobacco dependence: Status: Acute (7) Diabetes 1.5, managed as type 2: Status: Acute (8) Thrombocytopenia: Status: Chronic DS: Summary Hospital Course Hospital Course: HPI on admission: Chief Complaint: SOB, unable to catch breath Pt is a 74 yo male with PMH NIIDM, HTN, HLD, CAD, COPD/Emphysema, current tobacco use 58 yo PPD hx, CABG X4, L renal nephrectomy 2022? with current met to lung under chemotherapy at [facility] with Dr. Nelson, CHF (follows with [facility] rdiology), BPH, OA presented to ED via EMS with complaint of profound SOB at rest where pt was no longer able to catch his breath. Pt has noted increasing issues with SOB overall over the past 2 weeks. Denies recent travel. Pt has not gone up on O2 needs, was still using 2.5 L via NC at home. Pt denies productive cough, fever, night sweats, dysphagia, dizziness, nausea but did have one bout of vomiting yesterday due to amount of coughing. Viral studies are currently negative. CXR diffuse bilateral reticular and nodular opacities associated with moderate left effusionnotes Left pleural effusion (possible side with the cancer). Pt came in on BiPAP but after 40 lasix IV, moved to 4L Oxymask and reports feeling better overall. BNP 1031. Unknown last echo, TTE orderd. NRT ordered per pt request. Pt has not smoked in the last week due to illness. Pt was started on ceftriaxone 1GM in ED for possible CAP. Pt is being treated currently for Lung cancer (met from renal CA) and is following with [facility] Oncology. Pt was seen this past Thursday and had a CT scan of the lungs to check the size of the tumor. Pt did not undergo treatment this week. Pt has moderate sized left pleural effusion on CXR. Pt also follows with [facility] Cardiology (pt cannot remember provider's name) and was last seen over a year ago. Pt denies any lower extremity swelling, chest pain, confusion, difficulty urinating. Pt is not on daily diuretics. Unknown when last echo was. CABG X4 was done over 10 years prior at [facility] per pt. Pt currently lives with son, drives and is cognitively intact. Pt offers that he is a full code and would want intervention if his heart stopped or pt was not able to breathe on his own. Pt being admitted for acute hypoxic respiratory failure secondary to COPD/Emp hysema, HF, PNA, Lung Ca with moderate left pleural effusion. MED/SURG tele ordered. Hospital course: 74-year-old male with past medical history as noted above presenting to the hospital with significant dyspnea. He was admitted to med/tele for further management of acute on chronic hypoxemic respiratory failure in the setting of acute CHF exacerbation and community-acquired pneumonia resulting in COPD exacerbation. He has been treated with BiPAP initially and was weaned to nasal cannula with Oxymizer. He had been requiring up to 8 L supplemental O2 and has been weaned to 3 L via nasal cannula which is in line with his home 2.5-3.5 L. he was followed by Cardiology and echocardiogram showed a mildly reduced LV systolic function with EF 45-50% and grade 2 diastolic dysfunction with und erlying regional wall motion abnormality consistent with coronary artery disease. He was initially treated with 40 mg IV Lasix and weaned to 20 mg which was converted to p.o.. Per Cardiology this was changed to p.o. Bumex 1 mg daily. Jardiance 10 mg was also recommended and added as well as lisinopril 5 mg daily. Amlodipine was decreased to 2.5 mg daily due to soft blood pressures. For community-acquired pneumonia he was treated with IV ceftriaxone and doxycycline. He did not require steroid therapy for his COPD but was treated with DuoNebs. Potassium levels were borderline and 20 mEq of potassium chloride was added. Renal function remained at baseline during admission and electrolyte levels remained stable sent for mild elevation in CO2 which improved with decreased oxygen requirements. With the 3 L supplemental O2, he was maintaining oximetry 90-92%. He did present with a mild leukocytosis of 11 which increased to 13 related to IV Solu-Medrol administered by EMS. He was tachypneic secondary to respiratory distressed related to the above-mentioned exacerbations. There was no sepsis or severe sepsis during hospital stay. He should follow up with cardiology in 1-2 weeks and PCP soon. Present to the lab in 1 week to check potassium levels. Seen by PT recommending home services which have been set up. Smoking cessation strongly advised- pt has patches at home. Acute Hypoxic respiratory failure Secondary to CHF exacerbation and community-acquired pneumonia with mild COPD exacerbation Patient on admission moved from BiPAP to Oxymizer. Pt now on 8L [place]. Per respirat ory, pt would need hi flow set up at home in order to discharge however successfully weaned to 3L maintaining 90-92%, consistent with home O2 requirements Acute exacerbation CHF/ noted moderate L pleural effusion with hx of decortication and thoracentesis over 20 years prior Echo notes reduced EF 40-45%, moderate pulmonary HTN, no valvular concerns. Pt seen by cardiology, pt on ACEI and Bumex 1 mg daily, jardiance 10 mg daily Low sodium diet, counseled on daily weights -7.5L during admission CT chest notes small R pleural effusion, trace left pleural effusion, thoracic consult cancelled. Pt is on metoprolol, can consider change to COREG. Pt does have HX of CAD, CABG X4 FR 1500 mls daily Acute mild exacerbation COPD/ emphysema 58 yr 1PPD tobacco hx Received 125 mg methylprednisolone by EMS. No further steroid treatment indicated Treated with DuoNebs Community-acquired pneumonia Treated with IV ceftriaxone (x5 doses) and IV doxycycline (x5 doses). Cefuroxime 500 mg twice daily and doxycycline 100 mg twice daily x6 additional doses ordered Benzonatate p.r.n. Hyperkalemia due to hemolysis Started on 20 mEq p.o. potassium chloride to prevent hypokalemia on diuretics Continue 20 mEq potassium chloride x7 days and repeat BMP in 1 week Diabetes wdf-[id number]-tmepeotta type 2 Glucose levels stable during admission Hemoglobin A1c 5.6 Discontinue glipizide, Jardiance 10 mg added as above Metastatic renal cell carcinoma to the lung Pt is following with Dr Nelson at [facility] Oncology undergoing active treatment, has appt next Wednesday 09/13 CT scan completed here: notes presence of malignancy, increasing in size, small R PL effusion, trace left. No thoracentesis performed BPH Continue Flomax and finasteride Tobacco dependence Pt has 60 1PPD year smoking hx . Cessation strongly advised, has patches at home CKD stage 3 Renal function baseline Time spent discussing smoking cessation with patient: 3 to 10 minutes Status at Discharge Overall status at discharge: patient is progressing back to baseline Time Attestation Discharge Coordination Time (in mins): 40 Quality: Safe Use of Opioids Does Pt have an Active Cancer Diagnosis on the Problem List?: No Quality: Stroke Does the patient have a stroke diagnosis?: No Physical Exam Vital Signs: Vital Signs: Last Vital Signs Temp 97.9 F 09/10/24 07:33 Pulse 66 09/10/24 07:53 Resp 20 09/10/24 07:53 BP 124/61 09/10/24 07:33 Pulse Ox 90 L 09/10/24 07:33 O2 Del Method Nasal Cannula 09/10/24 07:33 O2 Flow Rate 90 09/10/24 07:33 FiO2 40 09/06/24 04:32 BMI result Body Mass Index 23.6 Constitutional - Awake and Alert, No apparent distress Eyes - PERRLA, EOMI Cardiovascular - S1S2, RRR, No edema. No JVD Respiratory - Normal lung expansion, Normal respiratory effort, No respiratory distress, bilateral faint crackles Extremities - no calf tenderness bilaterally, no swelling Skin - Warm/Dry Neurological - Alert & oriented x3, moving all extremities Psychological - Appropriate affect DS: Data Data Completed and Pending Completed studies during hospitalization [Text1]: Procedures Resection of Left Kidney, Open Approach (11/28/20) Labs on day of discharge: Laboratory Results - last 24 hr 09/10/24 05:58 WBC 9.7 RBC 5.38 Hgb 16.1 Hct 49.5 MCV 92.0 MCH 29.9 MCHC 32.5 RDW 14.8 Plt Count 173 MPV 11.0 Immature Gran % (Auto) 0.6 H Neut % (Auto) 63.3 Lymph % (Auto) 16.8 L [place] % (Auto) 12.1 H Eos % (Auto) 6.2 H Baso % (Auto) 1.0 Lymph # (Auto) 1.6 [place] # (Auto) 1.2 Eos # (Auto) 0.6 H Baso # (Auto) 0.1 Abs Immat Gran (auto) 0.06 H Absolute Neuts (auto) 6.2 Absolute Nucleated RBC 0.000 Nucleated RBC % (auto) 0.0 Sodium 139 Potassium 3.8 Chloride 103 Carbon Dioxide 28 Anion Gap 12 BUN 32 H Creatinine 1.31 Estim Creat Clear Calc 44.8 Estimated GFR 53 Random Glucose 102 Calcium 9.4 B-Natriuretic Peptide 263 H Preliminary micro results at discharge 09/06/24 03:36 Blood Culture - Preliminary Blood - Venous No growth after 48 hours. 09/06/24 03:38 Blood Culture - Preliminary Blood - Venous No growth after 48 hours. Discharge Plan Discharge Anticipated Discharge Date/Time: 09/10/24 10:14 Patient Disposition: Home Health Service Discharge Diagnosis: Acute respiratory failure, CHF exacerbation, Pneumonia Referrals: [facility] [Outside] - 1 Week Yang Judd MD [Primary Care Provider] - 1 Week Discharge Medications: New potassium chloride 20 mEq Tablet,Er Particles/Crystals 20 meq PO DAILY Qty: 7 0RF bumetanide 1 mg Tablet 1 mg PO DAILY Qty: 90 0RF Protocol: Hold for SBP< HOLD for SBP < : 90 Jardiance 10 mg Tablet 10 mg PO DAILY Qty: 90 0RF doxycycline hyclate 100 mg capsule 100 mg PO BID Qty: 6 0RF cefuroxime axetil 500 mg tablet 500 mg PO BID Qty: 6 0RF benzonatate 100 mg Capsule 100 mg PO TID PRN (Reason: Cough) Qty: 14 0RF lisinopril 5 mg Tablet 5 mg PO DAILY Qty: 90 0RF Protocol: Hold for SBP< HOLD for SBP < : 100 Continued finasteride 5 mg tablet 5 mg PO DAILY 90 Days Qty: 90 1RF budesonide-formoterol [Symbicort] 160-4.5 mcg/actuation HFA aerosol inhaler 2 puff PO BID albuterol sulfate [ProAir HFA] 90 mcg/actuation Hfa Aerosol Inhaler 2 puff INHALATION Q4-6H PRN (Reason: Wheezing) aspirin 81 mg Tablet,Delayed Release (Dr/Ec) 81 mg PO DAILY tiotropium bromide [Spiriva with HandiHaler] 18 mcg Capsule, W/Inhalation Device 1 cap INHALATION DAILY atorvastatin 40 mg tablet 40 mg PO DAILY bupropion HCl 150 mg tablet extended release 24 hr 150 mg PO DAILY mirtazapine 7.5 mg tablet 7.5 mg PO BEDTIME metoprolol succinate 100 mg tablet extended release 24 hr 100 mg PO DAILY isosorbide mononitrate 30 mg tablet extended release 24 hr 30 mg PO DAILY clotrimazole-betamethasone 1-0.05 % cream 1 appl topical BID PRN (Reason: dry skin') gabapentin 100 mg capsule 200 mg PO DAILY Rx Instructions: nerve pain tamsulosin 0.4 mg capsule 0.8 mg PO DAILY 90 Days Qty: 180 1RF Changed amlodipine 5 mg tablet 2.5 mg PO DAILY Qty: 90 0RF Discontinued glipizide 2.5 mg tablet extended release 24hr 2.5 mg PO DAILY Discharge Orders: Discharge Order (Routine); Ordered 09/10/24 Ordered By: Shelby Claros Diet: Advance to usual diet Activity on Discharge: As tolerated Stand Alone Forms: Patient Portal Discharge page Print Language: Ethiopian Other Ambulatory Orders: Basic Metabolic Panel (Routine) Timeframe: [id number] Facility: [facility] - Location: Laboratory Ordered By: Shelby Claros Care Plan Goals: Manage and prevent future exacerbation of CHF and COPD Continue antibiotics for management of penumonia Stop smoking FOLLOW UP WITH CARDIOLOGY IN 1-2 WEEKS FOLLOW UP WITH PCP [facility] Concerns: Heart failure with reduced ejection fraction exacerbation COPD exacerbation Community-acquired pneumonia Acute on chronic hypoxemic respiratory failure Hyperkalemia (high potassium level) Plan of Treatment: CHF -Take bumex daily to precent fluid accumulation -Low sodium diet (see attached) -Daily weights- contact development technician or PCP if 3 lb weight gain in 24 hours or 5 lb weight gain in 5 days -continue Jardiance, lisinopril-both initiated while in the hospital -follow-up with cardiology in 1-2 weeks COPD -no indication for further steroid therapy -continue maintenance inhalers and use albuterol as needed for shortness of breath or wheezing Community-acquired pneumonia -continue cefuroxime 500 mg twice daily (next dose due 09/11 8am) and doxycycline 100 mg twice daily (next dose due 09/10 8pm) -can use benzonatate as needed for cough Acute on chronic hypoxemic respiratory failure -weaned from BiPAP and Oxymizer. Continue home dose supplemental O2 Potassium support -bumex can cause low potassium levels- take 20meq potassium chloride every morning x 7 weeks. Check BMP at the lab in 1 week and follow up with pcp to determine if further supplementation is needed Hypertension -medication changes: Decrease amlodipine to 2.5 mg daily. Add lisinopril 5 mg daily. Add Bumex 1 mg daily. Continue isosorbide, metoprolol as you were taking prior to admission. Type 2 diabetes -POC glucose controlled while in the hospital. DISCONTINUE glipizide. INITIATE Jardiance 10 mg daily (as started in the hospital). This will both help glucose levels as well as your heart given history of CHF CONTNUE NICOTINE PATCHES TO STOP SMOKING Assessment: SEE ABOVE. SEE DISCHARGE SUMMARY Patient Instructions: Low-Sodium Diet (DC)
--- NOTE | 2024-09-10 11:33 | P.F2F_ITS ---
Service Date Service Date: 09/10/24 Encounter Date of encounter: 09/10/24 Reasons for Services Signs and symptoms assessed: Mild postural deficits and increased O2 requirements. Requires close supervision without AD while in the hospital and would benefit from ongoing therapy to maintain mobility, strength, balance and endurance. Has postural asymmetry Reason for physical therapy: home safety and mobility, therapeutic exercises and gait/transfer training Homebound: Leaving the home is medically contraindicated at this time without the asist of a device and/or another person due th the listed conditions above and below. Reason homebound: unsteady gait / fall risk, weakness related to hospital stay and other (postural instability, chronic respiratory failure) Certification: Based on the above findings, I certify that this patient is confined to the home and needs intermittent group home care, physical therapy and/or speech therapy, or continues to need occupational therapy. The patient is under my care, and I have initiated the establishment of the plan of care. The patient will be followed by a physician who will periodically review the plan of care. Time Spent With Patient Time: Total time managing care of this patient today ____ minutes.
[2024-09-11 16:18] LABS: Strep Pneumo Ag urine Not Detected (Not Detected)
[2024-09-14 20:54] LABS: Legionella Ag Urine Not Detected (Not Detected)
== END 2024-09-10 11:50 | disposition home health service (06) | DRG 193 ==
LOC: HO.ED 06:12 → HO.EDOVER 08:00 → HO.IMC 15:15 → HO.EDOVER 15:20 → HO.IMC 09-07 07:11
PROVIDERS: Admitting Provider Nurse Practitioner Family; Emergency Provider Emergency Medicine; PCP Internal Medicine; Visit Provider Physician Assistant
DX: J18.9 Pneumonia, unspecified organism (principal); I50.23 Acute on chronic systolic (congestive) heart failure; J96.21 Acute and chronic respiratory failure with hypoxia; C78.02 Secondary malignant neoplasm of left lung; I25.10 Atherosclerotic heart disease of native coronary artery without angina pectoris; E87.5 Hyperkalemia; N40.0 Benign prostatic hyperplasia without lower urinary tract symptoms; D69.6 Thrombocytopenia, unspecified; J43.9 Emphysema, unspecified; F17.210 Nicotine dependence, cigarettes, uncomplicated; Z71.6 Tobacco abuse counseling; I27.20 Pulmonary hypertension, unspecified; E11.9 Type 2 diabetes mellitus without complications; Z85.528 Personal history of other malignant neoplasm of kidney; Z99.81 Dependence on supplemental oxygen; Z95.1 Presence of aortocoronary bypass graft; Z90.5 Acquired absence of kidney; Z79.82 Long term (current) use of aspirin; Z20.822 Contact with and (suspected) exposure to COVID-19; Z79.899 Other long term (current) drug therapy
CPT/HCPCS: 0241U; 36415; 71045; 71250; 80048; 80053; 81001; 81003; 82803; 83036; 83605; 83690; 83735; 83880; 84484; 85025; 85610; 87040; 87449; 87899; 93005; 93306; 94640; 97162; 99285; J0696; J1650; J1940; J2405; J3010; Q9957

== ENCOUNTER → 2024-09-06 04:21 | Outpatient (BNV) | payer MEDICARE, SELFPAY | PROVIDERS: Admitting Provider Nurse Practitioner Family; Emergency Provider Emergency Medicine; PCP Internal Medicine; Visit Provider Internal Medicine Cardiovascular Disease | DX: I50.30 Unspecified diastolic (congestive) heart failure (principal); I51.7 Cardiomegaly; I35.8 Other nonrheumatic aortic valve disorders; I36.1 Nonrheumatic tricuspid (valve) insufficiency; R94.31 Abnormal electrocardiogram [ECG] [EKG] | CPT/HCPCS: 93010; 93306 ==

== ENCOUNTER → 2024-09-06 04:52 | Outpatient (BNV) | payer MEDICARE, SELFPAY | PROVIDERS: Emergency Provider Emergency Medicine; PCP Internal Medicine; Visit Provider Radiology Diagnostic Radiology | DX: R06.02 Shortness of breath (principal) | CPT/HCPCS: 71045 ==

== ENCOUNTER 2024-09-06 07:51 | Outpatient (BNV) | payer MEDICARE, SELFPAY | END 2024-09-07 16:44 | PROVIDERS: Admitting Provider Nurse Practitioner Family; Emergency Provider Emergency Medicine; PCP Internal Medicine; Visit Provider Radiology Diagnostic Radiology | DX: J96.01 Acute respiratory failure with hypoxia (principal) | CPT/HCPCS: 71250 ==

== ENCOUNTER → 2024-09-06 07:51 | Outpatient (BNV) | payer MEDICARE, SELFPAY | PROVIDERS: Admitting Provider Nurse Practitioner Family; Emergency Provider Emergency Medicine; PCP Internal Medicine; Visit Provider Internal Medicine Cardiovascular Disease | DX: I50.9 Heart failure, unspecified (principal) | CPT/HCPCS: 99222; 99233 ==

== ENCOUNTER → 2024-09-06 07:51 | Outpatient (BNV) | payer MEDICARE, SELFPAY | PROVIDERS: Admitting Provider Nurse Practitioner Family; Emergency Provider Emergency Medicine; PCP Internal Medicine; Visit Provider Nurse Practitioner Family | DX: J96.01 Acute respiratory failure with hypoxia (principal); I50.9 Heart failure, unspecified; J44.1 Chronic obstructive pulmonary disease with (acute) exacerbation; J18.9 Pneumonia, unspecified organism; C78.00 Secondary malignant neoplasm of unspecified lung; C64.9 Malignant neoplasm of unspecified kidney, except renal pelvis; F17.200 Nicotine dependence, unspecified, uncomplicated; E13.9 Other specified diabetes mellitus without complications; D69.6 Thrombocytopenia, unspecified | CPT/HCPCS: 99239 ==

== ENCOUNTER → 2024-09-06 07:51 | Outpatient (BNV) | payer MEDICARE, SELFPAY | PROVIDERS: Admitting Provider Nurse Practitioner Family; Emergency Provider Emergency Medicine; PCP Internal Medicine; Visit Provider Surgery | DX: I50.9 Heart failure, unspecified (principal); C78.00 Secondary malignant neoplasm of unspecified lung; C64.9 Malignant neoplasm of unspecified kidney, except renal pelvis; J96.01 Acute respiratory failure with hypoxia; J44.1 Chronic obstructive pulmonary disease with (acute) exacerbation; R91.1 Solitary pulmonary nodule | CPT/HCPCS: 99222 ==

== ENCOUNTER 2025-01-17 13:47 | Inpatient (IN) | payer MEDICARE, SELFPAY ==
[2025-01-17] VITALS (13 sets, daily range): BP systolic 84–114; BP diastolic 41–61; PULSE 75–91; RESP 18–26; TEMP 36.4–36.8; O2SAT 88–93; BMI 23.7
--- NOTE | ~2025-01-17 | XR_ITS ---
EXAMINATION: XR CHEST CLINICAL INFORMATION: weakness COMPARISON: 09/06/2024, CT chest 09/07/2024. TECHNIQUE: Frontal view of the chest was obtained. FINDINGS: Prior median sternotomy. The cardiac, hilar, and mediastinal contours are normal. Lungs demonstrate bilateral numerous nodular opacities in keeping with pulmonary metastatic disease. There is consolidation in the right middle lobe distribution. 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 There is a right base Pleurx catheter in place. There is no pneumothorax. There is no definite effusion. No focal osseous or soft tissue abnormality. XR/XR chest 1V IMPRESSION: 1. Numerous rounded and oval opacities in keeping with metastatic lung disease. 2. 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 3. Right middle lobe consolidation, possible pneumonia. 4. Right Pleurx catheter in place. No pneumothorax. Electronically signed by: Mulugeta Zimmerman MD 01/17/2025 03:19 PM EDT
--- NOTE | ~2025-01-17 | CT_ITS ---
EXAMINATION: CT ANGIOGRAM CHEST CLINICAL INFORMATION: Dyspnea, hypotension, lung cancer COMPARISON: September 07, 2024 TECHNIQUE: Multiple axial images were obtained through the chest after the administration of 85 mL of Omnipaque 350 intravenous contrast. Extensive vascular post-processing including two-dimensional and three-dimensional reformatted images were created and reviewed on an independent workstation. This CT examination was performed using dose optimization techniques as appropriate, variously including the following: *Automated exposure control *Adjustment of mA and/or kV according to patient size (this includes techniques or standardized protocols for targeted exams where dose is matched to indication/reason for exam; i.e. extremities or head) *Use of iterative reconstruction technique DLP: 286 mGY*cm FINDINGS: QUALITY OF STUDY/CONTRAST BOLUS: Good PULMONARY ARTERIES: No filling defects are evident in the pulmonary arteries. THORACIC AORTA: Moderate vascular calcification is evident. There is no aneurysm. LUNGS AND PLEURA: There is a new airspace opacity in the upper portion of the right middle lobe contacting the minor fissure located between the right medial and lateral segment bronchus. Again seen are numerous heterogeneously enhancing masses throughout the lungs and abutting pleura and mediastinum that are increasing in size and number when compared to the prior study. For example, a mass in the lingula (axial image 33/68) measures 2.2 x 3.4 cm previously 1.7 x 2.2 cm. Moderate pleural effusion appears more loculated on the current study. Small left pleural effusion is decreased in size. Pleural calcification is again noted posteriorly on the left. MEDIASTINUM: Mediastinal adenopathy has increased, especially in the right upper paratracheal region. CORONARY ARTERY CALCIFICATION: Present CHEST WALL/AXILLA: No axillary or internal mammary lymphadenopathy. UPPER ABDOMEN: Spleen is enlarged measuring 14.1 cm. BONES: Unremarkable CT/CT angio chest PE protocol IMPRESSION: Suspected right middle lobe pneumonia. No evidence of pulmonary embolus. Worsening changes consistent with metastatic disease with increase in size and number of pulmonary, pleural, or mediastinal masses. Moderate right pleural effusion appears more loculated than on the prior examination. Small left pleural effusion is slightly decreased compared to the prior. Splenomegaly Fleischner guidelines were followed. Electronically signed by: Tonio Ugarte MD 01/17/2025 05:30 PM EDT
--- NOTE | 2025-01-17 14:02 | ECG_ITS ---
Test Reason : DYSPNEA Blood Pressure : */* mmHG Vent. 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
--- NOTE | 2025-01-17 14:21 | ED.GENADULT ---
HPI - General Adult General Chief complaint: General Medical Stated complaint: HYPOTENSION 84/48,DIZZINESS PER EMS Time Seen by Provider: 01/17/25 13:56 Source: patient and old records reviewed Mode of arrival: ambulatory Limitations: no limitations History of Present Illness ED Provider: COLIN NIEVES narrative: 74 yo male with PMH of DM, HTN, HLD, COPD/emphysema states he is on 5L at home while resting, CABGx4, L renal nephrectomy (renal CA) with mets to lung treated at [facility] but no chemo in several months, BPH, CHF last echo August 2024 showed EF 45-50% he notes he came in today after feeling off for 1 week. He has no focal symptoms, no fevers, cough, increased dyspnea, chest pain, GIB symptoms, n/v/d. He states he has no problems urinating. He has no change in his diuretics. He comes in stating he only came because [facility] noted his BP at home to be 70s systolic. He just had a PleurX catheter placed at [facility] yesterday complaint: feels off Onset (ago): week(s) (1) Severity: moderate Quality: constant Relieving factors: rest Exacerbating factors: movement Associated symptoms: denies other symptoms Related Data Home Medications ?Medication ?Instructions ?Recorded ?Confirmed isosorbide mononitrate 30 mg 30 mg PO DAILY 04/24/20 01/17/25 tablet,extended release 24 hr bupropion HCl 150 mg 24 hr tablet, 150 mg PO DAILY 09/06/24 01/17/25 extended release albuterol sulfate 2.5 mg/3 mL 2.5 mg Q4H PRN wheezing 01/17/25 01/17/25 (0.083 %) solution for nebulization albuterol sulfate 90 mcg/actuation 2 puff inhalation Q6H PRN wheezing 01/17/25 01/17/25 aerosol inhaler bumetanide 1 mg tablet 1 mg PO Q2D 01/17/25 01/17/25 gabapentin 300 mg capsule 300 mg PO BID 01/17/25 01/17/25 loperamide 2 mg capsule 2 mg PO Q3H PRN Loose Stool 01/17/25 01/17/25 metoprolol succinate 25 mg 25 mg PO DAILY 01/17/25 01/17/25 tablet,extended release 24 hr ondansetron HCl 4 mg tablet 4 mg PO Q8H PRN Nausea And Vomiting 01/17/25 01/17/25 potassium chloride 10 mEq 10 meq PO DAILY 01/17/25 01/17/25 tablet,extended release(part/cryst) tamsulosin 0.4 mg capsule 0.4 mg PO DAILY 01/17/25 01/17/25 Previous Rx's ?Medication ?Instructions ?Recorded finasteride 5 mg tablet 5 mg PO DAILY 90 days #90 tabs 09/25/23 benzonatate 100 mg capsule 100 mg PO TID PRN Cough #14 caps 09/10/24 empagliflozin 10 mg tablet 10 mg PO DAILY #90 tabs 09/10/24 (Jardiance) Allergies Allergy/AdvReac Type Severity Reaction Status Date / Time No Known Allergies Allergy Verified 01/17/25 14:02 Review of Systems Review of Systems: Constitutional : No Fever, No Chills, No Fatigue ENT/Mouth : No sore throat, No Rhinorrhea Eyes: No Eye Pain, No Swelling, No Redness Cardiovascular : No Chest Pain, No SOB, No Dyspnea on Exertion Respiratory : No Cough, No Sputum Gastrointestinal : No Nausea, No Vomiting, No Diarrhea, No abdominal Pain Genitourinary : No Dysuria, No Urinary Frequency, No Hematuria, Musculoskeletal : No joint pain, No Myalgias, No Joint Swelling Skin : No Skin Lesions, No rash Neuro : pos Weakness, No Numbness, No Dizziness, no Headache All other systems reviewed and are negative [facility] Past Medical History Attestation statement: The following information was validated with the patient. Source: old records reviewed Medical History COVID-19 vaccine series completed Arthritis Myocardial infarction CAD (coronary artery disease) COPD (chronic obstructive pulmonary disease) Hyperlipidemia On beta steven at home Smoker Nocturia more than twice per night Feeling of incomplete bladder emptying BPH w urinary obs/LUTS Renal cancer BPH (benign prostatic hyperplasia) Hypertension Surgical History Hx of cystoscopy History of lung surgery History of heart artery stent History of quadruple bypass Social History Social History (Updated 01/17/25 @ 21:27 by GIUSEPPE Zapata) Household Members: Family Household Members Other:: son Housing: House Are you a primary day care home mother to a significant other at home: No Do you presently have visiting nurse or other home services: No Alcohol intake: never Comment: pt asleep Patient Tobacco Use Status: Former Tobacco user Tobacco use type: Cigarette Cigarette Packs Per Day: 0.5 Cigarettes Per Day: 10.0 Years Smoked: 62 Smoked in Last 30 Days: Yes Second Hand Smoke Exposure: Yes Use of substances other than those prescribed or required for medical reasons: Yes Substance Use Type: Marijuana Substance Use Frequency: Daily Advance Directives: No Advance Directives Information Provided: No service: No Current occupational status: retired Physical Exam ED Vital Signs: Vital Signs - 24 hr 01/17/25 14:01 01/17/25 15:49 01/17/25 15:56 Temperature 98.3 F Pulse Rate 80 80 91 Respiratory Rate 20 Blood Pressure 94/51 L 95/48 L 85/51 L Pulse Oximetry 92 Oxygen Delivery Method Nasal Cannula Oxygen Flow Rate 01/17/25 15:57 01/17/25 16:24 01/17/25 17:49 Temperature Pulse Rate 75 75 79 Respiratory Rate 18 22 H Blood Pressure 87/41 L 89/52 L 103/57 L Pulse Oximetry 92 93 Oxygen Delivery Method Nasal Cannula Nasal Cannula Oxygen Flow Rate 6 6 01/17/25 18:26 01/17/25 19:33 Temperature Pulse Rate 81 82 Respiratory Rate 20 21 H Blood Pressure 103/56 L 113/61 Pulse Oximetry 92 93 Oxygen Delivery Method Room Air Nasal Cannula Oxygen Flow Rate 5 BMI result Body Mass Index 23.7 Appearance: Alert. Oriented X3. No acute distress. Eyes: Pupils equal, round and reactive to light. ENT: Pharynx normal. Neck: Normal inspection. Neck supple. CVS: Normal heart rate and rhythm. Pulses normal. Respiratory: No respiratory distress. Breath sounds diminished throughout Abdomen: Soft and nontender. his pleur x catheter is near the RUQ dressing is c/d/i Skin: Skin warm and dry. pale skin color. Extremities: No lower extremity edema. No calf ttp Neuro: Oriented X 3. No motor deficit. No sensory deficit. CN2-12 intact Course Course Course Narrative: infection suspected at 312pm ceftriaxone ordered 500cc IVF ordered discussed abx and albumin/fluid with RN Reevaluation(s) Reevaluation #1: signed out to Dr. Kam pending VS improvement and view of CT scan 510pm BP trending up. states he feels fine. he is not on any chronic steroids. Reevaluation #2: discussed code status and pressor with patient given his mets cancer he states he would want pressors and his wants CPR but not to be on life support for a long time. Reevaluation #3: focused exam for sepsis performed on 01/17/25 at 1930 Medications Administered Generic Name Dose Route Start Last Admin Trade Name Dulce Maria PRN Reason Stop Dose Admin Budesonide 0.5 mg 01/17/25 21:45 01/18/25 08:11 Budesonide 0.5 Mg/2 Ml Ampul.Neb INHALE 0.5 mg RBID STIVEN Administration Enoxaparin Sodium 40 mg 01/17/25 21:00 01/17/25 21:22 Enoxaparin Sodium 40 Mg/0.4 Ml Syringe SUBCUT 40 mg Q24H STIVEN Administration Polyethylene Glycol 17 gm 01/18/25 09:00 01/18/25 08:49 Polyethylene Glycol 3350 17 Gm Powd.Pack PO 17 gm DAILY STIVEN Administration Senna 17.2 mg 01/17/25 21:00 01/17/25 21:22 Sennosides 8.6 Mg Tablet PO 17.2 mg BEDTIME STIVEN Administration Sodium Chloride 3 ml 01/18/25 00:00 01/18/25 08:49 0.9 % Sodium Chloride Flush 3 Ml Syringe IVFLUSH 3 ml QSHIFT STIVEN Administration Discontinued Medications Generic Name Dose Route Start Last Admin Trade Name Dulce Maria PRN Reason Stop Dose Admin Ceftriaxone Sodium 1 gm 01/17/25 15:11 01/17/25 15:52 Ceftriaxone Sodium 1 Gm Vial IVPUSH 01/17/25 15:12 1 gm ONCE ONE Administration Furosemide 20 mg 01/17/25 21:24 01/17/25 21:44 Furosemide 20 Mg/2 Ml Vial IVPUSH 01/17/25 21:25 20 mg ONCE ONE Administration Protocol Lactated Ringer's 1,000 mls @ 999 mls/hr 01/17/25 14:02 01/17/25 15:08 Lr IV 01/17/25 15:02 Infused .Q1H1M ONE Infusion Azithromycin 500 mg/ Sodium 250 mls @ 125 mls/hr 01/17/25 15:38 01/17/25 18:17 Chloride IV 01/17/25 17:37 Infused ONCE ONE Infusion Albumin Human 100 mls @ 133.333 mls/hr 01/17/25 16:30 01/17/25 19:15 Kedbumin 25 % IV 01/17/25 18:14 Infused Q1H STIVEN Infusion Lactated Ringer's 1,000 mls @ 500 mls/hr 01/17/25 16:41 01/17/25 19:15 Lr IV 01/17/25 18:40 Infused .Q2H ONE Infusion Iohexol 100 ml 01/17/25 17:06 01/17/25 17:06 Iohexol 350 Mg/Ml 100 Ml Infus..Btl IV 01/17/25 17:07 65 ml ONCE ONE Administration Medical Decision Making Medical Decision Making [facility] Narrative: 74 yo male with PMH of DM, HTN, HLD, COPD/emphysema states he is on 5L at home while resting, CABGx4, L renal nephrectomy (renal CA) with mets to lung treated at [facility], BPH, CHF here with reports of feeling tired and off - he notes no GIB symptoms no fevers/cough, or GI symptoms. He has no CP/SOB. He has no change in medications but on arrival his BP is soft - at this time will hydrate carefully with 1L of IVF and obtain labs, CXR, EKG. Possible anemia, dehydration, orthostatics, lung pathology, VTE Differential Diagnosis Differential Diagnoses: The differential diagnosis associated with the presentation includes dehydration, anemia, orthostatics Admission/Observation Consideration of admission/observation: Escalation of care including admission/observation considered will need admission given disease on CXR and his hypotension I have ordered CTA:for PE. Lab Data [facility] Lab Attestation statement: I reviewed the patient's lab results. 01/18/25 04:56 01/18/25 04:56 Labs: Lab Results 01/17/25 01/17/25 01/17/25 Range/Units 14:22 15:05 18:46 WBC 9.1 (4.8-10.8) X10*3/uL RBC 5.81 H (4.60-5.80) X10*6/uL Hgb 16.2 (14.0-18.0) g/dl Hct 50.8 (42.0-52.0) % MCV 87.4 (80.0-98.0) fL MCH 27.9 (27.0-33.0) pg MCHC 31.9 (31.0-36.0) g/dl RDW 15.6 (11.0-16.0) % Plt Count 234 D (160-400) X10*3/uL MPV 9.7 (9.4-12.4) fL Immature Gran % (Auto) 0.7 H (0.0-0.4) % Neut % (Auto) 76.5 H (45-73) % Lymph % (Auto) 7.6 L (20-40) % Rogers % (Auto) 11.6 H (2-11) % Eos % (Auto) 3.0 (0-4) % Baso % (Auto) 0.6 (0-2) % Lymph # (Auto) 0.7 L (1.2-4.9) X10*3/uL Rogers # (Auto) 1.1 (0.1-1.2) X10*3/uL Eos # (Auto) 0.3 (0.0-0.4) X10*3/uL Baso # (Auto) 0.1 (0.0-0.2) X10*3/uL Abs Immat Gran (auto) 0.06 H (0.00-0.03) X10*3/uL Absolute Neuts (auto) 7.0 (2.0-8.3) x10*3/uL Absolute Nucleated RBC 0.000 (0.0-0.012) X10*3/uL Nucleated RBC % (auto) 0.0 (0.0-0.2) /100WBC VBG pH 7.36 (7.32-7.43) VBG pCO2 54 mmHg VBG pO2 70 mmHg VBG HCO3 31 H (22-26) mmol/L VBG O2 Saturation 91.0 % VBG Base Excess 4.0 mmol/L Sodium 137 (135-145) mmol/L Potassium 5.0 D (3.3-5.1) mmol/L Chloride 103 (96-108) mmol/L Carbon Dioxide 28 (22-29) mmol/L Anion Gap 11 L (12-20) BUN 20 H (9-16) mg/dL Creatinine 1.35 (0.5-1.4) mg/dL Estim Creat Clear Calc 42.0 Estimated GFR 51 Random Glucose 94 (60-115) mg/dL Lactic Acid 1.1 (0.5-2.0) mmol/L Calcium 11.2 H D (8.4-10.2) mg/dL Magnesium 2.5 (1.6-2.6) mg/dL Total Bilirubin 0.7 (0.0-1.0) mg/dL Direct Bilirubin 0.3 (0.0-0.5) mg/dL AST 20 (5-37) U/L ALT < 6 (0-40) U/L Alkaline Phosphatase 86 (39-117) U/L Total Creatine Kinase 34 L (38-174) U/L Troponin I High Sens 5.0 D (<3.5-35.0) ng/L C-Reactive Protein 9.04 H (< or = 0.50) mg/dL B-Natriuretic Peptide 541 H (<100) pg/mL Total Protein 7.2 (6.5-8.0) g/dL Albumin 3.5 (3.5-5.0) g/dL Lipase 12 (8-78) U/L Procalcitonin 0.17 ng/mL TSH 1.00 (0.32-4.0) uIU/mL Urine Color Yellow Urine Appearance Clear Urine pH 5.5 (5.0-9.0) Ur Specific [place] >= 1.030 H (1.005-1.025) Urine Protein Negative (Neg-Trace) mg/dL Urine Glucose (UA) >=1000 H (Negative) mg/dL Urine Ketones Negative (Negative) mg/dL Urine Blood Negative (Negative) Urine Nitrite Negative (Negative) Ur Leukocyte Esterase Small (1+) H (Negative) Urine RBC 0-2 (0-2) /HPF Urine WBC 11-20 H (0-5) /HPF Ur Squamous Epith Cells 0-2 (0-2) /HPF Urine Bacteria None Seen (None Seen) Hyaline Casts 0-2 (0-2) /LPF Influenza Type A (PCR) NEGATIVE (Negative) Influenza Type B (PCR) NEGATIVE (Negative) RSV RNA Qual (PCR) NEGATIVE (Negative) SARS-CoV-2 RNA (RT-PCR) NEGATIVE (Negative) Independent Interpretation I performed an independent interpretation of an: EKG, Plain X-Ray (mets disease and R sided opacity) and CT Scan Interpretation: Rate: 77 Rhythm: NSR [place]: normal Normal P waves. Normal RANJEET. widened QRS complex. ST T wave : flat t waves lateral leads, inverted t waves inf leads qTC: 402 prior studies: hx of same in past The study has been interpreted contemporaneously by me. . Radiology Impression Discussion of test interpretation with radiology: I have reviewed the radiologist's reading. Radiologist Impression: CT/CT angio chest PE protocol IMPRESSION: Suspected right middle lobe pneumonia. No evidence of pulmonary embolus. Worsening changes consistent with metastatic disease with increase in size and number of pulmonary, pleural, or mediastinal masses. Moderate right pleural effusion appears more loculated than on the prior examination. Small left pleural effusion is slightly decreased compared to the prior. Splenomegaly Fleischner guidelines were followed. Independent Historian Clinical information obtained from an independent historian. History obtained from or confirmed by: EMS External Record Review External record reviewed: Inpatient record and Outpatient record Critical Care Time Critical Care Time Critical Care Time: Yes Total Critical Care Time: 45 Attestation: sepsis protocol, IVF, review of records, EKG, venous blood gas interpretation I attest to this time spent taking care of the patient Discharge Plan Discharge Clinical Impression: Weakness Pneumonia Qualifiers: Pneumonia type: due to unspecified organism Laterality: right Lung location: unspecified part of lung Qualified Code(s): J18.9 - Pneumonia, unspecified organism Metastatic renal cell carcinoma to lung Qualifiers: Laterality: unspecified laterality Qualified Code(s): C78.00 - Secondary malignant neoplasm of unspecified lung Patient Disposition: Admitted As Inpatient Interventions: Admission Worksheet (ED) Last Done: 01/18/25 06:27 Sepsis Bolus Exclusion Sepsis Bolus Exclusion CHF/Renal Failure This patient met severe sepsis criteria due to the following condition(s):: Hypotension In my clinical judgement the administration of 30 ml/kg of crystalloid would be detrimental to this patient due to the patient's following conditions:: NYHA class III or IV Heart Failure(symptoms with low exertion or rest) and Concern for fluid overload Replace the 30 mls/kg with (Zero amount not acceptable and all fluids for severe sepsis must be given at GREATER than 125 mls/hr) Crystalloids amount given in mls: (rate must be at least 150cc/hr): 1,000 Colloids amount given in mls:: 200
[2025-01-17 14:32] LABS: MANUAL DIFF FLAG NO
[2025-01-17 14:35] LABS: Hematocrit 50.8 % (42.0-52.0); Hemoglobin 16.2 g/dl (14.0-18.0); Imm Gran Abs Auto 0.06 X10*3/uL (0.00-0.03); Imm Gran Pct Auto 0.7 % (0.0-0.4); Lymphocytes Absolute Auto 0.7 X10*3/uL (1.2-4.9); Mean Corpuscular HGB Conc 31.9 g/dl (31.0-36.0); Mean Corpuscular Hemoglobin 27.9 pg (27.0-33.0); Mean Corpuscular Volume 87.4 fL (80.0-98.0); NRBC Abs Auto 0.000 X10*3/uL (0.0-0.012); NRBC Pct Auto 0.0 /100WBC (0.0-0.2); Platelet Count 234 X10*3/uL (160-400); Red Blood Count 5.81 X10*6/uL (4.60-5.80); White Blood Count 9.1 X10*3/uL (4.8-10.8)
[2025-01-17] MEDS: Lactated Ringers 1,000 ML 999 ML IV (14:37)
[2025-01-17 15:02] LABS: B Type Natriuretic Peptide 541 pg/mL (<100)
[2025-01-17 15:03] LABS: Troponin-I High Sensitivity 5.0 ng/L (<3.5-35.0)
[2025-01-17 15:07] LABS: Venous Blood Gas Refer to POC result
[2025-01-17 15:08] LABS: Alanine Aminotransferase < 6 U/L (0-40); Albumin Level 3.5 g/dL (3.5-5.0); Alkaline Phosphatase 86 U/L (39-117); Anion Gap 11 (12-20); Aspartate Amino Transferase 20 U/L (5-37); Blood Urea Nitrogen 20 mg/dL (9-16); Calcium 11.2 mg/dL (8.4-10.2); Carbon Dioxide 28 mmol/L (22-29); Chloride 103 mmol/L (96-108); Creatinine Clr Calc Pharmacy 42.0; Estimated Glomerular Filt Rate 51; Lipase 12 U/L (8-78); Magnesium 2.5 mg/dL (1.6-2.6); Potassium 5.0 mmol/L (3.3-5.1); Sodium 137 mmol/L (135-145); Total Protein 7.2 g/dL (6.5-8.0)
[2025-01-17 15:09] LABS: VBG HCO3 31 mmol/L (22-26); VBG O2 % Saturation 91.0 %
[2025-01-17 15:15] LABS: Resp Syncy Virus RNA Qual PCR NEGATIVE (Negative); SARS COV2 PCR INHOUSE NEGATIVE (Negative)
[2025-01-17 15:18] LABS: Procalcitonin 0.17 ng/mL
--- OUTSIDE RECORDS SUMMARY | 2025-01-17 15:45 | XMS_ITS ---
Author Organization [facility] Address [address] [place] [address] Phone Care Team Providers Care Mechanics Handyman Name Role Phone Yang Judd MD Primary Care Provider [phone] Active Problems Problem Noted Date Diagnosed Date Metastatic renal cell carcin helena to lung, left ([facility] V24, [facility] V28) 01/04/2025 Pleural effusion, right 01/04/2025 Chronic combined systolic an d diastolic CHF (congestive heart failure) ([facility] V24, [facility] V28) 01/04/2025 Type 2 diabetes mellitus wit h diabetic microalbuminuria, without long-term current use of insulin ([facility] V24, [facility] V28) 01/04/2025 Acute hypoxemic respiratory failure ([facility] V24, [facility] V28) 01/02/2025 Acute on chronic hypoxic res piratory failure ([facility] V24, [facility] V28) 12/07/2024 CAD of autologous bypass graft 09/13/2024 Anxiety and depression 07/26/2024 Chronic respiratory failure with hypoxia ([facility] V24, [facility] V28) 07/26/2024 Encounter for follow-up surveillance of kidney c ancer 05/17/2024 History of percutaneous coronary intervention Metastatic renal cell carcinoma ([facility] V24, [facility] V28) 11/25/2023 Type 2 diabetes mellitus wit h diabetic nephropathy, without long-term current use of insulin ([facility] V24, [facility] V28) 02/05/2023 Stage 3 chronic kidney disease ([facility] V24, [facility] V28) 02/05/2023 Insomnia 02/05/2023 H/O left nephrectomy 07/02/2021 CAD (coronary artery disease) 05/01/2021 Overview (03/09/2024): Coronary artery bypass graft Urinary obstruction 04/19/2020 Gross hematuria 04/15/2020 Overview (03/09/2024): Televisit 04/14/2020 - sent to ER Thyroid nodule 04/18/2014 COPD (chronic obstructive pu lmonary disease) ([facility] V24, [facility] V28) 03/09/2014 Hyperlipidemia with target LDL less than 70 02/13 Overview (03/09/2024): IMO update Lung nodules 02/11/2014 Pleural plaque 02/11/[address] elevation myocardial infarction (S SUSHIL) 01/26/2014 Overview (03/09/2024): 2010 Tobacco use disorder 12/02/2010 Hypertrophy of prostate without urinary obstruct ion 01/04/2007 Erectile dysfunction 01/04/2007 Pain in joint, shoulder region 08/29/2005 Old UT (myocardial infarction) 08/29/2005 Overview (03/09/2024): myocardial infarction 2000, EF 45% CAD, UT, CABG x4 1999 Hypertension 08/29/2005 Current Oncology Plans Nivolumab 3 mg/kg + Ipilimumab 1 mg/kg followed by Nivolumab Maintenance (ordered separately)* Plan Start Date:10/03/2024 Plan Provider:Mickie Suggs MD Linked Problems Metastatic renal cell carcin helena, unspecified laterality ([facility] V24, [facility] V28) Treatment Medications ipilimumab (YERVOY) chemo IVPB 50 mL NSnivolumab (OPDIVO) chemo IVPB 100 mL Past Plans Oncology Treatment Plan Name Start Date Discontinue Date Treatment Medications Discontinue Reason Plan Provider Cycles Pembrolizumab ( 21-day cycle, 200 mg ) 4 09/21/2024 pembrolizumab (KEYTRUDA)pembr olizumab (KEYTRUDA) chemo IVPB (adult) Change in Level of Care Mickie Suggs MD 12 of 18 cycles started Radiation Treatments * No radiation treatments are documented for this patient in [facility]. Treatments may have been administered in another system. Lifetime Dose Tracking * Chemical Lifetime Dose Automatic Entry Manual Entr y Fluoro Time 0.8 minutes 0.8 minutes 0 minutes Air Kerma 6 mGy 6 mGy 0 mGy CTDIvol 10.68 mGy 10.68 mGy 0 mGy
--- OUTSIDE RECORDS SUMMARY | 2025-01-17 15:45 | XMS_ITS | Clinical Summary ---
Author Organization [facility] Address [address] [place] [address] Care Team Providers Care Spray Stainer Name Role Phone Yang Judd MD Primary Care Provider [phone] Allergies Active Allergy Reactions Criticality Noted Date Comments Trazodone 09/14/2023 Weird dreams per pt Medications Medication Sig Dispensed Refills Start Date End Date Status albuterol (PROVENTIL) (2.5 MG/3ML) 0.083% nebulizer solution Inhale 3 mL (2.5 mg total) into the lungs. 0 02/02/2023 Active amLODIPine (NORVASC) tablet 5 mg Take 1 tablet (5 mg total) by mouth daily. 0 02/05/2023 Active aspirin 81 MG EC tablet Take 1 tablet (81 mg total) by mouth. 0 Active atorvastatin (LIPITOR) tablet 40 mg Take 1 tablet (40 mg total) by mouth daily. 0 03/06/2023 Active budesonide-formotero l (SYMBICORT) 160-4.5 MCG/ACT inhaler Inhale 2 puffs into the lungs. 0 07/30/2022 Active finasteride (PROSCAR) 5 MG tablet Take 1 tablet (5 mg total) by mouth daily. 0 12/02/2022 Active gabapentin (NEURONTIN) 300 MG capsule Take 1 capsule (300 mg total) by mouth every night at bedtime. 0 03/04/2023 Active glipiZIDE (GLUCOTROL XL) ER 24 hr tablet 2.5 mg Take 1 tablet (2.5 mg total) by mouth daily. 0 08/29/2022 Active isosorbide mononitrate (IMDUR) 30 MG 24 hr tablet Take 1 tablet (30 mg total) by mouth daily. 0 02/05/2023 Active metoprolol succinate (TOPROL-XL) 24 hr tablet 100 mg Take 1 tablet (100 mg total) by mouth daily. 0 02/05/2023 Active ondansetron (ZOFRAN) 4 MG tablet Take 1-2 tablets (4-8 mg total) by mouth. 0 09/09/2022 Active tamsulosin (FLOMAX) 0.4 MG CAPS Take 2 capsules (0.8 mg total) by mouth daily. 0 01/01/2023 Active buPROPion (WELLBUTRIN XL) 150 MG 24 hr tablet Take 1 tablet (150 mg total) by mouth daily. 30 tablet 9 04/07/2023 Active albuterol 108 (90 Base) MCG/ACT inhaler Inhale 2 puffs into the lungs every 6 (six) hours as needed for wheezing. 0 Active clotrimazole-betamet hasone (LOTRISONE) cream Apply topically 2 (two) times a day. 0 Active tiotropium (SPIRIVA) [address] 1 capsule (18 mcg total) into inhaler and inhale daily. 0 Active axitinib (INLYTA) 5 MG tabletIndications:Re nal cell carcinoma of left kidney metastatic to other site (HCC) Take 1 tablet (5 mg total) by mouth every 12 (twelve) hours 60 tablet 5 12/07/2023 Active prochlorperazine (COMPAZINE) 10 MG tablet Take 1 tablet (10 mg total) by mouth every 6 (six) hours as needed. 30 tablet 2 04/09/2024 Active Active Problems Problem Noted Date Diagnosed Date Metastatic renal cell carcinoma 12/07/2023 Lung nodule 08/28/2023 Social History Tobacco Use Types Packs/Day Years Used Date Smoking Tobacco: Every Day Cigarettes 1 Smokeless Tobacco: Never Alcohol Use Standard Drinks/Week Comments Yes 0 (1 standard drink = 0.6 oz pur e alcohol) Social Sex and Gender Information Value Date Recorded Sex Assigned at Male 09/14/2023 9:28 AM EDT Gender Identity Not on file Sexual Orientation Not on file Job Start Date Occupation Industry Not on file Not on file Not on file Last Filed Vital Signs Vital Sign Reading Time Taken Comments Blood Pressure 101/57 04/06/2024 8:58 AM EDT Pulse 67 04/06/2024 8:58 AM EDT Temperature 36.1 C (97 F) 04/06/2024 8:58 AM EDT Respiratory Rate 18 02/24/2024 9:09 AM EDT Oxygen Saturation 86% 04/06/2024 8:58 AM EDT Inhaled Oxygen Concentration - - Weight 74.6 kg (164 lb 7.4 oz) 04/06/2024 8:58 A M EDT Height 171.5 cm (5' 7.5 ) 09/14/2023 10:38 AM ED T Body Mass Index 25.38 09/14/2023 10:38 AM EDT Plan of Treatment Health Maintenance Due Date Last Done Comments Hepatitis C Screening 1948 Depression Screening 1960 Preventative Health Evaluation 1966 Tobacco Cessation Counseling 1966 Shingrix-Zoster Vaccine (1 of 2) 08/31/1967 Fall Risk Assessment 2013 DTap / Tdap / Td (2 - Td or Tdap) 01/04/2017 01/04/2007 RSV Adult > 60+ Yrs or (1 - 1-dose 75+ series) 08/31/2023 COVID-19 Vaccine ( season) 2024 03/24/2023, 11/28/2021, 05/23/2021, Additional history exists Influenza Vaccine (#1) 2025 , 01/30/2022, 02/27/2021, Additional history exists Pneumococcal Vaccine Completed 05/26/2016, 05/18/2015, 01/26/2014 Hepatitis B Vaccines Aged Out No long er eligible based on patient's age to complete this topic RSV Ped < 20 months Aged Out No longe r eligible based on patient's age to complete this topic Advance Directives For more information, please contact: [phone] Latest Code Status on File Code Status Date Activated Date Inactivated Comments Full Code 09/17/2023 3:55 PM 09/17/2023 11:19 PM This c ode status was ascertained in the following way: discussion with patient . Care Teams Spray Stainer Relationship Specialty Start Date End Date Yang Judd MD [address] [place] [id number] PCP - General Hospitalist Medicine 01/08/23
--- OUTSIDE RECORDS SUMMARY | 2025-01-17 15:45 | XMS_ITS ---
[facility] Name [facility] Organization Unknown Results Test Name/Text Value Interpretation Date Range Source GLUCOSE [facility] GLUCOMTR [facility] 114.0 mg/dL Normal 09/17/2023 70 - 199 CTTHSFRAN History of Medication Use Medication Directions Dispensed Refills Start Date End Date Stat acetaminophen (TYLENOL) tablet 650 mg 650 mg, Oral, Every 6 hours PRN, mild pain (1-3), Starting on Norma 09/17/23 at 1545, PACU/Phase 1 09/17/2023 active dexamethasone (DECADRON) injection 4 mg 4 mg, Intravenous, Once as needed, other, nausea, vomiting, Starting on Norma 09/17/23 at 1545, For 1 dose, PACU/Phase 1Administer 2nd unless given in the OR if zofran is ineffective and patient continues to be symptomatic. 09/17/2023 active dimenhyDRINATE (DRAMAMINE) injection 25 mg 25 mg, Intravenous, Once as needed, nausea, Nausea, vomiting, Starting on Norma 09/17/23 at 1545, For 1 dose, PACU/Phase 1Administer 3rd unless given in the OR if zofran and decadron are ineffective and patient continues to be symptomatic. INTRAMUSCULAR: No dilution required INTRAVENOUS: Must dilute e 09/17/2023 active HYDROmorphone (DILAUDID) injection 0.2 mg 0.2 mg, Intravenous, Every 15 min PRN, moderate pain (4-6), Starting on Norma 09/17/23 at 1545, PACU/Phase 1FOR PACU USE ONLY. If unable to take by mouth. Do not exceed 2 mg. 09/17/2023 active meperidine (DEMEROL) 25 MG/ML injection 12.5 mg 12.5 mg, Intravenous, Every 30 min PRN, shivering not due to postoperative hypothermia., Starting on Norma 09/17/23 at 1545, For 2 doses, PACU/Phase 1May repeat x 1 in 30 minutes. 09/17/2023 active orphenadrine (NORFLEX) injection 30 mg 30 mg, Intravenous, Once as needed, muscle spasms, for musculoskeletal pain, to achieve pain scale less than or equal to 4, Starting on Norma 09/17/23 at 1545, For 1 dose, PACU/Phase 1 09/17/2023 active atorvastatin (LIPITOR) tablet 40 mg Take 1 tablet (40 mg total) by mouth daily. 03/06/2023 active isosorbide mononitrate (IMDUR) 30 MG 24 hr tablet Take 1 tablet (30 mg total) by mouth daily. 02/05/2023 active traZODone (DESYREL) 50 MG tablet Take 1 tablet (50 mg total) by mouth every night at bedtime as needed. for sleepo 02/05/2023 active albuterol (PROVENTIL) (2.5 MG/3ML) 0.083% nebulizer solution Inhale 3 mL (2.5 mg total) into the lungs. 02/02/2023 active budesonide-formotero l (SYMBICORT) 160-4.5 MCG/ACT inhaler Inhale 2 puffs into the lungs. 07/30/2022 active hydrOXYzine (VISTARIL) 25 MG capsule Take 1 capsule (25 mg total) by mouth. 07/30/2022 active aspirin 81 MG EC tablet Take 1 tablet (81 mg total) by mouth. active clotrimazole-betamet hasone (LOTRISONE) cream Apply topically 2 (two) times a day. active tiotropium (SPIRIVA) [address] 1 capsule (18 mcg total) into inhaler and inhale daily. active Allergies Allergen Reaction Severity Comment Documented Date Source Statu s TRAZODONE Weird dreams per pt 09/14/2023 CTTHSFR AN active Problems Problem Status Onset Date Problem Type Date of Resoluti on Source Pain active EncounterDiagnosisAct CTTHSFRAN Lung nodule active 2023-08-28 ProblemAct CTTHSF RAN Encounters Encounter Type Encounter Reason Primary Diagnosis Location Date Ambulatory Pain, unspecified Pain, unspecified [facility] 09/17/2023 Care Team Organization Name Specialty Phone Email Start Date End [facility] te [facility] 08/29/2023 12/27/2024 [facility] Primary [facility] 08/28/2023 [facility] CODY FLOWER Primary Care 05/27/20232023 [facility] Termed, PROVIDER Primary Care 02/19/2023 0802/2024 [facility] Primary Care 04/22/20222023
[2025-01-17] MEDS: Albumin Human 25 % 100 ML 133.33 ML IV ×2 (16:59→18:17)
[2025-01-17] MEDS: iohexoL 350 MG/ML 100 ML INFUS..BTL IV (17:06)
[2025-01-17] MEDS: Lactated Ringers 1,000 ML 500 ML IV (17:15)
[2025-01-17 18:54] LABS: Appearance Urine Clear; Glucose Urine UA >=1000 mg/dL (Negative); PH 5.5 (5.0-9.0); Specific Gravity - Urine >= 1.030 (1.005-1.025); UMIC TRIGGER UACC YES
[2025-01-17 18:57] LABS: UACC Culture Trigger YES
--- NOTE | 2025-01-17 20:30 | PM.IMHP ---
History of Present Illness Date of Service: 01/17/25 Attending physician on admission: Galileo Buckley Chief Complaint: hypotension Pt is a 74 yo male with PMH renal carcinoma with Metastases to the lungs (currently following with [facility] and recently stopped chemotherapy and was admitted to hospice), DMII, HTN, Tobacco depednece with current cessation, marijuana use, HLD, CHF, BPH presents to the emergency room via ambulance for noted hypotension and hypoxia. Patient has had multiple admissions recently for the same concern but patient also noted to be significantly hypoxic currently on 6 L of oxygen via nasal cannula. Patient states his medications for blood pressure have not been recently adjusted. Patient also states that he [facility] right pleura where he has recurring pleural effusions. Currently CT scan notes a moderate right pleural effusion. Currently this television script writer is attempting access with PleurX canister via ICU nursing. There is suspicion that the pleural effusion may be loculated. Patient also diagnosed with pneumonia and started on antibiotics in the emergency department. Patient denies any chest pain currently, shortness of breath at rest but does have shortness of breath when he begins to speak or move his extremities. Patient denies any abdominal pain, nausea, vomiting, fever, chills, night sweats. Patient denies any recent falls. Patient does report increasing weakness especially in the lower extremities. Patient states he is still a full code but does state that he enrolled with hospice this past week. This television script writer was able to reach patient's son and he confirmed that patient has not yet been admitted with hospice and is a full code status at this time. In addition, family does have a wheelchair at the home and son has noticed that patient's oxygen needs have increased and he is now on 6 L at home nasal cannula. Review of Systems Review of Systems: Patient denies any current chest pain, is reporting shortness of breath especially when talking or ambulating. Patient denies any abdominal pain, nausea or vomiting. Patient denies any issues with voiding but is having some issues with constipation including straining. Patient denies any recent falls. Yes all other systems are reviewed and are negative [facility] Medical History COVID-19 vaccine series completed Arthritis Myocardial infarction CAD (coronary artery disease) COPD (chronic obstructive pulmonary disease) Hyperlipidemia On beta steven at home Smoker Nocturia more than twice per night Feeling of incomplete bladder emptying BPH w urinary obs/LUTS Renal cancer BPH (benign prostatic hyperplasia) Hypertension Cognitive capacity: Alert and orientated x3 Functional capacity: wheelchair bound Surgical History Hx of cystoscopy History of lung surgery History of heart artery stent History of quadruple bypass Social History (Updated 01/17/25 @ 21:27 by GIUSEPPE Zapata) Household Members: Family Household Members Other:: son Housing: House Are you a primary day care supervisor to a significant other at home: No Do you presently have visiting nurse or other home services: No Alcohol intake: never Comment: pt asleep Patient Tobacco Use Status: Former Tobacco user Tobacco use type: Cigarette Cigarette Packs Per Day: 0.5 Cigarettes Per Day: 10.0 Years Smoked: 62 Smoked in Last 30 Days: Yes Second Hand Smoke Exposure: Yes Use of substances other than those prescribed or required for medical reasons: Yes Substance Use Type: Marijuana Substance Use Frequency: Daily Advance Directives: No Advance Directives Information Provided: No service: Yes Current occupational status: retired Ebola Risk: Travel/Contact With Anyone From Affected Area/s: No Has Patient Experienced Ebola Symptoms: No Meds Allergies Allergy/AdvReac Type Severity Reaction Status Date / Time No Known Allergies Allergy Verified 01/17/25 14:02 Home Medications ?Medication ?Instructions ?Recorded ?Confirmed ?Last Taken ?Type isosorbide mononitrate 30 mg 30 mg PO DAILY 04/24/20 01/17/25 01/17/25 History tablet,extended release 24 hr bupropion HCl 150 mg 24 hr tablet, 150 mg PO DAILY 09/06/24 01/17/25 01/17/25 History extended release albuterol sulfate 2.5 mg/3 mL 2.5 mg Q4H PRN wheezing 01/17/25 01/17/25 Unknown History (0.083 %) solution for nebulization albuterol sulfate 90 mcg/actuation 2 puff inhalation Q6H PRN wheezing 01/17/25 01/17/25 Unknown History aerosol inhaler bumetanide 1 mg tablet 1 mg PO Q2D 01/17/25 01/17/25 01/15/25 History gabapentin 300 mg capsule 300 mg PO BID 01/17/25 01/17/25 01/17/25 History loperamide 2 mg capsule 2 mg PO Q3H PRN Loose Stool 01/17/25 01/17/25 Unknown History metoprolol succinate 25 mg 25 mg PO DAILY 01/17/25 01/17/25 01/17/25 History tablet,extended release 24 hr ondansetron HCl 4 mg tablet 4 mg PO Q8H PRN Nausea And Vomiting 01/17/25 01/17/25 Unknown History potassium chloride 10 mEq 10 meq PO DAILY 01/17/25 01/17/25 01/17/25 History tablet,extended release(part/cryst) tamsulosin 0.4 mg capsule 0.4 mg PO DAILY 01/17/25 01/17/25 01/17/25 History Physical Exam Vital Signs and Narrative: Vital Signs: Last Vital Signs Temp 98.3 F 01/17/25 14:01 Pulse 82 01/17/25 19:33 Resp 21 H 01/17/25 19:33 BP 113/61 01/17/25 19:33 Pulse Ox 93 01/17/25 19:33 O2 Del Method Nasal Cannula 01/17/25 19:33 O2 Flow Rate 5 01/17/25 19:33 Oxygen Flow Rate 5 01/17/25 14:01 BMI result Body Mass Index 23.7 Alert and orientated X3, memory stable Neuro: CN II-X11 intact, no deficits, visual acuity intact EYES: PERRLA, EOM intact, sclera nonicteric, conjunctiva pink ENT: hearing intact, no issues with swallowing, uvula midline, lips moist, nares patent no epistaxis Cardiac: S1 S2 RRR, no murmur, no JVD, no edema in Lower ext Pulmonary: lungs diminished B R>L Abdominal: BS active in all 4 quadrants, no guarding, tenderness, rebounding MSK: strength 4/5 upper and lower extremities : no CVA tenderness no bladder distension Extremities: no edema in lower extremities, PT and DP pulses palpable +2 Psych: mood stable, judgement and insight fair Skin: intact, new pleurex catheter in R ABD Results Labs 01/17/25 14:22 01/17/25 14:22 Labs: Laboratory Results - last 24 hr 01/17/25 01/17/25 01/17/25 14:22 15:05 18:46 MCV 87.4 MCH 27.9 MCHC 31.9 RDW 15.6 Plt Count 234 D MPV 9.7 Immature Gran % (Auto) 0.7 H Neut % (Auto) 76.5 H Lymph % (Auto) 7.6 L Wilkin % (Auto) 11.6 H Eos % (Auto) 3.0 Baso % (Auto) 0.6 Lymph # (Auto) 0.7 L Wilkin # (Auto) 1.1 Eos # (Auto) 0.3 Baso # (Auto) 0.1 Abs Immat Gran (auto) 0.06 H Absolute Neuts (auto) 7.0 Absolute Nucleated RBC 0.000 Nucleated RBC % (auto) 0.0 VBG pH 7.36 VBG pCO2 54 VBG pO2 70 VBG HCO3 31 H VBG O2 Saturation 91.0 VBG Base Excess 4.0 Anion Gap 11 L Estim Creat Clear Calc 42.0 Estimated GFR 51 Random Glucose 94 Lactic Acid 1.1 Calcium 11.2 H D Magnesium 2.5 Total Bilirubin 0.7 Direct Bilirubin 0.3 AST 20 ALT < 6 Alkaline Phosphatase 86 Total Creatine Kinase 34 L C-Reactive Protein 9.04 H B-Natriuretic Peptide 541 H Total Protein 7.2 Albumin 3.5 Lipase 12 Procalcitonin 0.17 TSH 1.00 Urine Color Yellow Urine Appearance Clear Urine pH 5.5 Ur Specific [place] >= 1.030 H Urine Protein Negative Urine Glucose (UA) >=1000 H Urine Ketones Negative Urine Blood Negative Urine Nitrite Negative Ur Leukocyte Esterase Small (1+) H Urine RBC 0-2 Urine WBC 11-20 H Ur Squamous Epith Cells 0-2 Urine Bacteria None Seen Hyaline Casts 0-2 Influenza Type A (PCR) NEGATIVE Influenza Type B (PCR) NEGATIVE RSV RNA Qual (PCR) NEGATIVE SARS-CoV-2 RNA (RT-PCR) NEGATIVE ECG Attestation: I personally reviewed and interpreted this ECG as follows: (NSR ) Prior ECG tracings: available for review Imaging Radiologist's Impressions: Impressions Chest X-Ray 01/17/25 14:12 IMPRESSION: 1. Numerous rounded and oval opacities in keeping with metastatic lung disease. 2. 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 3. Right middle lobe consolidation, possible pneumonia. 4. Right Pleurx catheter in place. No pneumothorax. Electronically signed by: Mulugeta Zimmerman MD 01/17/2025 03:19 PM EDT RP Chest CTA 01/17/25 16:40 IMPRESSION: Suspected right middle lobe pneumonia. No evidence of pulmonary embolus. Worsening changes consistent with metastatic disease with increase in size and number of pulmonary, pleural, or mediastinal masses. Moderate right pleural effusion appears more loculated than on the prior examination. Small left pleural effusion is slightly decreased compared to the prior. Splenomegaly Fleischner guidelines were followed. Electronically signed by: Tonio Ugarte MD 01/17/2025 05:30 PM EDT RP Assessment and Plan (1) Pneumonia: Qualifiers: Laterality: right Lung location: unspecified part of lung Pneumonia type: due to unspecified organism Qualified Code(s): J18.9 - Pneumonia, unspecified organism Status: Acute Plan Pt is a 74 yo male with PMH renal carcinoma with Metastases to the lungs (currently following with [facility] and recently stopped chemotherapy and was admitted to hospice), DMII, HTN, Tobacco depednece with current cessation, marijuana use, HLD, CHF, BPH presents to the emergency room via ambulance for noted hypotension and hypoxia. CT notes evidence of advancing metastatic disease, primary source renal cancer. Patient is now dependent on 6 L oxygen at home and recently stopped treatment with his oncologist at [facility]. Right PleurX catheter is in place as of yesterday. Patient does have a moderate right pleural effusion and pneumonia. Confirmed with son and pt that pt is full code status. Acute Hypoxic Respiratory failure Secondary to advanced metastatic renal ca to lunsg with Worsening changes consistent with metastatic disease with increase in size and number of pulmonary, pleural, or mediastinal masses via CT scan Noted worsening hypoxia with speaking, eating or any acivity beyond resting - mcclellan placed to assist with energy/O2 conservation Oxymyzer added from [place], attempting to humidify O2 Obtaining supplies to access pleurex catheter for R moderate pleural effusion Pulmonary consulted Low threshhold for Non mechanical ventilation vs intubation - Full Code Status Telemetry and continuous Pulse OX RML PNA Continuing Ceftriaxone and Azithromycin Monitor CBC Monitor for sepsis, pt does not meet criteria for sepsis at this time Moderate R pleural Effusion, more loculated with R pleurex catheter in place Noted hypoxia as above Lasix 20 IV X1, using conservative dosing due to hypotension Able to coordinate access to pleurex catheter and drained 250 ccs from R pleural effusion, POX increased to 92 with decreased work of breathing Renal CA with mets to Lung Pt stopped all treatment this past month Plan is to enroll with Hospice but appt is upcoming Pt remains a FULL CODE status for now, confirmed with pt's son, his HCP Pain in well controlled Hypotension Pt hypotensive in the field, BP has been stable on arrival Holding all antihypertenisves Hypercalcemia Likely secondary to advance cancer Pt has not been taking any thiazide medications Monitor CA level, albumin levels DVT prophylaixs:Lovenox MED REC PENDING FULL CODE STATUS Quality Stroke Does the patient have a stroke diagnosis?: No Reason for No Anti-thrombotic by Day Two: N/A - Med Ordered VTE Prior VTE?: No VTE Risk Level:: Medical - moderate - high VTE Device Contraindication: N/A - Device Ordered VTE Drug Contraindication: N/A - Med Ordered
[2025-01-17] MEDS: Furosemide 20 MG/2 ML VIAL IVPUSH (21:44)
[2025-01-17 21:58] LABS: ABG HCO3 28 mmol/L (22-26); ABG O2 % Saturation 89.0 %
--- NOTE | 2025-01-17 22:43 | PHA.MEDREC ---
Addendum entered by Sukhjinder Allen [facility] 01/17/25 22:43: Pt no longer takes norvasc due to low blood pressure Original Note: Pharmacy Consult ? Medication Reconciliation Pharmacy has completed the medication reconciliation. Spoke to pt's son Lane
[2025-01-17 22:50] LABS: ABG Refer to POC result
[2025-01-17] MEDS: 0.9 % Sodium Chloride Flush 3 ML SYRINGE IVFLUSH (23:43)
[2025-01-18] VITALS (16 sets, daily range): BP systolic 112–151; BP diastolic 59–72; PULSE 90–102; RESP 11–30; TEMP 36.5–37.1; O2SAT 82–93; BMI 24.2
--- NOTE | 2025-01-18 03:27 | PC.RT ---
pt refusing to wear cpap. does not wear it at home only 6 l . pt in no resp distres RN aware
[2025-01-18 05:56] LABS: MANUAL DIFF FLAG NO
[2025-01-18 06:07] LABS: Hematocrit 48.0 % (42.0-52.0); Hemoglobin 15.3 g/dl (14.0-18.0); Imm Gran Abs Auto 0.06 X10*3/uL (0.00-0.03); Imm Gran Pct Auto 0.7 % (0.0-0.4); Lymphocytes Absolute Auto 0.7 X10*3/uL (1.2-4.9); Mean Corpuscular HGB Conc 31.9 g/dl (31.0-36.0); Mean Corpuscular Hemoglobin 27.6 pg (27.0-33.0); Mean Corpuscular Volume 86.6 fL (80.0-98.0); NRBC Abs Auto 0.000 X10*3/uL (0.0-0.012); NRBC Pct Auto 0.0 /100WBC (0.0-0.2); Platelet Count 219 X10*3/uL (160-400); Red Blood Count 5.54 X10*6/uL (4.60-5.80); White Blood Count 8.9 X10*3/uL (4.8-10.8)
[2025-01-18 06:24] LABS: Anion Gap 13 (12-20); Blood Urea Nitrogen 17 mg/dL (9-16); Calcium 11.2 mg/dL (8.4-10.2); Carbon Dioxide 26 mmol/L (22-29); Chloride 103 mmol/L (96-108); Creatinine Clr Calc Pharmacy 49.3; Estimated Glomerular Filt Rate > 60; Potassium 4.5 mmol/L (3.3-5.1); Sodium 137 mmol/L (135-145)
--- NOTE | 2025-01-18 08:30 | PC.NURSE ---
Pt noted to be working to breath with O2 sats with O2 sats in low 80s on 6L [place]. o2 inc to 10L and work of breathing improved. respiratory to bedside will place pt on high flow.
[2025-01-18] MEDS: 0.9 % Sodium Chloride Flush 3 ML SYRINGE IVFLUSH ×3 (08:49→21:41)
--- NOTE | 2025-01-18 11:42 | MHC.CM.PN ---
IMM 01/18/25, pt. lives with his son, he said he will be getting home health services soon, have not started yet. He said he will have Hospice, does not know which one. HCP is on file, his son Lane. PCP is Dr. [facility] in [place]. He has home O2 from [facility]. Family to transport home at [place]. DCP: home care services and hospice. CM to follow for DC needs.
--- NOTE | 2025-01-18 12:48 | P.CONPL_ITS ---
History of Present Illness History of Present Illness Consult date: 01/18/25 Chief complaint: Hypoxia Narrative: 74-year-old gentleman with renal carcinoma with lung metastasis, previously under oncology care (Dr. Archuleta at [facility]) recently with significant progression of underlying metastatic disease despite chemotherapy with chemotherapy abandoned and patient essentially on hospice care who presented with worsening hypoxia with CT chest evidence of progressive metastatic disease. Patient requests hospice care in his home. Review of Systems 2 Constitutional: Constitutional: Denies daytime sleepiness, Denies excessive sweating, Denies fatigue, Denies fever(s), Denies lethargy, Denies malaise, Denies night sweats, Denies snoring and Denies weight loss Eyes: Eyes: Denies blurry vision and Denies itchy eyes ENT: Denies nasal congestion, Denies post nasal drip, Denies sinus pain, Denies sinus pressure and Denies other ( Thrush) Cardiovascular: Cardiovascular: Denies chest pain, Denies pedal edema, Reports dyspnea and Reports dyspnea on exertion Respiratory: Respiratory: Denies cough, Denies hemoptysis, Denies excessive phlegm production, Reports dyspnea, Reports dyspnea on exertion, Denies snoring and Denies wheezing Gastrointestinal: Gastrointestinal: Denies abdominal pain and Denies heartburn Musculoskeletal: Musculoskeletal: Denies myalgias, Denies arthralgias and Denies joint swelling Integumentary/Breasts: Skin/Breast: Denies rash Neurologic: Denies memory loss and Denies seizure-like activity Psychiatric: Psychiatric: Denies abnormal sleep pattern, Denies anxiety and Denies memory loss Endocrine: Endocrine: Denies excessive sweating, Denies fatigue and Denies heat intolerance Hematologic/Lymphatic: Hematologic/Lymphatic: Denies easy bruising Allergic/Immunologic: Allergic/Immunologic: Denies itchy eyes, Denies seasonal rhinorrhea and Denies wheezing PMFSH Past Medical History Medical History COVID-19 vaccine series completed Arthritis Myocardial infarction CAD (coronary artery disease) COPD (chronic obstructive pulmonary disease) Hyperlipidemia On beta steven at home Smoker Nocturia more than twice per night Feeling of incomplete bladder emptying BPH w urinary obs/LUTS Renal cancer BPH (benign prostatic hyperplasia) Hypertension Surgical History Surgical History Hx of cystoscopy History of lung surgery History of heart artery stent History of quadruple bypass Social History Social History (Updated 01/17/25 @ 21:27 by GIUSEPPE Zapata) Household Members: Family Household Members Other:: son Housing: House Are you a primary intensive care medicine specialist to a significant other at home: No Do you presently have visiting nurse or other home services: No Alcohol intake: never Comment: pt asleep Patient Tobacco Use Status: Former Tobacco user Tobacco use type: Cigarette Cigarette Packs Per Day: 0.5 Cigarettes Per Day: 10.0 Years Smoked: 62 Smoked in Last 30 Days: Yes Second Hand Smoke Exposure: Yes Use of substances other than those prescribed or required for medical reasons: Yes Substance Use Type: Marijuana Substance Use Frequency: Daily Advance Directives: No Advance Directives Information Provided: No service: No Current occupational status: retired Travel History Ebola Risk: Travel/Contact With Anyone From Affected Area/s: No Has Patient Experienced Ebola Symptoms: No Meds Allergies Allergy/AdvReac Type Severity Reaction Status Date / Time No Known Allergies Allergy Verified 01/17/25 14:02 Active Medications: Current Medications Acetaminophen (Acetaminophen 325 Mg Tablet) 650 mg PO Q6H PRN PRN Reason: Pain, Mild 1-3,fever,headache Albuterol/Ipratropium (Albuterol/Iprat 2.5/0.5mg 3 Ml Ampul.Neb) 3 ml INHALE Q4H PRN PRN Reason: Shortness of Breath/Wheezing Budesonide (Budesonide 0.5 Mg/2 Ml Ampul.Neb) 0.5 mg INHALE RBID [facility] Last Admin: 01/18/25 08:11 Dose: 0.5 mg Calcium Carbonate (Calcium Carbonate 750 Mg Tab.Chew) 750 mg PO Q4H PRN PRN Reason: Heartburn Ceftriaxone Sodium (Ceftriaxone Sodium 1 Gm Vial) 1 gm IVPUSH Q24H [facility] Enoxaparin Sodium (Enoxaparin Sodium 40 Mg/0.4 Ml Syringe) 40 mg SUBCUT Q24H [facility] Last Admin: 01/17/25 21:22 Dose: 40 mg Azithromycin 500 mg/ Sodium (Chloride) 250 mls @ 125 mls/hr IV Q24H [facility] Magnesium Hydroxide (Milk Of Magnesia 30 Ml Oral.Susp) 30 ml PO DAILY PRN PRN Reason: Constipation Melatonin (Melatonin 3 Mg Tablet) 6 mg PO BEDTIME PRN PRN Reason: Insomnia Ondansetron HCl (Ondansetron Hcl 4 Mg/2 Ml Vial) 4 mg IVPUSH Q8H PRN PRN Reason: Nausea and Vomiting Polyethylene Glycol (Polyethylene Glycol 3350 17 Gm Powd.Pack) 17 gm PO DAILY [facility] Last Admin: 01/18/25 08:49 Dose: 17 gm Senna (Sennosides 8.6 Mg Tablet) 17.2 mg PO BEDTIME [facility] Last Admin: 01/17/25 21:22 Dose: 17.2 mg Sodium Chloride (0.9 % Sodium Chloride Flush 3 Ml Syringe) 3 ml IVFLUSH QSHIFT [facility] Last Admin: 01/18/25 08:49 Dose: 3 ml Home Medications ?Medication ?Instructions ?Recorded ?Confirmed ?Last Taken ?Type isosorbide mononitrate 30 mg 30 mg PO DAILY 04/24/20 0 01/17/25 01/17/25 History tablet,extended release 24 hr bupropion HCl 150 mg 24 hr tablet, 150 mg PO DAILY 01/17/25 01/17/25 History extended release albuterol sulfate 2.5 mg/3 mL 2.5 mg Q4H PRN wheezing 01/17/25 01/17/25 Unknown History (0.083 %) solution for nebulization albuterol sulfate 90 mcg/actuation 2 puff inhalation Q 6H PRN wheezing 01/17/25 01/17/25 Unknown History aerosol inhaler bumetanide 1 mg tablet 1 mg PO Q2D 01/17/25 5 01/15/25 History gabapentin 300 mg capsule 300 mg PO BID 01/17/2501/1701/17/25 History loperamide 2 mg capsule 2 mg PO Q3H PRN Loose Stool 01/17/25 01/17/25 Unknown History metoprolol succinate 25 mg 25 mg PO DAILY 01/17/2511/0601/17/25 History tablet,extended release 24 hr ondansetron HCl 4 mg tablet 4 mg PO Q8H PRN Nausea And Vomiting 01/17/25 01/17/25 Unknown History potassium chloride 10 mEq 10 meq PO DAILY 01/17/2511/0601/17/25 History tablet,extended release(part/cryst) tamsulosin 0.4 mg capsule 0.4 mg PO DAILY 01/17/2511/0601/17/25 History Physical Exam 2 Vital Signs: Vital Signs: Last Vital Signs Temp 98.8 F 01/18/25 11:33 Pulse 92 01/18/25 11:33 Resp 20 01/18/25 11:33 BP 112/67 01/18/25 11:33 Pulse Ox 90 L 01/18/25 12:03 O2 Del Method High Flow Nasal C annula 01/18/25 12:03 O2 Flow Rate 40 01/18/25 12:02 FiO2 70 01/18/25 12:03 Oxygen Flow Rate 5 01/17/25 14:01 BMI result Body Mass Index 23.7 Const: General: no acute distress and alert Nutritional Appearance: not obese Orientation/consciousness: Other orientation findings ( oriented) HEENT: Head: Yes atraumatic Eyes: General: appearance normal, both eyes and all related structures S clerae: sclerae normal EOM: EOMs intact bilaterally Neck: Neck: Yes supple Lymphatic: no lymphadenopathy noted Resp: Effort & Inspection: tachypneic Auscultation: clear to auscultation bilaterally Cardio: Rate: regular rate Rhythm: regular rhythm Heart sounds: no gallops, no murmurs and no rubs Skin: General skin exam: other ( warm) Extrem: General: No clubbing, No cyanosis and No edema Results Laboratory Findings 01/18/25 04:56 01/18/25 04:56 Abnormal lab findings: Abnormal Labs 01/17/25 01/17/25 01/17/25 14:22 15:05 18:46 RBC 5.81 H Immature Gran % (Auto) 0.7 H Neut % (Auto) 76.5 H Lymph % (Auto) 7.6 L [place] % (Auto) 11.6 H Lymph # (Auto) 0.7 L Abs Immat Gran (auto) 0.06 H ABG pCO2 at Pt Temp ABG pO2 at Pt Temp ABG HCO3 VBG HCO3 31 H Anion Gap 11 L BUN 20 H Calcium 11.2 H D Total Creatine Kinase 34 L C-Reactive Protein 9.04 H B-Natriuretic Peptide 541 H Ur Specific [place] >= 1.030 H Urine Glucose (UA) >=1000 H Ur Leukocyte Esterase Small (1+) H Urine WBC 11-20 H 01/17/25 01/18/25 21:54 04:56 RBC Immature Gran % (Auto) 0.7 H Neut % (Auto) 75.6 H Lymph % (Auto) 7.5 L [place] % (Auto) 12.7 H Lymph # (Auto) 0.7 L Abs Immat Gran (auto) 0.06 H ABG pCO2 at Pt Temp 50 H ABG pO2 at Pt Temp 63 L ABG HCO3 28 H VBG HCO3 Anion Gap BUN 17 H Calcium 11.2 H Total Creatine Kinase C-Reactive Protein B-Natriuretic Peptide Ur Specific [place] Urine Glucose (UA) Ur Leukocyte Esterase Urine WBC Microbiology: Microbiology 01/17/25 Unknown Urine clean catch - Clean Catch Midstream Urine Culture - Preliminary No growth to date. Assessment and Plan (1) Metastatic renal cell carcinoma to lung: Qualifiers: Laterality: unspecified laterality Qualified Code(s): C78.00 - Secondary malignant neoplasm of unspecified lung; C64.9 - Malignant neoplasm of unspecified kidney, except renal pelvis Status: Acute (2) Acute hypoxic respiratory failure: Status: Resolved Plan Impression: 74-year-old gentleman with rapidly progressive renal cell carcinoma metastatic to the lung despite recent chemotherapy admitted with worsening hypoxemia with CT chest evidence of progressive metastatic disease. Recommendations: No acute interventions variable that would significantly change the underlying rapidly progressive metastatic disease. Suggests hospice care. Procedures Date of Service Date of Service: 01/18/25
--- NOTE | 2025-01-18 17:38 | HO.PM.IMPN ---
Subjective Subjective Date of Service: 01/18/25 Interval History: Somnolent but arousable. Wishes to go home Review of Systems Unable to obtain Physical Exam Vital Signs: Vital Signs: Last Vital Signs Temp 98.2 F 01/18/25 14:33 Pulse 94 01/18/25 14:33 Resp 24 H 01/18/25 15:51 BP 151/71 H 01/18/25 14:33 Pulse Ox 92 01/18/25 14:33 O2 Del Method High Flow Nasal C annula 01/18/25 14:33 O2 Flow Rate 50 01/18/25 14:33 FiO2 70 01/18/25 12:03 Oxygen Flow Rate 5 01/17/25 14:01 BMI result Body Mass Index 23.7 Const: Other: Somnolent but arousable Resp: Other: Diminished at bases but clear Cardio: Other: No S4; positive S1-S2; no S3 murmurs rubs or gallops GI: Other: Soft nontender nondistended normoactive bowel sounds Extrem: Other: No edema bilaterally Objective Data Active Medications Acetaminophen (Acetaminophen 325 Mg Tablet) 650 mg PO Q6H PRN PRN Reason: Pain, Mild 1-3,fever,headache Albuterol/Ipratropium (Albuterol/Iprat 2.5/0.5mg 3 Ml Ampul.Neb) 3 ml INHALE Q4H PRN PRN Reason: Shortness of Breath/Wheezing Budesonide (Budesonide 0.5 Mg/2 Ml Ampul.Neb) 0.5 mg INHALE RBID [facility] Last Admin: 01/18/25 08:11 Dose: 0.5 mg Documented By: SHIRIN Calcium Carbonate (Calcium Carbonate 750 Mg Tab.Chew) 750 mg PO Q4H PRN PRN Reason: Heartburn Ceftriaxone Sodium (Ceftriaxone Sodium 1 Gm Vial) 1 gm IVPUSH Q24H [facility] Last Admin: 01/18/25 14:47 Dose: 1 gm Documented By: JEFFREY Enoxaparin Sodium (Enoxaparin Sodium 40 Mg/0.4 Ml Syringe) 40 mg SUBCUT Q24H [facility] Last Admin: 01/17/25 21:22 Dose: 40 mg Documented By: JONATHAN Azithromycin 500 mg/ Sodium (Chloride) 250 mls @ 125 mls/hr IV Q24H [facility] Last Admin: 01/18/25 15:56 Dose: 125 mls/hr Documented By: JEFFREY Magnesium Hydroxide (Milk Of Magnesia 30 Ml Oral.Susp) 30 ml PO DAILY PRN PRN Reason: Constipation Melatonin (Melatonin 3 Mg Tablet) 6 mg PO BEDTIME PRN PRN Reason: Insomnia Ondansetron HCl (Ondansetron Hcl 4 Mg/2 Ml Vial) 4 mg IVPUSH Q8H PRN PRN Reason: Nausea and Vomiting Polyethylene Glycol (Polyethylene Glycol 3350 17 Gm Powd.Pack) 17 gm PO DAILY [facility] Last Admin: 01/18/25 08:49 Dose: 17 gm Documented By: JEFFREY Senna (Sennosides 8.6 Mg Tablet) 17.2 mg PO BEDTIME [facility] Last Admin: 01/17/25 21:22 Dose: 17.2 mg Documented By: JONATHAN Sodium Chloride (0.9 % Sodium Chloride Flush 3 Ml Syringe) 3 ml IVFLUSH QSHIFT [facility] Last Admin: 01/18/25 15:56 Dose: 3 ml Documented By: JEFFREY Labs 01/18/25 04:56 01/18/25 04:56 Labs: Laboratory Results - last 24 hr 01/17/25 01/17/25 01/18/25 18:46 21:54 04:56 MCV 86.6 MCH 27.6 MCHC 31.9 RDW 15.3 Plt Count 219 MPV 9.6 Immature Gran % (Auto) 0.7 H Neut % (Auto) 75.6 H Lymph % (Auto) 7.[address] [place] % (Auto) 12.7 H Eos % (Auto) 3.1 Baso % (Auto) 0.4 Lymph # (Auto) 0.[address] # (Auto) 1.1 Eos # (Auto) 0.3 Baso # (Auto) 0.0 Abs Immat Gran (auto) 0.06 H Absolute Neuts (auto) 6.7 Absolute Nucleated RBC 0.000 Nucleated RBC % (auto) 0.0 O2 Saturation 89.0 ABG pH at Pt Temp 7.36 ABG pCO2 at Pt Temp 50 H ABG pO2 at Pt Temp 63 L ABG HCO3 28 H ABG Base Excess (Actual) 2.0 Anion Gap 13 Estim Creat Clear Calc 49.3 Estimated GFR > 60 Random Glucose 90 Calcium 11.2 H Urine Color Yellow Urine Appearance Clear Urine pH 5.5 Ur Specific [place] >= 1.030 H Urine Protein Negative Urine Glucose (UA) >=1000 H Urine Ketones Negative Urine Blood Negative Urine Nitrite Negative Ur Leukocyte Esterase Small (1+) H Urine RBC 0-2 Urine WBC 11-20 H Ur Squamous Epith Cells 0-2 Urine Bacteria None Seen Hyaline Casts 0-2 Microbiology Microbiology Results: Microbiology 01/17/25 14:59 Blood Culture - Preliminary Blood - Venous No growth after 24 hours. 01/17/25 14:22 Blood Culture - Preliminary Blood - Venous No growth after 24 hours. 01/17/25 Unknown Urine Culture - Preliminary Urine clean catch - Clean Catch Midstream No growth to date. Assessment and Plan (1) Metastatic renal cell carcinoma to lung: Status: Acute (2) Diabetes 1.5, managed as type 2: Status: Acute Plan Pt is a 74 yo male with PMH renal carcinoma with Metastases to the lungs (currently following with [facility] and recently stopped chemotherapy and was admitted to hospice), DMII, HTN, Tobacco depednece with current cessation, marijuana use, HLD, CHF, BPH presents to the emergency room via ambulance for noted hypotension and hypoxia. CT notes evidence of advancing metastatic disease, primary source renal cancer. Patient is now dependent on 6 L oxygen at home and recently stopped treatment with his oncologist at [facility]. Right PleurX catheter is in place as of yesterday. Patient does have a moderate right pleural effusion and pneumonia. Confirmed with son and pt that pt is full code status. 1.Advanced metastatic renal ca to lung -oncologist has stopped treatment; patient and son requesting hospice and transfer home Discussed with son; patient will be made DNR/DNI 2. Right middle lobe infiltrate -Continuing Ceftriaxone and Azithromycin -re-evaluate in a.m. 3. Metastatic renal cell carcinoma -discussed with son; DNR DNI -hospice consult in a.m. Edy DNR DNI Patient requires ongoing hospitalization to initiate hospice consult and assist patient with transitioning to home Quality Stroke Does the patient have a stroke diagnosis?: No Reason for No Anti-thrombotic by Day Two: N/A - Med Ordered VTE Prior VTE?: No VTE Risk Level:: Medical - moderate - high VTE Device Contraindication: N/A - Device Ordered VTE Drug Contraindication: N/A - Med Ordered
[2025-01-19] VITALS (12 sets, daily range): BP systolic 113–126; BP diastolic 56–63; PULSE 87–106; RESP 16–22; TEMP 36.1–36.9; O2SAT 88–95; BMI 24.0
--- NOTE | 2025-01-19 08:04 | P.CDIM_ITS ---
PROVIDER RESPONSE TEXT: To clarify, the appropriate diagnosis supported by the clinical indicators: Acute hypoxic respiratory failure QUERY TEXT: PHYSICIAN'S DOCUMENTATION REQUEST Date of Query: 01/19/2025 07:47 AM EDT Patient Name: Sukhjinder Doe Admit Date: 01/18/2025 Dear Obinna Larson DO, A review of the medical record indicates additional documentation may be needed. Please review below and update the documentation accordingly. Clinical Indicators: H&P dated 01/18/25 - Acute hypoxic respiratory failure Patient dependent on 6 L oxygen at home. Short of breath on high-flow NC. Pulse ox 89 RR 22 Lung cancer with worsening changes consistent with metastatic disease and increase in size and number of pulmonary masses. If possible, please further clarify the type and acuity of respiratory failure: Acute on chronic hypoxic respiratory failure possible, suspected, probable, cannot rule out Acute hypoxic respiratory failure Other (explain) Clinically unable to determine (explain) Thank you, Laverne Rich, CCS, CDIS Use of terms such as suspected, likely, concern for, or probable (associated with a specific diagnosis that is being evaluated, monitored, or treated as if it exists) are acceptable and can be coded in the inpatient setting, when documented at the time of discharge. Please use your independent medical judgment in providing your response. THIS QUERY IS PART OF THE PERMANENT MEDICAL RECORD
[2025-01-19] MEDS: 0.9 % Sodium Chloride Flush 3 ML SYRINGE IVFLUSH ×3 (09:24→21:05)
--- NOTE | 2025-01-19 15:01 | HO.PM.IMPN ---
Subjective Subjective Date of Service: 01/19/25 Interval History: Attempting to wean high flow O2 off to mask. Appears comfortable Physical Exam Vital Signs: Vital Signs: Last Vital Signs Temp 98.1 F 01/19/25 11:12 Pulse 94 01/19/25 11:12 Resp 18 01/19/25 11:27 BP 123/63 01/19/25 11:12 Pulse Ox 95 01/19/25 11:12 O2 Del Method High Flow Nasal C annula 01/19/25 11:12 O2 Flow Rate 45 01/19/25 11:12 FiO2 50 01/19/25 11:12 Oxygen Flow Rate 5 01/17/25 14:01 BMI result Body Mass Index 24.0 Const: Other: Somnolent but arousable Resp: Other: Diminished at bases but clear Cardio: Other: No S4; positive S1-S2; no S3 murmurs rubs or gallops GI: Other: Soft nontender nondistended normoactive bowel sounds Extrem: Other: No edema bilaterally Objective Data Active Medications Acetaminophen (Acetaminophen 325 Mg Tablet) 650 mg PO Q6H PRN PRN Reason: Pain, Mild 1-3,fever,headache Last Admin: 01/18/25 23:10 Dose: 650 mg Documented By: NICK Albuterol/Ipratropium (Albuterol/Iprat 2.5/0.5mg 3 Ml Ampul.Neb) 3 ml INHALE Q4H PRN PRN Reason: Shortness of Breath/Wheezing Budesonide (Budesonide 0.5 Mg/2 Ml Ampul.Neb) 0.5 mg INHALE RBID [facility] Last Admin: 01/19/25 08:50 Dose: 0.5 mg Documented By: CHRISTINA Calcium Carbonate (Calcium Carbonate 750 Mg Tab.Chew) 750 mg PO Q4H PRN PRN Reason: Heartburn Ceftriaxone Sodium (Ceftriaxone Sodium 1 Gm Vial) 1 gm IVPUSH Q24H [facility] Last Admin: 01/18/25 14:47 Dose: 1 gm Documented By: JEFFREY Enoxaparin Sodium (Enoxaparin Sodium 40 Mg/0.4 Ml Syringe) 40 mg SUBCUT Q24H [facility] Last Admin: 01/18/25 21:40 Dose: 40 mg Documented By: NICK Azithromycin 500 mg/ Sodium (Chloride) 250 mls @ 125 mls/hr IV Q24H [facility] Last Infusion: 01/18/25 18:13 Dose: Infused Documented By: JEFFREY Magnesium Hydroxide (Milk Of Magnesia 30 Ml Oral.Susp) 30 ml PO DAILY PRN PRN Reason: Constipation Melatonin (Melatonin 3 Mg Tablet) 6 mg PO BEDTIME PRN PRN Reason: Insomnia Morphine Sulfate (Morphine Sulfate 4 Mg/Ml Cartridge) 4 mg IVPUSH Q4H PRN; Protocol PRN Reason: Pain, Severe (Pain Scale 7-10) Last Admin: 01/19/25 00:13 Dose: 4 mg Documented By: NICK Ondansetron HCl (Ondansetron Hcl 4 Mg/2 Ml Vial) 4 mg IVPUSH Q8H PRN PRN Reason: Nausea and Vomiting Polyethylene Glycol (Polyethylene Glycol 3350 17 Gm Powd.Pack) 17 gm PO DAILY [facility] Last Admin: 01/19/25 09:24 Dose: 17 gm Documented By: PAUL Senna (Sennosides 8.6 Mg Tablet) 17.2 mg PO BEDTIME [facility] Last Admin: 01/18/25 21:40 Dose: 17.2 mg Documented By: NICK Sodium Biphosphate/Sodium Phosphate (Sodium Phosphate,[place]-Dibasic 133 Ml Enema) 133 ml NM ONCE PRN PRN Reason: Constipation Sodium Chloride (0.9 % Sodium Chloride Flush 3 Ml Syringe) 3 ml IVFLUSH QSHIFT [facility] Last Admin: 01/19/25 09:24 Dose: 3 ml Documented By: PAUL Labs 01/18/25 04:56 01/18/25 04:56 Microbiology Microbiology Results: Microbiology 01/17/25 Unknown Urine Culture - Final Urine clean catch - Clean Catch Midstream No growth. 01/17/25 14:59 Blood Culture - Preliminary Blood - Venous No growth after 24 hours. 01/17/25 14:22 Blood Culture - Preliminary Blood - Venous No growth after 24 hours. Assessment and Plan (1) Metastatic renal cell carcinoma to lung: Status: Acute Plan Pt is a 74 yo male with PMH renal carcinoma with Metastases to the lungs (currently following with [facility] and recently stopped chemotherapy and was admitted to hospice), DMII, HTN, Tobacco depednece with current cessation, marijuana use, HLD, CHF, BPH presents to the emergency room via ambulance for noted hypotension and hypoxia. CT notes evidence of advancing metastatic disease, primary source renal cancer. Patient is now dependent on 6 L oxygen at home and recently stopped treatment with his oncologist at [facility]. Right PleurX catheter is in place as of yesterday. Patient does have a moderate right pleural effusion and pneumonia. Confirmed with son and pt that pt is full code status. 1.Advanced metastatic renal ca to lung -oncologist has stopped treatment; patient and son requesting hospice and transfer home Discussed with son; patient will be made DNR/DNI... 2. Right middle lobe infiltrate -Continuing Ceftriaxone and Azithromycin (2) -continue to attempt to wean high flow O2 to facilitate transfer to home 3. Metastatic renal cell carcinoma -discussed with son; DNR DNI -hospice consult in a.m. Edy DNR DNI Patient requires ongoing hospitalization to initiate hospice consult and assist patient with transitioning to home Quality Stroke Does the patient have a stroke diagnosis?: No Reason for No Anti-thrombotic by Day Two: N/A - Med Ordered VTE Prior VTE?: No VTE Risk Level:: Medical - moderate - high VTE Device Contraindication: N/A - Device Ordered VTE Drug Contraindication: N/A - Med Ordered
--- NOTE | 2025-01-19 18:57 | PC.NURSE ---
P: Alteration in Comfort I: See nursing documentation and MD orders E: Pt transitioned fron HF NC to oxymask. Plant to transition home to COMPUTED TOMOGRAPHY TECHNOLOGIST/Hospice.
[2025-01-20] VITALS (8 sets, daily range): BP systolic 112–132; BP diastolic 56–66; PULSE 95–105; RESP 16–20; TEMP 36–37.4; O2SAT 88–92; BMI 23.8
[2025-01-20] MEDS: 0.9 % Sodium Chloride Flush 3 ML SYRINGE IVFLUSH ×3 (09:03→20:59)
--- NOTE | 2025-01-20 11:02 | MHC.CM.PN ---
СВЕТЛАНА spoke with [facility]Kith at [facility]: [phone], to discuss pt.'s DC. [facility] will be ready to admit pt. on 01/20/25 in the afternoon. Ambulance is booked for 4:00 machine operator picker on 01/20/25. [facility] asks that the comfort pack meds be filled at [facility] pharmacy today to go home with pt.
--- NOTE | 2025-01-20 14:41 | P.PNIM_ITS ---
Subjective Subjective Date of Service: 01/20/25 Interval History: Essentially no change overnight. O2 weaned down to 6 L Review of Systems Unable to obtain Physical Exam 2 Vital Signs: Vital Signs: Last Vital Signs Temp 98.5 F 01/20/25 12:00 Pulse 105 H 01/20/25 12:00 Resp 18 01/20/25 12:00 BP 132/63 01/20/25 12:00 Pulse Ox 88 L 01/20/25 12:00 O2 Del Method Nasal Cannula 01/20/25 12:00 O2 Flow Rate 6 01/20/25 12:00 FiO2 50 01/19/25 11:12 Oxygen Flow Rate 5 01/17/25 14:01 BMI result Body Mass Index 23.8 Const: Other: Somnolent but arousable Resp: Other: Diminished at bases but clear Cardio: Other: No S4; positive S1-S2; no S3 murmurs rubs or gallops GI: Other: Soft nontender nondistended normoactive bowel sounds Extrem: Other: No edema bilaterally Objective Data Active Medications Acetaminophen (Acetaminophen 325 Mg Tablet) 650 mg PO Q6H PRN PRN Reason: Pain, Mild 1-3,fever,headache Last Admin: 01/18/25 23:10 Dose: 650 mg Documented By: NICK Albuterol/Ipratropium (Albuterol/Iprat 2.5/0.5mg 3 Ml Ampul.Neb) 3 ml INHALE Q4H PRN PRN Reason: Shortness of Breath/Wheezing Budesonide (Budesonide 0.5 Mg/2 Ml Ampul.Neb) 0.5 mg INHALE RBID [facility] Last Admin: 01/20/25 07:40 Dose: 0.5 mg Documented By: ZULEYMA Calcium Carbonate (Calcium Carbonate 750 Mg Tab.Chew) 750 mg PO Q4H PRN PRN Reason: Heartburn Ceftriaxone Sodium (Ceftriaxone Sodium 1 Gm Vial) 1 gm IVPUSH Q24H [facility] Last Admin: 01/19/25 15:14 Dose: 1 gm Documented By: PAUL Enoxaparin Sodium (Enoxaparin Sodium 40 Mg/0.4 Ml Syringe) 40 mg SUBCUT Q24H [facility] Last Admin: 01/19/25 21:04 Dose: 40 mg Documented By: RACHAEL Azithromycin 500 mg/ Sodium (Chloride) 250 mls @ 125 mls/hr IV Q24H [facility] Last Infusion: 01/19/25 17:21 Dose: Infused Documented By: PAUL Magnesium Hydroxide (Milk Of Magnesia 30 Ml Oral.Susp) 30 ml PO DAILY PRN PRN Reason: Constipation Melatonin (Melatonin 3 Mg Tablet) 6 mg PO BEDTIME PRN PRN Reason: Insomnia Morphine Sulfate (Morphine Sulfate 4 Mg/Ml Cartridge) 4 mg IVPUSH Q4H PRN; Protocol PRN Reason: Pain, Severe (Pain Scale 7-10) Last Admin: 01/19/25 21:03 Dose: 4 mg Documented By: RACHAEL Ondansetron HCl (Ondansetron Hcl 4 Mg/2 Ml Vial) 4 mg IVPUSH Q8H PRN PRN Reason: Nausea and Vomiting Last Admin: 01/19/25 15:15 Dose: 4 mg Documented By: PAUL Polyethylene Glycol (Polyethylene Glycol 3350 17 Gm Powd.Pack) 17 gm PO DAILY [facility] Last Admin: 01/20/25 09:02 Dose: 17 gm Documented By: YNES Senna (Sennosides 8.6 Mg Tablet) 17.2 mg PO BEDTIME [facility] Last Admin: 01/19/25 21:03 Dose: 17.2 mg Documented By: RACHAEL Sodium Biphosphate/Sodium Phosphate (Sodium Phosphate,Olmsted-Dibasic 133 Ml Enema) 133 ml AK ONCE PRN PRN Reason: Constipation Last Admin: 01/19/25 15:14 Dose: 133 ml Documented By: PAUL Sodium Chloride (0.9 % Sodium Chloride Flush 3 Ml Syringe) 3 ml IVFLUSH QSHIFT [facility] Last Admin: 01/20/25 09:03 Dose: 3 ml Documented By: YNES Labs 01/18/25 04:56 01/18/25 04:56 Microbiology Microbiology Results: Microbiology 01/17/25 14:59 Blood Culture - Preliminary Blood - Venous No growth after 48 hours. 01/17/25 14:22 Blood Culture - Preliminary Blood - Venous No growth after 48 hours. 01/17/25 Unknown Urine Culture - Final Urine clean catch - Clean Catch Midstream No growth. Assessment and Plan (1) Metastatic renal cell carcinoma to lung: Status: Acute Plan Pt is a 74 yo male with PMH renal carcinoma with Metastases to the lungs (currently following with [facility] On[facility] and recently stopped chemotherapy and was admitted to hospice), DMII, HTN, Tobacco depednece with current cessation, marijuana use, HLD, CHF, BPH presents to the emergency room via ambulance for noted hypotension and hypoxia. CT notes evidence of advancing metastatic disease, primary source renal cancer. Patient is now dependent on 6 L oxygen at home and recently stopped treatment with his oncologist at [facility]. Right PleurX catheter is in place as of yesterday. Patient does have a moderate right pleural effusion and pneumonia. Confirmed with son and pt that pt is full code status. 1.Advanced metastatic renal ca to lung -oncologist has stopped treatment; patient and son requesting hospice and transfer home Discussed with son; patient will be made DNR/DNI... -home with hospice in a.m. 2. Right middle lobe infiltrate -Continuing Ceftriaxone and Azithromycin (3) -continue to attempt to wean high flow O2 to facilitate transfer to home 3. Metastatic renal cell carcinoma -discussed with son; DNR DNI -hospice consult in a.m. Lovenox DNR DNI Patient requires ongoing hospitalization to initiate hospice consult and assist patient with transitioning to home Quality Stroke Does the patient have a stroke diagnosis?: No Reason for No Anti-thrombotic by Day Two: N/A - Med Ordered VTE Prior VTE?: No VTE Risk Level:: Medical - moderate - high VTE Device Contraindication: N/A - Device Ordered VTE Drug Contraindication: N/A - Med Ordered
--- NOTE | 2025-01-20 19:28 | PC.NURSE ---
Pt trasferred from [facility] to [address] [place] [address]. Pt oriented to room and received his dinner. R pleurex drain intact with dressing in place. Pt alert and oriented x3, denies pain, on 6L O2.
[2025-01-21 00:32] VITALS: PULSE 95; RESP 24; O2SAT 91
[2025-01-21] MEDS: Albuterol/Iprat 2.5/0.5MG 3 ML AMPUL.NEB INHALE (00:32)
[2025-01-21 02:59] VITALS: BP 128/61; PULSE 97; RESP 20; TEMP 36; O2SAT 89
[2025-01-21 06:00] VITALS: BMI 23.0
--- NOTE | 2025-01-21 06:37 | PC.NURSE ---
Around 01:00 pt displayed increased anxiety. Pt reported feeling SOB, O2 was at 78% 6 L on [place]. RT was called, O2 was increased to 11 L via [place]. RT gave an additional breathing treatment. Pt met O2 goal afterwards and reported relief.
[2025-01-21 07:17] VITALS: BP 122/59; PULSE 88; RESP 14; TEMP 36.9; O2SAT 92
[2025-01-21 07:25] VITALS: PULSE 88; RESP 14; O2SAT 89
[2025-01-21] MEDS: 0.9 % Sodium Chloride Flush 3 ML SYRINGE IVFLUSH ×2 (07:49→15:07)
--- NOTE | 2025-01-21 10:52 | MHC.CM.PN ---
eliza prebooked with [facility] for 4 called and left message for son re [facility] notified of 11 liters of 02 imfo given to md wynn scripts
[2025-01-21 11:49] VITALS: BP 116/55; PULSE 95; RESP 16; TEMP 36.6; O2SAT 92
--- NOTE | 2025-01-21 12:10 | PM.DS ---
DS: Providers Provider Date of Service: 01/21/25 Date of admission: 01/17/25 20:09 Date of discharge: 01/21/25 Primary care physician: Yang Judd MD Consults: 01/17/25 21:23 Consult to Pulmonology Routine Consulting Provider: [facility] Reason for consultation: hypoxia, Renal CA with Lung METS, pleurex R cath in ([facility]) ? loculated Has provider been notified: No DS: Diagnosis Discharge Diagnosis (1) Metastatic renal cell carcinoma to lung: Status: Acute DS: Summary Hospital Course Hospital Course: 74 yo male with PMH renal carcinoma with Metastases to the lungs (currently following with [facility] and recently stopped chemotherapy and was admitted to hospice), DMII, HTN, Tobacco depednece with current cessation, marijuana use, HLD, CHF, BPH presents to the emergency room via ambulance for noted hypotension and hypoxia. Patient has had multiple admissions recently for the same concern but patient also noted to be significantly hypoxic currently on 6 L of oxygen via nasal cannula. Patient states his medications for blood pressure have not been recently adjusted. Patient also states that [facility] where he has recurring pleural effusions. Currently CT scan notes a moderate right pleural effusion. Currently this medical writer is attempting access with PleurX canister via ICU nursing. There is suspicion that the pleural effusion may be loculated. Patient also diagnosed with pneumonia and started on antibiotics in the emergency department. Patient denies any chest pain currently, shortness of breath at rest but does have shortness of breath when he begins to speak or move his extremities. Patient denies any abdominal pain, nausea, vomiting, fever, chills, night sweats. Patient denies any recent falls. Patient does report increasing weakness especially in the lower extremities. Hospital Course Patient originally admitted to telemetry as a full code. After talking with patient, patient is requesting to go home with hospice. Seen by pulmonology initially who agrees with same. Initially needed high flow but was able to be weaned down to a tolerable amount. He has been accepted by hospice and meds has been sent to pharmacy he will be discharged home for hospice care Time Attestation Discharge Coordination Time (in mins): 35 Quality: Safe Use of Opioids Does Pt have an Active Cancer Diagnosis on the Problem List?: No Quality: Stroke Does the patient have a stroke diagnosis?: No Physical Exam Vital Signs: Vital Signs: Last Vital Signs Temp 97.8 F 01/21/25 11:49 Pulse 95 01/21/25 11:49 Resp 16 01/21/25 11:49 BP 116/55 L 01/21/25 11:49 Pulse Ox 92 01/21/25 11:49 O2 Del Method Room Air 01/21/25 11:49 O2 Flow Rate 11 01/21/25 07:17 FiO2 50 01/19/25 11:12 Oxygen Flow Rate 5 01/17/25 14:01 BMI result Body Mass Index 23.0 Const: Other: Somnolent but arousable Resp: Other: Diminished at bases but clear Cardio: Other: No S4; positive S1-S2; no S3 murmurs rubs or gallops GI: Other: Soft nontender nondistended normoactive bowel sounds Extrem: Other: No edema bilaterally DS: Data Data Completed and Pending Completed studies during hospitalization [Text1]: Procedures Resection of Left Kidney, Open Approach (11/28/20) Labs on day of discharge: Preliminary micro results at discharge 01/17/25 14:59 Blood Culture - Preliminary Blood - Venous No growth after 48 hours. 01/17/25 14:22 Blood Culture - Preliminary Blood - Venous No growth after 48 hours. Discharge Plan Discharge Anticipated Discharge Date/Time: 01/21/25 11:51 Patient Disposition: Hospice - Home Discharge Diagnosis: Right middle lobe infiltrate Referrals: [facility] [Other] - 1 Week Yang Judd MD [Primary Care Provider, Internal Medicine] - 1 Week Discharge Medications: New morphine concentrate 20 mg/mL syringe 5 mg sublingual Q1H PRN (Reason: pain) Qty: 30 0RF Rx Instructions: Partial Fill upon patient request. lorazepam [Ativan] 0.5 mg tablet 0.5 mg PO Q2H Qty: 30 0RF hyoscyamine sulfate [Levsin] 0.125 mg tablet 0.125 mg PO Q4H PRN (Reason: dyspepsia) Qty: 30 0RF cefuroxime axetil 500 mg tablet 500 mg PO BID 10 Days Qty: 20 0RF Continued finasteride 5 mg tablet 5 mg PO DAILY 90 Days Qty: 90 1RF bupropion HCl 150 mg tablet extended release 24 hr 150 mg PO DAILY Jardiance 10 mg Tablet 10 mg PO DAILY Qty: 90 0RF benzonatate 100 mg Capsule 100 mg PO TID PRN (Reason: Cough) Qty: 14 0RF albuterol sulfate 2.5 mg /3 mL (0.083 %) solution for nebulization 2.5 mg Q4H PRN (Reason: wheezing) loperamide 2 mg capsule 2 mg PO Q3H PRN (Reason: Loose Stool) ondansetron HCl 4 mg tablet 4 mg PO Q8H PRN (Reason: Nausea And Vomiting) gabapentin 300 mg capsule 300 mg PO BID metoprolol succinate 25 mg tablet extended release 24 hr 25 mg PO DAILY albuterol sulfate 90 mcg/actuation HFA aerosol inhaler 2 puff INHALATION Q6H PRN (Reason: wheezing) potassium chloride 10 mEq tablet,ER particles/crystals 10 meq PO DAILY tamsulosin 0.4 mg capsule 0.4 mg PO DAILY bumetanide 1 mg tablet 1 mg PO Q2D Protocol: Hold for SBP< HOLD for SBP < : 90 isosorbide mononitrate 30 mg tablet extended release 24 hr 30 mg PO DAILY Discharge Orders: Discharge Order (Routine); Ordered 01/21/25 Ordered By: Obinna Larson Diet: Advance to usual diet Activity on Discharge: As tolerated Stand Alone Forms: Patient Portal Discharge page Print Language: Icelandic Care Plan Goals: Meds and plans as per hospice Health Concerns: As above Plan of Treatment: As above Assessment: See discharge summary
[2025-01-21 15:06] VITALS: BP 132/64; PULSE 90; RESP 16; TEMP 36.4; O2SAT 90
--- NOTE | 2025-02-02 16:50 | P.CDIM_ITS ---
PROVIDER RESPONSE TEXT: To clarify, the appropriate diagnosis supported by the clinical indicators: Systolic: acute QUERY TEXT: PHYSICIAN'S DOCUMENTATION REQUEST Date of Query: 01/20/2025 09:13 AM EDT Patient Name: Sukhjinder Doe Admit Date: 01/18/2025 Dear Obinna Larson DO, A review of the medical record indicates additional documentation may be needed. Please review below and update the documentation accordingly. Clinical Indicators: Progress note 01/19/25 - Past medical history CHF BNP 541 K IV Lasix Patient does have moderate right pleural effusion and pneumonia. Advanced metastatic renal ca to lung. Please provide further specificity regarding the most likely type and acuity of CHF that is documented within the medical record: Systolic Please specify if Acute, Chronic, or Acute on chronic, or Unable to determine Diastolic Please specify if Acute, Chronic, or Acute on chronic, or Unable to determine Combined Systolic/Diastolic Please specify if Acute, Chronic, or Acute on chronic, or Unable to determine Other (explain) Clinically unable to determine (explain) Thank you, Laverne Rich, CCS, CDIS Use of terms such as suspected, likely, concern for, or probable (associated with a specific diagnosis that is being evaluated, monitored, or treated as if it exists) are acceptable and can be coded in the inpatient setting, when documented at the time of discharge. Please use your independent medical judgment in providing your response. THIS QUERY IS PART OF THE PERMANENT MEDICAL RECORD
--- OUTSIDE RECORDS SUMMARY | 2025-03-05 20:00 | XMS_ITS | Clinical Summary ---
Author Organization Unknown Care Team Providers Care Senior Java Engineer Name Role Phone CARMELITA SORIANO, DARCI Unavailable Unavailable COLLEEN RN, ADMISSION NURSE, MORENA Unavail able Unavailable HILARY PTSOHAIL Unavailable Unavailable Payers Payer Name Policy Type Policy Number Effective Date Expira tion Date MEDICARE - [place] - [facility] [id number] Problems Condition Name Condition Details Condition Category Status Onset Date Resolution Date Last Treatment Date Treating Clinician Comments ACUTE RESPIRATORY FAILURE WITH HYPOXIA Active 01-02 00:00: 00 Allergies, Adverse Reactions, Alerts Allergy Name Allergy Type Status Severity Reaction(s) Onset Date Inactive Date Treating Clinician Comments NKA Propensity to adverse reactions Active 2024-12 14:25:2 6 Immunizations Ordered Immunization Name Filled Immunization Name Date Status Comments Refusal Reason INFLUENZA, TIV (INACTIVATED) 2024-03-01 00:00:00 Vital Signs Vital Name Observation Time Observation Value Commen ts Temperature 2025-01-13 13:10:00.000 97.9 [degF] Temperature 2025-01-11 11:49:00.000 96.6 [degF] Temperature 2025-01-11 10:38:00.000 98.5 [degF] Temperature 2025-01-06 14:33:00.000 97.3 [degF] BMI (%) 2025-01-06 14:33:00.000 23 kg/m2 Height 2025-01-06 14:33:00.000 67 [in_us] Pulse 2025-01-13 13:10:00.000 76 /min Pulse 2025-01-11 11:49:00.000 78 /min Pulse 2025-01-11 10:38:00.000 80 /min Pulse 2025-01-06 14:33:00.000 73 /min O2 Saturation (%) 2025-01-13 13:10:00.000 95 % O2 Saturation (%) 2025-01-11 11:49:00.000 90 % O2 Saturation (%) 2025-01-11 10:38:00.000 89 % O2 Saturation (%) 2025-01-06 14:33:00.000 91 % Respirations 2025-01-13 13:14:00.000 20 /min Respirations 2025-01-11 11:49:00.000 16 /min Respirations 2025-01-11 10:38:00.000 18 /min Respirations 2025-01-06 14:33:00.000 16 /min Weight (lbs) 2025-01-13 13:16:00.000 143 [lb_av] Weight (lbs) 2025-01-06 14:33:00.000 150 [lb_av] Systolic Blood Pressure 2025-01-13 13:10:00.000 116 mm [Hg] Systolic Blood Pressure 2025-01-11 11:49:00.000 110 mm [Hg] Systolic Blood Pressure 2025-01-11 10:38:00.000 102 mm [Hg] Systolic Blood Pressure 2025-01-06 14:33:00.000 100 mm [Hg] Diastolic Blood Pressure 2025-01-13 13:10:00.000 52 mm [Hg] Diastolic Blood Pressure 2025-01-11 11:49:00.000 52 mm [Hg] Diastolic Blood Pressure 2025-01-11 10:38:00.000 58 mm [Hg] Diastolic Blood Pressure 2025-01-06 14:33:00.000 56 mm [Hg] Plan of Treatment Planned Activity Planned Date Details Comments Future Scheduled Test SKILLED NU RSE TO EVALUATE PATIENT, IDENTIFY PRIMARY AND CO-MORBID CONDITIONS CODED PER CODING GUIDELINES, AND DEVELOP PATIENT SPECIFIC PLAN OF CARE THAT INCLUDES PATIENT GOAL FOR HOME HEALTH. [code = SKILLED NURSE TO EVALUATE PATIENT, IDENTIFY PRIMARY AND CO-MORBID CONDITIONS CODED PER CODING GUIDELINES, AND DEVELOP PATIENT SPECIFIC PLAN OF CARE THAT INCLUDES PATIENT GOAL FOR HOME HEALTH.] Future Scheduled Test SKILLED NU RSE TO REVIEW PATIENT MEDICATIONS (PRESCRIPTION/OTC). INSTRUCT PATIENT/CAREGIVER ON ALL MEDICATIONS INCLUDING PURPOSE, WHEN TO TAKE, IMPORTANCE OF MEDICATION ADHERENCE, MONITORING OF EFFECTIVENESS, ADVERSE DRUG REACTIONS, POSSIBLE SIDE EFFECTS, AND WHEN TO NOTIFY AGENCY OR PHYSICIAN/PROVIDER OF ANY CONCERNS. [code = SKILLED NURSE TO REVIEW PATIENT MEDICATIONS (PRESCRIPTION/OTC). INSTRUCT PATIENT/CAREGIVER ON ALL MEDICATIONS INCLUDING PURPOSE, WHEN TO TAKE, IMPORTANCE OF MEDICATION ADHERENCE, MONITORING OF EFFECTIVENESS, ADVERSE DRUG REACTIONS, POSSIBLE SIDE EFFECTS, AND WHEN TO NOTIFY AGENCY OR PHYSICIAN/PROVIDER OF ANY CONCERNS.] Future Scheduled Test PATIENT SMART S A RISK OF HOSPITALIZATION AND ED USE. SKILLED NURSE TO ESTABLISH SUPPORT MEASURES TO MINIMIZE RISK OF HOSPITALIZATION AND ED USE, AND INSTRUCT PATIENT/CAREGIVER ON METHODS TO REDUCE AVOIDABLE HOSPITALIZATION AND ED USE. [code = PATIENT HAS A RISK OF HOSPITALIZATION AND ED USE. SKILLED NURSE TO ESTABLISH SUPPORT MEASURES TO MINIMIZE RISK OF HOSPITALIZATION AND ED USE, AND INSTRUCT PATIENT/CAREGIVER ON METHODS TO REDUCE AVOIDABLE HOSPITALIZATION AND ED USE.] Future Scheduled Test SKILLED NU RSE TO PROVIDE INSTRUCTION TO PATIENT/CAREGIVER RELATED TO DISCHARGE PLANNING. [code = SKILLED NURSE TO PROVIDE INSTRUCTION TO PATIENT/CAREGIVER RELATED TO DISCHARGE PLANNING.] Future Scheduled Test SKILLED NU RSE TO PERFORM ENVIRONMENTAL SAFETY RISK ASSESSMENT AND FALL RISK ASSESSMENT AND PROVIDE INSTRUCTION TO IMPLEMENT ENVIRONMENTAL SAFETY AND FALL PREVENTION STRATEGIES THROUGHOUT THE CERTIFICATION PERIOD. SKILLED NURSE WILL MAINTAIN SITUATIONAL AWARENESS AND WILL NOTIFY CLINICAL PILOT PLANT OPERATOR AND PHYSICIAN/PROVIDER WITH ANY CHANGE IN CONDITION. [code = SKILLED NURSE TO PERFORM ENVIRONMENTAL SAFETY RISK ASSESSMENT AND FALL RISK ASSESSMENT AND PROVIDE INSTRUCTION TO IMPLEMENT ENVIRONMENTAL SAFETY AND FALL PREVENTION STRATEGIES THROUGHOUT THE CERTIFICATION PERIOD. SKILLED NURSE WILL MAINTAIN SITUATIONAL AWARENESS AND WILL NOTIFY CLINICAL PILOT PLANT OPERATOR AND PHYSICIAN/PROVIDER WITH ANY CHANGE IN CONDITION.] Future Scheduled Test SKILLED NU RSE FOR OBSERVATION AND ASSESSMENT OF PATIENTS PAIN LEVEL AND EFFECTIVENESS OF PAIN MANAGEMENT REGIMEN. SKILLED NURSE TO INSTRUCT PATIENT/CAREGIVER REGARDING PHARMACOLOGIC AND NON-PHARMACOLOGIC PAIN CONTROL MEASURES. SKILLED NURSE TO REPORT TO PHYSICIAN IF PAIN LEVEL IS OUTSIDE OF ESTABLISHED PARAMETERS. [code = SKILLED NURSE FOR OBSERVATION AND ASSESSMENT OF PATIENTS PAIN LEVEL AND EFFECTIVENESS OF PAIN MANAGEMENT REGIMEN. SKILLED NURSE TO INSTRUCT PATIENT/CAREGIVER REGARDING PHARMACOLOGIC AND NON-PHARMACOLOGIC PAIN CONTROL MEASURES. SKILLED NURSE TO REPORT TO PHYSICIAN IF PAIN LEVEL IS OUTSIDE OF ESTABLISHED PARAMETERS.] Future Scheduled Test SKILLED NU RSE TO ASSESS PATIENT'S SKIN INTEGRITY AND INSTRUCT PATIENT/CAREGIVER ON MEASURES TO PREVENT PRESSURE ULCERS. [code = SKILLED NURSE TO ASSESS PATIENT'S SKIN INTEGRITY AND INSTRUCT PATIENT/CAREGIVER ON MEASURES TO PREVENT PRESSURE ULCERS.] Future Scheduled Test OXYGEN VIA NC AT 5L AT REST AND 6L WITH EXERTION CONTINUOUS. SKILLED NURSE FOR O/A AND SKILLED TEACHING OF SAFE OXYGEN USE IN THE HOME. [code = OXYGEN VIA NC AT 5L AT REST AND 6L WITH EXERTION CONTINUOUS. SKILLED NURSE FOR O/A AND SKILLED TEACHING OF SAFE OXYGEN USE IN THE HOME.] Future Scheduled Test SKILLED NU RSE TO INSTRUCT PATIENT/CAREGIVER ON COPD TO INCLUDE TEACHING AND SELF-MANAGEMENT RELATED TO COPD DISEASE PROCESS, SIGNS AND SYMPTOMS, AND COMPLICATIONS. [code = SKILLED NURSE TO INSTRUCT PATIENT/CAREGIVER ON COPD TO INCLUDE TEACHING AND SELF-MANAGEMENT RELATED TO COPD DISEASE PROCESS, SIGNS AND SYMPTOMS, AND COMPLICATIONS.] Future Scheduled Test SKILLED NU RSE FOR O/A OF RESPIRATORY SYSTEM TO IDENTIFY CHANGES ASSOCIATED WITH EXACERBATION AND TO PROVIDE SKILLED TEACHING ON MANAGEMENT OF ACUTE RESPIRATORY FAILURE WITH HYPOXIA [code = SKILLED NURSE FOR O/A OF RESPIRATORY SYSTEM TO IDENTIFY CHANGES ASSOCIATED WITH EXACERBATION AND TO PROVIDE SKILLED TEACHING ON MANAGEMENT OF ACUTE RESPIRATORY FAILURE WITH HYPOXIA ] Future Scheduled Test SKILLED NU RSE FOR O/A AND TEACHING OF DIABETIC MANAGEMENT INCLUDING BLOOD SUGAR MONITORING/USE OF GLUCOMETER, DIABETIC DIET, LOWER EXTREMITY SKIN INSPECTION, PROPER SKIN/FOOT CARE, AND SIGNS AND SYMPTOMS HYPO/HYPERGLYCEMIA TO REPORT. [code = SKILLED NURSE FOR O/A AND TEACHING OF DIABETIC MANAGEMENT INCLUDING BLOOD SUGAR MONITORING/USE OF GLUCOMETER, DIABETIC DIET, LOWER EXTREMITY SKIN INSPECTION, PROPER SKIN/FOOT CARE, AND SIGNS AND SYMPTOMS HYPO/HYPERGLYCEMIA TO REPORT.] Future Scheduled Test SKILLED NU RSE TO OBTAIN BLOOD SUGAR PRN FOR SIGNS AND SYMPTOMS OF HYPO/HYPERGLYCEMIA. IF OBTAINED BY PATIENT/CAREGIVER PRIOR TO VISIT AND PATIENT IS NOT SYMPTOMATIC, SKILLED NURSE TO RECORD READING FROM PATIENT LOG. [code = SKILLED NURSE TO OBTAIN BLOOD SUGAR PRN FOR SIGNS AND SYMPTOMS OF HYPO/HYPERGLYCEMIA. IF OBTAINED BY PATIENT/CAREGIVER PRIOR TO VISIT AND PATIENT IS NOT SYMPTOMATIC, SKILLED NURSE TO RECORD READING FROM PATIENT LOG.] Future Scheduled Test PRN VIRTUA L VISITS MAY BE PERFORMED UTILIZING TELECOMMUNICATIONS SYSTEM TO OPTIMIZE SKILLED SERVICES FURNISHED ON THE PLAN OF CARE. SKILLED NURSE TO ESTABLISH SUPPORT MEASURES TO MINIMIZE RISK OF REHOSPITALIZATION, AND INSTRUCT PATIENT/CAREGIVER ON METHODS TO REDUCE AVOIDABLE HOSPITALIZATION. [code = PRN VIRTUAL VISITS MAY BE PERFORMED UTILIZING TELECOMMUNICATIONS SYSTEM TO OPTIMIZE SKILLED SERVICES FURNISHED ON THE PLAN OF CARE. SKILLED NURSE TO ESTABLISH SUPPORT MEASURES TO MINIMIZE RISK OF REHOSPITALIZATION, AND INSTRUCT PATIENT/CAREGIVER ON METHODS TO REDUCE AVOIDABLE HOSPITALIZATION.] Future Scheduled Test PHYSICAL T HERAPIST TO EVALUATE PATIENT FOR PHYSICAL DECONDITIONING AND ENERGY CONSERVATION [code = PHYSICAL THERAPIST TO EVALUATE PATIENT FOR PHYSICAL DECONDITIONING AND ENERGY CONSERVATION ] Future Scheduled Test OCCUPATION AL THERAPIST TO EVALUATE PATIENT FOR PHYSICAL DECONDITIONING AND ENERGY CONSERVATION [code = OCCUPATIONAL THERAPIST TO EVALUATE PATIENT FOR PHYSICAL DECONDITIONING AND ENERGY CONSERVATION ] Future Scheduled Test SKILLED NU RSE TO PROVIDE ASSESSMENT AND TEACHING/REINFORCEMENT OF MANAGEMENT OF DEPRESSION INCLUDING DISEASE PROCESS, MEDICATION MANAGEMENT, COPING SKILLS AND IDENTIFY CHANGES ASSOCIATED WITH DEPRESSIVE DISORDERS FOR EARLY INTERVENTION. [code = SKILLED NURSE TO PROVIDE ASSESSMENT AND TEACHING/REINFORCEMENT OF MANAGEMENT OF DEPRESSION INCLUDING DISEASE PROCESS, MEDICATION MANAGEMENT, COPING SKILLS AND IDENTIFY CHANGES ASSOCIATED WITH DEPRESSIVE DISORDERS FOR EARLY INTERVENTION.] Future Scheduled Test SKILLED NU RSE TO ASSESS ANXIETY AND PROVIDE ASSISTANCE TO PATIENT FOR UNDERSTANDING AND MANAGEMENT OF FEELINGS. [code = SKILLED NURSE TO ASSESS ANXIETY AND PROVIDE ASSISTANCE TO PATIENT FOR UNDERSTANDING AND MANAGEMENT OF FEELINGS.] Future Scheduled Test PHYSICAL T HERAPIST TO EVALUATE PATIENT SECONDARY TO FUNCTIONAL DEFICITS/SAFETY CONCERNS. PHYSICAL THERAPIST TO ASSESS BEST PRACTICE INTERVENTIONS TO ASSIST PATIENTS TO IMPROVE OR STABILIZE MEDICAL STATUS AND PREVENT RE-HOSPITALIZATION. MEASURES INCLUDING REVIEW AND IDENTIFICATION OF CONCERNS FOR THE FOLLOWING AREAS: DRUG REGIMEN, DEPRESSION, ENVIRONMENTAL SAFETY ISSUES AND FALLS, PRESSURE ULCERS, PAIN, AND DISEASE MANAGEMENT. PHYSICAL THERAPY TO ESTABLISH /UPGRADE/DOWNGRADE THERAPEUTIC EXERCISE PROGRAM AND INSTRUCT PATIENT/CAREGIVER ON EXERCISE PRECAUTIONS WITH WRITTEN HOME PROGRAM. MAY INCLUDE PROM, AAROM, AROM, RROM APPROPRIATE TO IMPROVE FUNCTIONAL STRENGTH AND RANGE OF MOTION. PHYSICAL THERAPY TO INSTRUCT PATIENT/CAREGIVER ON GAIT TRAINING TECHNIQUES USING APPROPRIATE ASSISTIVE DEVICE, PROPER BODY MECHANICS TO IMPROVE MOBILITY, AND PREVENT INJURY OF PATIENT AND/OR CAREGIVER. PHYSICAL THERAPY TO ASSESS AND RECOMMEND HOME SAFETY ADAPTATIONS AND EDUCATE PATIENT /CAREGIVER ON FALL PREVENTION STRATEGIES. PHYSICAL THERAPY FOR OBSERVATION AND ASSESSMENT OF PAIN, EFFECTIVENESS OF PAIN MANAGEMENT REGIMEN AND SKILLED TEACHING RELATED TO PAIN MANAGEMENT. THERAPIST TO REPORT INCREASED PAIN LEVEL TO PHYSICIAN FOR PROMPT INTERVENTION. PHYSICAL THERAPY TO INSTRUCT PATIENT/CAREGIVER ON BALANCE AND BALANCE STRATEGIES TO IMPROVE SAFE MOBILITY AND REDUCE RISK FOR FALL AND INJURY SUMMARY OF THERAPY EVAL/ASSESSMENT FINDINGS AND REASON(S) SKILLS OF A THERAPIST ARE INDICATED: PHYSICAL THERAPY EVALUATION (01/11/25) PATIENT IS A 74 YO MALE [employer]IVE [employer] WITH PHYSICAL THERAPY REFERRAL AFTER HOSPITALIZATION ([facility] 01/02-01/05 DUE TO RIGHT PLEURAL EFFUSION ( DX: ACUTE RESPIRATORY FAILURE WITH HYPOXIA). PATIENT UNDERWENT THORACENTESIS ON 01/02 (THIS WAS 3RD HOSPITALIZATION REQUIRING THORACENTESIS), RESPIRATORY PANEL WAS NEG. IMAGING SHOWED INCREASED SIZE ON BILATERAL PULMONARY METATASES AND NEW INTRAMUSCULAR METASES IN THE RIGHT LUMBAR PARASPINOUS MUSCULATURE. PMH: RESPIRATORY FAILURE, O2 DEPENDENT, METATASTIC RENAL CELL CARCINOMA S/P LEFT NEPHRECTOMY, CAD, TOBACCO USE DISORDER, HTN,CA S/P CABG X4 , HLD, ANXIETY, DEPRESSION, INSOMNIA, PLEURAL PLAQUE, DM2, HYPERTROPHY OF PROSTATE, CKD 3, THYROID NODULE, COPD, ERECTILE DYSFUNCTION, LUNG NODULES, HOSPITAL PAPERWORK REVEALS PATIENT REPORTS CONTINUES TO SMOKE. PATIENT IS FOLLOWED BY DR FLOWER AT [facility]. PATIENT AND CG SON PEYTON REPORT PATIENT CONSIDERING OUTPATIENT THORACIC PORT, WITH PATIENT STATING MY LUNGS NEED TO FILL UP AGAIN (EITHER THIS WK OR NEXT WK), WILL BE RETURNING TO [facility]. UPCOMING APPTS: CARDIOLOGY 01/25, BALER OPERATOR, DR HANCOCK 02/28. FALL HISTORY: NO RECENT FALLS, LAST FALL MONTHS AGO. CG SON REPORTS WAS DUE TO MEDICATION. PLOF: PATIENT LIVES WITH HIS SON PEYTON IN A SINGLE STORY HOME, 2 STAIRS WITHOUT RAIL 1 THRESHOLD STEP WITHOUT RAIL TO NEGOTIATE. HOME HAS DOG AND PARROT AND IS VERY CLUTTERED. PATIENT'S SON, WHO WORKS FROM HOME, IS HIS PRIMARY CAREGIVER. CLOF: DME: O2, CANE, FWW, TRANSPORT AND STANDARD WHEELCHAIRS, CAREER TECHNICAL EDUCATION TEACHER, TUB SEAT, HANDHELD SHOWERHEAD, SPECIALTY BED SAFETY AWARENESS: ADVISED PATIENT AND CG SON PEYTON TO REMOVE CLUTTER TO MAX SAFETY IN HOME WITH AMB, RECOMMENDED PATIENT USE CANE TO AMB. EDUC ON POTENTIAL PROGRAM TECHNICIAN THRU [facility], PROVIDED PHONE NUMBER TO PATIENT'S SON PEYTON. ALSO REC[facility]MEND[facility]. PATIENT ON 5 L O2 AT REST, UP TO 6L WITH EXERTION. PATIENT REPORTS MD HAS ADVISED PATIENT THAT SPO2 89-91% IS ACCEPABLE. EDUC ON EDEMA CONTROL, INCLUDING ELEVATION AND COMPRESSION SOCKS. BILAT LE ROM WFL, BILAT LE STRENGTH 4- TO 4/5. PATIENT REPORTS 6/10 BACK PAIN AT REST, REVIEWED PAIN MGMT. PATIENT INDEP WITH BED MOBILITY. PATIENT COMPLETED SIT-->STAND FROM KITCHEN CHAIR AND EDGE OF BED INDEP. PATIENT AMB 40' IN HOME WITHOUT ASSISTIVE DEVICE, HOLDS ONTO FU PATIENT TO PARTICIPATE IN [facility] BALANCE SPECIALTY PROGRAM. THERAPIST TO REVIEW PATIENT MEDICATIONS (PRESCRIPTION/OTC). INSTRUCT PATIENT/CAREGIVER ON ALL MEDICATIONS INCLUDING PURPOSE, WHEN TO TAKE, IMPORTANCE OF MEDICATION ADHERENCE, MONITORING OF EFFECTIVENESS, ADVERSE DRUG EVENTS, POSSIBLE SIDE EFFECTS, AND WHEN TO NOTIFY AGENCY OR PHYSICIAN/PROVIDER OF ANY CONCERNS. THERAPIST TO PROVIDE FUNCTIONAL STRATEGIES/TECHNIQUES FOR MANAGING MEDICATIONS. [code = PHYSICAL THERAPIST TO EVALUATE PATIENT SECONDARY TO FUNCTIONAL DEFICITS/SAFETY CONCERNS. PHYSICAL THERAPIST TO ASSESS BEST PRACTICE INTERVENTIONS TO ASSIST PATIENTS TO IMPROVE OR STABILIZE MEDICAL STATUS AND PREVENT RE-HOSPITALIZATION. MEASURES INCLUDING REVIEW AND IDENTIFICATION OF CONCERNS FOR THE FOLLOWING AREAS: DRUG REGIMEN, DEPRESSION, ENVIRONMENTAL SAFETY ISSUES AND FALLS, PRESSURE ULCERS, PAIN, AND DISEASE MANAGEMENT. PHYSICAL THERAPY TO ESTABLISH /UPGRADE/DOWNGRADE THERAPEUTIC EXERCISE PROGRAM AND INSTRUCT PATIENT/CAREGIVER ON EXERCISE PRECAUTIONS WITH WRITTEN HOME PROGRAM. MAY INCLUDE PROM, AAROM, AROM, RROM APPROPRIATE TO IMPROVE FUNCTIONAL STRENGTH AND RANGE OF MOTION. PHYSICAL THERAPY TO INSTRUCT PATIENT/CAREGIVER ON GAIT TRAINING TECHNIQUES USING APPROPRIATE ASSISTIVE DEVICE, PROPER BODY MECHANICS TO IMPROVE MOBILITY, AND PREVENT INJURY OF PATIENT AND/OR CAREGIVER. PHYSICAL THERAPY TO ASSESS AND RECOMMEND HOME SAFETY ADAPTATIONS AND EDUCATE PATIENT /CAREGIVER ON FALL PREVENTION STRATEGIES. PHYSICAL THERAPY FOR OBSERVATION AND ASSESSMENT OF PAIN, EFFECTIVENESS OF PAIN MANAGEMENT REGIMEN AND SKILLED TEACHING RELATED TO PAIN MANAGEMENT. THERAPIST TO REPORT INCREASED PAIN LEVEL TO PHYSICIAN FOR PROMPT INTERVENTION. PHYSICAL THERAPY TO INSTRUCT PATIENT/CAREGIVER ON BALANCE AND BALANCE STRATEGIES TO IMPROVE SAFE MOBILITY AND REDUCE RISK FOR FALL AND INJURY SUMMARY OF THERAPY EVAL/ASSESSMENT FINDINGS AND REASON(S) SKILLS OF A THERAPIST ARE INDICATED: PHYSICAL THERAPY EVALUATION (01/11/25) PATIENT IS A 74 YO MALE [employer]IVE [employer] WITH PHYSICAL THERAPY REFERRAL AFTER HOSPITALIZATION ([facility] 01/02-01/05 DUE TO RIGHT PLEURAL EFFUSION (MD DX: ACUTE RESPIRATORY FAILURE WITH HYPOXIA). PATIENT UNDERWENT THORACENTESIS ON 01/02 (THIS WAS 3RD HOSPITALIZATION REQUIRING THORACENTESIS), RESPIRATORY PANEL WAS NEG. IMAGING SHOWED INCREASED SIZE ON BILATERAL PULMONARY METATASES AND NEW INTRAMUSCULAR METASES IN THE RIGHT LUMBAR PARASPINOUS MUSCULATURE. PMH: RESPIRATORY FAILURE, O2 DEPENDENT, METATASTIC RENAL CELL CARCINOMA S/P LEFT NEPHRECTOMY, CAD, TOBACCO USE DISORDER, HTN,CA S/P CABG X4 , HLD, ANXIETY, DEPRESSION, INSOMNIA, PLEURAL PLAQUE, DM2, HYPERTROPHY OF PROSTATE, CKD 3, THYROID NODULE, COPD, ERECTILE DYSFUNCTION, LUNG NODULES, HOSPITAL PAPERWORK REVEALS PATIENT REPORTS CONTINUES TO SMOKE. PATIENT IS FOLLOWED BY DR FLOWER AT [facility]. PATIENT AND CG SON PEYTON REPORT PATIENT CONSIDERING OUTPATIENT THORACIC PORT, WITH PATIENT STATING MY LUNGS NEED TO FILL UP AGAIN (EITHER THIS WK OR NEXT WK), WILL BE RETURNING TO [facility]. UPCOMING APPTS: CARDIOLOGY 01/25, BALER OPERATOR, DR HANCOCK 02/28. FALL HISTORY: NO RECENT FALLS, LAST FALL MONTHS AGO. CG SON REPORTS WAS DUE TO MEDICATION. PLOF: PATIENT LIVES WITH HIS SON PEYTON IN A SINGLE STORY HOME, 2 STAIRS WITHOUT RAIL 1 THRESHOLD STEP WITHOUT RAIL TO NEGOTIATE. HOME HAS DOG AND PARROT AND IS VERY CLUTTERED. PATIENT'S SON, WHO WORKS FROM HOME, IS HIS PRIMARY CAREGIVER. CLOF: DME: O2, CANE, FWW, TRANSPORT AND STANDARD WHEELCHAIRS, CAREER TECHNICAL EDUCATION TEACHER, TUB SEAT, HANDHELD SHOWERHEAD, SPECIALTY BED SAFETY AWARENESS: ADVISED PATIENT AND CG SON PEYTON TO REMOVE CLUTTER TO MAX SAFETY IN HOME WITH AMB, RECOMMENDED PATIENT USE CANE TO AMB. EDUC ON POTENTIAL PROGRAM TECHNICIAN THRU [facility], PROVIDED PHONE NUMBER TO PATIENT'S SON PEYTON. ALSO RECOMMENDED CONTACTING [facility] FOR SERVICES. PATIENT ON 5 L O2 AT REST, UP TO 6L WITH EXERTION. PATIENT REPORTS MD HAS ADVISED PATIENT THAT SPO2 89-91% IS ACCEPABLE. EDUC ON EDEMA CONTROL, INCLUDING ELEVATION AND COMPRESSION SOCKS. BILAT LE ROM WFL, BILAT LE STRENGTH 4- TO 4/5. PATIENT REPORTS 6/10 BACK PAIN AT REST, REVIEWED PAIN MGMT. PATIENT INDEP WITH BED MOBILITY. PATIENT COMPLETED SIT-->STAND FROM KITCHEN CHAIR AND EDGE OF BED INDEP. PATIENT AMB 40' IN HOME WITHOUT ASSISTIVE DEVICE, HOLDS ONTO FU PATIENT TO PARTICIPATE IN [facility] BALANCE SPECIALTY PROGRAM. THERAPIST TO REVIEW PATIENT MEDICATIONS (PRESCRIPTION/OTC). INSTRUCT PATIENT/CAREGIVER ON ALL MEDICATIONS INCLUDING PURPOSE, WHEN TO TAKE, IMPORTANCE OF MEDICATION ADHERENCE, MONITORING OF EFFECTIVENESS, ADVERSE DRUG EVENTS, POSSIBLE SIDE EFFECTS, AND WHEN TO NOTIFY AGENCY OR PHYSICIAN/PROVIDER OF ANY CONCERNS. THERAPIST TO PROVIDE FUNCTIONAL STRATEGIES/TECHNIQUES FOR MANAGING MEDICATIONS. ] Goal Patient Goal - STOP GOING TO THE HOSPITAL Goal Provider Goal - A PLAN OF CARE WILL BE ESTABLISHED THAT MEETS PATIENT'S PRISON NEEDS AND INCLUDES PATIENT GOAL FOR HOME HEALTH. Goal Provider Goal - PATIENT/CAREGIVER WILL VERBALIZE UNDERSTANDING OF EDUCATION PROVIDED ON MEDICATIONS BY THE END OF THE CERTIFICATION PERIOD. Goal Provider Goal - PATIENT WILL HAVE SUPPORT MEASURES ESTABLISHED TO PREVENT HOSPITALIZATION AND ED USE AND PATIENT/CAREGIVER WILL VERBALIZE/DEMONSTRATE METHODS TO REDUCE AVOIDABLE HOSPITALIZATION AND ED USE BY END OF EPISODE. Goal Provider Goal - PATIENT/CAREGIVER WILL VERBALIZE UNDERSTANDING OF DISCHARGE PLANNING INSTRUCTIONS BY DATE OF DISCHARGE. Goal Provider Goal - PATIENT/CAREGIVER WILL VERBALIZE/DEMONSTRATE EFFECTIVE ENVIRONMENTAL SAFETY AND FALL PREVENTION STRATEGIES, WILL REMAIN SAFE IN THE COMMUNITY, AND WILL BE FREE OF DANGER TO SELF AND OTHERS THROUGHOUT THE CERTIFICATION PERIOD. Goal Provider Goal - PATIENT/CAREGIVER WILL DEMONSTRATE UNDERSTANDING OF PHARMACOLOGIC AND NONPHARMACOLOGIC PAIN CONTROL MEASURES AND PATIENT WILL HAVE IMPROVEMENT IN PAIN INTERFERING WITH ACTIVITY EVIDENCED BY PAIN AT A LEVEL THAT IS ACCEPTABLE TO THE PATIENT AND PAIN LEVEL WITHIN ESTABLISHED PARAMETERS BY END OF CERTIFICATION PERIOD. Goal Provider Goal - PATIENT/CAREGIVER WILL VERBALIZE UNDERSTANDING OF PRESSURE ULCER PREVENTION BY END OF THE EPISODE. Goal Provider Goal - PATIENT/CAREGIVER WILL VERBALIZE/DEMONSTRATE UNDERSTANDING OF SAFE OXYGEN USE IN THE HOME THROUGHOUT THE EPISODE. Goal Provider Goal - PATIENT/CAREGIVER WILL VERBALIZE/DEMONSTRATE KNOWLEDGE AND MANAGEMENT OF COPD BY END OF EPISODE. Goal Provider Goal - PATIENT/CAREGIVER WILL VERBALIZE/DEMONSTRATE MANAGEMENT OF ACUTE RESPIRATORY FAILURE WITH HYPOXIA. CHANGES IN RESPIRATORY STATUS WILL BE IDENTIFIED AND REPORTED TO PHYSICIAN FOR PROMPT INTERVENTION THROUGHOUT THE CERTIFICATION PERIOD. Goal Provider Goal - PATIENT/CAREGIVER WILL VERBALIZE/DEMONSTRATE KNOWLEDGE OF DIABETIC MANAGEMENT. CHANGES IN DIABETIC STATUS WILL BE IDENTIFIED AND REPORTED TO PHYSICIAN FOR PROMPT INTERVENTION THROUGHOUT THE CERTIFICATION PERIOD. Goal Provider Goal - BLOOD SUGAR READING WILL BE OBTAINED ORDERED THROUGHOUT CERTIFICATION PERIOD. Goal Provider Goal - PATIENT/CAREGIVER WILL UTILIZE VIRTUAL VISITS TO ACHIEVE GOALS OUTLINED ON THE PLAN OF CARE. PATIENT WILL HAVE SUPPORT MEASURES ESTABLISHED TO PREVENT HOSPITALIZATION AND PATIENT/CAREGIVER WILL VERBALIZE/DEMONSTRATE METHODS TO REDUCE AVOIDABLE HOSPITALIZATION THROUGHOUT THE CERTIFICATION PERIOD. Goal Provider Goal - A PHYSICAL THERAPY EVALUATION TO BE COMPLETED WITH RECOMMENDATIONS AND/OR WRITTEN PLAN OF TREATMENT ESTABLISHED FOR PHYSICIANS SIGNATURE. Goal Provider Goal - OCCUPATIONAL THERAPY EVALUATION TO BE COMPLETED WITH RECOMMENDATIONS AND WRITTEN PLAN OF TREATMENT ESTABLISHED FOR THE PHYSICIANS SIGNATURE. Goal Provider Goal - PATIENT/CAREGIVER WILL VERBALIZE/DEMONSTRATE UNDERSTANDING OF THE MANAGEMENT OF DEPRESSION THROUGHOUT THE CERTIFICATION PERIOD AND SYMPTOMS ARE IDENTIFIED AND MANAGED TO MAINTAIN PATIENT SAFETY IN THE HOME. Goal Provider Goal - SYMPTOMS OF ANXIETY ARE IDENTIFIED AND INTERVENTIONS INITIATED TO ENABLE PATIENT TO UNDERSTAND AND MANAGE FEELINGS THROUGHOUT EPISODE. Goal Provider Goal - PHYSICAL THERAPY EVALUATION TO BE COMPLETED WITH RECOMMENDATIONS AND/OR WRITTEN TREATMENT PLAN OF CARE ESTABLISHED FOR THE PHYSICIANS SIGNATURE PATIENT/CAREGIVER VERBALIZES UNDERSTANDING OF THE INITIAL BEST PRACTICE RECOMMENDATIONS. PHYSICIAN TO BE NOTIFIED APPROPRIATE FOR ANY CHANGES OR COMPLICATIONS THROUGHOUT THE CERTIFICATION PERIOD. PATIENT/CAREGIVER WILL PERFORM THERAPEUTIC EXERCISE/S AND DEMONSTRATE PARTICIPATION IN A HOME PROGRAM. PATIENT/CAREGIVER WILL DEMONSTRATE IMPROVED GAIT TECHNIQUES TO MINIMIZE RISK OF INJURY. PATIENT/CAREGIVER WILL DEMONSTRATE/VERBALIZE UNDERSTANDING OF RECOMMENDATIONS TO INCREASE SAFETY IN THE HOME AND FALL PREVENTION. INCREASED PAIN OR INEFFECTIVE PAIN CONTROL MEASURES WILL BE IDENTIFIED AND PROMPTLY REPORTED TO THE PHYSICIAN. PATIENT/CAREGIVER WILL DEMONSTRATE EFFECTIVE PAIN MANAGEMENT. PATIENT/CAREGIVER WILL DEMONSTRATE IMPROVED BALANCE AND REDUCE THE RISK OF FALLS AND INJURY. PATIENT/CAREGIVER WILL VERBALIZE/DEMONSTRATE UTILIZATION OF TOOLS ASSOCIATED WITH THE [employer] BETTER BALANCE SPECIALTY PROGRAM. PATIENT/CAREGIVER WILL VERBALIZE/DEMONSTRATE UNDERSTANDING OF MEDICATIONS AND STRATEGIES/TECHNIQUES FOR MEDICATION MANAGEMENT BY THE END OF THE CERTIFICATION PERIOD. Progress Notes Progress Notes <paragraph>[Visit Date: 2024 by AUGUST JARAMILLO LPN]:</paragraph><paragraph>SNV 01/13 ABNORMAL VITALS: WDL FALLS: NO FALLS MEDICATION CHANGES: NONE OBSERVATION AND ASSESSMENT PROVIDED: PATIENT IS ALERT AND ORIENTED X3, SITTING AT KITCHEN TABLE, COOPERATIVE DURING VISIT. SON IS PRESENT. PATIENT WEARS NASAL CANNULA WITH O2 AT 5 L AT REST, O2 SAT 95%, VSS, LS CLEAR, DIM THROUGHOUT, NO EDEMA. NO ISSUES WITH BLADDER, OCCASIONAL CONSTIPATION MANAGED WITH OTC [employer] P.R.N, LBM 2 DAYS AGO, APPETITE ADEQUATE. EDUCATION: EMPHASIZED IMPORTANCE OF DAILY SPIROMETER USE AND PURSED LIP BREATHING EXERCISES TO IMPROVE LUNG FUNCTION, CONSTIPATION PREVENTION AND TREATMENT. INTERVENTIONS NEEDED AT NEXT VISIT: ASSESSMENT TEACHING COMMUNICATION WITH MD: Darryl NEXT MD APPOINTMENT: PLEURAL DRAIN 01/16, DR HANCOCK 02/28 PT AND CAREGIVER INSTRUCTED TO CALL [facility] WITH ANY QUESTIONS OR CONCERNS AND/OR CHANGES IN CONDITION. AUGUST JARAMILLO LPN</paragraph> <paragraph>[Visit Date: 2024 by SOHAIL RICHARD PT]:</paragraph><paragraph>PHYSICAL THERAPY EVALUATION (01/11/25) PATIENT IS A 74 YO MALE [employer]IVE [employer] WITH PHYSICAL THERAPY REFERRAL AFTER HOSPITALIZATION ([facility] 01/02-01/05 DUE TO RIGHT PLEURAL EFFUSION (MD DX: ACUTE RESPIRATORY FAILURE WITH HYPOXIA). PATIENT UNDERWENT THORACENTESIS ON 01/02 (THIS WAS 3RD HOSPITALIZATION REQUIRING THORACENTESIS), RESPIRATORY PANEL WAS NEG. IMAGING SHOWED INCREASED SIZE ON BILATERAL PULMONARY METATASES AND NEW INTRAMUSCULAR METASES IN THE RIGHT LUMBAR PARASPINOUS MUSCULATURE. PMH: RESPIRATORY FAILURE, O2 DEPENDENT, METATASTIC RENAL CELL CARCINOMA S/P LEFT NEPHRECTOMY, CAD, TOBACCO USE DISORDER, HTN,CA S/P CABG X4 , HLD, ANXIETY, DEPRESSION, INSOMNIA, PLEURAL PLAQUE, DM2, HYPERTROPHY OF PROSTATE, CKD 3, THYROID NODULE, COPD, ERECTILE DYSFUNCTION, LUNG NODULES, HOSPITAL PAPERWORK REVEALS PATIENT REPORTS CONTINUES TO SMOKE. PATIENT IS FOLLOWED BY DR FLOWER AT [facility]. PATIENT AND CG SON PEYTON REPORT PATIENT CONSIDERING OUTPATIENT THORACIC PORT, WITH PATIENT STATING MY LUNGS NEED TO FILL UP AGAIN (EITHER THIS WK OR NEXT WK), WILL BE RETURNING TO [facility]. UPCOMING APPTS: CARDIOLOGY 01/25, BALER OPERATOR, DR HANCOCK 02/28. FALL HISTORY: NO RECENT FALLS, LAST FALL MONTHS AGO. CG SON REPORTS WAS DUE TO MEDICATION. PLOF: PATIENT LIVES WITH HIS SON PEYTON IN A SINGLE STORY HOME, 2 STAIRS WITHOUT RAIL 1 THRESHOLD STEP WITHOUT RAIL TO NEGOTIATE. HOME HAS DOG AND PARROT AND IS VERY CLUTTERED. PATIENT'S SON, WHO WORKS FROM HOME, IS HIS PRIMARY CAREGIVER. CLOF: DME: O2, CANE, FWW, TRANSPORT AND STANDARD WHEELCHAIRS, CAREER TECHNICAL EDUCATION TEACHER, TUB SEAT, HANDHELD SHOWERHEAD, SPECIALTY BED SAFETY AWARENESS: ADVISED PATIENT AND CG SON PEYTON TO REMOVE CLUTTER TO MAX SAFETY IN HOME WITH AMB, RECOMMENDED PATIENT USE CANE TO AMB. EDUC ON POTENTIAL PROGRAM TECHNICIAN THRU [facility], PROVIDED PHONE NUMBER TO PATIENT'S SON PEYTON. ALSO [facility]. PATIENT ON 5 L O2 AT REST, UP TO 6L WITH EXERTION. PATIENT REPORTS MD HAS ADVISED PATIENT THAT SPO2 89-91% IS ACCEPABLE. EDUC ON EDEMA CONTROL, INCLUDING ELEVATION AND COMPRESSION SOCKS. BILAT LE ROM WFL, BILAT LE STRENGTH 4- TO 4/5. PATIENT REPORTS 6/10 BACK PAIN AT REST, REVIEWED PAIN MGMT. PATIENT INDEP WITH BED MOBILITY. PATIENT COMPLETED SIT-->STAND FROM KITCHEN CHAIR AND EDGE OF BED INDEP. PATIENT AMB 40' IN HOME WITHOUT ASSISTIVE DEVICE, HOLDS ONTO FURNITURE FOR STABILITY, REQUIRES SUPERVISION DUE TO UNSTEADY GAIT AND BALANCE, VERBAL CUES TO MANAGE O2 TUBING. PATIENT DEMO BILAT LE STEP LENGTHS WITH ADEQUATE FEET CLEARANCE. TINETTI = /, FALL RISK. RECOMMENDED PATIENT USE CANE TO AMB, HOWEVER PATIENT NOT RECEPTIVE. POST 40' AMB, SPO2 DECREASED TO 84%. AFTER EDUC PATIENT ON PURSED LIPPED BREATHING, BACK TO BASELINE 92% IN 3 MIN. PATIENT DEMO THE FOLLOWING DEFICITS: BACK PAIN (NEW INTRAMUSCULAR METASES IN THE RIGHT LUMBAR PARASPINOUS MUSCULATURE), DECREASED ENDURANCE, DECREASED BILAT LE STRENGTH, RESULTING IN DIFFICULTIES WITH AMB AND STAIR NEGOTIATION. SKILLED [facility] FREQ 1X4WKS TO ADDRESS DEFICITS, MAX SAFETY AND FUNCTIONAL LEVEL IN HOME ENVIRONMENT WITH THER EXER, ESTABLISH HEP, GAIT TRAINING, STAIR NEGOTIATION, EDUC ON ENERGY CONSERVATION TECHNIQUES. PATIENT AND CG SON PEYTON INFORMED ABOUT PHYSICAL THERAPY POC INCLUDING FREQ, VERBALIZED ACCEPTANCE. MD NOTIFIED ABOUT PATIENT STATUS AND POC.</paragraph> <paragraph>[Visit Date: 2024 by MORENA MACIAS RN, ADMISSION NURSE]:</paragraph><paragraph>SNV 01/11/25 1. ABNORMAL FINDINGS/SIGNIFICANT CHANGES: PATIENT REPORTS STARTING TO FEEL SHORT OF BREATH AND MAY HAVE TO GO AND GET PLEURX DRAIN SOONER THAN NEXT THURSDAY 2. CARE COORDINATION DETAILS: NONE NEEDED THIS VISIT 3. SKILLED PROCEDURE PERFORMED THIS VISIT: NONE NEEDED THIS VISIT 4. NEXT PHYSICIAN/PROVIDER APPT: ONCOLOGIST 5. PLAN/FOLLOW-UP NEEDED FOR NEXT VISIT: PHYSICAL ASSESSMENT DISEASE MANAGEMENT EDUCATION ADDRESS ABOVE APPROPRIATE IN NARRATIVE BELOW: PATIENT ALERT ORIENTATED X3 REPORTS FEELING A BIT SHORTER OF BREATH TODAY. PATIENT AND SON WHO WAS PRESENT IN THE VISIT STATED THAT PATIENT HAS AN APPOINTMENT NEXT THURSDAY FOR A PLEURX PLEURX DRAIN TO BE IN PLACE HOWEVER AND MAY HAVE TO BE EARLIER THAN NEXT THURSDAY PATIENT IS ALREADY FEELING SHORT OF BREATH. PATIENT EDUCATED ON SIGNS AND SYMPTOMS OF ANXIETY VERSUS SHORT OF BREATH PATIENT DID ADMIT THAT HE HAS BEEN THINKING MORE ABOUT HIS CANCER AND THE AFFECTS THAT IT IS STORING DUE TO HIS BODY AND MIGHT BE GETTING ANXIOUS. PATIENT EDUCATED ON PROPER GROUPS ON ND ONCOLOGIC WITH THERAPIST AND OTHER RESOURCES TO ASSIST HIM WITH HIS ANXIETY PATIENT VERBALIZED UNDERSTANDING. PATIENT AND SON WHO WAS PRESENT IN THE VISIT STATED THAT PATIENT HAS AN APPOINTMENT NEXT THURSDAY FOR A PLEURX PLEURX DRAIN TO BE IN PLACE HOWEVER MAY HAVE TO BE EARLIER THAN NEXT THURSDAY PATIENT IS ALREADY FEELING SHORT OF BREATH. PATIENT EDUCATED ON SIGNS AND SYMPTOMS OF ANXIETY VERSUS SHORT OF BREATH PATIENT DID ADMIT THAT HE HAS BEEN THINKING MORE ABOUT HIS CANCER AND THE AFFECTS THAT IT IS DOING TO HIS BODY AND MIGHT BE GETTING ANXIOUS. PATIENT EDUCATED ON GROUPS IN THE ONCOLOGIST WITH THERAPIST AND OTHER RESOURCES TO ASSIST HIM WITH HIS ANXIETY PATIENT VERBALIZED UNDERSTANDING. SN VISIT LUNG SOUNDS DIMINISHED PATIENT WITH O2 AT 4 L VIA NASAL CANNULA INCREASES WITH ACTIVITY, SKIN DRY INTACT NO OPEN AREAS OR WOUNDS, BOWEL SOUNDS X4 LAST BOWEL MOVEMENT TODAY ABDOMEN SOFT NONTENDER PATIENT REPORTS 6/10 PAIN TO BACK RIGHT LOWER EXTREMITY WITH TRACE EDEMA PATIENT EDUCATED ON USING HIS COMPRESSION STOCKINGS WELL ELEVATING LEGS AND USE OF BUMEX PATIENT VERBALIZED UNDERSTANDING. PATIENT EDUCATED ON CALLING [facility] FOR ANY CONCERNS OR CHANGE IN CONDITION WELL NEXT SN VISIT PATIENT VERBALIZED UNDERSTANDING AND AGREES WITH PLAN</paragraph> Encounters Start Date/Time End Date/Time Encounter Type Admission Type Attending [facility] Care Facility Care Department Encounter ID Discharge Date Discharge Status Discharge Condition Discharge Reason Percent Goals Met 2025-01-06 00:00:00 2025-03-06 00:00:00 Outpatient NEW ADMISSION MORENA MACIAS [facility] [id number] 23.68
== END 2025-01-21 16:01 | disposition hospice, home (50) | DRG 193 ==
LOC: HO.ED 19:36 → HO.EDOVER 21:46 → HO.IMC 01-18 19:15 → HO.S3 01-20 16:40
PROVIDERS: Emergency Medicine; Nurse Practitioner Family; Admitting Provider Student in an Organized Health Care Education/Training Program; Emergency Provider Internal Medicine; PCP Internal Medicine; Visit Provider Hospitalist
DX: J18.9 Pneumonia, unspecified organism (principal); J96.01 Acute respiratory failure with hypoxia; C64.2 Malignant neoplasm of left kidney, except renal pelvis; C78.02 Secondary malignant neoplasm of left lung; C78.01 Secondary malignant neoplasm of right lung; J90 Pleural effusion, not elsewhere classified; Z66 Do not resuscitate; I25.10 Atherosclerotic heart disease of native coronary artery without angina pectoris; Z51.5 Encounter for palliative care; Z99.81 Dependence on supplemental oxygen; Z90.5 Acquired absence of kidney; J43.9 Emphysema, unspecified; Z20.822 Contact with and (suspected) exposure to COVID-19; Z95.5 Presence of coronary angioplasty implant and graft; Z87.891 Personal history of nicotine dependence; Z79.899 Other long term (current) drug therapy
CPT/HCPCS: 36415; 36600; 71045; 71275; 80048; 80076; 81001; 82550; 82803; 83605; 83690; 83735; 83880; 84145; 84443; 84484; 85025; 86140; 87040; 87086; 87637; 93005; 99285; J0456; J0696; J1650; J1938; J2270; J2405; J7120; P9047; Q9967

== ENCOUNTER → 2025-01-17 14:02 | Outpatient (BNV) | payer MEDICARE, SELFPAY | PROVIDERS: Emergency Provider Internal Medicine; Visit Provider Internal Medicine | DX: I25.2 Old myocardial infarction (principal) | CPT/HCPCS: 93010 ==

== ENCOUNTER → 2025-01-17 14:02 | Outpatient (BNV) | payer MEDICARE, SELFPAY | PROVIDERS: Emergency Provider Emergency Medicine; Visit Provider Radiology Diagnostic Radiology | DX: R91.8 Other nonspecific abnormal finding of lung field (principal); Z97.8 Presence of other specified devices | CPT/HCPCS: 71045 ==

== ENCOUNTER → 2025-01-17 20:09 | Outpatient (BNV) | payer MEDICARE, SELFPAY | PROVIDERS: Admitting Provider Student in an Organized Health Care Education/Training Program; Emergency Provider Internal Medicine; Visit Provider Internal Medicine Pulmonary Disease | DX: C78.00 Secondary malignant neoplasm of unspecified lung (principal); C64.9 Malignant neoplasm of unspecified kidney, except renal pelvis; J96.01 Acute respiratory failure with hypoxia | CPT/HCPCS: 99223 ==

== ENCOUNTER → 2025-01-17 20:09 | Outpatient (BNV) | payer MEDICARE, SELFPAY | PROVIDERS: Admitting Provider Student in an Organized Health Care Education/Training Program; Emergency Provider Internal Medicine; Visit Provider Nurse Practitioner Family | DX: C78.00 Secondary malignant neoplasm of unspecified lung (principal); C64.9 Malignant neoplasm of unspecified kidney, except renal pelvis; E13.9 Other specified diabetes mellitus without complications; J18.9 Pneumonia, unspecified organism | CPT/HCPCS: 99223; 99233 ==